=== PATIENT | male | born 1955 | race Caucasian/White ===

== ENCOUNTER 2018-03-23 12:47 | Emergency (ER) | payer MEDICAID, SELFPAY ==
[2018-03-23 12:48] VITALS: BP 152/76; PULSE 82; RESP 16; TEMP 36.7; O2SAT 99; BMI 27.3
--- NOTE | 2018-03-23 13:16 | CT_ITS ---
STUDY: CT BRAIN WITHOUT CONTRAST REASON FOR EXAM: Male, 62 years old. Injury to the floor at due to a fall. No loss of consciousness. RADIATION DOSAGE (If Supplied By Facility): CTDIvol = ( 44.99 ) mGy, DLP = ( 796.11 ) mGycm TECHNIQUE: Transaxial CT imaging of the brain was performed without administration of intravenous contrast material. Individualized dose optimization techniques were used for this CT. COMPARISON: None. FINDINGS: Normal soft tissue structures. Normal calvarium. There is mild cerebral atrophy with widening of the extra-axial spaces and ventricular dilatation. Normal white matter tracts of the cerebral hemispheres. Normal basal ganglia and thalami. Normal brainstem. Normal cerebellum. There is no intracranial hemorrhage. There are no findings of an acute ischemic infarction. There is opacification of the left maxillary sinus. Partial opacification of the left ethmoid sinus. Opacification of the left frontal sinus. Nasal septal deviation towards the right side of the midline. CT/Brain/Head without Contrast IMPRESSION: Chronic involutional changes of the brain. Left maxillary, ethmoid and frontal sinusitis. Electronically Signed: Oseas Edgar MD at 15:10 EDT Tel [phone], Service support ,
--- NOTE | 2018-03-23 13:16 | CT_ITS ---
STUDY: CT CERVICAL SPINE WITHOUT CONTRAST REASON FOR EXAM: Male, 62 years old. Trauma to the forehead due to fall. RADIATION DOSAGE (If Supplied By Facility): CTDIvol = ( 24.84 ) mGy, DLP = ( 566.04 ) mGycm TECHNIQUE: High resolution transaxial imaging was performed without contrast material. Sagittal and coronal images were reconstructed. Individualized dose optimization techniques were used for this CT. COMPARISON: None FINDINGS: Normal craniovertebral junction. There are degenerative changes of the anterior atlantoaxial articulation. Normal odontoid process. There is straightening of the normal cervical lordosis. Normal vertebral bodies and posterior osseous elements. C2-3: The disc space is maintained. Hypertrophy of the right facet joint with narrowing of the right intervertebral foramen. C3-4: Moderate degree of disc space narrowing. Spondylosis. Mild degree of uncovertebral arthrosis. C4-5: Moderate degree of disc space narrowing. Uncovertebral arthrosis. Hypertrophy of the facet joints. Bilateral neural foraminal stenosis worse on the left side. C5-6: Moderate degree of disc space narrowing with spondylosis. Uncovertebral arthrosis. Mild left paracentral central canal stenosis due to posterior spondylosis. C6-7: Normal endplates. Normal disc height and morphology. Normal central canal and intervertebral neuroforamina. C7-T1: Normal endplates. Normal disc height and morphology. Normal central canal and intervertebral neuroforamina. Atherosclerotic calcification of the carotid arteries. Emphysematous changes seen in the lung apices. CT/Spine Cervical without Contras IMPRESSION: Multilevel degenerative changes, as described above. Electronically Signed: Oseas Edgar MD at 15:12 EDT Tel [phone], Service support ,
[2018-03-23 13:36] LABS: Absolute Lymphocyte Count 2.03 X10^3/ul (0.83-4.51); Absolute Neutrophil Count 4.3 X10^3/uL (2.0-7.7); Basophil# 0.02 X10^3/uL; Basophil% 0.3 % (0-1); Eosinophil# 0.09 X10^3/uL; Eosinophils% 1.3 % (0-5); Hematocrit 49.3 % (40-54); Hemoglobin 17.6 g/dl (13.0-16.5); Lymphocyte # 2.03 X10^3/ul (4.0); Lymphocyte % 28.2 % (19-41); Mean Corp Hgb Conc 35.7 g/gl (32-36); Mean Corpuscular Hgb 33.5 pg (27.0-32.0); Mean Corpuscular Volume 93.7 fL (80-94); Mean Platelet Vol. 10.3 fl (6.2-12.0); Monocyte# 0.71 X10^3/uL; Monocyte% 9.9 % (0-10); Neutrophil # 4.32 X10^3/uL (2.7-7.7); Neutrophil % 59.9 % (47-70); Platelet Count 126 K/mm3 (150-450); RBC Distribution Width CV 12.5 % (11.6-14.6); RBC Distribution Width SD 42.7 fl (35.1-43.9); Red Blood Count 5.26 M/mm3 (4.6-6.2); White Blood Count 7.2 K/mm3 (4.4-11.0)
[2018-03-23 13:37] LABS: POSITIVE COUNT NO; POSITIVE DIFFERENTIAL NO; POSITIVE MORPHOLOGY NO
--- NOTE | 2018-03-23 13:38 | CASEMGMT ---
Social Work Note Referral from bedside RN that pt has questions regarding financial concerns. Introduced self and role at [facility]. The pt reports to live alone in a home with approximately 13 entry steps. Pt works, but reports that last year he brought home maybe $10,000. Denies having ever applied for Medicaid through [facility], but that he has been told to. Offer to assist with completion of application and fax to [facility]. Pt requests assistance. Application completed and faxed to [facility]. Original provided to pt. Denies additional questions/needs and is made aware that SW is available. RN updated. Jessica William, SUPPLY CRIB ATTENDANT, ASSOCIATE TEACHER
[2018-03-23 13:46] LABS: Anion Gap 9 (5-15); BUN 9 mg/dL (7-18); BUN/Creat Ratio 12.7 RATIO (10-20); Calcium,Total 9.1 mg/dL (8.5-10.1); Chloride 105 mmol/L (98-107); Creatinine, Serum 0.71 mg/dL (0.70-1.30); EST Glomerular Filtration Rate 120 mL/min (>60); Est Glom Filt Rate - Afr Amer 145 mL/min (>60); Estimated Creatinine Clearance 112.81 ml/min; Glucose 204 mg/dL (74-106); Potassium 3.8 mmol/L (3.5-5.1); Sodium Level 137 mmol/L (136-145)
--- NOTE | 2018-03-23 14:46 | MRI_ITS ---
STUDY: MRI CERVICAL SPINE WITHOUT CONTRAST REASON FOR EXAM: Male, 62 years old. Weakness and numbness in left arm and hand TECHNIQUE: Standardized fat and water weighted pulse sequences were obtained in the sagittal and axial planes. COMPARISON: None FINDINGS: Normal foramen magnum and brainstem-cervical cord junction. Normal craniovertebral junction. Normal anterior atlantoaxial articulation. Normal odontoid process. Decreased cervical lordosis. Normal vertebral bodies and posterior osseous elements. C2-3: Normal endplates. Normal disc height, signal and morphology. Normal central canal and intervertebral neural foramina. C3-4: Narrowed disc space with endplate spurring. There is broad-based bulging disc osteophyte complex narrowing the spinal canal and mildly compressing the cord. Severe bilateral neuroforaminal stenosis secondary to bony hypertrophy.. C4-5: Narrowed disc space and endplate spurring. Moderate size broad-based central disc protrusion narrowing the spinal canal and compressing the cord. Severe bilateral neuroforaminal stenosis secondary to bony hypertrophy. C5-6: Narrowed disc space and endplate spurring.. Minor bulging disc osteophyte complex with small left posterolateral/foraminal disc/osteophyte protrusion.. There is narrowing the spinal canal and mild compression of the cord on the left. There is moderate right neuroforaminal encroachment and occlusion on the left secondary to disc and bony hypertrophy C6-7: Mild endplate spurring.. Normal disc height, signal and moderate sized left paracentral/posterolateral disc protrusion narrowing the central canal and compressing the cord on the left.. Normal intervertebral neural foramina. C7-T1: Mild endplate spurring.. Normal disc height, signal and small right paracentral/posterolateral disc protrusion. There is mild narrowing the central canal and cord compression on the right. Normal bilateral neuroforamina. There is increased intramedullary signal within the cord at C4-5 consistent with gliosis or myelomalacia likely due to chronic impingement Normal visualized soft tissue structures. MRI/Spine Cervical (Routine) IMPRESSION: No evidence for acute fracture or other significant bony pathology Advanced spondylosis and multilevel spinal stenosis secondary to disc disease and bony hypertrophy most severe at C4-5 where there is cord compression and focal myelomalacia. Findings as above Electronically Signed: Mikhail Atkinson MD at 16:30 EDT , Service support ,
--- NOTE | 2018-03-23 17:18 | ED.DCSUM_ITS ---
- ER Visit Summary Date of Service: 03/23/18 Chief Complaint: [Fall and neck injury] History of Present Illness: The patient is a 62 M [presents to the emergency department with complaint of a fall that occurred 2 days ago. Patient states that his right leg gave out which happens from time to time and he fell forward and try to catch himself with his hands however his head hit the ground. Patient states that there was no loss of consciousness but that he felt paralyzed for about an hour and really could not move his arms or legs. Patient since that time is had numbness and weakness in both arms and both legs. Patient describes decreased sensation in both hands. Patient having a harder time with dexterity specifically of the right hand. Patient still ambulatory. Patient denies any change in bowel or bladder function.] Physical Examination: [HEXOCHILT-PERRSIN, KAYLEIGHMI. Cranial nerves II through XII grossly intact. TMs clear. Mucous membranes moist. No adenopathy. Patient has some diffuse tenderness to palpation of the mid to lower C-spine. No bony step-offs noted. Cardiovascular-regular rate and rhythm without murmur or ectopy Lungs-clear to auscultation, chest wall stable without crepitus or subcu emphysema Abdomen-normoactive bowel sounds, soft, nontender, no rebound or rigidity, no peritoneal signs. Neuro exam-patient has some subtle decrease strength in both hands that I gave a 4 out of 5 strength to. Patient has decreased sensation to light touch to the right hand. Patient has subtle weakness of both lower extremities but is able to hold both legs up off the bed for count of 5. Patient is ambulatory in the department. Extremities-intact ?4, normal range of motion, normal pulses, atraumatic] Test Results: [CT scan of the brain showed chronic involutional changes nothing acute. CT scan of the cervical spine showed degenerative changes without any evidence of fracture. MRI of the cervical spine obtained showed no evidence for acute fracture or other significant bony pathology and there was advanced spondylo-cysts and multilevel spinal stenosis secondary to disc disease and bony hypertrophy most severe at C4-5 where there is cord compression and focal myelomalacia.] Emergency Department Course and Treatment: [I attempted to contact neurosurgery electronic sales and service technician Dr. Jesus who is in the operating room therefore care of patient turned over to evening physician awaiting callback from neurosurgeon to arrange follow-up and to discuss patient case.] Treatment Plan: [Pending] Disposition: [Pending] Impression: [Mechanical fall Cervical strain Central cord syndrome] This note was generated with Epiphany dictation software. It may contain incorrect words, spelling, and punctuation that were not noted in review of the chart prior to signing ED Disposition - Plan for ED Patient: Chief Complaint: Fall Referrals: Care Physician,No Primary [Primary Care Provider] -
--- NOTE | 2018-03-23 18:47 | ED.DEP ---
ED Disposition - Plan for ED Patient: Chief Complaint: Fall Instructions: Understanding Spinal Cord Injury (SCI) Referrals: Bill Jesus MD [STAFF PHYSICIAN] -
[2018-03-23 18:57] VITALS: BP 115/67; PULSE 74; RESP 16; O2SAT 97
== END 2018-03-23 18:57 | disposition home or self-care (01) ==
LOC: ED 13:48
PROVIDERS: Emergency Provider Emergency Medicine
DX: S16.1XXA Strain of muscle, fascia and tendon at neck level, initial encounter (principal); S14.129A Central cord syndrome at unspecified level of cervical spinal cord, initial encounter; W19.XXXA Unspecified fall, initial encounter; Y93.9 Activity, unspecified; Y92.9 Unspecified place or not applicable; Z90.49 Acquired absence of other specified parts of digestive tract; Z72.0 Tobacco use
CPT/HCPCS: 70450; 72125; 72141; 80048; 85025; 99283; A4216

== ENCOUNTER → 2019-02-13 10:40 | Outpatient (CLI) | payer MEDICAID, SELFPAY ==
--- NOTE | 2019-02-13 11:11 | EKG12_ITS ---
Test Reason : BASELINE EKG Blood Pressure : / mmHG Vent. Rate : 089 BPM Atrial Rate : 089 BPM P-R Int : 176 ms QRS Dur : 094 ms QT Int : 378 ms P-R-T Axes : 078 066 -36 degrees QTc Int : 459 ms Normal sinus rhythm Nonspecific ST & T Wave abnormality Abnormal ECG Confirmed by LILIA PERDOMO, CADEN ([id number]), deputy editor in chief MILA LIZ ([id number]) on 02/15/2019 1:37:39 PM Referred By: OUT DOCTOR Confirmed By:CADEN RODRIGUES MD
[2019-02-13 11:31] LABS: Absolute Lymphocyte Count 2.37 X10^3/ul (0.83-4.51); Basophil# 0.02 X10^3/uL; Basophil% 0.2 % (0-1); Eosinophils% 2.4 % (0-5); Hematocrit 50.3 % (40-54); Hemoglobin 17.9 g/dl (13.0-16.5); Lymphocyte # 2.37 X10^3/ul (4.0); Lymphocyte % 28.1 % (19-41); Mean Corp Hgb Conc 35.6 g/gl (32-36); Mean Corpuscular Hgb 33.5 pg (27.0-32.0); Mean Platelet Vol. 9.9 fl (6.2-12.0); Monocyte# 0.83 X10^3/uL; Monocyte% 9.9 % (0-10); Neutrophil # 4.97 X10^3/uL (2.7-7.7); POSITIVE COUNT NO; POSITIVE DIFFERENTIAL NO; POSITIVE MORPHOLOGY NO; Platelet Count 137 K/mm3 (150-450); RBC Distribution Width CV 12.9 % (11.6-14.6); Red Blood Count 5.35 M/mm3 (4.6-6.2); White Blood Count 8.4 K/mm3 (4.4-11.0)
[2019-02-13 12:01] LABS: Hemoglobin A1c 9.7 % (4.2-6.3)
[2019-02-13 12:04] LABS: ALB/GLOB Ratio 0.9 RATIO (0.9-2.4); AST(SGOT) 56 U/L (15-37); Alanine Aminotransfer ALT/SGPT 76 U/L (16-61); Albumin, Serum 3.6 g/dL (3.2-5.0); Alkaline Phosphatase 165 U/L (45-117); Anion Gap 7 (5-15); BUN 10 mg/dL (7-18); BUN/Creat Ratio 12.3 RATIO (10-20); Bilirubin, Direct 0.22 mg/dL (0.00-0.30); CPK Total, Creatine Kinase 92 U/L (39-308); Calcium,Total 8.9 mg/dL (8.5-10.1); Chloride 106 mmol/L (98-107); Cholesterol 200 mg/dL (200); Creatinine, Serum 0.81 mg/dL (0.70-1.30); EST Glomerular Filtration Rate 102 mL/min (>60); Est Glom Filt Rate - Afr Amer 123 mL/min (>60); Globulin 3.8 g/dL (2.2-4.2); Glucose 250 mg/dL (74-106); High Density Lipoprotein 41 mg/dL; Potassium 4.1 mmol/L (3.5-5.1); Protein, Total 7.4 g/dL (6.4-8.2); Sodium Level 137 mmol/L (136-145); Thyroid Stim Hormone (TSH) 1.73 uIU/mL (0.358-3.74); Triglycerides 238 mg/dL; Very Low Density Lipoprotein 48 mg/dL (5-40)
== END ==
DX: F19.10 Other psychoactive substance abuse, uncomplicated (principal); Z79.899 Other long term (current) drug therapy
CPT/HCPCS: 36415; 80053; 80061; 82248; 82550; 83036; 84443; 85025; 93005

== ENCOUNTER 2019-05-02 10:00 | Outpatient (RCR) | payer MEDICAID, SELFPAY | END 2019-05-24 23:59 | LOC: DC 10:00 | PROVIDERS: Visit Provider Family Medicine | DX: E11.9 Type 2 diabetes mellitus without complications (principal); Z71.3 Dietary counseling and surveillance | CPT/HCPCS: 97802; G0108 ==

== ENCOUNTER 2019-05-31 11:00 | Outpatient (RCR) | payer MEDICAID, SELFPAY | END 2019-06-24 23:59 | LOC: DC 11:00 | PROVIDERS: Visit Provider Family Medicine | DX: E11.9 Type 2 diabetes mellitus without complications (principal); Z71.3 Dietary counseling and surveillance | CPT/HCPCS: 97803; G0108 ==

== ENCOUNTER → 2019-06-15 10:41 | Outpatient (CLI) | payer MEDICAID, SELFPAY ==
[2019-06-15 12:46] LABS: AST(SGOT) 31 U/L (15-37); Alanine Aminotransfer ALT/SGPT 46 U/L (16-61); Albumin, Serum 3.9 g/dL (3.2-5.0); Alkaline Phosphatase 111 U/L (45-117); Anion Gap 7 (5-15); BUN 14 mg/dL (7-18); Calcium,Total 9.7 mg/dL (8.5-10.1); Chloride 105 mmol/L (98-107); Creatinine, Serum 0.93 mg/dL (0.70-1.30); EST Glomerular Filtration Rate 87 mL/min (>60); Est Glom Filt Rate - Afr Amer 105 mL/min (>60); Globulin 4.1 g/dL (2.2-4.2); Glucose 134 mg/dL (74-106); Potassium 4.4 mmol/L (3.5-5.1); Sodium Level 139 mmol/L (136-145)
[2019-06-15 13:31] LABS: Hepatitis B Surface Antigen Non-Reactive (Nonreactive); Hepatitis C Antibody Non-Reactive (Nonreactive)
[2019-06-15 16:09] LABS: Microalbumin:Creatinine Ratio 125.6 mg/g CRE (<30 mg/g CRE)
== END ==
PROVIDERS: Family Provider Family Medicine; PCP Family Medicine; Visit Provider Family Medicine
DX: E11.9 Type 2 diabetes mellitus without complications (principal); R74.8 Abnormal levels of other serum enzymes
CPT/HCPCS: 36415; 80053; 82043; 82570; 86803; 87340

== ENCOUNTER 2019-06-29 08:43 | Outpatient (RCR) | payer MEDICAID, SELFPAY | END 2019-07-24 23:59 | LOC: DC 08:43 | PROVIDERS: Family Provider Family Medicine; PCP Family Medicine; Visit Provider Family Medicine | DX: E11.9 Type 2 diabetes mellitus without complications (principal); Z71.3 Dietary counseling and surveillance | CPT/HCPCS: G0109 ==

== ENCOUNTER 2019-08-03 12:56 | Outpatient (RCR) | payer MEDICAID, SELFPAY | END 2019-08-24 23:59 | LOC: DC 12:56 | PROVIDERS: Family Provider Family Medicine; PCP Family Medicine; Visit Provider Family Medicine | DX: E11.9 Type 2 diabetes mellitus without complications (principal); Z71.3 Dietary counseling and surveillance | CPT/HCPCS: 97803 ==

== ENCOUNTER 2019-08-31 10:24 | Outpatient (RCR) | payer MEDICAID, SELFPAY | END 2019-09-23 23:59 | LOC: DC 10:24 | PROVIDERS: Family Provider Family Medicine; PCP Family Medicine; Visit Provider Family Medicine | DX: Z71.3 Dietary counseling and surveillance (principal); E11.9 Type 2 diabetes mellitus without complications | CPT/HCPCS: G0109 ==

== ENCOUNTER 2020-04-18 09:30 | Outpatient (RCR) | payer MEDICAID, SELFPAY | END 2020-04-18 23:59 | disposition home or self-care (01) | LOC: DC 09:30 | PROVIDERS: Family Provider Family Medicine; PCP Family Medicine; Visit Provider Family Medicine | DX: Z71.3 Dietary counseling and surveillance (principal); E11.9 Type 2 diabetes mellitus without complications | CPT/HCPCS: G0109 ==

== ENCOUNTER → 2020-06-13 11:41 | Outpatient (CLI) | payer MEDICAID, SELFPAY ==
[2020-06-13 15:42] LABS: ALB/GLOB Ratio 1.1 RATIO (0.9-2.4); AST(SGOT) 41 U/L (15-37); Alanine Aminotransfer ALT/SGPT 62 U/L (16-61); Albumin, Serum 3.8 g/dL (3.2-5.0); Alkaline Phosphatase 81 U/L (45-117); Anion Gap 5 (5-15); BUN 9 mg/dL (7-18); Calcium,Total 9.5 mg/dL (8.5-10.1); Chloride 106 mmol/L (98-107); Cholesterol 211 mg/dL (200); Creatinine, Serum 0.82 mg/dL (0.70-1.30); EST Glomerular Filtration Rate 101 mL/min (>60); Est Glom Filt Rate - Afr Amer 122 mL/min (>60); Globulin 3.5 g/dL (2.2-4.2); Glucose 119 mg/dL (74-106); High Density Lipoprotein 41 mg/dL; Protein, Total 7.3 g/dL (6.4-8.2); Sodium Level 137 mmol/L (136-145); Triglycerides 290 mg/dL; Very Low Density Lipoprotein 58 mg/dL (5-40)
[2020-06-13 18:26] LABS: Microalbumin:Creatinine Ratio 65.7 mg/g CRE (<30 mg/g CRE)
== END ==
PROVIDERS: PCP Family Medicine; Visit Provider Family Medicine
DX: E11.9 Type 2 diabetes mellitus without complications (principal)
CPT/HCPCS: 36415; 80053; 80061; 82043; 82570

== ENCOUNTER → 2020-12-12 10:58 | Outpatient (CLI) | payer MEDICARE, MEDICAID, SELFPAY ==
[2020-12-12 12:14] LABS: Absolute Lymphocyte Count 1.78 X10^3/uL (0.83-4.51); Absolute Neutrophil Count 5.2 X10^3/uL (2.0-7.7); Basophil# 0.05 X10^3/uL; Basophil% 0.6 % (0-1); Eosinophil# 0.15 X10^3/uL; Eosinophils% 1.9 % (0-5); Hemoglobin 16.5 g/dL (13.0-16.5); Lymphocyte # 1.78 X10^3/ul (4.0); Lymphocyte % 22.1 % (19-41); Mean Corp Hgb Conc 34.4 g/dL (32-36); Mean Corpuscular Hgb 32.9 pg (27.0-32.0); Mean Corpuscular Volume 95.6 fL (80-94); Mean Platelet Vol. 9.6 fl (6.2-12.0); Monocyte# 0.78 X10^3/uL; Monocyte% 9.7 % (0-10); NRBC Flagged by Analyzer 0 % (0-5); Neutrophil # 5.24 X10^3/uL (2.7-7.7); Platelet Count 174 K/mm3 (150-450); RBC Distribution Width CV 12.1 % (11.6-14.6); RBC Distribution Width SD 42.4 fl (35.1-43.9); Red Blood Count 5.02 M/mm3 (4.6-6.2); White Blood Count 8.1 K/mm3 (4.4-11.0)
[2020-12-12 12:40] LABS: ALB/GLOB Ratio 0.9 RATIO (0.9-2.4); AST(SGOT) 46 U/L (15-37); Alanine Aminotransfer ALT/SGPT 61 U/L (16-61); Albumin, Serum 3.6 g/dL (3.2-5.0); Alkaline Phosphatase 103 U/L (45-117); Anion Gap 10 (5-15); BUN 19 mg/dL (7-18); BUN/Creat Ratio 21.2 RATIO (10-20); Calcium,Total 9.8 mg/dL (8.5-10.1); Chloride 103 mmol/L (98-107); EST Glomerular Filtration Rate 91 mL/min (>60); Est Glom Filt Rate - Afr Amer 110 mL/min (>60); Globulin 3.8 g/dL (2.2-4.2); Glucose 162 mg/dL (74-106); Potassium 4.3 mmol/L (3.5-5.1); Protein, Total 7.4 g/dL (6.4-8.2); Sodium Level 136 mmol/L (136-145)
== END ==
PROVIDERS: PCP Family Medicine; Visit Provider Family Medicine
DX: E11.9 Type 2 diabetes mellitus without complications (principal); R74.8 Abnormal levels of other serum enzymes
CPT/HCPCS: 36415; 80053; 85025

== ENCOUNTER 2021-06-20 10:23 | Emergency (ER) | payer MEDICARE, SELFPAY ==
[2021-06-20 10:24] VITALS: BP 132/68; PULSE 104; RESP 18; TEMP 36.2; O2SAT 98; BMI 25.2
--- NOTE | 2021-06-20 10:45 | EKG12_ITS ---
Test Reason : DYSRYTHMIA Blood Pressure : / mmHG Vent. Rate : 087 BPM Atrial Rate : 089 BPM P-R Int : 164 ms QRS Dur : 090 ms QT Int : 364 ms P-R-T Axes : 074 051 -05 degrees QTc Int : 438 ms Normal sinus rhythm Nonspecific ST and T wave abnormality Abnormal ECG Confirmed by JOSE RAUL PERDOMO, EZEKIEL ([id number]), acquisition editor MILA LIZ ([id number]) on 06/23/2021 12:42:38 PM Referred By: JENNIFER Confirmed By:EZEKIEL BLUNT MD
--- NOTE | 2021-06-20 10:45 | ART_ITS ---
Reason For Study: Decreased pedal pulses Procedure A bilateral lower extremity continuous wave Doppler with analog waveform analysis,segmental pressures,and ankle brachial indexes without exercise. Left Segmental Pressures Left thigh = 75mmHg. The left posterior tibial artery waveforms are absent. The left dorsalis pedis waveforms are absent. The left calf waveforms are biphasic. Right Segmental Pressures Right brachial= 114mmHg. Right thigh = 116mmHg. Right calf = 92mmHg. Right posterior tibial artery = 98mmHg. Right dorsalis pedis artery = 68mmHg. Right digit = 60 mmHg. The right dorsalis pedis waveforms are biphasic. The right posterior tibial artery waveforms are biphasic. Indices The right ankle brachial index by the dorsalis pedis is 0.60. The right ankle brachial index by the posterior tibial artery is 0.86. The right digital-brachial index is 0.53. VL/Lower Ext Art Exam w/o Exercis Interpretation Summary Abnormal right lower extremity ankle-brachial indices in the range of moderatel y severe disease. The right posterior tibial and dorsalis pedis Doppler waveforms are biphasic consis tent with the same. The right digital brachial index of 0.53 is abnormal Abnormal left lower extremity noninvasive exam at rest with the inability to id entify to identify pulses in the left posterior tibial and dorsalis pedis and digital level. This is consistent with severe disease. Ordering Physician: Eric Reddy Referring Physician: Xena Arroyo Performed By: Arabella Kearney RVT
--- NOTE | 2021-06-20 10:48 | ED.RN ---
NO PEDAL PULSES TO LEFT FOOT WITH DOPPLER PER DR. SANTORO. POPLITEAL PULSES NOTED TO LEFT FOOT ON DOPPLER.
--- NOTE | 2021-06-20 10:50 | ED.VIS.LOWEX ---
HPI History of Present Illness Chief Complaint: Lower Extremity Injury Informant: patient Narrative Narrative: Patient states that he woke up Wednesday morning. He has decreased sensation and pain in his left foot. It has not changed since then. It is a stocking glove type distribution. He is able to walk. He has no other complaints. He has no history of dysrhythmia. No chest pain. No trauma. No recent bleeding complications. He has a chronically deformed right lower extremity but this is unchanged. It is his left that is affected. No notable back pain. No abdominal pain. No syncope. No history of AAA. He is a smoker. Nothing makes his symptoms better or worse. [facility] Medical History (Updated 06/20/21 @ 14:[address] Eric Reddy MD) Diabetes HTN (hypertension) Hyperlipidemia Home Medications atorvastatin 10 mg PO QHS 06/20/21 [History Last Taken Unknown] fluoxetine 20 mg PO DAILY 06/20/21 [History Last Taken Unknown] glipizide 2.5 mg PO DAILY 06/20/21 [History Last Taken Unknown] lisinopril 5 mg PO DAILY 06/20/21 [History Last Taken Unknown] metformin 1,000 mg PO BID 06/20/21 [History Last Taken Unknown] Allergy/AdvReac Type Severity Reaction Status Date / Time No Known Allergies Allergy Verified 06/20/21 10:25 Social History Smoking Status: Current some day smoker tobacco type: cigarettes ROS ROS ED Constitutional Constitutional ED: Denies fever(s), subjective or sweats Eyes Eyes: Denies blurry vision ENT ENT ED: Denies rhinorrhea or sore throat Cardiovascular Cardiovascular: Denies chest pain, palpitations or racing heartbeat Respiratory/Chest Respiratory/Chest: Denies cough or dyspnea Gastrointestinal Gastrointestinal: Denies abdominal pain, nausea or vomiting Genitourinary Genitourinary ED: Denies dysuria or hematuria Musculoskeletal Musculoskeletal: Denies back pain Integumentary Reports other Details: Slight color change to his left foot. ; Denies rash Neurologic Neurologic: Reports paresthesias; Denies weakness Endocrine Endocrinology: Denies polydipsia or polyuria Hematologic/Lymphatic Hematologic/Lymphatic: Denies easy bleeding or easy bruising Allergic/Immunologic Allergic/Immunologic ED: Denies urticaria EXAM Physical Exam Const Vital Signs: 06/20/21 10:24 06/20/21 12:23 Temperature 97.1 F L Temperature Source Temporal Pulse Rate 104 H 81 Respiratory Rate 18 16 Blood Pressure 132/68 H 114/56 L Blood Pressure Mean 89 75 Pulse Ox 98 98 Oxygen Delivery Method Room Air Room Air Positive well nourished and well developed General Appearance ED: well developed and NAD HEENT atraumatic Neck full ROM Chest Wall inspection of chest normal Resp normal respiratory effort and clear to auscultation bilaterally Cardio regular rate, regular rhythm and no murmurs GI non-tender and non-distended GI Narrative: No bruit mass or tenderness. Palpation: soft Back/Spine no CVA tenderness General Back: Negative for CVA tenderness Extremity Extremity Narrative: Right lower extremity has chronic deformity but no acute changes. Left has extremely slow capillary refill in the toes. There appears to be some very subtle duskiness of the skin from the lower third of the left sanchez on down. No palpable pulse. I get a good dopplerable pulse that is by to triphasic on the popliteal. I can get no Doppler pulse anywhere below that. I think this is a subacute arterial occlusion. Neuro oriented x3 Neuro Narrative: Patient sensation is decreased in his left foot. Sensorium / Orientation: alert and oriented to person Psych mental status grossly normal Skin Skin Narrative: Venous to the left lower extremity as above. Rashes: no rashes MDM MDM MDM Narrative Medical decision making narrative: Patient's arterial study/SUGAR were consistent with what I found at the bedside. There is really no significant pulse below popliteal. Blood work shows normal CBC. Coags are normal. Electrolytes are overall unremarkable. Glucose is only 121. Lactate is elevated consistent with some peripheral ischemia. I discussed case with Dr. Grayson who is on for vascular. However, he only occasionally comes to the hospital and is not available for acute evaluation. We also discussed case with our hospitalist here the concern is that we do not really have the immediate capabilities to manage this patient. A peripheral CTA was done that did show a poor flow on both legs. 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 I have called [facility] that has no beds. I called [facility]. They are contacting the vascular surgeon. They felt they will likely have a bed but it will be 6 shortly after dinnertime tonight. I am awaiting a call back to discuss the case directly with the vascular surgeon. I discussed the case with vascular surgeon Dr. Lara as well as with the emergency department. Patient will be transferred up there. He will go to [facility]. Patient is comfortable at this time. Lab Data Attestation: I reviewed the patient's lab results. Labs: Laboratory Results - last 24 hr 06/20/21 06/20/21 06/20/21 10:58 10:58 10:58 WBC 9.9 RBC 5.04 Hgb 16.0 Hct 47.2 MCV 93.7 MCH 31.7 MCHC 33.9 RDW Std Deviation 43.7 RDW Coeff of Deion 12.7 Plt Count 173 MPV 8.9 Immature Gran % (Auto) 0.800 Neut % (Auto) 74.6 H Lymph % (Auto) 15.0 L [place] % (Auto) 8.6 Eos % (Auto) 0.6 Baso % (Auto) 0.4 Absolute Neuts (auto) 7.3 Absolute Lymphs (auto) 1.48 Nucleated RBC % 0 PT 13.6 INR 1.1 APTT 29.5 Sodium 136 Potassium 4.3 Chloride 106 Carbon Dioxide 25.0 Anion Gap 5 BUN 14 Creatinine 0.91 Estim Creat Clear Calc 84.68 Est GFR (MDRD) Af Amer 108 Est GFR (MDRD) Non-Af 89 BUN/Creatinine Ratio 15.4 Glucose 121 H Lactic Acid Calcium 9.4 06/20/21 06/20/21 10:58 10:58 WBC RBC Hgb Hct MCV MCH MCHC RDW Std Deviation RDW Coeff of Deion Plt Count MPV Immature Gran % (Auto) Neut % (Auto) Lymph % (Auto) [place] % (Auto) Eos % (Auto) Baso % (Auto) Absolute Neuts (auto) Absolute Lymphs (auto) Nucleated RBC % PT Cancelled INR Cancelled APTT Cancelled Sodium Potassium Chloride Carbon Dioxide Anion Gap BUN Creatinine Estim Creat Clear Calc Est GFR (MDRD) Af Amer Est GFR (MDRD) Non-Af BUN/Creatinine Ratio Glucose Lactic Acid 3.0 H* Calcium Radiography Diagnostic Testing: Radiology Impression Extremity Arterial Study 06/20/21 10:45 Interpretation Summary Abnormal right lower extremity ankle-brachial indices in the range of moderately severe disease. The right posterior tibial and dorsalis pedis Doppler waveforms are biphasic consistent with the same. The right digital brachial index of 0.53 is abnormal Abnormal left lower extremity noninvasive exam at rest with the inability to identify to identify pulses in the left posterior tibial and dorsalis pedis and digital level. This is consistent with severe disease. 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 Normal runoff is visualized in the left leg distal to the popliteal artery. Occlusion of the right common femoral artery with reconstruction of the proximal portion of the popliteal artery on the right side. Electronically Signed: Oseas Edgar MD at 13:23 EDT , Service support , ADDENDUM: 06/20/21 1401 EKG Initial EKG: Comments: EKG done as part of work-up of peripheral ischemia and read by me shows sinus rhythm with overall rate of 87. I do not see any ectopy. There are mild nonspecific ST and T wave changes but no sign of infarct or ischemia. MS interval, QRS duration and QTc are normal. Discharge Plan Triage Chief Complaint: Lower Extremity Injury ED Provider: Eric Reddy Dx/Rx/DC Orders Clinical Impression: Arterial insufficiency of lower extremity Prescriptions: No Action atorvastatin 10 mg tablet 10 mg PO QHS RF: 0 glipizide 2.5 mg tablet extended release 24hr 2.5 mg PO DAILY RF: 0 metformin 1,000 mg tablet 1,000 mg PO BID RF: 0 lisinopril 5 mg tablet 5 mg PO DAILY RF: 0 fluoxetine 20 mg capsule 20 mg PO DAILY RF: 0 Primary Care Provider: Xena Arroyo Referrals: Xena Arroyo MD [Primary Care Provider] - Disposition Disposition: Acute Care Hospital Discharge Location: [facility]
[2021-06-20 11:04] LABS: Absolute Lymphocyte Count 1.48 X10^3/uL (0.83-4.51); Absolute Neutrophil Count 7.3 X10^3/uL (2.0-7.7); Basophil# 0.04 X10^3/uL; Basophil% 0.4 % (0-1); Eosinophil# 0.06 X10^3/uL; Eosinophils% 0.6 % (0-5); Hematocrit 47.2 % (40-54); Lymphocyte # 1.48 X10^3/ul (0.83-4.51); Mean Corp Hgb Conc 33.9 g/dL (32-36); Mean Corpuscular Hgb 31.7 pg (27.0-32.0); Mean Corpuscular Volume 93.7 fL (80-94); Mean Platelet Vol. 8.9 fl (6.2-12.0); Monocyte# 0.85 X10^3/uL; Monocyte% 8.6 % (0-10); NRBC Flagged by Analyzer 0 % (0-5); Neutrophil # 7.34 X10^3/uL (2.7-7.7); Neutrophil % 74.6 % (47-70); Platelet Count 173 K/mm3 (150-450); RBC Distribution Width CV 12.7 % (11.6-14.6); RBC Distribution Width SD 43.7 fl (35.1-43.9); Red Blood Count 5.04 M/mm3 (4.6-6.2); White Blood Count 9.9 K/mm3 (4.4-11.0)
[2021-06-20 11:09] VITALS: BMI 25.1
[2021-06-20] MEDS: Heparin Injection (Vial) 5,000 UNIT/ML VIAL 5000 UNIT IV (11:09)
[2021-06-20] MEDS: HEPARIN/D5w 25,000 UNITS 25,000 UNITS/250 ML IV.SOLN. 11 UNITS IV (11:11)
[2021-06-20 11:20] LABS: Anion Gap 5 (5-15); BUN 14 mg/dL (7-18); BUN/Creat Ratio 15.4 RATIO (10-20); Calcium,Total 9.4 mg/dL (8.5-10.1); Chloride 106 mmol/L (98-107); Creatinine, Serum 0.91 mg/dL (0.70-1.30); EST Glomerular Filtration Rate 89 mL/min (>60); Est Glom Filt Rate - Afr Amer 108 mL/min (>60); Estimated Creatinine Clearance 84.68 ml/min; Glucose 121 mg/dL (74-106); Potassium 4.3 mmol/L (3.5-5.1); Sodium Level 136 mmol/L (136-145)
[2021-06-20 11:24] LABS: International Normalized Ratio 1.1; Prothrombin Time (Protime)PT. 13.6 SECONDS (11.7-14.9)
[2021-06-20 11:25] LABS: Partial Thromboplast Time 29.5 Seconds (24.1-36.2)
[2021-06-20 12:23] VITALS: BP 114/56; PULSE 81; RESP 16; O2SAT 98
--- NOTE | 2021-06-20 12:25 | CT_ITS ---
STUDY: CTA OF THE ABDOMINAL AORTA AND BILATERAL LOWER EXTREMITIES REASON FOR EXAM: Male, 65 years old. Left lower extremity ischemia -- CTA abdomen pelvis with runoff for lower extremity. Patient has a right clubfoot. RADIATION DOSAGE (If Supplied By Facility): CTDIvol = ( 7.35 ) mGy, DLP = ( 1066.32 ) mGycm TECHNIQUE: Axial CT angiography multi-detector data acquisition was obtained from the dome of the liver to the ankle joints following intravenous administration of IV 100mL Isovue-370. Axial images and MIP images were reconstructed from the axial data set. Post-processing of the angiographic images was performed, with multiplanar reformation and 3D reconstruction. Individualized dose optimization techniques were used for this CT. TECHNICAL QUALITY: Good COMPARISON: None. Descriptors of Narrowing: None (0%) Mild (< 50%) Moderate (50-70%) Severe (70-90%) Subtotal/Total Occlusion (90-100%) Non-Evaluable (technically non-diagnostic FINDINGS: Minimal increased linear markings at the right lung base just above the Diffuse fatty infiltration of the liver. The patient is status post cholecystectomy. Moderate sized ventral hernia containing fat. Mild increased linear markings are seen within the herniated fat. The neck of the hernia measures 2.8 cm. Prostatic calcification. Abdominal aorta: Diffuse atherosclerotic plaque of the abdominal aorta. There is a fusiform infrarenal abdominal aortic aneurysm with a transverse dimension of 3.1 cm. There is evidence of mural thrombus more prominent in the midportion of the abdominal aorta. Celiac and superior mesenteric arteries: Mildly stenotic calcific plaques at the origin of the celiac artery and superior mesenteric artery. Inferior mesenteric artery: Not visualized. Right renal artery(arteries): Mild to moderate stenosis at the origin of the right renal artery. Left renal artery(arteries): Mild atherosclerotic plaque formation and stenosis at the origin of the left renal artery. Right common iliac artery: Marked degree of atherosclerotic plaque formation with a subtotal occlusion in the proximal portion of the right common iliac artery. Right external iliac artery: Moderate degree of atherosclerotic plaque formation. Right internal iliac artery: No demonstrated narrowing. Left common iliac artery: Atherosclerotic plaque with focal areas of stenosis worse at the origin. Left external iliac artery: Atherosclerotic plaque. Left internal iliac artery: No demonstrated narrowing. RIGHT LOWER EXTREMITY Right common femoral artery: Occluded. Right profundus femoris: No demonstrated narrowing. Right superficial femoral: Occlusion. Right popliteal artery: Reconstitution of the popliteal artery at its origin. Right tibioperoneal trunk: Unremarkable Right anterior tibial artery: Unremarkable Right posterior tibial artery: Not visualized Right peroneal artery: Not visualized LEFT LOWER EXTREMITY Left common femoral artery: Atherosclerotic plaque formation. Left profundus femoris: No demonstrated narrowing. Left superficial femoral: Scattered atherosclerotic plaques. No significant stenosis is seen. Left popliteal artery: There is evidence of a 1.8cm x 1.9 cm calcified popliteal artery aneurysm. 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 Normal runoff is visualized in the left leg distal to the popliteal artery. Occlusion of the right common femoral artery with reconstruction of the proximal portion of the popliteal artery on the right side. Electronically Signed: Oseas Edgar MD at 13:23 EDT , Service support ,
[2021-06-20 14:44] VITALS: BP 123/86; PULSE 81; RESP 16; O2SAT 98
[2021-06-20 15:01] LABS: Reflex Lactate? Y
[2021-06-20 16:00] VITALS: BP 112/76; PULSE 79; RESP 20; O2SAT 97
[2021-06-20 16:33] VITALS: BP 117/68; PULSE 79; RESP 18; O2SAT 97
[2021-06-20 16:57] LABS: Lactic Acid 1.8 mmol/L (0.4-1.9)
[2021-06-20 17:43] LABS: Partial Thromboplast Time 161.8 Seconds (24.1-36.2)
--- NOTE | 2021-06-20 17:58 | ED.RN ---
HEPARIN DRIP STOPPED AT 1745 PER PROTOCOL.
== END 2021-06-20 18:06 | disposition short-term general hospital (02) ==
PROVIDERS: Emergency Provider Emergency Medicine; PCP Family Medicine
DX: E11.51 Type 2 diabetes mellitus with diabetic peripheral angiopathy without gangrene (principal); I10 Essential (primary) hypertension; E78.5 Hyperlipidemia, unspecified; F17.210 Nicotine dependence, cigarettes, uncomplicated; Z79.84 Long term (current) use of oral hypoglycemic drugs; Z79.899 Other long term (current) drug therapy
CPT/HCPCS: 75635; 80048; 83605; 85025; 85610; 85730; 93005; 93923; 96365; 96366; 96376; 99285; Q9967; A4216

== ENCOUNTER → 2022-06-17 | Outpatient (CLI) | payer MEDICARE, SELFPAY ==
[2022-06-17 12:43] LABS: Absolute Lymphocyte Count 2.07 X10^3/uL (0.83-4.51); Absolute Neutrophil Count 5.2 X10^3/uL (2.0-7.7); Basophil# 0.05 X10^3/uL; Basophil% 0.6 % (0-1); Eosinophil# 0.19 X10^3/uL; Eosinophils% 2.3 % (0-5); Hematocrit 49.9 % (40-54); Hemoglobin 16.9 g/dL (13.0-16.5); Lymphocyte # 2.07 X10^3/ul (0.83-4.51); Lymphocyte % 24.7 % (19-41); Mean Corp Hgb Conc 33.9 g/dL (32-36); Mean Corpuscular Hgb 31.3 pg (27.0-32.0); Mean Corpuscular Volume 92.4 fL (80-94); Mean Platelet Vol. 9.3 fl (6.2-12.0); Monocyte# 0.85 X10^3/uL; Monocyte% 10.1 % (0-10); NRBC Flagged by Analyzer 0 % (0-5); Neutrophil # 5.18 X10^3/uL (2.7-7.7); Neutrophil % 61.7 % (47-70); Platelet Count 196 K/mm3 (150-450); RBC Distribution Width CV 13.2 % (11.6-14.6); RBC Distribution Width SD 44.4 fl (35.1-43.9); White Blood Count 8.4 K/mm3 (4.4-11.0)
[2022-06-17 13:35] LABS: ALB/GLOB Ratio 0.9 RATIO (0.9-2.4); AST(SGOT) 32 U/L (15-37); Alanine Aminotransfer ALT/SGPT 43 U/L (16-61); Albumin, Serum 3.7 g/dL (3.2-5.0); Alkaline Phosphatase 114 U/L (45-117); Anion Gap 6 (5-15); BUN 11 mg/dL (7-18); BUN/Creat Ratio 10.4 RATIO (10-20); Calcium,Total 9.3 mg/dL (8.5-10.1); Chloride 104 mmol/L (98-107); Cholesterol 146 mg/dL (200); Creatinine, Serum 1.06 mg/dL (0.70-1.30); EST Glomerular Filtration Rate 74 mL/min (>60); Est Glom Filt Rate - Afr Amer 90 mL/min (>60); Globulin 3.9 g/dL (2.2-4.2); Glucose 174 mg/dL (74-106); High Density Lipoprotein 47 mg/dL; Potassium 4.5 mmol/L (3.5-5.1); Protein, Total 7.6 g/dL (6.4-8.2); Sodium Level 137 mmol/L (136-145); Triglycerides 125 mg/dL; Very Low Density Lipoprotein 25 mg/dL (5-40)
[2022-06-17 13:36] LABS: Hemoglobin A1c 9.1 % (3.8-5.6)
== END | disposition home or self-care (01) ==
LOC: LAB 11:26
PROVIDERS: PCP Family Medicine; Visit Provider Family Medicine
DX: E11.9 Type 2 diabetes mellitus without complications (principal); R74.8 Abnormal levels of other serum enzymes; F32.9 Major depressive disorder, single episode, unspecified; T56.891A Toxic effect of other metals, accidental (unintentional), initial encounter
CPT/HCPCS: 36415; 80053; 80061; 82043; 82570; 83036; 85025

== ENCOUNTER 2022-12-22 13:30 | Outpatient (CLI) | payer MEDICARE, MEDICAID, SELFPAY ==
[2022-12-22] VITALS (7 sets, daily range): BP systolic 105–154; BP diastolic 60–75; PULSE 82–96; RESP 16–20; TEMP 36.3–36.8; O2SAT 96–100; BMI 26.5
[2022-12-22] MEDS: Lactated Ringers 1,000 ML 15 ML IV (09:10)
--- NOTE | 2022-12-22 09:32 | HP.PCM_ITS ---
History and Physical Date of Admission: 12/22/22 Intake Vital Signs ? 06/20/2111:09 11/24/2313:11 Height 5 ft 10 in 5 ft 10 in Weight: ? 189 lb 6 oz BMI ? 27.1 BP ? 116/86 H Blood Pressure Location ? Rt brachial Position ? Sitting Respiration ? 24 H Pulse ? 109 H Pulse Source ? Monitor Temp ? 96.8 F L Temp Source ? Temporal Pulse Oximetry (%) ? 100 Oxygen Delivery Method ? 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 Is patient in pain?: No Allergies No Known Allergies Allergy (Verified 11/24/22 14:18) Medications atorvastatin 10 mg tablet 10 mg PO QHS 06/20/21 [History Confirmed 11/24/22] fluoxetine 20 mg capsule 20 mg PO DAILY 06/20/21 [History Confirmed 11/24/22] lisinopril 5 mg tablet 5 mg PO DAILY 06/20/21 [History Confirmed 11/24/22] metformin 1,000 mg tablet 1,000 mg PO BID 06/20/21 [History Confirmed 11/24/22] glipizide 2.5 mg tablet, extended release 24 hr 5 mg PO DAILY 11/24/22 [History Confirmed 11/24/22] pioglitazone 15 mg tablet 15 mg PO DAILY 11/24/22 [History Confirmed 11/24/22] PFSH Medical History?(Updated 11/25/22 @ 09:[address] Ghulam Casey MD) Diabetes HTN (hypertension) Hyperlipidemia Social History? Smoking Status:? Current some day smoker tobacco type: cigarettes HPI HPI HPI: Patient is a 67-year-old male who with a positive Cologuard.? He has never had a colonoscopy in the past.? He denies any gross blood in his stool or abdominal pain. ROS General General: Yes fatigue; No weight change, appetite, colon cancer, breast cancer or weakness HEENT HEENT: No difficulty swallowing, eye injury, eye surgery, swollen glands or hoarseness Endo Endocrine: Yes diabetes mellitus; No thyroid disease, thyroid cancer, Hair loss, heat intolerance or cold intolerance Skin Skin: No rash or changing moles Breast Breast: No left breast lump, right breast lump, nipple discharge, breast pain, abnormal mammogram, abnormal US or breast enlargement Musc Musculoskeletal: Yes back problems and arthritis; No rheumatoid arthritis, gout or joint pain Cardio Cardiovascular: No murmur, pacemaker, heart disease, atrial fibrillation, high blood pressure, heart attack, heart stent, palpitations, shortness of breat with exertion or chest pain Psych Psychiatric: Yes depression; No anxiety or hearing voices Resp Respiratory: Yes shortness of breath, No sleep apnea, No cough, No COPD, No asthma, No emphysema and No wheezing Gastro Gastrointestinal: No abdominal pain, No nausea or vomiting, Yes diarrhea, Yes constipation, Yes blood in stool, No acid reflux, No hemorrhoids, No ulcers, No gallbladder problem and No black,tarry stools Trent Hematologic: No blood thinners, No blood disorders, No bleeding, No anemia and No blood clots Neuro Neurologic: No system reviewed and no additional complaints, except as documented, No as per HPI, No abnormal gait, No abnormal hearing, No abnormal movements, No abnormal speech, No behavioral changes, No burning sensations, No confusion, No convulsions, No disequilibrium, No dizziness, No localized weakness, No frequent falls, No headache(s), No lack of coordination, No loss of vision, No memory loss, Yes numbness, No other visual disturbances, No radicular pain, No restless legs, No sensory deficit, No syncope, Yes tingling, No tremor(s), No weakness and No other Exam Const General: cooperative Orientation: alert and oriented x3 HENMT Head: normal to inspection Neck Neck: normal visual inspection and full ROM Chest Chest palpation & inspection: normal inspection of the chest Resp Effort & Inspection: normal respiratory effort Auscultation: clear to auscultation bilaterally Cardio Rate: regular rate Rhythm: regular rhythm GI Inspection: non-distended Palpation: soft and nontender Skin General: no rashes or lesions noted Neuro General: patient alert and patient oriented x3 Extrem General: full ROM Psych Appearance: grossly normal Mental Status: mental status grossly normal Assessment and Plan Assessment and Plan (1) Positive colorectal cancer screening using Cologuard test: ?Status:?Acute ?Plan: Patient has never had a colonoscopy and requires one due to positive Cologuard. I explained endoscopy in detail to the patient.? I explained the risks including but not limited to stroke or heart attack with anesthesia, perforation of the GI tract, bleeding, infection.? I explained that any of these could necessitate further emergency surgery.? The patient understands and all questions were answered sufficiently.? The patient wishes to proceed with procedure. Ghulam Casey MD Pager: [facility] [address] [place] [address], [address] [place] [address] Office: I have examined the patient and the H&P has been reviewed. There are no clinical changes since date of exam.
--- NOTE | 2022-12-22 10:00 | COLBX_PTH ---
PATIENT: LEI VALDEZ LOC: EN U#:[id number] AGE/SX: 67/M ROOM: RE12/22/[address]: Dr. Ghulam Casey MD : 1955 BED: DIS: 12/22/2022 SPEC #: [id number] RECD: 12/22/22 15:57 STATUS: PATRIC DOS SANTOS #: [id number] LOY: 12/22/22 10:[address]: Ghulam Casey DEPT: SURGICAL PATHOLOGY RECD BY: Oliver Mitchell ENTERED: 12/23/22 12:34 SP TYPE: COLON BX OTHR DR: Dr. Xena Arroyo MD Tissues: A - Transverse colon B - Descending colon Procedures: Surgery Specimen Level IV HEADER OPERATION: Colonoscopy (MAC) PRE-OP DIAGNOSIS: Positive Cologuard test TISSUE SUBMITTED: A ? Polyp transverse colon, B ? Biopsy colon mass descending colon MICROSCOPIC DIAGNOSIS A. Polyp transverse colon, biopsy: Fragments of tubular adenoma. B. Colon mass and descending colon mass, biopsy: Fragments of villous adenoma. Negative for invasive carcinoma. See comment. LIYAH:monica 12/24/2022 COMMENT Correlation with clinical, endoscopic findings and appropriate follow up are necessary. Case has been reviewed in consultation with Dr. Mendez who concurs with the above diagnosis. IDC:AM MICROSCOPIC DESCRIPTION Slides are reviewed. GROSS DESCRIPTION A - Received in fixative is one container labeled with the patient's name and designated polyp transverse colon. The specimen consists of two irregular fragments of light dodge soft tissue that in aggregate measure 0.6 x 0.3 x 0.1 cm. The specimen is totally submitted in one cassette. B - Received in fixative is one container labeled with the patient's name and designated biopsy colon mass descending colon. The specimen consists of multiple irregular fragments of light dodge soft tissue that in aggregate measure 0.6 x 0.6 x 0.1 cm. The specimen is totally submitted in one cassette. / LIYAH:monica 12/23/2022 TC:1 CPT: 39721 x2
[2022-12-22 10:10] LABS: Bedside Glucose 172 mg/dL (74-106)
--- NOTE | 2022-12-22 10:18 | CT_ITS ---
STUDY: CT CHEST, ABDOMEN T PELVIS WITH CONTRAST REASON FOR EXAM: Male, 67 years old. Left colon mass marked with clip RADIATION DOSAGE (If Supplied By Facility): CTDIvol = ( 16.81 ) mGy, DLP = ( 1625.36 ) mGycm TECHNIQUE: Transaxial imaging was performed following intravenous administration of Oral and amp; IV Gastrografin and amp; 100mL Isovue-300. Multiplanar coronal and sagittal images were reformatted. Individualized dose optimization techniques were used for this CT. COMPARISON: No relevant priors. FINDINGS: CHEST There is a 2.2 cm spiculated mass in the anterior aspect of the left upper lobe medially as seen on axial image #54. Hyperinflation. Linear scarring in the anterior aspect of the left lower lobe as well as in the medial aspect of the right lower. Mild degree of emphysematous changes. There are calcifications of the coronary arteries. Normal mediastinum. Normal hilar regions. Normal unenhanced pulmonary arteries. There is atherosclerotic calcification of the aortic arch with tortuosity and elongation of the aortic arch and descending thoracic aorta. There are multi-level degenerative changes of the thoracic spine. ABDOMEN There is decreased attenuation of the liver consistent with steatosis. The gallbladder is contracted. Normal spleen. Normal pancreas. Normal bilateral adrenal glands. Normal right kidney. Normal left kidney. Normal visualized stomach. Normal small intestine. Apple core lesion is seen in the proximal descending colon. Increased markings are seen in the surrounding peritoneal fat. The appendix is visualized and appears normal. There is diffuse atherosclerotic calcification of the abdominal aorta and its major visceral branches. There is dilatation of the infrarenal abdominal aorta with a transverse dimension of 3 cm. Normal inferior vena cava. Normal retroperitoneum. There is a small umbilical hernia containing fat. The neck of the hernia measures 4.7 cm. Normal osseous structures. PELVIS Normal urinary bladder. The prostate is enlarged. It measures 4 cm x 4.5 cm. There is no pelvic fluid. There is no pelvic lymphadenopathy or mass lesion. There is diffuse atherosclerotic calcification of the pelvic arteries. CT/CT Chest, Abd, Pel w/Contrast IMPRESSION: 2.2 cm spiculated mass in the anterior medial aspect of the left upper lobe. Apple core lesion is seen in the proximal descending colon. This most likely represents a colonic carcinoma. Umbilical hernia. Electronically Signed: Oseas Edgar MD at 14:21 EST ,
--- NOTE | 2022-12-22 10:23 | OP.COLON_ITS ---
Patient Name: Mikhail Gibson Procedure Date: 12/22/2022 9:37 AM Date of : 1955 Age: 67 Procedure: Colonoscopy Indications: Positive Cologuard test Providers: Ghulam Casey MD Medicines: Monitored Anesthesia Care Patient Profile: This is a 67 year old male. Refer to note in patient chart for documentation of history and physical. Last Colonoscopy: none. The patient's first colonoscopy is today. Complications: No immediate complications. Estimated blood loss: Minimal. Procedure: Pre-Anesthesia Assessment: - Prior to the procedure, a History and Physical was performed, and patient medications and allergies were reviewed. The patient's tolerance of previous anesthesia was also reviewed. The risks and benefits of the procedure and the sedation options and risks were discussed with the patient. All questions were answered, and informed consent was obtained. Prior Anticoagulants: The patient has taken no previous anticoagulant or antiplatelet agents. After reviewing the risks and benefits, the patient was deemed in satisfactory condition to undergo the procedure. After I obtained informed consent, the scope was passed under direct vision. Throughout the procedure, the patient's blood pressure, pulse, and oxygen saturations were monitored continuously. The colonoscope was introduced through the anus and advanced to the cecum, identified by appendiceal orifice and ileocecal valve. The colonoscopy was performed without difficulty. The patient tolerated the procedure well. The quality of the bowel preparation was good. Scope In: 9:56:56 AM Scope Withdrawal Time 0 hours 16 minutes 30 seconds Scope Out: 10:16:58 AM Total Procedure Duration Time 0 hours 20 minutes 2 seconds Findings: A non-obstructing medium-sized mass was found in the descending colon. The mass was partially circumferential (involving one-third of the lumen circumference). Oozing was present. This was biopsied with a cold forceps for histology. To prevent bleeding after the biopsy, two hemostatic clips were successfully placed. There was no bleeding at the end of the procedure. Impression: - Likely malignant tumor in the descending colon. Biopsied. Clips were placed. - Malignant-appearing tumor in the colon. Biopsied. Recommendation: - Discharge patient to home. - Resume previous diet. - Continue present medications. - Await pathology results. - Repeat colonoscopy for surveillance based on pathology results. - Return to my office in 1 week. - Perform CT scan (computed tomography) of the chest with contrast today. - Perform CT scan (computed tomography) of the abdomen with contrast today. Procedure Code(s): --- Professional --- 26219, Colonoscopy, flexible; with biopsy, single or multiple Diagnosis Code(s): --- Professional --- D49.0, Neoplasm of unspecified behavior of digestive system R19.5, Other fecal abnormalities CPT copyright 2017 [employer]. All rights reserved. The codes documented in this report are preliminary and upon outpatient coder review may be revised to meet current compliance requirements. Ghulam Casey MD 12/22/2022 10:22:32 AM This report has been signed electronically. Number of Addenda: 0 Note Initiated On: 12/22/2022 9:37 AM
--- NOTE | 2022-12-22 10:24 | OP.CCLET_ITS ---
12/22/2022 Xena Arroyo [facility] [address] [place] [address] Re : Colonoscopy procedure for Mikhail Gibson Dear Dr. Arroyo This procedure was performed on Thursday, December 22, 2022. My impressions and recommendations are as follows: Impressions : - Likely malignant tumor in the descending colon. Biopsied. Clips were placed. - Malignant-appearing tumor in the colon. Biopsied. Recommendations : - Discharge patient to home. - Resume previous diet. - Continue present medications. - Await pathology results. - Repeat colonoscopy for surveillance based on pathology results. - Return to my office in 1 week. - Perform CT scan (computed tomography) of the chest with contrast today. - Perform CT scan (computed tomography) of the abdomen with contrast today. My findings are described in the full procedure note, which is enclosed. If I can be of further assistance, please feel free to contact me at Doctor phone number(s): , Work: . Sincerely, Ghulam Casey MD 12/22/2022 10:22:32 AM This report has been signed electronically.
[2022-12-22 14:00] LABS: CREATININE FINGERSTICK 1.1 mg/dL (0.70-1.30); EGFR FINGERSTICK > 60.0000 mL/min (>60)
--- NOTE | 2022-12-28 14:37 | PCM.HP.BLA ---
History and Physical Date of Admission: 12/22/22 Intake Vital Signs ? 06/20/2111:09 11/24/2313:11 Height 5 ft 10 in 5 ft 10 in Weight: ? 189 lb 6 oz BMI ? 27.1 BP ? 116/86 H Blood Pressure Location ? Rt brachial Position ? Sitting Respiration ? 24 H Pulse ? 109 H Pulse Source ? Monitor Temp ? 96.8 F L Temp Source ? Temporal Pulse Oximetry (%) ? 100 Oxygen Delivery Method ? 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 Is patient in pain?: No Allergies No Known Allergies Allergy (Verified 11/24/22 14:18) Medications atorvastatin 10 mg tablet 10 mg PO QHS 06/20/21 [History Confirmed 11/24/22] fluoxetine 20 mg capsule 20 mg PO DAILY 06/20/21 [History Confirmed 11/24/22] lisinopril 5 mg tablet 5 mg PO DAILY 06/20/21 [History Confirmed 11/24/22] metformin 1,000 mg tablet 1,000 mg PO BID 06/20/21 [History Confirmed 11/24/22] glipizide 2.5 mg tablet, extended release 24 hr 5 mg PO DAILY 11/24/22 [History Confirmed 11/24/22] pioglitazone 15 mg tablet 15 mg PO DAILY 11/24/22 [History Confirmed 11/24/22] PFSH Medical History?(Updated 11/25/22 @ 09:[address] Ghulam Casey MD) Diabetes HTN (hypertension) Hyperlipidemia Social History? Smoking Status:? Current some day smoker tobacco type: cigarettes HPI HPI HPI: Patient is a 67-year-old male who with a positive Cologuard.? He has never had a colonoscopy in the past.? He denies any gross blood in his stool or abdominal pain. ROS General General: Yes fatigue; No weight change, appetite, colon cancer, breast cancer or weakness HEENT HEENT: No difficulty swallowing, eye injury, eye surgery, swollen glands or hoarseness Endo Endocrine: Yes diabetes mellitus; No thyroid disease, thyroid cancer, Hair loss, heat intolerance or cold intolerance Skin Skin: No rash or changing moles Breast Breast: No left breast lump, right breast lump, nipple discharge, breast pain, abnormal mammogram, abnormal US or breast enlargement Musc Musculoskeletal: Yes back problems and arthritis; No rheumatoid arthritis, gout or joint pain Cardio Cardiovascular: No murmur, pacemaker, heart disease, atrial fibrillation, high blood pressure, heart attack, heart stent, palpitations, shortness of breat with exertion or chest pain Psych Psychiatric: Yes depression; No anxiety or hearing voices Resp Respiratory: Yes shortness of breath, No sleep apnea, No cough, No COPD, No asthma, No emphysema and No wheezing Gastro Gastrointestinal: No abdominal pain, No nausea or vomiting, Yes diarrhea, Yes constipation, Yes blood in stool, No acid reflux, No hemorrhoids, No ulcers, No gallbladder problem and No black,tarry stools Trent Hematologic: No blood thinners, No blood disorders, No bleeding, No anemia and No blood clots Neuro Neurologic: No system reviewed and no additional complaints, except as documented, No as per HPI, No abnormal gait, No abnormal hearing, No abnormal movements, No abnormal speech, No behavioral changes, No burning sensations, No confusion, No convulsions, No disequilibrium, No dizziness, No localized weakness, No frequent falls, No headache(s), No lack of coordination, No loss of vision, No memory loss, Yes numbness, No other visual disturbances, No radicular pain, No restless legs, No sensory deficit, No syncope, Yes tingling, No tremor(s), No weakness and No other Exam Const General: cooperative Orientation: alert and oriented x3 HENMT Head: normal to inspection Neck Neck: normal visual inspection and full ROM Chest Chest palpation & inspection: normal inspection of the chest Resp Effort & Inspection: normal respiratory effort Auscultation: clear to auscultation bilaterally Cardio Rate: regular rate Rhythm: regular rhythm GI Inspection: non-distended Palpation: soft and nontender Skin General: no rashes or lesions noted Neuro General: patient alert and patient oriented x3 Extrem General: full ROM Psych Appearance: grossly normal Mental Status: mental status grossly normal Assessment and Plan Assessment and Plan (1) Positive colorectal cancer screening using Cologuard test: ?Status:?Acute ?Plan: Patient has never had a colonoscopy and requires one due to positive Cologuard. I explained endoscopy in detail to the patient.? I explained the risks including but not limited to stroke or heart attack with anesthesia, perforation of the GI tract, bleeding, infection.? I explained that any of these could necessitate further emergency surgery.? The patient understands and all questions were answered sufficiently.? The patient wishes to proceed with procedure. Ghulam Casey MD Pager: [facility] [address] [place] [address], [address] [place] [address] Office: I have seen and examined the patient and H&P was reviewed and there are no changes.
== END 2022-12-22 13:51 | disposition home or self-care (01) ==
LOC: EN 13:30 → AC 13:30
PROVIDERS: PCP Family Medicine; Referring Provider Family Medicine; Visit Provider Surgery
PROC: 0DJD8ZZ Inspection of Lower Intestinal Tract, Via Natural or Artificial Opening Endoscopic (ICD-10-PCS; CPT 45378; principal; 2022-12-22 09:55)
DX: D12.3 Benign neoplasm of transverse colon (principal); E11.9 Type 2 diabetes mellitus without complications; D12.4 Benign neoplasm of descending colon; I10 Essential (primary) hypertension; F17.210 Nicotine dependence, cigarettes, uncomplicated; Z79.899 Other long term (current) drug therapy; Z79.84 Long term (current) use of oral hypoglycemic drugs
CPT/HCPCS: 45380; 71260; 74177; 82962; 88305; J7120; Q9967; A4216; J2405

== ENCOUNTER → 2022-12-28 | Outpatient (CLI) | payer MEDICARE, SELFPAY ==
[2022-12-28 15:49] LABS: International Normalized Ratio 1.1
[2022-12-28 15:50] LABS: Partial Thromboplast Time 32.1 Seconds (24.1-36.2)
[2022-12-30 15:15] LABS: Carcinoembryonic Antigen 3.5 ng/mL (0.0-4.7)
== END | disposition home or self-care (01) ==
PROVIDERS: PCP Family Medicine; Referring Provider Surgery; Visit Provider Surgery
DX: Z01.812 Encounter for preprocedural laboratory examination (principal); I73.9 Peripheral vascular disease, unspecified; D49.9 Neoplasm of unspecified behavior of unspecified site
CPT/HCPCS: 36415; 82378; 85610; 85730

== ENCOUNTER → 2022-12-30 | Outpatient (CLI) | payer MEDICARE, MEDICAID, SELFPAY ==
[2022-12-30] VITALS (11 sets, daily range): BP systolic 97–140; BP diastolic 63–79; PULSE 75–90; RESP 13–23; TEMP 36.5; O2SAT 97–100; BMI 25.8
--- NOTE | 2022-12-30 | ASPIGT_PTH ---
PATIENT: LEI VALDEZ LOC: CT U#:[id number] AGE/SX: 67/M ROOM: RE12/30/[address]: Dr. Ghulam Casey MD : 1955 BED: DIS: 12/30/2022 SPEC #: [id number] RECD: 12/30/22 12:00 STATUS: PATRIC LEVON #: [id number] LOY: 12/30/22 00:[address]: Ghulam Casey DEPT: SURGICAL PATHOLOGY RECD BY: Oliver Mitchell ENTERED: 12/30/22 13:21 SP TYPE: ASP RAD OTHR DR: Dr. Xena Arroyo MD Tissues: Lung, NOS Procedures: FNA Specimen Adequacy Special Stain Group II Surgery Specimen Level IV Imprint (control) HEADER OPERATION: CT-guided lung biopsy - left PRE-OP DIAGNOSIS: Mass TISSUE SUBMITTED: Left lung MICROSCOPIC DIAGNOSIS Left lung mass, CT-guided core biopsy: Non-small cell carcinoma, favor squamous cell carcinoma. See comment. SJ:monica 12/31/2022 COMMENT Focal necrosis is also noted. The specimen is evaluated at the time of biopsy by Dr. Ayala. Immediate Evaluation: Malignant cells present derived from non-small cell carcinoma. Extensive necrosis is also noted. Immunohistochemistry ([id number]) supports the above diagnosis. Molecular studies on the tumor can be performed if clinically indicated. Please notify the laboratory if they are needed. Please make reference to previous specimen ([id number]) descending colon mass, biopsy with diagnosis of ?fragments of villous adenoma.? Case has been reviewed in consultation with Dr. Mendez who concurs with the above diagnosis. IDC:JAVIER MICROSCOPIC DESCRIPTION Slides are reviewed. GROSS DESCRIPTION Received is one container labeled with the patient's name and not further designated. The specimen consists of multiple irregular fragments of dodge soft tissue that in aggregate measure 1.0 x 0.2 x <0.1 cm. The specimen is totally submitted in one cassette. / AM:monica 12/30/2022 TC:0 CPT: 50875, 35589
--- NOTE | 2022-12-30 | IMM_PTH ---
PATIENT: LEI VALDEZ LOC: CT U#:[id number] AGE/SX: 67/M ROOM: RE12/30/[address]: Dr. Ghulam Casey MD : 1955 BED: DIS: 12/30/2022 SPEC #: [id number] RECD: 12/30/22 13:22 STATUS: PATRIC REMarco #: [id number] LOY: 12/30/22 00:[address]: Ghulam Casey DEPT: IMMUNOHISTOCHEMISTRY RECD BY: Destiny Tavarez ENTERED: 12/30/22 13:25 SP TYPE: IMMUNO OTHR DR: Dr. Xena Arroyo MD Tissues: Left lung, NOS Procedures: RCC (add) NAPSIN A (add) CK20 (add) CK5-6 (add) CK7 (add) CK8 (add) ZARCO-2 (add) HEP PAR (add) KI-67 (add) P53 (add) TTF1 (add) Pankeratin (initial) P40 (add) CDX2 (add) PSAP (add) Comments: @ Specimen number changed from [id number] to [id number] @ on 12/30/22 at 1421 by RGOOD. PHYSICIAN & [place] [id number] SPECIMEN INFORMATION: Tissue Source: Left lung Clinical Info: Left lung mass Specimen Number: [id number] CPT code: 15675, 84155 x14 METHODOLOGY: Deparaffinized sections of prefer/formalin-fixed tissue or PAP/DQ stained slides are incubated with monoclonal/polyclonal antibodies/oligonucleotide probes. Localization is made via biotin free immunoperoxidase method. Appropriate controls are performed and reacted as expected. Results on target cell population are indicated in the following table: RESULTS: ANTIBODY / CLONE RESULT AE1-3 (AE1/AE3/PCK26) positive CK7 (OV-TL12/30) negative CK8 (30nsggE49) positive CK20 (KS20.8) negative ZARCO-2 (SP21) negative CDX2 (JTW0806L) negative TTF-1 (8G7G3/1) negative Napsin A (Rabbit Polyclonal) negative HepPar (OCh1E5) negative RCC (PN-15) negative PSAP (PASE/4LJ) negative CK5-6 (D5 & 1684) positive P40 (BC28) positive P53 (DO-7) positive, focal (indeterminate pattern) Ki-67 (30-9) positive, ~50% These tests were developed and their performance characteristics determined by [facility]. They may not have been cleared or approved by the U.S. Food and Drug Administration. The FDA has determined that such clearance or approval is not necessary. The above immunohistochemical/dualISH markers are ordered and reviewed by the Pathologist. INTERPRETATION: Left lung mass, CT-guided core biopsy: Non-small cell carcinoma, favor squamous cell carcinoma. This case has been reviewed in consultation with Dr. Mendez who concurs with the above diagnosis. SJ:monica 12/31/2022
--- NOTE | 2022-12-30 10:28 | CT_ITS ---
PROCEDURE: CT GUIDED CORE NEEDLE BIOPSY OF A left upper lobe LUNG LESION INDICATION: Male, 67 years old. Lung mass -- CT guided lung biopsy-labs done PHYSICIAN: Dr. Herve Hillman CONSENT: Written informed consent was obtained having explained the risks, benefits and alternatives in detail with the patient who accepted the risks and agreed to proceed. Laboratory review and clinical assessment was performed. CONSCIOUS SEDATION PROTOCOL: The Drugs used were: 2 mg Versed, IV., and 50 mcg Fentanyl, IV. The sedation time was: 18 minutes. Conscious sedation was started at 11:39 AM and terminated 11:57 AM. The conscious sedation protocol was independently monitored. RADIATION DOSAGE (If Supplied By Facility): CTDIvol = ( 23.6 ) mGy, DLP = ( 701.37 ) mGycm Individualized dose optimization techniques were used for this CT. TECHNIQUE: The patient was placed in the supine position. A noncontrast CT was performed to localize the lesion in the anterior medial aspect of the left upper lobe . The skin surface was prepped and draped in a sterile fashion. 1% lidocaine was used for local anesthesia. Using CT guidance, a 20-gauge coaxial biopsy device was advanced to the periphery of the lesion. A total of 5 core specimens were obtained. The specimens were placed in a formalin solution. A post procedure CT demonstrated no adverse sequelae or pneumothorax. The patient tolerated the procedure well without adverse event. A negative biopsy does not exclude malignancy. Further imaging or clinical followup based on patient condition and degree of clinical suspicion for malignancy. Suggest rebiopsy, if biopsy results do not match with clinical scenario. CT/Biopsy/Inj or Needle Placement IMPRESSION: 1. CT directed core needle biopsy of the nodule in the anterior medial aspect of the left upper lobe using CT image guidance with image documentation as described. Pathology results are pending. 2. Conscious Sedation protocol utilized with independent monitoring. Electronically Signed: Oseas Edgar MD at 12:32 EST ,
[2022-12-30 10:34] LABS: Platelet Count 226 K/mm3 (150-450)
[2022-12-30] MEDS: Midazolam 2 MG/2 ML Syringe IV (11:39)
[2022-12-30] MEDS: fentaNYL 100 MCG/2 ML Ampul IV (11:39)
[2022-12-30] MEDS: Lidocaine 2% (20 ml mdv) 20 ML Vial (11:50)
--- NOTE | 2022-12-30 12:00 | RAD_ITS ---
STUDY: X-RAY CHEST REASON FOR EXAM: Male, 67 years old. LUNG MASS -- Immediately post lung biopsy TECHNIQUE: AP inspiration and expiration views. COMPARISON: None. FINDINGS: The patient is status post left lung biopsy. There is no evidence of pneumothorax. RAD/Chest Insp/Exp 2 View IMPRESSION: No evidence of pneumothorax on the immediate post left lung biopsy radiographs. Electronically Signed: Oseas Edgar MD at 12:27 EST ,
--- NOTE | 2022-12-30 13:55 | RAD_ITS ---
STUDY: X-RAY CHEST REASON FOR EXAM: Male, 67 years old. LUNG BIOPSY -- 2 hours post lung biopsy TECHNIQUE: A PA inspiration expiration views. COMPARISON: Comparison is made with prior study done earlier today. FINDINGS: There is hyperinflation of the lungs consistent with chronic obstructive lung disease (COPD). There is no demonstrated pleural abnormality. No evidence pneumothorax on the two-hour delayed post left lung biopsy. RAD/Chest Insp/Exp 2 View IMPRESSION: No evidence of pneumothorax on the two-hour delayed post left lung biopsy radiographs. Electronically Signed: Oseas Edgar MD at 14:39 EST ,
== END | disposition home or self-care (01) ==
PROVIDERS: PCP Family Medicine; Referring Provider Surgery; Visit Provider Surgery
DX: R91.8 Other nonspecific abnormal finding of lung field (principal)
CPT/HCPCS: 32408; 36415; 71046; 77012; 85049; 88172; 88305; 88313; 88341; 88342; 99156; J7050; A4216; C2613

== ENCOUNTER → 2023-01-18 | Outpatient (CLI) | payer MEDICARE, MEDICAID, SELFPAY ==
--- NOTE | 2023-01-18 16:17 | PFTCOMP_ITS ---
COMPLETE PULMONARY FUNCTION TEST INTERPRETATION Brief HPI: Patient is a 67-year-old male, currently under the care of Dr. Barron, who presents to [facility] for complete pulmonary function tests secondary to diagnosis of lung cancer. Respiratory therapist reports good effort and reproducible results. Interpretation: Forced expiration spirometry shows a mild large airways obstructive ventilatory defect with an FEV1 of 78% predicted. There is no significant bronchodilator response by strict ATS criteria. Spirograms are of good quality and plateau slowly, indicating slowly emptying areas of the lungs. The respiratory flow volume loop shows decreased expiratory flow rates at all lung volumes consistent with airway obstruction. Lung volumes by body plethysmography show an elevated total lung capacity at 7.95 L, 119% predicted. All other lung volumes are increased symmetrically. Diffusion capacity by carbon monoxide is normal at 112% predicted. The airway resistance is normal. No previous pulmonary function tests were available for review. Impression: Irreversible mild large airways obstructive ventilatory defect with relatively preserved diffusion capacity
== END | disposition home or self-care (01) ==
LOC: PSN 08:48
PROVIDERS: PCP Family Medicine; Referring Provider Internal Medicine Hematology & Oncology; Visit Provider Internal Medicine Hematology & Oncology
DX: C34.90 Malignant neoplasm of unspecified part of unspecified bronchus or lung (principal)
CPT/HCPCS: 94060; 94726; 94729

== ENCOUNTER → 2023-01-21 | Outpatient (CLI) | payer MEDICARE, MEDICAID, SELFPAY ==
--- NOTE | 2023-01-21 07:36 | MRI_ITS ---
EXAM: MR brain with and without contrast. HISTORY: STAGING LUNG CANCER, NO NEURO COMPLAINTS TECHNIQUE: MR Brain WO/W Contrast COMPARISON: None. LIMITATIONS: None. BRAIN: Mild involutional change. 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 Small old infarct in the left cerebellar hemisphere. Mild white matter changes are likely secondary to chronic microvascular ischemia. No definite acute infarct identified. Small focus of increased signal on the diffusion-weighted images in the left frontoparietal region near the vertex is likely artifactual. No abnormal enhancement. VENTRICLES: No hydrocephalus. EXTRA-AXIAL SPACES: No hemorrhages, fluid collections, or masses. CALVARIUM/SKULL BASE: Normal. FACE/SINUSES: Visualized portions normal. SOFT TISSUES: Normal. OTHER: None. CONCLUSION: Chronic ischemic changes. No evidence of metastatic disease. Electronically Signed: Jean Claude Johnson MD at 20:31 EDT , MRI/Brain W/WO Contrast IMPRESSION: undefined
== END | disposition home or self-care (01) ==
LOC: MRI 07:36
PROVIDERS: PCP Family Medicine; Referring Provider Internal Medicine Hematology & Oncology; Visit Provider Internal Medicine Hematology & Oncology
DX: C34.90 Malignant neoplasm of unspecified part of unspecified bronchus or lung (principal)
CPT/HCPCS: 70553; A9575

== ENCOUNTER 2023-02-03 05:25 | Inpatient (IN) | payer MEDICARE, MEDICAID, SELFPAY ==
[2023-01-28 16:04] LABS: Hemoglobin A1c 6.3 % (3.8-5.6)
[2023-01-28 16:18] LABS: Magnesium 1.4 mg/dL (1.6-2.6)
[2023-02-03] VITALS (35 sets, daily range): BP systolic 75–125; BP diastolic 43–66; PULSE 85–105; RESP 10–19; TEMP 36.3–36.7; O2SAT 86–100; BMI 26.5; BMI 27.3
[2023-02-03] MEDS: Lactated Ringers 1,000 ML 40 ML IV ×3 (06:05→10:31)
[2023-02-03] MEDS: Magnesium 2 GM for ERAS IV (06:06)
[2023-02-03] MEDS: Acetaminophen 500 MG Tablet 1000 MG PO ×3 (06:07→23:57)
[2023-02-03] MEDS: Gabapentin 600 MG Tablet PO (06:07)
[2023-02-03] MEDS: Insulin Lispro 100 UNIT/ML INSULN.PEN SC ×4 (06:20→23:58)
[2023-02-03 06:30] LABS: Bedside Glucose 300 mg/dL (74-106)
--- NOTE | 2023-02-03 07:13 | HP.PCM_ITS ---
History and Physical Date of Admission: 02/03/23 Intake Vital Signs ? 12/30/2310:02 01/12/2314:27 01/14/2315:02 Height 5 ft 10 in 5 ft 10 in 5 ft 10 in Weight: ? ? 188 lb 4 oz BMI ? ? 27.0 BP ? ? 114/68 Blood Pressure Location ? ? Rt brachial Position ? ? Sitting Respiration ? ? 16 Pulse ? ? 104 H Pulse Source ? ? Monitor Temp ? ? 97 F L Temp Source ? ? Temporal Pulse Oximetry (%) ? ? 95 Oxygen Delivery Method ? ? room air Intake Visit Reasons:?discuss surgery Chief Complaint: Lung and colon cancer Allergies No Known Allergies Allergy (Verified 01/12/23 14:16) PFSH Medical History Anxiety Argyria Arthritis Back pain Depression Diabetes Dietary restriction High cholesterol History of pain when walking HTN (hypertension) Hyperlipidemia Injury of back Lung cancer Numbness and tingling of hand Shortness of breath on exertion Smoker Surgical History? History of cardiac catheterization History of laparoscopic cholecystectomy Hx of clubfoot correction Hx of foot surgery Hx of surgical procedure Family History? Mother Diabetes Heart diseaseFather Myocardial infarctionSister Pancreatic cancerBrother Bladder cancer Social History? household members:? none current occupational status:? retired current occupational exposures/hazards:? No history of recent travel:? No Smoking Status:? Current every day smoker tobacco type: cigarettes Tobacco: How many years used:? 40 second hand exposure:? Yes alcohol intake:? never substance use type:? does not use diet:? diabetic HPI HPI HPI: Patient is a 67-year-old male here to discuss hemicolectomy.? He was found to have a large mass just distal to the splenic flexure. ROS General General: Yes fatigue; No weight change, appetite, colon cancer, breast cancer or weakness HEENT HEENT: No difficulty swallowing, eye injury, eye surgery, swollen glands or hoarseness Endo Endocrine: Yes diabetes mellitus; No thyroid disease, thyroid cancer, Hair loss, heat intolerance or cold intolerance Skin Skin: No rash or changing moles Breast Breast: No left breast lump, right breast lump, nipple discharge, breast pain, abnormal mammogram, abnormal US or breast enlargement Musc Musculoskeletal: Yes back problems and arthritis; No rheumatoid arthritis, gout or joint pain Cardio Cardiovascular: No murmur, pacemaker, heart disease, atrial fibrillation, high blood pressure, heart attack, heart stent, palpitations, shortness of breat with exertion or chest pain Psych Psychiatric: Yes depression; No anxiety or hearing voices Resp Respiratory: Yes shortness of breath, No sleep apnea, No cough, No COPD, No asthma, No emphysema and No wheezing Gastro Gastrointestinal: No abdominal pain, No nausea or vomiting, Yes diarrhea, Yes constipation, Yes blood in stool, No acid reflux, No hemorrhoids, No ulcers, No gallbladder problem and No black,tarry stools Trent Hematologic: No blood thinners, No blood disorders, No bleeding, No anemia and No blood clots Neuro Neurologic: No system reviewed and no additional complaints, except as documented, No as per HPI, No abnormal gait, No abnormal hearing, No abnormal movements, No abnormal speech, No behavioral changes, No burning sensations, No confusion, No convulsions, No disequilibrium, No dizziness, No localized weakness, No frequent falls, No headache(s), No lack of coordination, No loss of vision, No memory loss, Yes numbness, No other visual disturbances, No radicular pain, No restless legs, No sensory deficit, No syncope, Yes tingling, No tremor(s), No weakness and No other Exam Const General: cooperative Orientation: alert and oriented x3 [facility] Head: normal to inspection Neck Neck: normal visual inspection and full ROM Chest Chest palpation & inspection: normal inspection of the chest Resp Effort & Inspection: normal respiratory effort Auscultation: clear to auscultation bilaterally Cardio Rate: regular rate Rhythm: regular rhythm GI Inspection: non-distended Palpation: soft and nontender Skin General: no rashes or lesions noted Neuro General: patient alert and patient oriented x3 Extrem General: full ROM Psych Appearance: grossly normal Mental Status: mental status grossly normal Assessment and Plan Assessment and Plan (1) Colonic mass: ?Status:?Acute ?Plan: Patient was found to have a colonic mass in the descending colon.? I discussed left hemicolectomy with the patient in detail.? I discussed the risks protocol as well.? I discussed the risks of the procedure including but not limited to bleeding, infection, injury to other organs such as the ureter, kidney, bowel, spleen.? Patient understands the risks and is willing to proceed.? I also discussed fixing his umbilical hernia at the same time.? All questions were answered and postoperative instructions were given.? Patient will perform a bowel prep and will be scheduled for surgery.? Patient was also found to have lung cancer which was being addressed after colonic surgery. Ghulam Casey MD Pager: [facility] [address] [place] [address] [address] [place] [address] Office: I have examined the patient and the H&P has been reviewed. There are no clinical changes since date of exam.
[2023-02-03] MEDS: Lactated Ringers 1,000 ML 15 ML IV (07:26)
--- NOTE | 2023-02-03 07:30 | COL._PTH ---
PATIENT: LEI VALDEZ LOC: MS3 U#:[id number] AGE/SX: 67/M ROOM: [facility] RE02/03/[address]: Dr. Ghulam Casey MD : 1955 BED: 1 DIS: 02/06/2023 SPEC #: [id number] RECD: 02/03/23 10:17 STATUS: PATRIC DOS SANTOS #: [id number] LOY: 02/03/23 07:[address]: Ghulam Casey DEPT: SURGICAL PATHOLOGY RECD BY: Oliver Mitchell ENTERED: 02/03/23 11:32 SP TYPE: COLON OTHR DR: Dr. Xena Arroyo MD Tissues: A - Colon, NOS B - Liver, NOS Procedures: PAS with Diastase (control) Trichrome (control) Special Stain Group II PAS Stain (control) Surgery Specimen Level V Retic (control) Iron Stain (control) HEADER OPERATION: ERAS, hemicolectomy PRE-OP DIAGNOSIS: Colonic mass TISSUE SUBMITTED: A ? Left colon, splenic flexure, B ? Liver biopsy MICROSCOPIC DIAGNOSIS A. 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 Tubular adenoma. Pigment-laden macrophages consistent with melanosis coli. Three out of three lymph nodes negative for metastatic carcinoma. See cancer summary in the comment section. B. Liver, wedge biopsy: Consistent with cirrhosis. Focal macrovesicular steatosis. See microscopic description and comment. SJ:monica 02/05/2023 COMMENT COLON CANCER SUMMARY: Procedure ? left hemicolectomy Tumor site ? descending colon Tumor size - less than 0.1 cm, focus of intramucosal carcinoma. Entire lesion, 3.5 x 2.0 x 0.5 cm Histologic type ? tubulovillous adenoma with high-grade dysplasia/carcinoma in situ and focal area of intramucosal carcinoma. Histologic grade ? well-differentiated Tumor extension ? tumor invades lamina propria (intramucosal carcinoma). Margins ? all margins are uninvolved by invasive carcinoma, high-grade dysplasia, intramucosal carcinoma and adenoma. The tumor is 5.5 cm away from the closest margin. Treatment effect ? no known presurgical therapy. Lymphvascular invasion ? not identified Perineural invasion - not identified Tumor deposit - not identified Regional Lymph Nodes: Number of lymph nodes examined - 3 Number of lymph nodes involved - 0 Additional pathologic findings ? tubular adenoma Ancillary studies ? not performed PATHOLOGIC STAGE: pTis pN0 pMx The above summary is in compliance with [employer] (CAP) Cancer Protocols Checklist and [place] Joint Committee on Cancer (AJCC), Staging Manual, 8th Ed. Please make reference to previous specimens ([id number]) polyp transverse colon, biopsy with diagnosis of ?fragments of tubular adenoma? and descending colon mass, biopsy with diagnosis of ?fragments of villous adenoma? and ([id number]) left lung mass, CT-guided core biopsy with diagnosis of ?non-small cell carcinoma, favor squamous cell carcinoma.? Case has been reviewed in consultation with Dr. Mendez who concurs with the above diagnosis. IDC:AM MICROSCOPIC DESCRIPTION Slides are reviewed. B. The specimen shows liver parenchymal tissue with distortion of normal lobular architecture into multiple nodules divided by fibrous septae. Hepatocytes in the nodules show focal macrovesicular steatosis. Fibrous septae in between the hepatocytes nodules show chronic inflammation and mild ductular proliferation. Interface inflammation is not seen. Iron stain shows absent iron. Trichrome and reticulin stains highlight the fibrous septae. PAS and PASD do not show any abnormal accumulation of protein. All stains are performed with appropriate matched controls. GROSS DESCRIPTION A - Received in fixative is one container labeled with the patient's name and designated left colon. The specimen consists of an unoriented fragment of bowel measuring 17.0 cm in length with two stapled margins. Approximately 8.0 cm from one stapled margin and 5.5 cm from the other stapled margin is a flat plaque-like, dodge mass measuring 3.5 x 2.0 x 0.5 cm. Located approximately 4.0 cm from this is a dodge polyp measuring 1.0 x 0.5 x 0.3 cm. The serosal surface in the area of mass is inked in black ink. Serial sections of the mass do not reveal involvement of underlying bowel wall. Dissection of the attached fibrofatty tissue reveals several small dodge nodules, possibly representing lymph nodes. Also present in the specimen container are two irregular fragments of bowel mucosa ranging in size from 1.5 to 2.5 cm. These fragments do not contain mass lesions. Transformer [employer]er sections are submitted in 12 cassettes as follows: 1 - one mucosal margin, 2 - the other mucosal margin, 3-7 - mass, totally submitted, 8 - mucosal polyp and uninvolved bowel, 9 - fragments of bowel free in container, 10-12 - multiple nodules (possible lymph nodes). / AM:monica 02/04/2023 B - Received in fixative is one container labeled with the patient's name and designated liver biopsy. The specimen consists of a piece of dodge-light yellow tissue measuring 1.2 x 1.0 x 0.5 cm. The specimen is bisected and submitted entirely in one cassette. / SJ:monica 02/03/2023 TC:0 CPT: 24740 x2, 09018 x5
[2023-02-03] MEDS: BUPIVACAINE LIPOSOME/PF 20 ML VIAL OPERA.SITE (09:51)
--- NOTE | 2023-02-03 10:29 | PCM.OPRPT ---
Report of Operation Date of Procedure: 02/03/23 Pre-Operative Diagnosis: Large polyp of the splenic flexure Post-Operative Diagnosis: Large splenic flexure polyp Surgery/Procedure Performed:: 1. Open left hemicolectomy 2. Splenic flexure release 3. Liver biopsy Specimen's removed: Splenic flexure and left colon Liver biopsy Description of Procedure: Patient was brought back to the operating room and general anesthesia was induced. A Garcia catheter was placed into the bladder. The abdomen was prepped and draped in usual sterile fashion. An incision was made superior to the umbilicus and deepened to the fascia. Fascia was elevated and incised. Dissection was carried out and a port was placed but I was unable to see anything from the port placement as there was dense adhesions. At this point the surgery was converted to open. A longer incision was made in the superior abdomen and deepened to the fascia. Fascia was incised sharply. Dissection was carried laterally on both sides until free abdomen was encountered. All of the adhesions to the omentum and the superior umbilical hernia were removed. A wound protector was then placed. The transverse colon was traced up to the splenic flexure. The splenic flexure was taken down using electrocautery and sharp dissection. This was extended down the descending colon and medially to the middle of the transverse colon. A window was made in the mid transverse colon and a stapler was used to divide the transverse colon. In a similar fashion the descending colon was divided. Enseal was used to take down the mesentery and remove the specimen. The specimen was cut open on the back table to identify that the polyp had been removed as it was unable to be palpated. The large polyp was in the specimen. Next gown and gloves were changed. The transverse colon and distal descending colon were approximated and then a small defect was made in either pieces of bowel and a ERIC 75 stapler was used to make [id number] functional end-to-end anastomosis. Next the enterostomy was closed using a TX 60 stapler. A crotch suture of 3-0 silk was placed. The anastomosis was inspected and appeared to have good blood supply with no leakage. It was placed back into the abdomen and the abdomen was copiously irrigated and suctioned dry. The liver appeared cirrhotic. A small piece of liver was removed using electrocautery and sent for pathology to check for cirrhosis. Next gown and gloves were changed by all staff and the fascia was closed from the top and bottom with a running 0 PDS suture meeting in the middle. The subcutaneous tissue was irrigated and suctioned dry. The skin was closed with interrupted 4-0 Monocryl sutures. Steri-Strips and bandages were applied. Patient was awoken and taken to PACU in stable condition with a Garcia in place. Patient tolerated procedure well. Admit VTE Documentation VTE Mechan Device Prophylaxis: SCD's
[2023-02-03 12:01] LABS: Bedside Glucose 230 mg/dL (74-106)
--- NOTE | 2023-02-03 12:19 | PN_ITS ---
Progress Note Patient is still having hypotension postoperatively in PACU. I will transfer to ICU instead for more intensive observation. Checking H&H now and CBC in the morning. Ghulam Casey MD Pager: [facility] [address] [place] [address], [address] [place] [address] Office:
--- NOTE | 2023-02-03 12:19 | PCM.PN.BLA ---
Progress Note Patient is still having hypotension postoperatively in PACU. I will transfer to ICU instead for more intensive observation. Checking H&H now and CBC in the morning. Ghulam Casey MD Pager: [facility] [address] [place] [address], [address] [place] [address] Office:
[2023-02-03 12:43] LABS: Hematocrit 38.3 % (40-54); Hemoglobin 13.4 g/dL (13.0-16.5)
--- NOTE | 2023-02-03 15:03 | EX.PCM.CONCC ---
Assessment & Plan Assessment/Plan (1) Hypotension after procedure: (2) Colonic mass: (3) Argyria of skin: (4) Lung cancer: PLAN: Plan RECOMMENDATIONS: 1. Limit further fluid boluses 2. Initiate peripheral pressors if necessary 3. Encourage incentive spirometer and adequate pain control 4. Wean oxygen as tolerated 5. Obtain baseline chemistries 6. Hold baseline diabetic and antihypertensive medications IMPRESSIONS: 1. Hypotension following hemicolectomy for colonic mass POD #0 Unclear etiology at this time. Clinical suspicion is for medications leading to the current lower blood pressure. Patient has received significant fluid boluses in the OR. Would hold off on further fluid boluses given patient's need for supplemental oxygen. Patient has no history of congestive heart failure that he is aware of, but is at risk for diastolic heart failure given his sex, age, hypertension and history of polycythemia. Can use pressors in the interim if necessary. Patient has received perioperative antibiotics and these are likely sufficient for the short-term. Morning labs have been ordered. We will hold patient's baseline antihypertensive medications as he is at risk for acute kidney injury 2. Squamous cell lung cancer/hyperlipidemia/hypertension/argria/depression/diabetes mellitus Complicates care, management, recovery and prognosis. Vital signs appear to be okay at this time. Patient currently n.p.o. given recent surgery. Would treat with sliding scale insulin if necessary for elevated blood sugars. HPI Consult Data Date of Consult: 02/03/23 HPI Narrative Reason for Consultation: Hypotension HPI Narrative: LEI VALDEZ is a 67 M, with past medical history listed below, who presents to [facility] on 02/03/2023 secondary to an elective hemicolectomy. Patient had had a positive Cologuard earlier in the year and this led to a colonoscopy. A polyp was removed, but there was some concern as patient was also noted to have a 2.2 cm left-sided nodule and an apple core lesion. Decision was made to have a hemicolectomy electively after being diagnosed with squamous cell lung cancer. In the time prior to the surgery, patient has had some issues with nausea. Patient denies any current chest pain, abdominal pain or lower extremity edema. Patient does have a smoking history, but has not required supplemental oxygen previously. Patient is normally hypertensive and diabetic and reports he has been compliant with his medications. In the OR, patient was noted to be hypotension. Patient reportedly received almost 4 L of IV fluids to maintain blood pressures. In PACU, patient continued to be hypotensive, so the decision was made to monitor the patient in the intensive care unit postoperatively. I did discuss with Dr. Casey personally about the patient's care. On arrival to the intensive care unit, patient states he feels relatively well. Patient does report some pain at the incision site. Patient has not reported any recent dysuria or urinary hesitancy. Patient has not had any syncopal episodes at home. Patient has not had any hemoptysis or productive cough. Review of systems otherwise negative from a constitutional, HEENT, respiratory, cardiovascular, GI, genitourinary, musculoskeletal, skin, neurologic, psychiatric and hematologic system unless stated above. PFSH Medical History Anxiety Argyria Argyria of skin Arthritis Back pain Cancer Depression Diabetes Dietary restriction High cholesterol History of pain when walking History of stress test HTN (hypertension) Hyperlipidemia Injury of back Lung cancer Numbness and tingling of hand Shortness of breath on exertion Smoker Home Medications atorvastatin 10 mg tablet 10 mg PO QHS CHOLESTEROL 06/20/21 [History Last Taken 02/02/23] fluoxetine 20 mg capsule 20 mg PO DAILY DEPRESSION 06/20/21 [History Last Taken 02/02/23] lisinopril 5 mg tablet 5 mg PO DAILY BP 06/20/21 [History Last Taken 02/02/23] metformin 1,000 mg tablet 1,000 mg PO BID DIABETES 06/20/21 [History Last Taken 02/02/23] glipizide 2.5 mg tablet, extended release 24 hr 5 mg PO DAILY DIABETES 11/24/22 [History Last Taken 02/02/23] pioglitazone 15 mg tablet 15 mg PO DAILY DIABETES 11/24/22 [History Last Taken 02/02/23] cholecalciferol (vitamin D3) 25 mcg (1,000 unit) capsule 50 mcg PO DAILY SUPPLEMENT 01/12/23 [History Last Taken 02/02/23] cranberry 400 mg capsule 400 mg PO DAILY SUPPLEMENT 01/12/23 [History Last Taken 02/02/23] mecobalamin (vitamin B12) 1,000 mcg chewable tablet 1,000 mcg PO DAILY SUPPLEMENT 01/12/23 [History Last Taken 02/02/23] cephalexin 500 mg tablet 500 mg PO .COMPLEX PREP 01/25/23 [History Last Taken 02/02/23] metronidazole 500 mg tablet 500 mg PO .COMPLEX PREP 01/25/23 [History Last Taken 02/02/23] Allergy/AdvReac Type Severity Reaction Status Date / Time No Known Allergies Allergy Verified 02/03/23 06:02 Family History Mother Diabetes Heart disease Father Myocardial infarction Sister Pancreatic cancer Brother Bladder cancer Surgical History History of cardiac catheterization History of laparoscopic cholecystectomy Hx of clubfoot correction Hx of colonoscopy with polypectomy Hx of foot surgery Hx of surgical procedure Social History household members: none current occupational status: retired current occupational exposures/hazards: No history of recent travel: No Smoking Status: Current every day smoker tobacco type: cigarettes Tobacco: How many years used: 40 second hand exposure: Yes alcohol intake: never substance use type: does not use diet: diabetic ROS ROS Narrative See HPI Physical Exam Const alert, oriented x3 and no apparent distress Constitutional Narrative: No conversational dyspnea. Blue appearance. General Appearance: cooperative HEENT normocephalic and head/scalp atraumatic HEENT Narrative: Alopecia noted. Eyes PERRL, EOMs intact bilaterally and conjunctivae normal Neck full ROM, no lymphadenopathy and no JVD Chest inspection of chest normal Resp normal respiratory effort Effort and Inspection: able to speak in complete sentences Auscultation: clear to auscultation bilaterally; Negative for rales, rhonchi or wheezes Cardio regular rate, regular rhythm, S1 normal heart sound, S2 normal heart sound, no murmurs, no rub and no gallops GI GI Narrative: Large abdominal dressing was noted. No surrounding erythema or induration noted. Slight tenderness to the touch Extremity General Extremity: Negative for clubbing or edema Skin Skin Narrative: Abnormal skin color, but patient reports this is normal color. Neuro oriented x3, CN's II-XII intact bilaterally and moves all extremities Psych cooperative and affect normal Medical Records Data Attestation: I reviewed the patient's medical records Medical records narrative: Patient did have a pulmonary function test completed on 01/18/2023 showing an irreversible mild large airways obstructive ventilatory defect (FVC 106%, FEV1 78%, TLC 119%, RV 136%, DLCO 112%). Patient is also had a CT-guided biopsy showing 2.2 spiculated squamous cell lung carcinoma in the left upper lobe. Lab / Micro Data Attestation: I reviewed the patient's lab results. Lab results narrative: Patient's previous hemoglobin was noted to be 14.9 on January 12, but 16.9 a year ago. Result Diagrams: 02/03/23 12:30 Labs: Laboratory Results - last 24 hr 02/03/23 05:52: POC Glucose 300 H 02/03/23 08:55: Blood Type B POSITIVE, Antibody Screen NEGATIVE 02/03/23 11:38: POC Glucose 230 H 02/03/23 12:30: Hgb 13.4, Hct 38.3 L Charges/Coding Visit Charges Inpatient E&M: 52895 Init Hosp L3
[2023-02-03 15:50] LABS: Absolute Lymphocyte Count 0.39 X10^3/uL (0.83-4.51); Absolute Neutrophil Count 15.3 X10^3/uL (2.0-7.7); Basophil# 0.03 X10^3/uL; Basophil% 0.2 % (0-1); Hematocrit 41.4 % (40-54); Hemoglobin 13.9 g/dL (13.0-16.5); Lymphocyte # 0.39 X10^3/ul (0.83-4.51); Lymphocyte % 2.4 % (19-41); Mean Corp Hgb Conc 33.6 g/dL (32-36); Mean Corpuscular Volume 92.2 fL (80-94); Mean Platelet Vol. 8.6 fl (6.2-12.0); Monocyte% 4.3 % (0-10); NRBC Flagged by Analyzer 0 % (0-5); Neutrophil # 15.29 X10^3/uL (2.7-7.7); Neutrophil % 92.8 % (47-70); POSITIVE DIFFERENTIAL YES; Platelet Count 183 K/mm3 (150-450); RBC Distribution Width CV 13.3 % (11.6-14.6); RBC Distribution Width SD 45.3 fl (35.1-43.9); Red Blood Count 4.49 M/mm3 (4.6-6.2); White Blood Count 16.5 K/mm3 (4.4-11.0)
[2023-02-03 15:52] LABS: Differential Indicated SCAN CRITERIA MET
[2023-02-03 16:12] LABS: ALB/GLOB Ratio 0.8 RATIO (0.9-2.4); AST(SGOT) 25 U/L (15-37); Alanine Aminotransfer ALT/SGPT 26 U/L (16-61); Albumin, Serum 2.7 g/dL (3.2-5.0); Alkaline Phosphatase 72 U/L (45-117); Anion Gap 4 (5-15); BUN 12 mg/dL (7-18); BUN/Creat Ratio 10.3 RATIO (10-20); Calcium,Total 8.7 mg/dL (8.5-10.1); Chloride 104 mmol/L (98-107); Creatinine, Serum 1.17 mg/dL (0.70-1.30); EST Glomerular Filtration Rate 66 mL/min (>60); Est Glom Filt Rate - Afr Amer 80 mL/min (>60); Estimated Creatinine Clearance 64.13 ml/min; Globulin 3.5 g/dL (2.2-4.2); Glucose 218 mg/dL (74-106); Potassium 4.7 mmol/L (3.5-5.1); Protein, Total 6.2 g/dL (6.4-8.2); Sodium Level 131 mmol/L (136-145)
[2023-02-03 16:24] LABS: Differential Comment SCANNED
[2023-02-03] MEDS: HYDROmorphone 1 MG/ML Syringe IV ×2 (16:44→22:03)
[2023-02-03] MEDS: 0.9% Saline Lock 10 ML Syringe IV ×2 (16:45→22:03)
[2023-02-03 18:35] LABS: Bedside Glucose 209 mg/dL (74-106)
[2023-02-03] MEDS: Atorvastatin Calcium 10 MG Tablet PO (22:06)
[2023-02-04] VITALS (17 sets, daily range): BP systolic 92–146; BP diastolic 49–88; PULSE 76–105; RESP 12–18; TEMP 36.3–36.8; O2SAT 94–100; BMI 27.5
[2023-02-04] MEDS: HYDROmorphone 1 MG/ML Syringe IV ×2 (00:02→04:55)
[2023-02-04] MEDS: 0.9% Saline Lock 10 ML Syringe IV ×2 (00:03→04:55)
[2023-02-04 00:26] LABS: Bedside Glucose 218 mg/dL (74-106)
[2023-02-04] MEDS: Acetaminophen 500 MG Tablet 1000 MG PO ×3 (04:55→18:09)
[2023-02-04 05:14] LABS: Hematocrit 39.3 % (40-54); Hemoglobin 13.1 g/dL (13.0-16.5); Mean Corp Hgb Conc 33.3 g/dL (32-36); Mean Corpuscular Hgb 31.3 pg (27.0-32.0); Mean Corpuscular Volume 93.8 fL (80-94); Mean Platelet Vol. 8.7 fl (6.2-12.0); Platelet Count 159 K/mm3 (150-450); RBC Distribution Width CV 13.2 % (11.6-14.6); RBC Distribution Width SD 45.4 fl (35.1-43.9); Red Blood Count 4.19 M/mm3 (4.6-6.2); White Blood Count 14.8 K/mm3 (4.4-11.0)
[2023-02-04 05:27] LABS: Anion Gap 2 (5-15); BUN 12 mg/dL (7-18); BUN/Creat Ratio 12.5 RATIO (10-20); Calcium,Total 8.7 mg/dL (8.5-10.1); Chloride 102 mmol/L (98-107); Creatinine, Serum 0.96 mg/dL (0.70-1.30); EST Glomerular Filtration Rate 83 mL/min (>60); Est Glom Filt Rate - Afr Amer 101 mL/min (>60); Estimated Creatinine Clearance 78.15 ml/min; Glucose 179 mg/dL (74-106); Potassium 4.9 mmol/L (3.5-5.1); Sodium Level 132 mmol/L (136-145)
[2023-02-04 06:50] LABS: Bedside Glucose 162 mg/dL (74-106)
--- NOTE | 2023-02-04 07:15 | PN.CC_ITS ---
Assessment & Plan Assessment/Plan (1) Hypotension after procedure: (2) Colonic mass: (3) Argyria of skin: (4) Lung cancer: PLAN: Plan RECOMMENDATIONS: 1. Limit further fluid boluses 2. Continue to hold baseline antihypertensives 3. Encourage incentive spirometer and adequate pain control 4. Wean oxygen as tolerated 5. Walking oximetry prior to discharge 6. Hemodynamically stable to leave the intensive care unit 7. Will sign off from a critical care perspective. Please call with further concerns IMPRESSIONS: 1. Hypotension following hemicolectomy for colonic mass POD #1 Unclear etiology at this time. Clinical suspicion is for medications leading to the current lower blood pressure. Patient has received significant fluid boluses in the OR. Would hold off on further fluid boluses given patient's need for supplemental oxygen. Patient has no history of congestive heart failure that he is aware of, but is at risk for diastolic heart failure given his sex, age, hypertension and history of polycythemia. Do not need for pressors at this point given relative stability. Patient has received periop erative antibiotics and these are likely sufficient for the short-term. Leukocytosis has been improved and there is no fever or other constitutional symptoms to suggest sepsis. We will hold patient's baseline antihypertensive medications as he is at risk for acute kidney injury 2. Squamous cell lung cancer/hyperlipidemia/hypertension/argria/depression/diabetes mellitus/hypoxia Complicates care, management, recovery and prognosis. Vital signs appear to be okay at this time. Patient currently n.p.o. given recent surgery. Would treat with sliding scale insulin if necessary for elevated blood sugars. Clinical suspicion that supplemental oxygen is secondary to atelectasis Subjective Subjective Patient is doing well at this time. Patient feels pain is well controlled. Patient does report some mild lightheadedness with change in body position, but overall feels he is doing well. Objective Data Objective Data Vital Signs: Vital Signs Temp Pulse Resp BP Pulse Ox O2 Del Method O2 Flow Rate 36.6 C 88 16 123/66 H 95 Nasal Cannula 2 02/04/23 06:00 02/04/23 07:00 02/04/23 07:00 02/04/23 07:00 02/04/23 07:00 02/04/23 07:00 02/04/23 07:00 Oxygen Flow Rate (L/min) 2 Oxygen Delivery Method Nasal Cannula Weight: 87.3 kg Body Mass Index (BMI) 27.5 Intake & Output: Intake and Output for Last 24 Hours 02/02/23 02/03/23 02/04/23 23:59 23:59 23:59 Intake Total 3684 / 3684 Output Total 695 / 695 300 / 300 Balance 2989 / 2989 -300 / -300 Lab / Micro Data Attestation: I reviewed the patient's lab results. Result Diagrams: 02/04/23 05:05 02/04/23 05:05 Labs: Laboratory Results - last 24 hr 02/03/23 08:55: Blood Type B POSITIVE, Antibody Screen NEGATIVE 02/03/23 11:38: POC Glucose 230 H 02/03/23 12:30: Hgb 13.4, Hct 38.3 L 02/03/23 15:40: WBC 16.5 H, RBC 4.49 L, Hgb 13.9, Hct 41.4, MCV 92.2, MCH 31.0, MCHC 33.6, RDW Std Deviation 45.3 H, RDW Coeff of Deion 13.3, Plt Count 183, MPV 8.6, Immature Gran % (Auto) 0.300, Neut % (Auto) 92.8 H, Lymph % (Auto) 2.4 L, [place] % (Auto) 4.3, Eos % (Auto) 0.0, Baso % (Auto) 0.2, Absolute Neuts (auto) 15.3 H, Absolute Lymphs (auto) 0.39 L, Nucleated RBC % 0, Differential Comment SCANNED 02/03/23 15:40: Sodium 131 L, Potassium 4.7, Chloride 104, Carbon Dioxide 23.0, Anion Gap 4 L, BUN 12, Creatinine 1.17, Estim Creat Clear Calc 64.13, Est GFR (MDRD) Af Amer 80, Est GFR (MDRD) Non-Af 66, BUN/Creatinine Ratio 10.3, Glucose 218 H, Calcium 8.7, Total Bilirubin 0.50, AST 25, ALT 26, Alkaline Phosphatase 72, Total Protein 6.2 L, Albumin 2.7 L, Globulin 3.5, Albumin/Globulin Ratio 0.8 L 02/03/23 18:15: POC Glucose 209 H 02/03/23 23:56: POC Glucose 218 H 02/04/23 05:05: WBC 14.8 H, RBC 4.19 L, Hgb 13.1, Hct 39.3 L, MCV 93.8, MCH 31.3, MCHC 33.3, RDW Std Deviation 45.4 H, RDW Coeff of Deion 13.2, Plt Count 159, MPV 8.7 02/04/23 05:05: Sodium 132 L, Potassium 4.9, Chloride 102, Carbon Dioxide 28.0, Anion Gap 2 L, BUN 12, Creatinine 0.96, Estim Creat Clear Calc 78.15, Est GFR (MDRD) Af Amer 101, Est GFR (MDRD) Non-Af 83, BUN/Creatinine Ratio 12.5, Glucose 179 H, Calcium 8.7 02/04/23 06:28: POC Glucose 162 H Physical Exam Const alert, oriented x3 and no apparent distress Constitutional Narrative: No conversational dyspnea. Blue appearance. General Appearance: cooperative HEENT normocephalic and head/scalp atraumatic Eyes PERRL, EOMs intact bilaterally and conjunctivae normal Neck full ROM, no lymphadenopathy and no JVD Chest inspection of chest normal Resp normal respiratory effort Effort and Inspection: able to speak in complete sentences Auscultation: clear to auscultation bilaterally; Negative for rales, rhonchi or wheezes Cardio regular rate, regular rhythm, S1 normal heart sound, S2 normal heart sound, no murmurs, no rub and no gallops GI GI Narrative: Large abdominal dressing was noted. No surrounding erythema or induration noted. Slight tenderness to the touch Extremity General Extremity: Negative for clubbing or edema Skin Skin Narrative: Abnormal skin color, but patient reports this is normal color. Neuro oriented x3, CN's II-XII intact bilaterally and moves all extremities Psych cooperative and affect normal Charges/Coding Visit Charges Inpatient E&M: 05859 Subs Hosp L2
[2023-02-04] MEDS: glipiZIDE XL 5 MG Tablet PO (08:23)
--- NOTE | 2023-02-04 09:21 | PN.SURG_ITS ---
Subjective Subjective Patient did not need any boluses overnight and does not feel lightheaded or dizzy. He reports his abdominal pain is well controlled. No nausea on clears. Objective Data Objective Data Vital Signs: Vital Signs Temp Pulse Resp BP Pulse Ox O2 Del Method O2 Flow Rate 97.3 F L 91 15 115/88 H 94 Nasal Cannula 2 02/04/23 08:00 02/04/23 08:00 02/04/23 08:00 02/04/23 08:00 02/04/23 08:00 02/04/23 08:00 02/04/23 08:00 Oxygen Flow Rate (L/min) 2 Oxygen Delivery Method Nasal Cannula Weight: 192 lb 7.417 oz Body Mass Index (BMI) 27.5 Intake & Output: Intake and Output for Last 24 Hours 02/02/23 02/03/23 02/04/23 23:59 23:59 23:59 Intake Total 3684 / 3684 872.67 / 872.67 Output Total 695 / 695 300 / 300 Balance 2989 / 2989 572.67 / 572.67 Lab / Micro Data Result Diagrams: 02/04/23 05:05 02/04/23 05:05 Labs: Laboratory Results - last 24 hr 02/03/23 08:55: Blood Type B POSITIVE, Antibody Screen NEGATIVE 02/03/23 11:38: POC Glucose 230 H 02/03/23 12:30: Hgb 13.4, Hct 38.3 L 02/03/23 15:40: WBC 16.5 H, RBC 4.49 L, Hgb 13.9, Hct 41.4, MCV 92.2, MCH 31.0, MCHC 33.6, RDW Std Deviation 45.3 H, RDW Coeff of Deion 13.3, Plt Count 183, MPV 8.6, Immature Gran % (Auto) 0.300, Neut % (Auto) 92.8 H, Lymph % (Auto) 2.4 L, [place] % (Auto) 4.3, Eos % (Auto) 0.0, Baso % (Auto) 0.2, Absolute Neuts (auto) 15.3 H, Absolute Lymphs (auto) 0.39 L, Nucleated RBC % 0, Differential Comment SCANNED 02/03/23 15:40: Sodium 131 L, Potassium 4.7, Chloride 104, Carbon Dioxide 23.0, Anion Gap 4 L, BUN 12, Creatinine 1.17, Estim Creat Clear Calc 64.13, Est GFR (MDRD) Af Amer 80, Est GFR (MDRD) Non-Af 66, BUN/Creatinine Ratio 10.3, Glucose 218 H, Calcium 8.7, Total Bilirubin 0.50, AST 25, ALT 26, Alkaline Phosphatase 72, Total Protein 6.2 L, Albumin 2.7 L, Globulin 3.5, Albumin/Globulin Ratio 0.8 L 02/03/23 18:15: POC Glucose 209 H 02/03/23 23:56: POC Glucose 218 H 02/04/23 05:05: WBC 14.8 H, RBC 4.19 L, Hgb 13.1, Hct 39.3 L, MCV 93.8, MCH 31.3, MCHC 33.3, RDW Std Deviation 45.4 H, RDW Coeff of Deion 13.2, Plt Count 159, MPV 8.7 02/04/23 05:05: Sodium 132 L, Potassium 4.9, Chloride 102, Carbon Dioxide 28.0, Anion Gap 2 L, BUN 12, Creatinine 0.96, Estim Creat Clear Calc 78.15, Est GFR (MDRD) Af Amer 101, Est GFR (MDRD) Non-Af 83, BUN/Creatinine Ratio 12.5, Glucose 179 H, Calcium 8.7 02/04/23 06:28: POC Glucose 162 H Physical Exam Const oriented x3 Resp normal respiratory effort GI soft to palpation Assessment & Plan Assessment/Plan (1) Colonic mass: PLAN: Patient had some hypotensive postoperatively so he was placed in the ICU overnight. He did well and his hemoglobin is stable. I will transfer him to the floor today. GINGER Garcia today. Start Lovenox. Continue clear liquids until he starts passing flatus and then I will advance diet. Continue diabetic regimen. Ghulam Casey MD Pager: [facility] [address] [place] [address], [address] [place] [address] Office:
--- NOTE | 2023-02-04 12:46 | CASEMGMT ---
MEGAN BANEGAS Assessment: Face to Face with pt for initial transition planning/care coordination assessment. RN MAKENZIE introduced self and role at [facility], pt voices understanding and consents to assessment. Pt is A/O x4 and answers all questions appropriately at this time. Pt sitting up in chair in no distress. Care providers, pharmacy, and demographics verified/updated. Admitting Dx: Lt hemicolectomy PCP:Cruz Specialists:TREV Casey vasc Preferred Pharmacy: [facility] Insurance: My Care [facility] Community Plan Prescription Benefit: yes LNOK: Bradford Gibson, brother Living Arrangements: Pt lives alone in a ground level apt with no steps to enter. Pt reports he is I in ADL's and denies concerns at home. Pt has a friend who lives close that looks after him. Pt receives 14 meals weekly. Transportation: Pt drives self and denies concerns with transportation. DME/HHC/SNF: Pt has a FWW, rollator and sometimes uses. Pt also has a walk in shower and BGM with sufficient supplies. Pt denies hx of HHC or SNF stays. Pt states no concerns with going home at time of dc. Pt reports he has a employment case manager from [facility] but is unsure of who it is. Updated SW. Pt states no further concerns/needs. CM to follow. Advised pt to ask CM if any further question/concerns/needs arise, voices understanding. Pt Goal: Home Plan: Home
[2023-02-04 13:10] LABS: Bedside Glucose 121 mg/dL (74-106)
--- NOTE | 2023-02-04 13:16 | CASEMGMT ---
Addendum entered by Evangelina Gomez 02/04/23 13:38: Received call back from Maribell who states that pt is to have a home visit from the waiver conference service coordinator on 02/15, pt does not have ACCOUNTING REPRESENTATIVE d/t staffing and his CM is Cristian through [facility]. Original Note: TC to Maribell [facility] CM at [phone], left message with call back information.
--- NOTE | 2023-02-04 13:57 | CASEMGMT ---
Social Work Pt has services through [facility]. TONG spoke with Freedom Lama at . Pt's student career development specialist is Carlyn Camara ([phone]). Pt has emergency response system, 14 home delivered meals a week and qualifies for 12 hours of aids per week but currently there is no provider available. TONG will update [facility] of pt discharge. HUY Sequeira
--- NOTE | 2023-02-04 15:30 | CHAPLAIN ---
Type of Pastoral Visit _x__ Initial Visit ___ Follow-up Visit ___ On-call Visit ___ General Patient Visit ___ Spiritual Assessment ___ Family Conference ___ Bereavement ___ Rapid Response ___ Code Blue ___ Other (describe below) Pastoral Care Referral From _x__ Patient ___ Family ___ Nurse ___ Physician ___ Toolroom Clerk ___ Munitions Handler ___ Other (describe below) Sacrament/Intervention _x__ Active listening ___ Anointing ___ Orthodox ___ Bereavement ___ Communion _x__ Dawn exploration ___ _x__ Life review _x__ Prayer ___ Reconciliation ___ Sacrament of Sick ___ Supportive presence ___ Wedding ___ Other (describe below) Pastoral Comments patient is welcoming and talkative; pt explains his own study of Latter Day; pt gives information about his support locally; pt has no worries or concerns per his report; pt just seeking someone to talk with and time given to be present and supportive
[2023-02-04 17:20] LABS: Bedside Glucose 106 mg/dL (74-106)
[2023-02-04] MEDS: Docusate Sodium 100 MG Capsule PO (21:52)
[2023-02-04] MEDS: Atorvastatin Calcium 10 MG Tablet PO (21:52)
[2023-02-04] MEDS: Ondansetron ODT 4 MG Tablet PO (22:39)
[2023-02-04 23:41] LABS: Bedside Glucose 173 mg/dL (74-106)
[2023-02-05] VITALS (7 sets, daily range): BP systolic 125–170; BP diastolic 74–86; PULSE 100–108; RESP 18; TEMP 36.6–37; O2SAT 89–98
[2023-02-05] MEDS: Ondansetron ODT 4 MG Tablet PO (06:07)
[2023-02-05] MEDS: Insulin Lispro 100 UNIT/ML INSULN.PEN SC ×3 (06:07→18:59)
[2023-02-05 06:30] LABS: Bedside Glucose 181 mg/dL (74-106)
[2023-02-05] MEDS: Enoxaparin 40 MG/0.4 ML Syringe SC (09:14)
[2023-02-05] MEDS: Acetaminophen 500 MG Tablet 1000 MG PO ×2 (12:34→18:58)
[2023-02-05 12:56] LABS: Bedside Glucose 174 mg/dL (74-106)
--- NOTE | 2023-02-05 13:13 | PCM.PN.SRG ---
Subjective Subjective Patient reports he passed a small amount of gas this afternoon. He said he was pretty miserable with gas pains yesterday. He denies nausea or vomiting. Objective Data Objective Data Vital Signs: Vital Signs Temp Pulse Resp BP Pulse Ox O2 Del Method O2 Flow Rate 98.4 F 100 18 140/79 H 98 Room Air 2 02/05/23 09:55 02/05/23 09:55 02/05/23 09:55 02/05/23 09:55 02/05/23 09:55 02/05/23 09:55 02/05/23 03:29 Oxygen Flow Rate (L/min) 2 Oxygen Delivery Method Room Air Weight: 192 lb 7.417 oz Body Mass Index (BMI) 27.5 Intake & Output: Intake and Output for Last 24 Hours 02/03/23 02/04/23 02/05/23 23:59 23:59 23:59 Intake Total 3684 / 3684 2232.67 / 2232.67 300 / 300 Output Total 695 / 695 300 / 300 Balance 2989 / 2989 1932.67 / 1932.67 300 / 300 Lab / Micro Data Result Diagrams: 02/04/23 05:05 02/04/23 05:05 Labs: Laboratory Results - last 24 hr 02/04/23 16:58: POC Glucose 106 02/04/23 23:18: POC Glucose 173 H 02/05/23 06:01: POC Glucose 181 H 02/05/23 12:31: POC Glucose 174 H Physical Exam Const oriented x3 Resp normal respiratory effort GI soft to palpation and non-tender Inspection: abdominal distention Assessment & Plan Assessment/Plan (1) Colonic mass: PLAN: Patient had splenic flexure colectomy and seems to be doing well. He tolerated clears but I told him to take it easy until he starts having better bowel sounds and passing more flatus. Once he starts passing substantial flatus and does not feel bloated I will advance his diet to regular. I am ordering a PT OT eval as his family is concerned for his home-going needs. Ghulam Casey MD Pager: [facility] [address] [place] [address], [address] [place] [address] Office:
--- NOTE | 2023-02-05 16:09 | MDS.RN ---
Patient just back to room after walking in halls. Will recheck BP.
[2023-02-05 18:20] LABS: Bedside Glucose 162 mg/dL (74-106)
[2023-02-05] MEDS: Pantoprazole Sodium 20 MG Tablet PO (18:59)
[2023-02-05] MEDS: Calcium Carbonate 500 MG Tablet 1000 MG PO (18:59)
[2023-02-05] MEDS: Atorvastatin Calcium 10 MG Tablet PO (20:59)
[2023-02-06] MEDS: Acetaminophen 500 MG Tablet 1000 MG PO ×3 (00:09→12:38)
[2023-02-06 00:31] LABS: Bedside Glucose 134 mg/dL (74-106)
[2023-02-06 03:08] VITALS: BP 138/68; PULSE 92; RESP 16; TEMP 36.6; O2SAT 92
[2023-02-06 06:35] LABS: Bedside Glucose 97 mg/dL (74-106)
[2023-02-06 07:18] LABS: Absolute Lymphocyte Count 1.46 X10^3/uL (0.83-4.51); Absolute Neutrophil Count 10.6 X10^3/uL (2.0-7.7); Basophil# 0.04 X10^3/uL; Basophil% 0.3 % (0-1); Eosinophil# 0.03 X10^3/uL; Eosinophils% 0.2 % (0-5); Hematocrit 37.5 % (40-54); Hemoglobin 12.9 g/dL (13.0-16.5); Lymphocyte # 1.46 X10^3/ul (0.83-4.51); Mean Corp Hgb Conc 34.4 g/dL (32-36); Mean Corpuscular Hgb 31.5 pg (27.0-32.0); Mean Corpuscular Volume 91.5 fL (80-94); Mean Platelet Vol. 8.6 fl (6.2-12.0); Monocyte# 1.08 X10^3/uL; Monocyte% 8.1 % (0-10); NRBC Flagged by Analyzer 0 % (0-5); Neutrophil # 10.63 X10^3/uL (2.7-7.7); Neutrophil % 79.9 % (47-70); Platelet Count 191 K/mm3 (150-450); RBC Distribution Width CV 13.3 % (11.6-14.6); White Blood Count 13.3 K/mm3 (4.4-11.0)
[2023-02-06 07:55] LABS: Anion Gap 5 (5-15); BUN 13 mg/dL (7-18); BUN/Creat Ratio 17.2 RATIO (10-20); Calcium,Total 8.9 mg/dL (8.5-10.1); Chloride 103 mmol/L (98-107); Creatinine, Serum 0.76 mg/dL (0.70-1.30); EST Glomerular Filtration Rate 109 mL/min (>60); Est Glom Filt Rate - Afr Amer 132 mL/min (>60); Estimated Creatinine Clearance 75.03 ml/min; Glucose 119 mg/dL (74-106); Potassium 3.8 mmol/L (3.5-5.1); Sodium Level 133 mmol/L (136-145)
[2023-02-06 08:03] VITALS: BP 123/73; PULSE 80; RESP 18; TEMP 36.7; O2SAT 93
[2023-02-06] MEDS: glipiZIDE XL 5 MG Tablet PO (08:06)
--- NOTE | 2023-02-06 09:14 | DCINST_ITS ---
Discharge Instructions Diet Discharge Diet: Soft diet Activity Discharge Activity: May Not Drive (May not drive while taking narcotic pain medications) and May Shower (May begin showering 48hours postop. Please avoid baths or submerging surgical incisions before skin is completely healed.) May resume sexual activity in: 2 weeks Ice area for (Minutes): 20 Lifting Restrictions: Limit lifting to <15lbs for 4 weeks following surgery Dressing / Incision Call your doctor if your incision/area has: Sudden Increased Bleeding, Increased Pain/ Swelling, Increased Redness, Foul Smelling Discharge and Swelling at the incision site Call your doctor if you observe: Fever of 101 or Higher, Inability to urinate, Inability to have a bowel movement and Uncontrolled pain Suture Line Care: Avoid Pulling/Pushing Cleanse incision/area with: Keep Dressing Clean & Dry Additional Dressing/Incision Instructions:: Leave Steri-Strips intact until your follow-up. If they come off spontaneously, there is no need to replace them Follow Up Care Please Follow Up With: Ghulam Casey MD When: 2 weeks postop Test Results: Test results from this visit will be discussed in further detail at your follow- up appointment, if applicable. Discharge Plan Admission Admit Date/Time: 02/03/23 05:25 Primary Reason for Your Visit: Partial colectomy Attending Provider: Ghulam Casey Primary Care Provider: Xena Arroyo Consulting Providers: Nemesio Dacosta ; Haroldo Fregoso ; Guy Beckett ; Donal Vanegas ; Zahra Arzola SCIENCE TECH[employer] Instructions Patient Instructions: After Bowel Surgery: Recovering in the Hospital and at Home, Recovering from Colorectal Surgery Discharge Orders/Prescriptions Prescriptions: New oxycodone 5 mg tablet 5 mg PO Q6H PRN (Reason: pain) 5 Days Qty: 14 0RF No Action pioglitazone 15 mg tablet 15 mg PO DAILY cranberry 400 mg capsule 400 mg PO DAILY Rx Instructions: administer with a meal cholecalciferol (vitamin D3) 25 mcg (1,000 unit) capsule 50 mcg PO DAILY mecobalamin (vitamin B12) 1,000 mcg tablet,chewable 1,000 mcg PO DAILY atorvastatin 10 mg tablet 10 mg PO QHS metformin 1,000 mg tablet 1,000 mg PO BID Label Comments: take 1 tablet by mouth twice a day lisinopril 5 mg tablet 5 mg PO DAILY Label Comments: take 1 tablet by mouth once daily fluoxetine 20 mg capsule 20 mg PO DAILY Label Comments: take 1 capsule by mouth every morning glipizide 2.5 mg tablet extended release 24hr 5 mg PO DAILY Label Comments: take 1 tablet by mouth once daily WITH BREAKFAST metronidazole 500 mg tablet 500 mg PO .COMPLEX Rx Instructions: Take 2 (two) tablets at 1300, 1500, 2300 cephalexin 500 mg tablet 500 mg PO .COMPLEX Rx Instructions: Take Two (2) tablets at 1300, 1500, and 2300 pm the day prior to procedure Referrals / Follow Up: Xena Arroyo MD [Primary Care Provider] - Disposition Disposition (needs filled in before D/C Order can be placed): Home, Self Care
[2023-02-06] MEDS: Pantoprazole Sodium 20 MG Tablet PO (09:47)
[2023-02-06] MEDS: Ensure Clear 120 ML Liquid PO (09:47)
[2023-02-06] MEDS: Docusate Sodium 100 MG Capsule PO (09:47)
[2023-02-06] MEDS: Enoxaparin 40 MG/0.4 ML Syringe SC (09:48)
[2023-02-06] MEDS: Insulin Lispro 100 UNIT/ML INSULN.PEN SC (11:30)
[2023-02-06 11:51] LABS: Bedside Glucose 202 mg/dL (74-106)
--- NOTE | 2023-02-06 12:21 | PCM.DC.SUM ---
Providers Date of Admission: 02/03/23 Primary Care Physician: Dr. Xena Arroyo MD Consultations 02/03/23 15:30 Consult: It Operations Specialist / Pulmonary Medicine Routine Consulting Provider: Pulmonary Medicine willy [place] Reason for Consult: blood pressure management EMERGENT Consult: Yes MD Notified: Yes Date Notified: 02/03/23 Time Notified: 15:30 Method of Notification: Verbal Reason For Visit: LT BRYCE COLECTOMY Diagnosis Discharge Diagnosis (1) Colonic mass: Status: Acute Code(s): K63.89 - Other specified diseases of intestine Medications at Discharge Home Medications atorvastatin 10 mg tablet 10 mg PO QHS CHOLESTEROL 06/20/21 fluoxetine 20 mg capsule 20 mg PO DAILY DEPRESSION 06/20/21 lisinopril 5 mg tablet 5 mg PO DAILY BP 06/20/21 metformin 1,000 mg tablet 1,000 mg PO BID DIABETES 06/20/21 glipizide 2.5 mg tablet, extended release 24 hr 5 mg PO DAILY DIABETES 11/24/22 pioglitazone 15 mg tablet 15 mg PO DAILY DIABETES 11/24/22 cholecalciferol (vitamin D3) 25 mcg (1,000 unit) capsule 50 mcg PO DAILY SUPPLEMENT 01/12/23 cranberry 400 mg capsule 400 mg PO DAILY SUPPLEMENT 01/12/23 mecobalamin (vitamin B12) 1,000 mcg chewable tablet 1,000 mcg PO DAILY SUPPLEMENT 01/12/23 cephalexin 500 mg tablet 500 mg PO .COMPLEX PREP 01/25/23 metronidazole 500 mg tablet 500 mg PO .COMPLEX PREP 01/25/23 oxycodone 5 mg tablet 5 mg PO Q6H PRN pain 5 days #14 tabs 02/06/23 Hospital Course Operations colectomy (Left hemicolectomy 02/03/2023) Summary of Care Provided Hospital Course: Patient is a 67-year-old male who underwent left hemicolectomy with splenic flexure mobilization and liver biopsy on 02/03/2023. He was admitted to the hospital post procedurally for ongoing care. Immediately postoperatively he had some hypotension that spontaneously improved. He was enrolled in an ERAS pathway, but held to liquids until he began to pass flatus. This occurred postoperative day 2 and, this morning, postoperative day 3, patient confirms several bowel movements. He notes that the initial bowel movement was slightly bloody, but that the most recent bowel movement this morning was clear. He denies any issues with his liquid diet in the way of nausea. He expresses a readiness to discharge home. He was evaluated by PT and OT yesterday and determined not to require any further therapy upon hospital discharge. Postdischarge instructions were therefore reviewed at bedside with patient?including expectation for 2-week follow-up with Dr. Casey. Patient confirmed his agreement and denied any further questions. Physical Exam Const alert, oriented x3 and no apparent distress Constitutional Narrative: Found sitting in a chair out of bed General Appearance: comfortable Orientation / Consciousness: awake Resp normal respiratory effort GI GI Narrative: Nondistended, Steri-Strips remain intact over operative wound which is nonerythematous and nondraining. Soft and nontender to palpation x4 quadrants Weight / BMI Weight Weight: 192 lb 7.417 oz Body Mass Index (BMI) 27.5 ABG / Lab / Microbiology Data Result Diagrams: 02/06/23 06:48 02/06/23 06:48 Laboratory: Laboratory Results - last 24 hr 02/05/23 12:31: POC Glucose 174 H 02/05/23 17:57: POC Glucose 162 H 02/06/23 00:07: POC Glucose 134 H 02/06/23 06:11: POC Glucose 97 02/06/23 06:48: WBC 13.3 H, RBC 4.10 L, Hgb 12.9 L, Hct 37.5 L, MCV 91.5, MCH 31.5, MCHC 34.4, RDW Std Deviation 45.0 H, RDW Coeff of [place] 13.3, Plt Count 191, MPV 8.6, Immature Gran % (Auto) 0.500, Neut % (Auto) 79.9 H, Lymph % (Auto) 11.0 L, [place] % (Auto) 8.1, Eos % (Auto) 0.2, Baso % (Auto) 0.3, Absolute Neuts (auto) 10.6 H, Absolute Lymphs (auto) 1.46, Nucleated RBC % 0 02/06/23 06:48: Sodium 133 L, Potassium 3.8, Chloride 103, Carbon Dioxide 25.0, Anion Gap 5, BUN 13, Creatinine 0.76, Estim Creat Clear Calc 75.03, Est GFR (MDRD) Af Amer 132, Est GFR (MDRD) Non-Af 109, BUN/Creatinine Ratio 17.2, Glucose 119 H, Calcium 8.9 02/06/23 11:28: POC Glucose 202 H D/C Instructions Discharge Diet: Soft diet May resume sexual activity in: 2 weeks Ice area for (Minutes): 20 Call your doctor if your incision/area has: Sudden Increased Bleeding, Increased Pain/ Swelling, Increased Redness, Foul Smelling Discharge and Swelling at the incision site Call your doctor if you observe: Fever of 101 or Higher, Inability to urinate, Inability to have a bowel movement and Uncontrolled pain Suture Line Care: Avoid Pulling/Pushing Cleanse incision/area with: Keep Dressing Clean & Dry Additional Dressing/Incision Instructions: Leave Steri-Strips intact until your follow-up. If they come off spontaneously, there is no need to replace them Please Follow Up With: Ghulam Casey MD When: 2 weeks postop Meaningful Use Info Meaningful Use Diagnoses (Choose all that apply): None applicable Discharge Plan Admission Admit Date/Time: 02/03/23 05:25 Primary Reason for Your Visit: Partial colectomy Attending Provider: Ghulam Casey Primary Care Provider: Xena Arroyo Consulting Providers: Nemesio Dacosta ; Haroldo Fregoso ; Guy Beckett ; Donal Vanegas ; Zahra Arzola RN HEMODIALYSIS CHARGE Instructions Patient Instructions: After Bowel Surgery: Recovering in the Hospital and at Home, Recovering from Colorectal Surgery Discharge Orders/Prescriptions Prescriptions: New oxycodone 5 mg tablet 5 mg PO Q6H PRN (Reason: pain) 5 Days Qty: 14 0RF No Action pioglitazone 15 mg tablet 15 mg PO DAILY cranberry 400 mg capsule 400 mg PO DAILY Rx Instructions: administer with a meal cholecalciferol (vitamin D3) 25 mcg (1,000 unit) capsule 50 mcg PO DAILY mecobalamin (vitamin B12) 1,000 mcg tablet,chewable 1,000 mcg PO DAILY atorvastatin 10 mg tablet 10 mg PO QHS metformin 1,000 mg tablet 1,000 mg PO BID Label Comments: take 1 tablet by mouth twice a day lisinopril 5 mg tablet 5 mg PO DAILY Label Comments: take 1 tablet by mouth once daily fluoxetine 20 mg capsule 20 mg PO DAILY Label Comments: take 1 capsule by mouth every morning glipizide 2.5 mg tablet extended release 24hr 5 mg PO DAILY Label Comments: take 1 tablet by mouth once daily WITH BREAKFAST metronidazole 500 mg tablet 500 mg PO .COMPLEX Rx Instructions: Take 2 (two) tablets at 1300, 1500, 2300 cephalexin 500 mg tablet 500 mg PO .COMPLEX Rx Instructions: Take Two (2) tablets at 1300, 1500, and 2300 pm the day prior to procedure Referrals / Follow Up: Xena Arroyo MD [Primary Care Provider] - Disposition Disposition (needs filled in before D/C Order can be placed): Home, Self Care
[2023-02-06 13:38] VITALS: BP 122/66; PULSE 83; RESP 18; TEMP 36.9; O2SAT 99
== END 2023-02-06 14:58 | disposition home or self-care (01) | DRG 331 ==
LOC: ACINP 05:36 → ICU 18:23 → MS3 02-04 13:34 → ICU 02-04 16:38 → MS3 02-05 14:08
PROVIDERS: Anesthesiology; Internal Medicine Critical Care Medicine; Admitting Provider Surgery; PCP Family Medicine; Referring Provider Surgery; Visit Provider Surgery
PROC: 0DTG4ZZ Resection of Left Large Intestine, Percutaneous Endoscopic Approach (ICD-10-PCS; CPT 44204; principal; 2023-02-03 07:10)
DX: D01.0 Carcinoma in situ of colon (principal); E11.65 Type 2 diabetes mellitus with hyperglycemia; K74.60 Unspecified cirrhosis of liver; I10 Essential (primary) hypertension; F32.A Depression, unspecified; I95.81 Postprocedural hypotension; E78.00 Pure hypercholesterolemia, unspecified; F17.210 Nicotine dependence, cigarettes, uncomplicated; F41.9 Anxiety disorder, unspecified; K76.0 Fatty (change of) liver, not elsewhere classified; L81.8 Other specified disorders of pigmentation; K66.0 Peritoneal adhesions (postprocedural) (postinfection); Z53.39 Other specified procedure converted to open procedure; Z90.49 Acquired absence of other specified parts of digestive tract; Z79.84 Long term (current) use of oral hypoglycemic drugs; Z79.899 Other long term (current) drug therapy
CPT/HCPCS: 36415; 80048; 80053; 82962; 83036; 83735; 85014; 85018; 85025; 85027; 86850; 86900; 86901; 88307; 88309; 88313; 93005; 94668; 97116; 97161; 97165; 99252; J7120; A4216; C1760; G0463

== ENCOUNTER → 2023-08-24 | Outpatient (CLI) | payer MEDICARE, SELFPAY ==
[2023-08-24 10:50] LABS: Absolute Lymphocyte Count 1.74 X10^3/uL (0.83-4.51); Absolute Neutrophil Count 6.9 X10^3/uL (2.0-7.7); Basophil# 0.04 X10^3/uL; Basophil% 0.4 % (0-1); Eosinophil# 0.13 X10^3/uL; Eosinophils% 1.3 % (0-5); Hematocrit 45.5 % (40-54); Hemoglobin 14.4 g/dL (13.0-16.5); Lymphocyte # 1.74 X10^3/ul (0.83-4.51); Lymphocyte % 17.7 % (19-41); Mean Corp Hgb Conc 31.6 g/dL (32-36); Mean Corpuscular Hgb 28.5 pg (27.0-32.0); Mean Corpuscular Volume 89.9 fL (80-94); Mean Platelet Vol. 8.2 fl (6.2-12.0); Monocyte# 0.94 X10^3/uL; Monocyte% 9.6 % (0-10); NRBC Flagged by Analyzer 0 % (0-5); Neutrophil # 6.93 X10^3/uL (2.7-7.7); Neutrophil % 70.5 % (47-70); Platelet Count 290 K/mm3 (150-450); RBC Distribution Width CV 14.7 % (11.6-14.6); RBC Distribution Width SD 48.5 fl (35.1-43.9); Red Blood Count 5.06 M/mm3 (4.6-6.2); White Blood Count 9.8 K/mm3 (4.4-11.0)
[2023-08-24 11:18] LABS: ALB/GLOB Ratio 0.6 RATIO (0.9-2.4); AST(SGOT) 19 U/L (15-37); Alanine Aminotransfer ALT/SGPT 24 U/L (16-61); Albumin, Serum 3.2 g/dL (3.2-5.0); Alkaline Phosphatase 118 U/L (45-117); Anion Gap 8 (5-15); BUN 10 mg/dL (7-18); Calcium,Total 9.8 mg/dL (8.5-10.1); Chloride 102 mmol/L (98-107); Cholesterol 143 mg/dL (200); Creatinine, Serum 1.11 mg/dL (0.70-1.30); EST Glomerular Filtration Rate 70 mL/min (>60); Est Glom Filt Rate - Afr Amer 85 mL/min (>60); Glucose 154 mg/dL (74-106); High Density Lipoprotein 49 mg/dL; Potassium 4.1 mmol/L (3.5-5.1); Protein, Total 8.2 g/dL (6.4-8.2); Sodium Level 136 mmol/L (136-145); Triglycerides 126 mg/dL; Very Low Density Lipoprotein 25 mg/dL (5-40)
[2023-08-24 17:23] LABS: Microalbumin:Creatinine Ratio 109.3 mg/g CRE (<30 mg/g CRE)
[2023-08-25 04:07] LABS: AFP, Tumor Marker 2.5 ng/mL (0.0-8.4)
== END | disposition home or self-care (01) ==
PROVIDERS: PCP Family Medicine; Referring Provider Family Medicine; Visit Provider Family Medicine
DX: Z00.00 Encounter for general adult medical examination without abnormal findings (principal); E11.9 Type 2 diabetes mellitus without complications; K76.0 Fatty (change of) liver, not elsewhere classified; E78.5 Hyperlipidemia, unspecified
CPT/HCPCS: 36415; 80053; 80061; 82043; 82105; 82570; 85025

== ENCOUNTER → 2023-09-06 | Outpatient (CLI) | payer MEDICARE, MEDICAID, SELFPAY ==
--- NOTE | 2023-09-06 07:32 | MRI_ITS ---
EXAM: MR HEAD WITHOUT AND WITH INTRAVENOUS CONTRAST CLINICAL INDICATION: Lung carcinoma. Suspect metastases. TECHNIQUE: Multiplanar and multisequence MR images of the brain were obtained without and with intravenous contrast. CONTRAST: 18 mL of IV Clariscan. COMPARISON: MRI brain with and without contrast 01/21/2023. FINDINGS: BRAIN AND EXTRA-AXIAL SPACES: Few T2 FLAIR hyperintensity foci in the white matter of the cerebral hemispheres are chronic white matter ischemic changes. 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 Following IV contrast administration, there are no abnormal enhancing lesions intra-axially and extra-axially. Old linear ischemic infarct in the left cerebellar hemisphere is unchanged. No intra- or extra-axial hemorrhage. No intracranial mass or mass effect. No hydrocephalus. Basal cisterns are patent. SELLA: Unremarkable. Normal sella turcica, pituitary gland, infundibular stalk, optic chiasm and hypothalamus. AUDITORY SYSTEM: Unremarkable. The internal auditory canals are patent. BONES/JOINTS: Unremarkable. No discrete lytic or blastic abnormalities. SINUSES: Unremarkable as visualized. Clear. MASTOID AIR CELLS: Unremarkable as visualized. Clear. ORBITS: Unremarkable as visualized. Both globes, extraocular muscles, optic nerves and retrobulbar fat appear unremarkable. VASCULATURE: Unremarkable as visualized. Normal flow voids in the major intracranial circulation. MRI/Brain W/WO Contrast IMPRESSION: 1. No MRI evidence of acute or subacute ischemic infarct or intracranial metastatic disease. 2. Old ischemic infarct with focal atrophy and cystic encephalomalacia in the left occipital lobe. 3. Old linear cystic infarct in the left cerebellar hemisphere. 4. Few chronic white matter ischemic changes in both cerebral hemispheres. 5. No interval change when compared to 01/21/2023. Electronically Signed: Anson Phelps MD at 9:08 EST ,
== END | disposition home or self-care (01) ==
LOC: MRI 07:18
PROVIDERS: PCP Family Medicine
DX: C34.12 Malignant neoplasm of upper lobe, left bronchus or lung (principal); D49.1 Neoplasm of unspecified behavior of respiratory system
CPT/HCPCS: 70553; A9575

== ENCOUNTER 2023-11-25 21:53 | Inpatient (IN) | payer MEDICARE, MEDICAID, SELFPAY ==
[2023-11-25 21:53] VITALS: BP 112/70; PULSE 101; RESP 16; TEMP 36.2; O2SAT 96; BMI 26.1
--- OUTSIDE RECORDS SUMMARY | 2023-11-25 22:29 | XMS RPT_ITS | CCD ---
Author Name Unknown Address [address] [place] [address] Organization [facility] Care Team Providers Care Design Leader Name Role Phone Xena Arroyo Primary Care Provider [phone] SELF, SELF Referring Unavailable SELF, SELF Referring Unavailable Xena Arroyo MD Primary Care Provider [place] Barron Unavailable Guy PERDOMO MD, Guilherme Unavailable [phone] JOSSUE CARDONA Attending Unavailable MIEDEL, XENA E Primary Care Unavailable NATALIE VACA Attending Unavailable MIEDEL, XENA E Primary Care Unavailable KARISHMA LEDESMA Attending Unavail able KARISHMA LEDESMA Admitting Unavail able MIEDEL, XENA E Primary Care Unavailable KARISHMA LEDESMA Referring Unavail able JOSSUE CARDONA Referring Unavaila ble MIEDEL, XENA E Primary Care Unavailable KARISHMA LEDESMA Attending Unavail able MIEDEL, XENA E Primary Care Unavailable MIEDEL, XENA E Primary Care Unavailable NATALIE VACA Referring Unavailable MIEDEL, XENA E Primary Care Unavailable JORGE PEREZ Referring Unavailable MIEDEL, XENA E Primary Care Unavailable JORGE PEREZ Referring Unavailable MIEDEL, XENA E Primary Care Unavailable JORGE PEREZ Referring Unavailable MIEDEL, XENA E Primary Care Unavailable JORGE PEREZ Referring Unavailable MIEDEL, XENA E Primary Care Unavailable JORGE PEREZ Referring Unavailable MIEDEL, XENA E Primary Care Unavailable GUILHERME NORRIS MD Referring Unavailable JORGE PEREZ Attending Unavailable XENA ARROYO Primary Care Unavailable GUILHERME NORRIS MD Attending Unavailable JOSSUE CARDONA Referring Unavaila XENA Calzada Primary Care Unavailable JOSSUE CARDONA Referring Unavaila XENA Calzada Primary Care Unavailable Medications Current Medications Medication Drug Class(es) Dates Sig (Normalized) Sig (Original) iv contrast (will be provided with radiology test) (1 source) Start: 08-10-2023 End: 08-11-2023 inject 1 dose intravenously once iv contrast (will be provided with radiology test) Indications: Primary cancer of left upper lobe of lung (HCC) , Neoplasm of lung MRI Brain Inject, intravenously, once for 1 dose.No IV access, insert saline lock prior to beginning of sedation, infusion, injection of imaging exam.Discontinue saline lock post exam. If Pt. has a central line or IVAD, may access for administration according to line specific nursing protocol.Once exam is complete flush line and de-access according to line specific nursing protocol in the MR contrast administration guidelines link 1 Each 0 08/10/2023 08/11/2023 Active Completed/Discontinued Medications Medication Drug Class(es) Dates Sig (Normalized) Sig (Original) aspirin 81 mg delayed release oral tablet (20 sources) Platelet Aggregation Inhibitor, Nonsteroidal Anti-inflammatory Drug take 1 tablet by mouth once daily aspirin, enteric coated (ASPIRIN, ENTERIC COATED) 81 mg EC tablet Take 81 mg by mouth once daily. 0 Active Problems Problem Classification Problem Date Documented Date Episodic/Chronic Aortic and peripheral arterial embolism or thrombosis (20 sources) Lower limb arterial embolus; Translations: [Embolism and thrombosis of arteries of the lower extremities] Onset: 06-21-2021 06-21-2021 Chronic Aortic; peripheral; and visceral artery aneurysms (9 sources) Aneurysm of popliteal artery; Translations: [Aneurysm of artery of lower extremity] Onset: 08-10-2023 Chronic Cancer of bronchus; lung (18 sources) Malignant neoplasm of unspecified part of unspecified bronchus or lung; Translations: [Primary malignant neoplasm of left upper lobe of lung] Onset: 01-26-2023 Chronic Cancer of colon (2 sources) History of malignant neoplasm of colon; Translations: [Personal history of other malignant neoplasm of large intestine] Onset: 08-10-2023 08-10-2023 Episodic Neoplasms of unspecified nature or uncertain behavior (3 sources) Neoplasm of lung ; Translations: [Neoplasm of unspecified behavior of respiratory system] Onset: 10-04-2023 08-10-2023 Episodic Other lower respiratory disease (2 sources) Dyspnea; Translations: [Shortness of breath] 08-10-2023 Episodic Other lower respiratory disease (1 source) Shortness of breath; Translations: [SOB (shortness of breath)] Onset: 10-04-2023 Episodic Other screening for suspected conditions (not mental disorders or infectious disease) (1 source) Patient encounter status; Translations: [Encounter for screening for cardiovascular disorders] 10-04-2023 Episodic Peripheral and visceral atherosclerosis (5 sources) Occlusion of left popliteal artery; Translations: [Unspecified atherosclerosis of agdaagux arteries of extremities, left leg] Onset: 08-10-2023 Chronic Residual codes; unclassified (2 sources) H/O: major vascular surgery; Translations: [Other specified postprocedural states] Episodic Residual codes; unclassified (2 sources) History of cardiovascular surgery; Translations: [Other specified postprocedural states] Episodic Residual codes; unclassified (1 source) Other specified postprocedural states; Translations: [S/P vascular surgery] Onset: 08-10-2023 Episodic Substance-related disorders (20 sources) Nicotine dependence; Translations: [Nicotine dependence, unspecified, uncomplicated] Onset: 06-25-2021 06-25-2021 Chronic Results Test Name Value Interpretation Reference Range Facil ity Vital Signs Date Time Vital Sign Value Performing Clinician Cruzi litcarroll 10-07-2023 13:35-0500 Body temperature 97.11 [degF] Guilherme Norris MD, MD Work Phone: [facility] 10-07-2023 13:35-0500 Body weight 80.74 kg Guilherme Norris MD, MD Work Phone: [facility] 10-07-2023 13:35-0500 Diastolic blood pressure 67 mm[Hg] Guilherme Norris MD, MD Work Phone: [facility] 10-07-2023 13:35-0500 Heart rate 93 /min Guilherme Norris MD, MD Work Phone: [facility] 10-07-2023 13:35-0500 Respiratory rate 16 /min Guilherme Norris MD, MD Work Phone: [facility] 10-07-2023 13:35-0500 SaO2% (BldA) [Mass fraction] 100 % Guilherme Norris MD, MD Work Phone: [facility] 10-07-2023 13:35-0500 Systolic blood pressure 102 mm[Hg] Guilherme Norris MD, MD Work Phone: [facility] 09-29-2023 16:35-0500 Diastolic blood pressure 72 mm[Hg] Karishma Ledesma MD Work Phone: [facility] 09-29-2023 16:35-0500 Heart rate 89 /min Karishma Ledesma MD Work Phone: [facility] 09-29-2023 16:35-0500 Respiratory rate 26 /min Karishma Ledesma MD Work Phone: [facility] 09-29-2023 16:35-0500 SaO2% (BldA) [Mass fraction] 96 % Karishma Ledesma MD Work Phone: [facility] 09-29-2023 16:35-0500 Systolic blood pressure 140 mm[Hg] Karishma Ledesma MD Work Phone: [facility] 09-29-2023 16:15-0500 Body temperature 98.2 [degF] Karishma Ledesma MD Work Phone: [facility] 09-29-2023 13:57-0500 Body weight 75.66 kg Karishma Ledesma MD Work Phone: [facility] 08-10-2023 14:56-0400 Body height 177.8 cm Natalie Vaca APRN.[employer]TA[employer]ES [employer] Work Phone: [facility] 08-10-2023 14:56-0400 Body weight 80.74 kg Natalie Vaca APRN.[employer] Work Phone: [facility] 08-10-2023 14:56-0400 Diastolic blood pressure 64 mm[Hg] Natalie Vladimir SCRIBING MACHINE OPERATOR.[employer] Work Phone: [facility] 08-10-2023 14:56-0400 Heart rate 102 /min Natalieayden Vaca SCRIBING MACHINE OPERATOR.[employer] Work Phone: [facility] 08-10-2023 14:56-0400 Respiratory rate 16 /min Natalie Vladimir SCRIBING MACHINE OPERATOR.[employer] Work Phone: [facility] 08-10-2023 14:56-0400 Systolic blood pressure 120 mm[Hg] Natalie Vladimir SCRIBING MACHINE OPERATOR.[employer] Work Phone: [facility] 08-10-2023 14:42-0400 Body height 179.1 cm Jossue Cardona MD Work Phone: [facility] 08-10-2023 14:42-0400 Body weight 81.1 kg Jossue Cardona MD Work Phone: [facility] 08-10-2023 14:42-0400 Diastolic blood pressure 64 mm[Hg] Jossue Cardona MD Work Phone: [facility] 08-10-2023 14:42-0400 Heart rate 102 /min Jossue Cardona MD Work Phone: [facility] 08-10-2023 14:42-0400 Respiratory rate 16 /min Jossue Cardona MD Work Phone: [facility] 08-10-2023 14:42-0400 SaO2% (BldA) [Mass fraction] 100 % Jossue Cardona MD Work Phone: [facility] 08-10-2023 14:42-0400 Systolic blood pressure 120 mm[Hg] Jossue Cardona MD Work Phone: [facility] 07-21-2022 13:19-0400 Body height 177.8 cm Natalieayden Vaca SCRIBING MACHINE OPERATOR.[employer] Work Phone: [facility] 07-21-2022 13:19-0400 Body weight 85 kg Natalie Vladimir SCRIBING MACHINE OPERATOR.[employer] Work Phone: [facility] 07-21-2022 13:19-0400 Diastolic blood pressure 60 mm[Hg] Natalie Vaca APRN.[employer] Work Phone: [facility] 07-21-2022 13:19-0400 Heart rate 97 /min Natalie Vaca APRN.[employer] Work Phone: [facility] 07-21-2022 13:19-0400 SaO2% (BldA) [Mass fraction] 97 % Natalie Vaca SCRIBING MACHINE OPERATOR.[employer] Work Phone: [facility] 07-21-2022 13:19-0400 Systolic blood pressure 110 mm[Hg] Natalie Vaca APRN.[employer] Work Phone: [facility] 02-06-2022 12:56-0400 Body height 177.8 cm Natalie Vaca APRN.[employer] Work Phone: [phone] [place] [address] 02-06-2022 12:56-0400 Body weight 84.37 kg Natalie Vaca APRN.[employer] Work Phone: [facility] 02-06-2022 12:56-0400 Diastolic blood pressure 80 mm[Hg] Natalie Vaca SCRIBING MACHINE OPERATOR.[employer] Work Phone: [facility] 02-06-2022 12:56-0400 Heart rate 96 /min Natalie Vaca APRN.[employer] Work Phone: [facility] 02-06-2022 12:56-0400 SaO2% (BldA) [Mass fraction] 98 % Natalie Vaca APRN.[employer] Work Phone: [facility] 02-06-2022 12:56-0400 Systolic blood pressure 162 mm[Hg] Natalie Vaca APRN.[employer] Work Phone: [facility] 08-15-2021 14:46-0400 Body height 177.8 cm Natalie Vaca APRN.[employer] Work Phone: [facility] 08-15-2021 14:46-0400 Body weight 80.74 kg Natalie Vaca APRN.[employer] Work Phone: [facility] 08-15-2021 14:46-0400 Diastolic blood pressure 64 mm[Hg] Natalie Vaca SCRIBING MACHINE OPERATOR.[employer] Work Phone: [facility] 08-15-2021 14:46-0400 Heart rate 86 /min Natalie Vaca SCRIBING MACHINE OPERATOR.[employer] Work Phone: [facility] 08-15-2021 14:46-0400 Respiratory rate 18 /min Natalie Vaca SCRIBING MACHINE OPERATOR.[employer] Work Phone: [facility] 08-15-2021 14:46-0400 Systolic blood pressure 110 mm[Hg] Natalie Vaca SCRIBING MACHINE OPERATOR.[employer] Work Phone: [facility] Encounters Encounter Date Encounter Type Care Provider Facility Start: 11-18-2023 End: 11-19-2023 ambulatory XENA E MIEDEL Facility:[facility] Start: 11-16-2023 End: 11-16-2023 ambulatory XENA E MIEDEL Facility:[facility] Start: 11-11-2023 End: 11-11-2023 ambulatory XENA E MIEDEL Facility:[facility] Start: 11-10-2023 End: 11-11-2023 ambulatory XENA E MIEDEL Facility:[facility] Start: 10-07-2023 End: 10-07-2023 ambulatory [place] MIEDEL Facility:[facility] Start: 10-07-2023 End: 10-07-2023 Patient encounter procedure Guilherme Norris MD Work Phone: Radiation Oncology Procedures Date Procedure Procedure Detail Performing Clinician Start: 10-04-2023 Myocardial spect mul tiple studies Jossue Cardona MD Work Phone: Start: 09-29-2023 Brnchsc incl fluor g dnce dx w/cell washg spx Karishma Ledesma MD Work Phone: Start: 09-29-2023 Gluc bld gluc mntr d ev cleared fda spec home use Karishma Ledesma MD Work Phone: Start: 06-08-2022 Us retroperitoneal r eal time w/image limited Natalie Vaca CATY.[employer] Work Phone: Plan of Treatment Date Care Activity Detail Author Start: 06-28-2024 [facility] Start: 06-28-2024 Diabetes Screening Diabetes Screenlamont bower [facility] Start: 09-06-2023 End: 12-06-2023 Basic metabolic 2000 panel - Serum or Plasma BASIC METABOLIC PNL Lab STAT Pre-op testing Expected: 09/06/2023, Expires: 12/06/2023 [facility] Work Phone: Payers Date Payer Category Payer Medicare [id number] 2023 Medicare [id number] 2023 Medicaid [id number] 2021 Medicaid [id number]. [id number] 2021 Medicaid [id number] 2021 Medicare [id number] 2021 Medicare [id number] 1955 Unknown [id number] 1955 Unknown [id number] 1955 Unknown [id number] Social History Date Type Detail Facility Start: 08-15-2021 End: 10-07-2023 Tobacco smoking status NHIS Current every day smoker [facility] Start: 08-15-2021 End: 10-01-2023 Cigarettes smoked current (pack per day) - Reported [facility] Start: 08-15-2021 End: 10-07-2023 Tobacco use and exposure Never used [facility] Start: 08-15-2021 Alcohol intake Lifetime non-d khushi (finding) [facility] Start: 07-11-2021 History SDOH Alcohol Frequency 1 [facility] Start: 1955 Sex Assigned At Male [facility] Start: 01-27-2022 End: 07-21-2022 Exposure to SARS-CoV-2 (event) Not sure [facility] History of tobacco use Cigarette Smoker [facility] Start: 02-06-2022 End: 10-07-2023 Alcohol intake Current drinker of alcohol (finding) [facility] Start: 02-06-2022 History SDOH Alcohol Comment very seldom [facility] Start: 05-26-2022 End: 06-05-2022 Exposure to SARS-CoV-2 (event) Yes [facility] Start: 08-10-2023 End: 10-01-2023 Tobacco use panel [facility] National Score (1-10 0), lower number is lower risk 66 [facility] Start: 07-10-2021 Gender identity Identifies as male gender (finding) [facility] Start: 07-10-2021 Sexual orientation Heterosexual (fin ding) [facility] Clinical Notes 08-15-2021 to 11-17-2023 Guilherme Norris MD, MD - 10/07/2023 1:47 PM Maribell Correa RN - 10/07/2023 1:39 PM ESTTelephone Encounter - Jossue Cardona MD - 10/06/2023 1:53 PM ESTDischarge Instr - Other Orders Note Date & Type Note Facility 11-17-2023 Note HNO ID: [id number] Author: LEE ANN CLEANING RN Service: ? Author Type: Registered Nurse Type: Progress Notes Filed: 11/17/2023 08:15 Note Text: Patient teaching was completed over the phone. Lee Ann Cleaning RN [facility] 11-17-2023 Note HNO ID: [id number] Author: LEE ANN CLEANING RN Service: ? Author Type: Registered Nurse Type: Progress Notes Filed: 11/17/2023 08:15 Note Text: Radio Division Lieutenant Pre Chemo Patient identified by name and date of . YES Confirmed date and time for chemotherapy ? YES Other appointments (labs, imaging) discussed? YES Discussed where to park (technical sales manager), charge for parking YES Discussed where to report (building/floor) YES Any pre-medications ordered? NO Described the infusion room and what to expect. (What to wear, what to bring [iPad, books] amount of time treatment can take, meals and CC options for food) YES Note: na Discussed whether the patient can eat prior to labs and treatment. YES Who is driving you to and from treatment? He will drive himself and friend, Karina will be available if needed Discussed why it is important to bring someone with you. Yes, for first treatment Resources discussed (music therapy, Art therapy, pet therapy, etc.) YES Education on chemotherapy (drug, side effects) discussed and that the patient will be receiving a C1D1 call within 7 days of treatment. YES Other topics discussed, interventions needed: amish Cleaning RN [facility] 11-17-2023 Note HNO ID: [id number] Author: LEE ANN CLEANING RN Service: ? Author Type: Registered Nurse Type: Progress Notes Filed: 11/17/2023 08:15 Note Text: ONCOLOGY PATIENT EDUCATION NOTE TOPIC: Chemotherapy Immunotherapy, Medications: Gemzar/Cisplatin/Nivolumab READINESS TO LEARN: COGNITIVE ABILITY: Alert and oriented MOTIVATION TO LEARN: Interested FAMILY SUPPORT: friendKarina that lives next door to him INSTRUCTION PROVIDED TO: Patient INSTRUCTION PROVIDED BY: Nurse Coordinator PATIENT LEARNS BEST BY: Multiple Methods FACTORS AFFECTING LEARNING: None PHYSICAL LIMITATIONS AFFECTING LEARNING: None LEARNING RESPONSE DIAGNOSIS: Lung Cancer METHOD OF INSTRUCTION: Individual instruction Written instruction - handouts Verbal instruction PATIENT/FAMILY RESPONSE: Verbalizes understanding of: CHEMOTHERAPY-Regimen, toxicity and side effects FOLLOW UP PLAN: Recommend - Recommend continued instruction and follow up as directed Contact information given. SUPPLEMENTAL MATERIAL: Written material was provided at this visit with the following information: - Chemotherapy Immunotherapy education was provided by a pharmacist NO - Side effect management information was provided/discussed including but not limited to: abdominal discomfort, anemia, arthralgia, bowel habit changes, electrolyte disturbances, fatigue, hypersensitivity reaction, infection, kidney toxicity, myalgia, nausea/vomitting, peripheral neuropathy, rash, skin changes, thrombocytopenia YES - Provided important phone numbers and contacts during and after hours. YES - Provided information on symptoms that require immediate assistance. YES - Provided Chemotherapy Immunotherapy when to call handouts YES - Preventing infection. YES - Treatment schedule and confirmation of appointment times. YES - Available support groups. YES - The importance of contraception during the course of chemotherapy NA - Neutropenic fever protocol discussed with patient, which included the importance of reporting any fever of 100.4F (38.0C) or greater to the healthcare team as noted on the provided wallet card and/or magnet. YES Time Spent: 60 minutes REFERRAL (RECOMMENDATION): Social Work, to call at a later time. Lee Ann Cleaning RN [facility] 11-11-2023 Note HNO ID: [id number] Author: SUPRIYA HEATH RT(R) Service: ? Author Type: [employer] Product Development Manager Type: Progress Notes Filed: 11/11/2023 16:11 Note Text: Radiology Service Progress Note PATIENT NAME: Lei Valdez DATE OF SERVICE: November 11, 2023 TIME: 4:10 PM PATIENT IDENTITY VERIFICATION COMPLETED USING TWO (2) IDENTIFIERS: Name and Date of confirmed by patient verbally. FALL SCREENING: Has the patient had 2 falls in the last year or 1 fall with injury or currently using an Ambulatory Assistive Device (Walker, Cane, Wheelchair, Crutches, etc.)? No PATIENT GENDER DATA: Male PATIENT RELEVANT IMPLANT DATA REVIEWED: Yes RADIOLOGY DEPARTMENT: CT; Exam(s) Completed: Chest PERIPHERAL IV DATA: Not applicable SIGNED BY: RT Shanell(R) November 11, 2023 4:10 PM [facility] 11-10-2023 Note HNO ID: [id number] Author: JORGE PEREZ MD Service: ? Author Type: Physician Type: Progress Notes Filed: 11/10/2023 12:21 Note Text: HISTORY OF PRESENT ILLNESS: Lei Valdez is a 68 year old male developed a malignant appearing polyp found on colonoscopy, underwent CT CAP, this found a left lung mass. The colon polyp turned out to be carcinoma in situ on hemicolectomy. Lung biopsy shows non small cell carcinoma favor squamous cell carcinoma. Saw pulmonology September 2023, EBUS was negative for node involvement. PET scan in August showed tumor size 4.8 cm cT2bN0 stage IIA. He has seen thoracic surgery, they recommend neoadjuvant systemic therapy. Here to establish care. We reviewed situation in detail, also expected risks and benefits of preop chemo immunotherapy. Of note he ingested silver years ago rendering him blue. He reports no other effects from thisd. He is in otherwise reasonably good health. 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 Update CT chest to get current tumor size 2. Plan preop cisplatin, gemcitabine and nivolumab, 4 cycles, then refer back to surgery. Written and verbal health teaching given to patient, patient verbalizes understanding and agrees with treatment plan. PAST MEDICAL HISTORY Diagnosis Date [place] of skin Arthritis Diabetes (HCC) PAST SURGICAL HISTORY Procedure Laterality Date PAST SURGICAL HISTORY OF Left 2020 knee PAST SURGICAL HISTORY OF 2022 colon resection FAMILY HISTORY Problem Relation Age of Onset Diabetes Mother Kidney Disease Mother Heart Father Pancreatic Cancer Sister No Known Problems Sister other (bladder cancer) Brother No Known Problems Brother Diabetes Paternal Grandmother Social History Tobacco Use Smoking status: Every Day Packs/day: .25 Types: Cigarettes Smokeless tobacco: Never Vaping Use Vaping Use: Some days Substance Use Topics Alcohol use: Yes Comment: very seldom Drug use: Never ALLERGIES: ALLERGIES No Known Allergies CURRENT OUTPATIENT MEDICATIONS: atorvastatin (LIPITOR) 10 mg tablet Take 10 mg by mouth once daily. FLUoxetine (PROZAC) 20 mg capsule Take 20 mg by mouth once daily. lisinopril (ZESTRIL, PRINIVIL) 5 mg tablet Take 5 mg by mouth once daily. metFORMIN (GLUCOPHAGE) 1,000 mg tablet Take 1,000 mg by mouth twice daily with meals. aspirin, enteric coated (ASPIRIN, ENTERIC COATED) 81 mg EC tablet Take 81 mg by mouth once daily. ondansetron (ZOFRAN) 8 mg tablet Take 1 tablet by mouth every 8 hours as needed. prochlorperazine (COMPAZINE) 10 mg tablet Take 1 tablet by mouth every 6 hours as needed. REVIEW OF SYSTEMS: GENERAL: No fever, night sweats, weight loss or malaise. All other reviewed and negative other than HPI. PHYSICAL EXAMINATION: VITAL SIGNS: BP 95/60 Pulse 96 Temp 99 Ht 5' 7.717 (1.72m) Wt 171 lb (77.6kg) SpO2 99% BMI 26.22 kg/(m2). GENERAL APPEARANCE: Well appearing, in no acute distress, alert and oriented x3, well-hydrated, well nourished. Blue I spent a total of 60 minutes on the date of the service which included preparing to see the patient, [id number] patient care, completing clinical documentation, obtaining and/or reviewing separately obtained history, counseling and educating the patient/family/caregiver, ordering medications, tests, or procedures, communicating with other HCPs (not separately reported), independently interpreting results (not separately reported), communicating results to the patient/family/caregiver, and care coordination (not separately reported). Electronically Signed: Jorge Perez MD November 10, 2023 11:32 AM [facility] 10-07-2023 Note HNO ID: [id number] Author: Guilherme Norris MD, MD Service: ? Author Type: Physician Type: Progress Notes Filed: 10/07/2023 3:23 PM Note Text: Radiation Oncology - New Patient/Consult Note PATIENT NAME: Lei Valdez PATIENT REQUESTING PROVIDER: Dr. Jossue Cardona DIAGNOSIS: 1. 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 2. 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 HPI: 67 year old male who presents with above diagnosis, for an opinion regarding the role of radiation therapy in the management of the patient's disease. Final recommendations will be communicated back to the requesting physician by way of the shared medical record, or letter to requesting physician via US mail. 67 year old man with 40+ pack-year history of smoking diagnosed with synchronous colon intramucosal carcinoma (pTis) and lung cancer in December s/p left hemicolectomy on 02/03/23. He had positive Cologuard test and colonoscopy on 12/22/22 showed malignant looking tumor in the descending colon. Biopsy showed villous adenoma. CT C/A/P on 12/22/22 showed a 2.2 cm spiculated mass in the anterior medial aspect of the left upper lung. There was also an apple core lesion in the proximal descending colon likely to be a colonic carcinoma. CT guided biopsy of the left lung mass on 12/30/22 showed non-small cell carcinoma favoring squamous cell carcinoma. PFT on 01/18/23 showed FEV1 78% predicted. DLCO was 112% predicted. PET/CT scan on 01/19/23 showed hypermetabolic lesion in the left upper lung. Brain MRI on 01/21/23 was negative for metastasis. He underwent left hemicolectomy and liver biopsy on 02/03/23. 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 Surgical margins were negative. 3 nodes were negative for metastasis. pTis pN0. Wedge biopsy of the liver showed cirrhosis. He was referred to see a thoracic surgeon but it got delayed due to insurance reasons. He finally saw Dr. Cardona on 08/10/23. PET/CT scan on 08/31/23 showed left upper lung mass measuring 48.4 mm with SUV 10.2. MRI brain on 09/06/23 was negative for metastasis. Bronchoscopy on 09/29/23 showed no endobronchial lesions. EBUS and TBNA of 4L, 7, 10L nodes were negative for malignant cells. ALLERGIES No Known Allergies Current Outpatient Medications on File Prior to Visit Medication Sig atorvastatin (LIPITOR) 10 mg tablet Take 10 mg by mouth once daily. FLUoxetine (PROZAC) 20 mg capsule Take 20 mg by mouth once daily. lisinopril (ZESTRIL, PRINIVIL) 5 mg tablet Take 5 mg by mouth once daily. metFORMIN (GLUCOPHAGE) 1,000 mg tablet Take 1,000 mg by mouth twice daily with meals. aspirin, enteric coated (ASPIRIN, ENTERIC COATED) 81 mg EC tablet Take 81 mg by mouth once daily. No current facility-administered medications on file prior to visit. PAST MEDICAL HISTORY Diagnosis Date [place] of skin Arthritis Diabetes (HCC) Prior radiation therapy, collagen vascular disease, or inflammatory bowel disease: No Any implanted or external electric devices? No PAST SURGICAL HISTORY Procedure Laterality Date PAST SURGICAL HISTORY OF Left 2020 knee PAST SURGICAL HISTORY OF 2022 colon resection FAMILY HISTORY Problem Relation Age of Onset Diabetes Mother Kidney Disease Mother Pancreatic Cancer Sister other (bladder cancer) Brother Diabetes Paternal Grandmother Social History Tobacco Use Smoking status: Every Day Packs/day: .25 Types: Cigarettes Smokeless tobacco: Never Vaping Use Vaping Use: Some days Substance Use Topics Alcohol use: Yes Comment: very seldom Drug use: Never COMPLETE REVIEW OF SYSTEMS: GENERAL: feeling well without fatigue, no recent change in weight HEENT: denies HESS, change in hearing or vision, no other ENT complaints NECK: denies swelling or pain in neck RESPIRATORY: current smoker. chronic cough. CARDIOVASCULAR: no chest pain, no palpitations GI: normal appetite, tolerating PO well, BMs normal, and no abdominal pain : urination is normal MUSCULOSKELETAL: denies any painful or swollen joints, no muscle aches SKIN: no rash HEMATOLOGY/LYMPHOLOGY: negative for prolonged bleeding, no swollen lymph nodes NEURO: no numbness or paresthesias and no weakness of the extremities PHYSICAL EXAM: VS: BP 102/67 Pulse 93 Temp 36.2 ?C (97.1 ?F) (Temporal) Resp 16 Wt 80.7 kg (178 lb) SpO2 100% BMI 25.54 kg/m? KPS: 80 General Appearance: Alert and oriented. No acute distress. 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 HEENT: NCAT. Sclera anicteric. EOMI. Neck: Normal ROM. Chest: No respiratory distress. Musculoskeletal: Normal ROM in extremities. Neuro: Speech fluent. No focal deficits. Hematologic: No signs of active bleeding. RADI (more content not included)... [facility] 10-07-2023 History of Presen t illness Narrative Radiation Oncology - New Patient/Consult Note PATIENT NAME: Lei Valdez PATIENT REQUESTING PROVIDER: Dr. Jossue Cardona DIAGNOSIS: 1. 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 2. 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 HPI: 67 year old male who presents with above diagnosis, for an opinion regarding the role of radiation therapy in the management of the patient's disease. Final recommendations will be communicated back to the requesting physician by way of the shared medical record, or letter to requesting physician via [place] mail. 67 year old man with 40+ pack-year history of smoking diagnosed with synchronous colon intramucosal carcinoma (pTis) and lung cancer in December s/p left hemicolectomy on 02/03/23. He had positive Cologuard test and colonoscopy on 12/22/22 showed malignant looking tumor in the descending colon. Biopsy showed villous adenoma. CT C/A/P on 12/22/22 showed a 2.2 cm spiculated mass in the anterior medial aspect of the left upper lung. There was also an apple core lesion in the proximal descending colon likely to be a colonic carcinoma. CT guided biopsy of the left lung mass on 12/30/22 showed non-small cell carcinoma favoring squamous cell carcinoma. PFT on 01/18/23 showed FEV1 78% predicted. DLCO was 112% predicted. PET/CT scan on 01/19/23 showed hypermetabolic lesion in the left upper lung. Brain MRI on 01/21/23 was negative for metastasis. He underwent left hemicolectomy and liver biopsy on 02/03/23. 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 Surgical margins were negative. 3 nodes were negative for metastasis. pTis pN0. Wedge biopsy of the liver showed cirrhosis. He was referred to see a thoracic surgeon but it got delayed due to insurance reasons. He finally saw Dr. Cardona on 08/10/23. PET/CT scan on 08/31/23 showed left upper lung mass measuring 48.4 mm with SUV 10.2. MRI brain on 09/06/23 was negative for metastasis. Bronchoscopy on 09/29/23 showed no endobronchial lesions. EBUS and TBNA of 4L, 7, 10L nodes were negative for malignant cells. ALLERGIES No Known Allergies Current Outpatient Medications on File Prior to Visit Medication Sig atorvastatin (LIPITOR) 10 mg tablet Take 10 mg by mouth once daily. FLUoxetine (PROZAC) 20 mg capsule Take 20 mg by mouth once daily. lisinopril (ZESTRIL, PRINIVIL) 5 mg tablet Take 5 mg by mouth once daily. metFORMIN (GLUCOPHAGE) 1,000 mg tablet Take 1,000 mg by mouth twice daily with meals. aspirin, enteric coated (ASPIRIN, ENTERIC COATED) 81 mg EC tablet Take 81 mg by mouth once daily. No current facility-administered medications on file prior to visit. PAST MEDICAL HISTORY Diagnosis Date [place] of skin Arthritis Diabetes (HCC) Prior radiation therapy, collagen vascular disease, or inflammatory bowel disease: No Any implanted or external electric devices? No PAST SURGICAL HISTORY Procedure Laterality Date PAST SURGICAL HISTORY OF Left 2020 knee PAST SURGICAL HISTORY OF 2022 colon resection FAMILY HISTORY Problem Relation Age of Onset Diabetes Mother Kidney Disease Mother Pancreatic Cancer Sister other (bladder cancer) Brother Diabetes Paternal Grandmother Social History Tobacco Use Smoking status: Every Day Packs/day: .25 Types: Cigarettes Smokeless tobacco: Never Vaping Use Vaping Use: Some days Substance Use Topics Alcohol use: Yes Comment: very seldom Drug use: Never COMPLETE REVIEW OF SYSTEMS: GENERAL: feeling well without fatigue, no recent change in weight HEENT: denies HESS, change in hearing or vision, no other ENT complaints NECK: denies swelling or pain in neck RESPIRATORY: current smoker. chronic cough. CARDIOVASCULAR: no chest pain, no palpitations GI: normal appetite, tolerating PO well, BMs normal, and no abdominal pain : urination is normal MUSCULOSKELETAL: denies any painful or swollen joints, no muscle aches SKIN: no rash HEMATOLOGY/LYMPHOLOGY: negative for prolonged bleeding, no swollen lymph nodes NEURO: no numbness or paresthesias and no weakness of the extremities PHYSICAL EXAM: VS: BP 102/67 Pulse 93 Temp 36.2 C (97.1 F) (Temporal) Resp 16 Wt 80.7 kg (178 lb) SpO2 100% BMI 25.54 kg/m KPS: 80 General Appearance: Alert and oriented. No acute distress. 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 HEENT: NCAT. Sclera anicteric. EOMI. Neck: Normal ROM. Chest: No respiratory distress. Musculoskeletal: Normal ROM in extremities. Neuro: Speech fluent. No focal deficits. Hematologic: No signs of active bleeding. 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 I told him that standard of care of local therapy in early stage non-small cell lung cancer is surgery if medically operable. SBRT can be an alternative option if medically inoperable or in elderly patients with a small tumor. His tumor is 4.8 cm abutting the mediastinum and close to the aorta. There will be risks of long-term complications of SBRT as well. I explained this to the patient and he understands. He was told that he is medically operable. He will talk to his surgeon about operation. Signed by: Guilherme Norris MD cc: Xena Arroyo [id number] [facility] [place] [address] Jossue Cardona documented in this encounter [facility] 10-07-2023 Nurse Note Radiation Therapy - Nursing Note (Consult) PATIENT NAME: Lei Valdez PATIENT October 07, 2023 [facility] FACILITY/LOCATION: [place] Chief Complaint: consult Reason for visit: Consult. Referring physician: Internal provider Dr Zuñiga Subjective Data: no complaints Additional Data Do you want to see a Sample Washer? No Are you interested in information about fertility? No Status: Patient is male Stress Scale: On a scale of 0 to 10, what number best describes how much distress you have experienced in the past week?(0 being no distress and 10 being extreme distress) 7 Social work notified: Pt denied need to see social media manager at this time. SIGNED by: Maribell Bear RN documented in this encounter [facility] 10-06-2023 Miscellaneous Notes The patient was contacted by phone to discuss results and possible surgery. The patient's stress test showed preserved LV function with no evidence of ischemia or scar. The EKG portion was also normal. It was considered a low risk scan. The patient was unable to connect with Dr. Ledesma yesterday and asked if I could give the results of his bronchoscopy EBUS. The patient had lymph nodes level 7, level 4L, and 10 L sampled all of which were negative for malignant cells and had lymphoid sample. I explained to the patient that this leaves him in clinical stage II lung carcinoma and that he has options which may include induction immuno/chemotherapy followed by surgery, surgery, and radiation therapy which he was interested in after our initial visit. Whether he would be a candidate for definitive chemoradiation therapy vs SBRT etc would need reviewed with medical oncology and radiation oncology. He notes that he is scheduled to see radiation oncology tomorrow to further discuss his options. He then plans on weighing his options and making a decision. Questions were answered. Will wait to hear regarding his final treatment decision. documented in this encounter [facility] 10-04-2023 Note HNO ID: [id number] Author: Loly Guidry RN Service: ? Author Type: Registered Nurse Type: Progress Notes Filed: 10/04/2023 2:43 PM Note Text: RADIOLOGY SERVICE PROGRESS NOTE SERVICE DATE: 10/04/2023 SERVICE TIME: 844 PATIENT IDENTITY VERIFICATION COMPLETED USING TWO (2) METHODS: Patient confirmed name and Date of verbally. ALLERGIES AND MEDICATIONS REVIEWED BY: Loly Guidry RN PROCEDURE TYPE: NM STRESS: 0.4 mg of Lexiscan was administered IV at 0913 over 10 Seconds by Loly Guidry RN Reversal agent used:None LOT [id number] EXP 03/18 IV SITE: IV palced by nuclear tecnologist POST EXAM PIV STATUS: Discontinued by Record Clerk PATIENT DISCHARGED TO: Nuclear Medicine Department for post stress imaging A Diagnostic radioactive procedure has taken place, with no further precautions necessary other than routine body substance precautions. More information regarding radiation safety can be found using this link: [email or web address] %[email or web address]%20Nuclear%20Me dicine%20Procedures.pdf SIGNATURE: Loly Guidry RN PATIENT NAME:Lei Valdez DATE: 10/04/23 TIME: 2:37 PM [facility] 10-04-2023 History of Presen t illness Narrative RADIOLOGY SERVICE PROGRESS NOTE SERVICE DATE: 10/04/2023 SERVICE TIME: 844 PATIENT IDENTITY VERIFICATION COMPLETED USING TWO (2) METHODS: Patient confirmed name and Date of verbally. ALLERGIES AND MEDICATIONS REVIEWED BY: Loly Guidry RN PROCEDURE TYPE: NM STRESS: 0.4 mg of Lexiscan was administered IV at 0913 over 10 Seconds by Loly Guidry RN Reversal agent used:None LOT [id number] EXP 03/18 IV SITE: IV palced by nuclear tecnologist POST EXAM PIV STATUS: Discontinued by Record Clerk PATIENT DISCHARGED TO: Nuclear Medicine Department for post stress imaging A Diagnostic radioactive procedure has taken place, with no further precautions necessary other than routine body substance precautions. More information regarding radiation safety can be found using this link: [email or web address] [email or web address]-%20Diagnostic%20N uclear%20Medicine%20Procedures.p df SIGNATURE: Loly Guidry RN PATIENT NAME:Lei Valdez DATE: 10/04/23 TIME: 2:37 PM documented in this encounter [facility] 10-04-2023 Note HNO ID: [id number] Author: Faye Coppola RT(R) Service: Nuclear Medicine Author Type: Technologist Type: Progress Notes Filed: 10/04/2023 1:25 PM Note Text: RADIOLOGY SERVICE PROGRESS NOTE SERVICE DATE: 10/04/2023 SERVICE TIME: 07:35 AM PATIENT IDENTITY VERIFICATION COMPLETED USING TWO (2) STANDARD IDENTIFIERS: Name and Date of confirmed by patient verbally FALL SCREENING: Has the patient had 2 falls in the last year or 1 fall with injury or currently using an Ambulatory Assistive Device (Walker, Cane, Wheelchair, Crutches, etc.)? No PATIENT GENDER DATA: .male ALLERGIES: Reviewed and unchanged MEDICATIONS REVIEWED: No PATIENT RELEVANT IMPLANT DATA REVIEWED: Not Applicable CREATININE: Creatinine Date Value Ref Range Status 06/28/2021 0.66 (L) 0.73 - 1.22 mg/dL Final 06/27/2021 0.65 (L) 0.73 - 1.22 mg/dL Final 06/26/2021 0.64 (L) 0.73 - 1.22 mg/dL Final eGFR-All Other Races Date Value Ref Range Status 06/28/2021 >60 Final Comment: eGFR (Estimated GFR) Units of measure: mL/min/1.73 meters squared eGFR is derived from the reexpressed MDRD Study equation using the following parameters: serum creatinine, age, gender and race. The creatinine assay has been calibrated to be traceable to IDMS. An eGFR <60 mL/min/1.73m2 for >3 months is consistent with chronic kidney disease. Refer to KDOQI guidelines for clinical interpretation. In patients with unstable renal function, e.g. those with acute kidney injury, the eGFR may not accurately reflect actual GFR. eGFR- Date Value Ref Range Status 06/28/2021 >60 Final P.O.C.T. RESULTS: N/A October 04, [address] PERFORMED: No IV SITE: Ambulatory: A peripheral IV was started in the Left hand with a Angio cath: 24 gauge. POST EXAM PIV STATUS: Discontinued PROCEDURE TYPE: NM Stress: 13 mCi [id number] was administered IV for Rest Imaging at 07:50 by Faye Coppola. 31.2 mCi [id number]-Txsggae was administered IV for Stress Imaging at 09:13 by Faye Coppola. ADMINISTRATION TIME: PATIENT DISCHARGED TO: Ambulatory patient, left [place] department area. A Diagnostic radioactive procedure has taken place, with no further precautions necessary other than routine body substance precautions. More information regarding radiation safety can be found using this link: [email or web address] %[email or web address]-%20Diagnostic%20Nuclear%20Me dicine%20Procedures.pdf SIGNATURE: RT Lisa(R) PATIENT NAME: Lei Valdez DATE: October 04, 2023 TIME: 1:24 PM PAGER/CONTACT #: [facility] 10-04-2023 History of Presen t illness Narrative RADIOLOGY SERVICE PROGRESS NOTE SERVICE DATE: 10/04/2023 SERVICE TIME: 07:35 AM PATIENT IDENTITY VERIFICATION COMPLETED USING TWO (2) STANDARD IDENTIFIERS: Name and Date of confirmed by patient verbally FALL SCREENING: Has the patient had 2 falls in the last year or 1 fall with injury or currently using an Ambulatory Assistive Device (Walker, Cane, Wheelchair, Crutches, etc.)? No PATIENT GENDER DATA: .male ALLERGIES: Reviewed and unchanged MEDICATIONS REVIEWED: No PATIENT RELEVANT IMPLANT DATA REVIEWED: Not Applicable CREATININE: Creatinine Date Value Ref Range Status 06/28/2021 0.66 (L) 0.73 - 1.22 mg/dL Final 06/27/2021 0.65 (L) 0.73 - 1.22 mg/dL Final 06/26/2021 0.64 (L) 0.73 - 1.22 mg/dL Final eGFR-All Other Races Date Value Ref Range Status 06/28/2021 >60 Final Comment: eGFR (Estimated GFR) Units of measure: mL/min/1.73 meters squared eGFR is derived from the reexpressed MDRD Study equation using the following parameters: serum creatinine, age, gender and race. The creatinine assay has been calibrated to be traceable to IDMS. An eGFR <60 mL/min/1.73m2 for >3 months is consistent with chronic kidney disease. Refer to KDOQI guidelines for clinical interpretation. In patients with unstable renal function, e.g. those with acute kidney injury, the eGFR may not accurately reflect actual GFR. eGFR- Date Value Ref Range Status 06/28/2021 >60 Final P.O.C.T. RESULTS: N/A October 04, [address] PERFORMED: No IV SITE: Ambulatory: A peripheral IV was started in the Left hand with a Angio cath: 24 gauge. POST EXAM PIV STATUS: Discontinued PROCEDURE TYPE: NM Stress: 13 mCi [id number]-Nyqnlhr was administered IV for Rest Imaging at 07:50 by Faye Coppola. 31.2 mCi Hy71y-Gonaped was administered IV for Stress Imaging at 09:13 by Faye Coppola. ADMINISTRATION TIME: PATIENT DISCHARGED TO: Ambulatory patient, left [place] department area. A Diagnostic radioactive procedure has taken place, with no further precautions necessary other than routine body substance precautions. More information regarding radiation safety can be found using this link: [email or web address]-%20Diagnostic%20N uclear%20Medicine%20Procedures.p df SIGNATURE: STEFANIE Gonzalez) PATIENT NAME: Lei Valdez DATE: October 04, 2023 TIME: 1:24 PM PAGER/CONTACT #: documented in this encounter [facility] 10-01-2023 Note HNO ID: [id number] Author: Zahra Enriquez RN Service: ? Author Type: Registered Nurse Type: Progress Notes Filed: 10/01/2023 3:15 PM Note Text: Summary: Tumor Board MULTI DISCIPLINARY THORACIC TUMOR BOARD Date 10/01/2023 Presenting Physicians: Jossue Cardona MD [facility] Patient Information [id number] Lei Valdez 67 year old Type of Review: Initial Review Thoracic Surgery Pathology Review: YES Clinical Trial Discussion:YES nonsmall cell carcinoma of the left upper lobe favoring squamous cell [id number] Clinical Study: no Genetics:no Supportive services: not needed Smoking Status: Smoker HPI: Lei Valdez is a 67 year old year old yr. male diagnosed simultaneously with lung and colon cancer in the spring of this year. He underwent a colon resection and did not require further treatment. Medical oncologist in february in [place] and was sent to [facility]. Patient referred back up here the second half of July to be seen by thoracic surgeon. PET,MRI brain, PFT requested from [facility]. Patient had a biopsy completed at [place] which returned nonsmall cell carcinoma of the left upper lobe favoring squamous cell. Most recent PET shows large lesion in left upper lobe, no obvious kel disease. PFT adequate for surgery. Patient underwent bronchoscopy 09/29/2023, results are not back. Patient seen a radiation oncologist in [place]. Patient has a stress test scheduled. Chemo and radiation unknown until pathology comes back. Outcome: Lei Valdez pathology was reviewed by the physicians in attendance. Based on the current evidence of practice, the collaborative recommendation would be pending pathology results. These recommendations will be communicated by the presenting physicians. The above documentation represents the discussion outcomes after review of this patients case during the weekly Thoracic Tumor Board conference. Final treatment planning will be determined by the primary treatment team staff physicians. Zahra Enriquez RN [facility] 09-29-2023 Note HNO ID: [id number] Author: Supriya Monzon RN Service: ? Author Type: Registered Nurse Type: Nursing Progress Note Filed: 09/29/2023 4:28 PM Note Text: Awake. Gag reflex checked. Pt tolerating drinking well, no complaints. [facility] 09-29-2023 Note HNO ID: [id number] Author: Amanuel Wood APRN.PRODUCTION CONTROL PLANNER Service: Anesthesiology Author Type: Nurse Medical Collections Type: Anesthesia Procedure Notes Filed: 09/29/2023 2:48 PM Note Text: ANESTHESIOLOGY PROCEDURE NOTE Airway General Information Procedure Start Time/Medication Administration: 09/29/2023 2:45 PM Patient location during procedure: OR Timeout Performed Pre-procedure: timeout performed Consent Obtained: Yes Patient identity confirmed: arm band and patient Staffing PRODUCTION CONTROL PLANNER: Amanuel Wood APRN.PRODUCTION CONTROL PLANNER Performed by: PRODUCTION CONTROL PLANNER Indications and Patient Condition Indications for airway management: anesthesia Preoxygenated: yes anesthesia circuit Patient position: sniffing Method: asleep Final Airway Details Final airway type: supraglottic airway Number of attempts at approach: 1 Final Supraglottic Airway: i-gel Size 5 Seal Adequate: yes SIGNATURE: Amanuel Wood APRN.PRODUCTION CONTROL PLANNER PATIENT NAME: Lei Valdez DATE: September 29, 2023 TIME: 2:47 PM CSN: [id number] [facility] 09-29-2023 Nurse Note Awake. Gag reflex checked. Pt tolerating drinking well, no complaints. documented in this encounter [facility] 09-29-2023 Hospital Discharg e instructions Karishma Ledesma MD - 09/29/2023 4:06 PM EST [facility] DISCHARGE INSTRUCTIONS - BRONCHOSCOPY You may resume usual diet as tolerated as soon as you are discharged You may experience a slight cough over the next 24 hours. When you cough, you may experience pink or red-tinged mucous/phlegm. If you have severe shortness of breath, chest pain, or cough - greater than two tablespoons of solid blood: GO IMMEDIATELY TO THE NEAREST EMERGENCY ROOM Do not drive a motor vehicle, operate machinery or power tools on the day of your procedure. You may take a non-prescription, pain medication if needed for comfort. If fever is higher than 101 degrees F., call your physician. For low grade fever take Tylenol every 4 hours for the first 24 hours. You may start taking your regular medication after you start to eat. If you experience pain, swelling, drainage, difficulty in breathing, excessive bleeding, persistent nausea, vomiting or fever call your doctor. During non-office hours call Nohemy Simeon and ask screw machine operator to page the Theater Teacher compensation specialist Karishma Ledesma MD documented in this encounter [facility] 09-29-2023 History and physical note Reviewed my own note from yesterday No changes Proceed with Bronchoscopy Karishma Ledesma MD documented in this encounter [facility] 09-28-2023 Note HNO ID: [id number] Author: Karishma Ledesma MD Service: ? Author Type: Physician Type: Progress Notes Filed: 09/28/2023 3:50 PM Note Text: INTERVENTIONAL PULMONARY MEDICINE CONSULTATION PLEASE DO NOT REMOVE FROM THE CHART OR MODIFY PRINTED COPY I have communicated my name and active licensure. The patient's identity and physical location were verified at the time of this visit. Either the patient or their legal lead customer service representative has been informed of the risks and benefits of, and alternatives to, treatment through a remote evaluation and consents to proceed with the evaluation remotely. Patient Name: Lei Valdez : 1955 PRIMARY CARE PHYSICIAN: Xena Arroyo MD REFERRING PHYSICIAN: Dr Jossue Cardona Consultation requested by for an opinion regarding No diagnosis found.. My final recommendations/evaluation will be communicated back to the requesting physician by way of shared medical record or letter via US mail CHIEF COMPLAINT: Lung Cancer HISTORY OF PRESENT ILLNESS: Lei Valdez is a 67 year old male, There were no vitals taken for this visit., with a history of colon cancer s/p colectomy. Found to have SHANKAR mass s/p CT guided biopsy which was + for Sq CC Lung CA. Has had difficulty with insurances which has delayed his care from spring. No symptoms. NO SOB No CP. Overall well. Current every day smoker and uses CBD. - Doing overall well - No SOB - No CP or tightness - No significant cough - No wheezing - No hemoptysis - No LE edema - No heartburn - Weight is stable and Appetite is good - No fever chills or night sweats - No bumps, lumps in neck - Stable vision and hearing - No gross hematuria - No muscle or joint pain - No focal numbness or weakness - No rash - Sleeps overall well PAST MEDICAL HISTORY Diagnosis Date [place] of skin Arthritis Diabetes (HCC) No past surgical history on file. FAMILY HISTORY Problem Relation Age of Onset Diabetes Mother Kidney Disease Mother Diabetes Paternal Grandmother Social History Tobacco Use Smoking status: Every Day Packs/day: .5 Types: Cigarettes Smokeless tobacco: Never Vaping Use Vaping Use: Some days Substance Use Topics Alcohol use: Yes Comment: very seldom Drug use: Never ALLERGIES: ALLERGIES No Known Allergies CURRENT OUTPATIENT MEDICATIONS: atorvastatin (LIPITOR) 10 mg tablet Take 10 mg by mouth once daily. FLUoxetine (PROZAC) 20 mg capsule Take 20 mg by mouth once daily. lisinopril (ZESTRIL, PRINIVIL) 5 mg tablet Take 5 mg by mouth once daily. metFORMIN (GLUCOPHAGE) 1,000 mg tablet Take 1,000 mg by mouth twice daily with meals. aspirin, enteric coated (ASPIRIN, ENTERIC COATED) 81 mg EC tablet Take 81 mg by mouth once daily. REVIEW OF SYSTEMS Per HPI, otherwise, the remainder of the ROS was negative. PHYSICAL EXAMINATION: VITAL SIGNS: There were no vitals taken for this visit. General appearance: well appearing, alert, and in no acute distress Lungs: Breathing comfortably on RA Extremities: Extremities normal. No deformities, edema, or skin discoloration LAST LAB RESULTS: BMP Latest Ref Rng AND Units 06/28/2021 06/27/2021 06/26/2021 GLUCOSE 74 - 99 mg/dL 138(H) 131(H) 113(H) BUN 9 - 24 mg/dL 8(L) 8(L) 6(L) CREATININE 0.73 - 1.22 mg/dL 0.66(L) 0.65(L) 0.64(L) SODIUM 136 - 144 mmol/L 135(L) 139 136 POTASSIUM 3.7 - 5.1 mmol/L 4.4 3.3(L) 3.7 CHLORIDE 97 - 105 mmol/L 104 109(H) 104 CO2 22 - 30 mmol/L 22 21(L) 24 ANION GAP 9 - 18 mmol/L 9 9 8(L) CALCIUM, TOTAL 8.5 - 10.2 mg/dL 9.0 7.5(L) 8.4(L) eGFR - >60 >60 >60 EGFR- - >60 >60 >60 EGFR-ALL OTHER RACES - >60 >60 >60 IMAGING: Personally reviewed by me. Please see my impression/recommendations for my own interpretation/comments on imaging. IMPRESSIONS: - SHANKAR SqCC - Mediastinal Adenopathy - Preoperative examination: No obvious contraindication to undergo general anesthesia for the planned procedure. RECOMMENDATION/PLAN: - Proceed with Staging EBUS, Results to Dr Cardona - Risks and benefits explained to patient. He agrees to move forward with the procedure Written and verbal health teaching given to patient, patient verbalizes understanding and agrees with treatment plan. I spent a total of 60 minutes on the date of the service which included preparing to see the patient, [id number] patient care, completing clinical documentation, obtaining and/or reviewing separately obtained history, performing a medically appropriate examination, and counseling and educating the patient/family/caregiver. Electronically Signed: Karishma Ledesma MD September 28, 2023 3:45 PM CC: MD Jossue Murray MD [facility] 09-28-2023 History of Presen t illness Narrative Images from the original note were not included. INTERVENTIONAL PULMONARY MEDICINE CONSULTATION PLEASE DO NOT REMOVE FROM THE CHART OR MODIFY PRINTED COPY I have communicated my name and active licensure. The patient's identity and physical location were verified at the time of this visit. Either the patient or their legal lead customer service representative has been informed of the risks and benefits of, and alternatives to, treatment through a remote evaluation and consents to proceed with the evaluation remotely. Patient Name: Lei Valdez : 1955 PRIMARY CARE PHYSICIAN: Xena Arroyo MD REFERRING PHYSICIAN: Dr Jossue Cardona Consultation requested by for an opinion regarding No diagnosis found.. My final recommendations/evaluation will be communicated back to the requesting physician by way of shared medical record or letter via US mail CHIEF COMPLAINT: Lung Cancer HISTORY OF PRESENT ILLNESS: Lei Valdez is a 67 year old male, There were no vitals taken for this visit., with a history of colon cancer s/p colectomy. Found to have SHANKAR mass s/p CT guided biopsy which was + for Sq CC Lung CA. Has had difficulty with insurances which has delayed his care from spring. No symptoms. NO SOB No CP. Overall well. Current every day smoker and uses CBD. - Doing overall well - No SOB - No CP or tightness - No significant cough - No wheezing - No hemoptysis - No LE edema - No heartburn - Weight is stable and Appetite is good - No fever chills or night sweats - No bumps, lumps in neck - Stable vision and hearing - No gross hematuria - No muscle or joint pain - No focal numbness or weakness - No rash - Sleeps overall well PAST MEDICAL HISTORY Diagnosis Date [place] of skin Arthritis Diabetes (HCC) No past surgical history on file. FAMILY HISTORY Problem Relation Age of Onset Diabetes Mother Kidney Disease Mother Diabetes Paternal Grandmother Social History Tobacco Use Smoking status: Every Day Packs/day: .5 Types: Cigarettes Smokeless tobacco: Never Vaping Use Vaping Use: Some days Substance Use Topics Alcohol use: Yes Comment: very seldom Drug use: Never ALLERGIES: ALLERGIES No Known Allergies CURRENT OUTPATIENT MEDICATIONS: atorvastatin (LIPITOR) 10 mg tablet Take 10 mg by mouth once daily. FLUoxetine (PROZAC) 20 mg capsule Take 20 mg by mouth once daily. lisinopril (ZESTRIL, PRINIVIL) 5 mg tablet Take 5 mg by mouth once daily. metFORMIN (GLUCOPHAGE) 1,000 mg tablet Take 1,000 mg by mouth twice daily with meals. aspirin, enteric coated (ASPIRIN, ENTERIC COATED) 81 mg EC tablet Take 81 mg by mouth once daily. REVIEW OF SYSTEMS Per HPI, otherwise, the remainder of the ROS was negative. PHYSICAL EXAMINATION: VITAL SIGNS: There were no vitals taken for this visit. General appearance: well appearing, alert, and in no acute distress Lungs: Breathing comfortably on RA Extremities: Extremities normal. No deformities, edema, or skin discoloration LAST LAB RESULTS: BMP Latest Ref Rng & Units 06/28/2021 06/27/2021 06/26/2021 GLUCOSE 74 - 99 mg/dL 138(H) 131(H) 113(H) BUN 9 - 24 mg/dL 8(L) 8(L) 6(L) CREATININE 0.73 - 1.22 mg/dL 0.66(L) 0.65(L) 0.64(L) SODIUM 136 - 144 mmol/L 135(L) 139 136 POTASSIUM 3.7 - 5.1 mmol/L 4.4 3.3(L) 3.7 CHLORIDE 97 - 105 mmol/L 104 109(H) 104 CO2 22 - 30 mmol/L 22 21(L) 24 ANION GAP 9 - 18 mmol/L 9 9 8(L) CALCIUM, TOTAL 8.5 - 10.2 mg/dL 9.0 7.5(L) 8.4(L) eGFR - >60 >60 >60 EGFR- - >60 >60 >60 EGFR-ALL OTHER RACES - >60 >60 >60 IMAGING: Personally reviewed by me. Please see my impression/recommendations for my own interpretation/comments on imaging. IMPRESSIONS: - SHANKAR SqCC - Mediastinal Adenopathy - Preoperative examination: No obvious contraindication to undergo general anesthesia for the planned procedure. RECOMMENDATION/PLAN: - Proceed with Staging EBUS, Results to Dr Cardona - Risks and benefits explained to patient. He agrees to move forward with the procedure Written and verbal health teaching given to patient, patient verbalizes understanding and agrees with treatment plan. I spent a total of 60 minutes on the date of the service which included preparing to see the patient, [id number] patient care, completing clinical documentation, obtaining and/or reviewing separately obtained history, performing a medically appropriate examination, and counseling and educating the patient/family/caregiver. Electronically Signed: Karishma Ledesma MD September 28, 2023 3:45 PM CC: MD Jossue Murray MD documented in this encounter [facility] 09-27-2023 Note HNO ID: [id number] Author: Jossue Cardona MD Service: ? Author Type: Physician Type: Progress Notes Filed: 09/27/2023 4:23 PM Note Text: Trying to order lung cancer conference/tumor board review. [facility] 09-27-2023 History of Presen t illness Narrative Trying to order lung cancer conference/tumor board review. documented in this encounter [facility] 09-13-[address] Ledesma, patient can't have appointment and EBUS done in the same day, due to insurance billing issues. Called the patient and offered a virtual visit through my chart so patient does not need to make multiple trips from [place]. Left message for the patient and moved appt to 09/28/23 as a virtual visit. Belia Elizabeth Called pt and reviewed all pre procedure dates times and locations. Pt is aware to be there 2 hours early. 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 Pt passed COVID screening questions, denies fevers,cough,diarrhea. Denies exposure to someone who tested positive for COVID and pt has not travelled internationally in the past month. Zenobia Barrios RN Tried to call pt again, line is busy unable to leave message. Zenobia Barrios RN Attempted to call pt and notify of date/prep time. No answer, left message to call office back. Zenobia Barrios RN Zenobia, Please call the patient with prep, date and time of EBUS. EBUS is scheduled 09/29/23 @ 1pm in the OR. Patient is also scheduled on 09/29/23 @ 10:15am for his H&P with Dr. Lane. Belia Elizabeth documented in this encounter [facility] 09-06-2023 Miscellaneous Notes I have sent the referral to rad/ onc in [place] at fax # [phone] with notes as requested by Rad Onc. documented in this encounter [facility] 09-06-2023 Note HNO ID: [id number] Author: Karishma Ledesma MD Service: ? Author Type: Physician Type: Progress Notes Filed: 09/06/2023 12:45 PM Note Text: Nohemy General OR Bronchoscopy Request: Please schedule patient for the following: Bronchoscopy: Staging EBUS Clinical Discussion: Sq CC SHANKAR via CT guided bx Pulmonary Visit: Schedule with AG Theater Teacher prior to OR Time Allotment: first available Wednesday OR slot Physician Performing Bronchoscopy: Dedicated OR Staff Anesthesia Type: General Equipment Requests: EBUS/Therapeutic Needs Labs: Yes, CBC and BMP Needs EKG: Yes Needs CT prior: No Does the pt need cardiac clearance? No Is he/she on anticoagulants/anti-plt therapy? No Referred by: José Ledesma MD September 06, 2023 12:44 PM Addendum: CBC with diff: WBC 8.44 06/27/2021 RBC 3.21 06/27/2021 Hemoglobin 10.2 06/27/2021 Hematocrit 30.7 06/27/2021 MCV 95.6 06/27/2021 MCH 31.8 06/27/2021 MCHC 33.2 06/27/2021 RDW-CV 13.9 06/27/2021 Platelet Count 120 06/27/2021 MPV 9.5 06/27/2021 Potassium Date Value Ref Range Status 06/28/2021 4.4 3.7 - 5.1 mmol/L Final 06/27/2021 3.3 (L) 3.7 - 5.1 mmol/L Final 06/26/2021 3.7 3.7 - 5.1 mmol/L Final Sodium Date Value Ref Range Status 06/28/2021 135 (L) 136 - 144 mmol/L Final 06/27/2021 139 136 - 144 mmol/L Final 06/26/2021 136 136 - 144 mmol/L Final BUN Date Value Ref Range Status 06/28/2021 8 (L) 9 - 24 mg/dL Final Creatinine Date Value Ref Range Status 06/28/2021 0.66 (L) 0.73 - 1.22 mg/dL Final [facility] 09-06-2023 History of Presen t illness Narrative [facility] OR Bronchoscopy Request: Please schedule patient for the following: Bronchoscopy: Staging EBUS Clinical Discussion: Sq CC SHANKAR via CT guided bx Pulmonary Visit: Schedule with AG Theater Teacher prior to OR Time Allotment: first available Wednesday OR slot Physician Performing Bronchoscopy: Dedicated OR Staff Anesthesia Type: General Equipment Requests: EBUS/Therapeutic Needs Labs: Yes, CBC and BMP Needs EKG: Yes Needs CT prior: No Does the pt need cardiac clearance? No Is he/she on anticoagulants/anti-plt therapy? No Referred by: José Ledesma MD September 06, 2023 12:44 PM Addendum: CBC with diff: WBC 8.44 06/27/2021 RBC 3.21 06/27/2021 Hemoglobin 10.2 06/27/2021 Hematocrit 30.7 06/27/2021 MCV 95.6 06/27/2021 MCH 31.8 06/27/2021 MCHC 33.2 06/27/2021 RDW-CV 13.9 06/27/2021 Platelet Count 120 06/27/2021 MPV 9.5 06/27/2021 Potassium Date Value Ref Range Status 06/28/2021 4.4 3.7 - 5.1 mmol/L Final 06/27/2021 3.3 (L) 3.7 - 5.1 mmol/L Final 06/26/2021 3.7 3.7 - 5.1 mmol/L Final Sodium Date Value Ref Range Status 06/28/2021 135 (L) 136 - 144 mmol/L Final 06/27/2021 139 136 - 144 mmol/L Final 06/26/2021 136 136 - 144 mmol/L Final BUN Date Value Ref Range Status 06/28/2021 8 (L) 9 - 24 mg/dL Final Creatinine Date Value Ref Range Status 06/28/2021 0.66 (L) 0.73 - 1.22 mg/dL Final documented in this encounter [facility] 09-06-2023 Miscellaneous Notes The patient was contacted to review results of MRI of brain which shows no mets and PET CT which shows/notes uptake in the the LULobe primary lesion only per radiology. 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 Explained patient is still a candidate for surgical resection of this and he asked about other ways to treat besides surgery which I explained could include radiation therapy and sometimes chemotherapy as well. Offered to make referral to rad onc which he wants to pursue. Also explained need for staging bronch EBUS as well and will request through pulm here. He has no further questions and wants to evaluate options for treatment and continue with staging. documented in this encounter [facility] 08-10-2023 Note HNO ID: [id number] Author: Natalie Vaca APRN.[employer] Service: ? Author Type: Nurse Practitioner Type: Progress Notes Filed: 08/10/2023 4:17 PM Note Text: Lei Valdez 66 year old male S/P Angiogram with insertion of thrombolysis catheter; Left lower extremity angiogram; Left lower extremity bypass of popliteal aneurysm with popliteal aneurysm ligation and endovein harvest PROCEDURE: As above by Dr. Lara DATE: 06/20/21; 06/21/21; 06/25/21 SUBJECTIVE: Lei Valdez returns to the office today for ongoing evaluation of his vascular disease. Reports that, overall, he is doing OK. Admits to ongoing numbness of thigh and pain in calf, but does feel that it is stable. There is no notable claudication. No rest pain and no tissue loss. Diagnosed early this year with colon and lung CA. Underwent surgical resection [colectomy] for his colon CA, which was successful and he did not require any further treatment. He was seen just prior to this visit by CT surgery for opinion regarding his lung CA. Will be undergoing some testing and is amenable to surgery if it is an option and recommended. Continues to smoke and has been strongly encouraged to quit. Compliant with daily asa AND statin. +HTN AND DM. PAST MEDICAL HISTORY Diagnosis Date [place] of skin Arthritis Diabetes (HCC) History reviewed. No pertinent surgical history. Current Outpatient Medications on File Prior to Visit Medication Sig atorvastatin (LIPITOR) 10 mg tablet Take 10 mg by mouth once daily. FLUoxetine (PROZAC) 20 mg capsule Take 20 mg by mouth once daily. lisinopril (ZESTRIL, PRINIVIL) 5 mg tablet Take 5 mg by mouth once daily. metFORMIN (GLUCOPHAGE) 1,000 mg tablet Take 1,000 mg by mouth twice daily with meals. aspirin, enteric coated (ASPIRIN, ENTERIC COATED) 81 mg EC tablet Take 81 mg by mouth once daily. No current facility-administered medications on file prior to visit. ALLERGIES No Known Allergies BP 120/64 (BP Site: Left Arm, BP Position: Sitting) Pulse 102 Resp 16 Ht 5' 10 (1.778 m) Wt 178 lb (80.7 kg) BMI 25.54 kg/m? PHYSICAL EXAM: General Appearance: Well appearing, alert, in no acute distress, well-hydrated, well nourished. Skin: Skin texture, turgor normal, no suspicious rashes or lesions. Pt with chronic argyria Head: Normocephalic, no masses, lesions, tenderness or abnormalities. Eyes: Anicteric sclera. Extraocular movements are intact. Ears: External ears normal, hearing is adequate. Lungs: Breathing is easy and unlabored. Extremities: No deformities, edema, clubbing or cyanosis. Peripheral Pulses: Capillary refill <2secs, peripheral pulses: Not palp B. Neurologic: Gait normal. Normal cognition and motor skills. Strength grossly intact. 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 Valdez will follow-up in 1 year with PVR AND Abd US. He is encouraged to call in the meantime with any questions, problems, concerns, or changes. The patient is currently taking a statin: Yes The patient is currently taking aspirin: Yes I spent 20 minutes in the visit, with more than 50% of the total [id number] time of the visit in counseling / coordination of care. Natalie Vaca APRN.[facility] 08-10-2023 Note HNO ID: [id number] Author: Jossue Cardona MD Service: ? Author Type: Physician Type: Progress Notes Filed: 08/10/2023 3:39 PM Note Text: Consult HANDP Consultation requested by Dr. Barron for an opinion regarding primary lung cancer. My final recommendations will be communicated back to the requesting physician by way of shared Medical record or letter to requesting physician via [place] mail. Lei Valdez is a 67 year old male here for thoracic surgery evaluation for the above. HPI: The patient is a 67-year-old male who was apparently diagnosed with colon cancer and lung cancer back in the spring of this calendar year. Patient underwent colectomy for the colon carcinoma and recovered well by his report. He did not require additional treatment. 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 After recovered from the abdominal surgery he was also seen by medical oncology at the end of February. Patient was initially going to be referred to [facility] for evaluation of his lung cancer, but there were insurance issues and he reports they wanted a alejandre down payment. The patient then changed insurance companies and then changed back again (this is a little unclear to me) resulting in delayed evaluation. Relative to the lung mass, the patient denies any chest pain, hemoptysis, but does note that his breathing has become more difficult over recent couple to few years related to his chronic cigarette smoking. He has at least a 50 pack-year cigarette smoking history. This continues at 10 to 20 cigarettes/day. He also uses CBD delta 8 Gummies, but does not smoke marijuana. His additional risk factors include hypertension, hyperlipidemia, diabetes mellitus, and somewhat sedentary lifestyle in long-term. MEDICATIONS: Current Outpatient Medications Medication Sig Dispense Refill atorvastatin (LIPITOR) 10 mg tablet Take 10 mg by mouth once daily. FLUoxetine (PROZAC) 20 mg capsule Take 20 mg by mouth once daily. lisinopril (ZESTRIL, PRINIVIL) 5 mg tablet Take 5 mg by mouth once daily. metFORMIN (GLUCOPHAGE) 1,000 mg tablet Take 1,000 mg by mouth twice daily with meals. aspirin, enteric coated (ASPIRIN, ENTERIC COATED) 81 mg EC tablet Take 81 mg by mouth once daily. No current facility-administered medications for this visit. 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 Denies a history of previous of myocardial infarction, stroke, or congestive heart failure. 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 Hemicolectomy 2022 for colon cancer no additional treatment required. History of laparoscopic cholecystectomy. Patient also had left popliteal artery aneurysm thrombosis which was treated with lysis followed by ligation and a bypass by Dr. Lara. He is having follow-up for this later today. Family history notable for the patient's sister recently dying of nonoperable pancreatic cancer. Review of systems-patient has shortness of breath with 1 or 2 flights of stairs and this has progressed in the last 1 to 2 years. No recent blood in the urine. No recent blood in the stools. He did lose some weight after surgery but has stabilized currently. Denies hemoptysis, chest pain or chest wall pain. BP 120/64 Pulse 102 Resp 16 Ht 5' 10.5 (1.79m) Wt 178 lb 12.8 oz (81.1kg) SpO2 100% BMI 25.28 kg/(m2). PHYSICAL EXAM: Well-developed well-nourished male with the skin changes of chronic silver ingestion. Examination neck showed no carotid bruits. No obvious supraclavicular adenopathy. Cardiac exam remarkable for regular rhythm without pathologic murmur or rub. Lungs are clear to auscultation anteriorly and posteriorly. Radial pulses palpable bilaterally. Abdominal exam bowel sounds present. Lower extremities no edema. I have reviewed the CT scan of the chest and the results of the PET scan, MRI of the brain, and pulmonary function test--all of which are several months old now. 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 We discussed the need for restaging and that surgery may still be an option for him with the other main option for treatment, if he is not a surgical candidate or decides against surgery, primarily radiation treatment. PLAN: The patient needs to undergo torso FDG PET scanning for staging, MRI of the brain for staging, and if deemed surgical candidate will also need stress testing which will also be ordered at this time. FOLLOW UP: Wishes to proceed with staging and continued evaluation for possible surgical resect (more content not included)... [facility] 08-10-2023 History of Presen t illness Narrative Lei Valdez 66 year old male S/P Angiogram with insertion of thrombolysis catheter; Left lower extremity angiogram; Left lower extremity bypass of popliteal aneurysm with popliteal aneurysm ligation and endovein harvest PROCEDURE: As above by Dr. Lara DATE: 06/20/21; 06/21/21; 06/25/21 SUBJECTIVE: Lei Valdez returns to the office today for ongoing evaluation of his vascular disease. Reports that, overall, he is doing OK. Admits to ongoing numbness of thigh and pain in calf, but does feel that it is stable. There is no notable claudication. No rest pain and no tissue loss. Diagnosed early this year with colon and lung CA. Underwent surgical resection [colectomy] for his colon CA, which was successful and he did not require any further treatment. He was seen just prior to this visit by CT surgery for opinion regarding his lung CA. Will be undergoing some testing and is amenable to surgery if it is an option and recommended. Continues to smoke and has been strongly encouraged to quit. Compliant with daily asa & statin. +HTN & DM. PAST MEDICAL HISTORY Diagnosis Date Argyria of skin Arthritis Diabetes (HCC) History reviewed. No pertinent surgical history. Current Outpatient Medications on File Prior to Visit Medication Sig atorvastatin (LIPITOR) 10 mg tablet Take 10 mg by mouth once daily. FLUoxetine (PROZAC) 20 mg capsule Take 20 mg by mouth once daily. lisinopril (ZESTRIL, PRINIVIL) 5 mg tablet Take 5 mg by mouth once daily. metFORMIN (GLUCOPHAGE) 1,000 mg tablet Take 1,000 mg by mouth twice daily with meals. aspirin, enteric coated (ASPIRIN, ENTERIC COATED) 81 mg EC tablet Take 81 mg by mouth once daily. No current facility-administered medications on file prior to visit. ALLERGIES No Known Allergies BP 120/64 (BP Site: Left Arm, BP Position: Sitting) Pulse 102 Resp 16 Ht 5' 10 (1.778 m) Wt 178 lb (80.7 kg) BMI 25.54 kg/m PHYSICAL EXAM: General Appearance: Well appearing, alert, in no acute distress, well-hydrated, well nourished. Skin: Skin texture, turgor normal, no suspicious rashes or lesions. Pt with chronic argyria Head: Normocephalic, no masses, lesions, tenderness or abnormalities. Eyes: Anicteric sclera. Extraocular movements are intact. Ears: External ears normal, hearing is adequate. Lungs: Breathing is easy and unlabored. Extremities: No deformities, edema, clubbing or cyanosis. Peripheral Pulses: Capillary refill <2secs, peripheral pulses: Not palp B. Neurologic: Gait normal. Normal cognition and motor skills. Strength grossly intact. 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 Valdez will follow-up in 1 year with PVR & Abd US. He is encouraged to call in the meantime with any questions, problems, concerns, or changes. The patient is currently taking a statin: Yes The patient is currently taking aspirin: Yes I spent 20 minutes in the visit, with more than 50% of the total [id number] time of the visit in counseling / coordination of care. Natalie Vaca APRN.RONALD documented in this encounter [facility] 08-10-2023 History of Presen t illness Narrative Consult H&P Consultation requested by Dr. Barron for an opinion regarding primary lung cancer. My final recommendations will be communicated back to the requesting physician by way of shared Medical record or letter to requesting physician via US mail. Lei Valdez is a 67 year old male here for thoracic surgery evaluation for the above. HPI: The patient is a 67-year-old male who was apparently diagnosed with colon cancer and lung cancer back in the spring of this calendar year. Patient underwent colectomy for the colon carcinoma and recovered well by his report. He did not require additional treatment. 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 After recovered from the abdominal surgery he was also seen by medical oncology at the end of February. Patient was initially going to be referred to [facility] for evaluation of his lung cancer, but there were insurance issues and he reports they wanted a alejandre down payment. The patient then changed insurance companies and then changed back again (this is a little unclear to me) resulting in delayed evaluation. Relative to the lung mass, the patient denies any chest pain, hemoptysis, but does note that his breathing has become more difficult over recent couple to few years related to his chronic cigarette smoking. He has at least a 50 pack-year cigarette smoking history. This continues at 10 to 20 cigarettes/day. He also uses CBD delta 8 Gummies, but does not smoke marijuana. His additional risk factors include hypertension, hyperlipidemia, diabetes mellitus, and somewhat sedentary lifestyle in long-term. MEDICATIONS: Current Outpatient Medications Medication Sig Dispense Refill atorvastatin (LIPITOR) 10 mg tablet Take 10 mg by mouth once daily. FLUoxetine (PROZAC) 20 mg capsule Take 20 mg by mouth once daily. lisinopril (ZESTRIL, PRINIVIL) 5 mg tablet Take 5 mg by mouth once daily. metFORMIN (GLUCOPHAGE) 1,000 mg tablet Take 1,000 mg by mouth twice daily with meals. aspirin, enteric coated (ASPIRIN, ENTERIC COATED) 81 mg EC tablet Take 81 mg by mouth once daily. No current facility-administered medications for this visit. 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 Denies a history of previous of myocardial infarction, stroke, or congestive heart failure. 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 Hemicolectomy 2022 for colon cancer no additional treatment required. History of laparoscopic cholecystectomy. Patient also had left popliteal artery aneurysm thrombosis which was treated with lysis followed by ligation and a bypass by Dr. Lara. He is having follow-up for this later today. Family history notable for the patient's sister recently dying of nonoperable pancreatic cancer. Review of systems-patient has shortness of breath with 1 or 2 flights of stairs and this has progressed in the last 1 to 2 years. No recent blood in the urine. No recent blood in the stools. He did lose some weight after surgery but has stabilized currently. Denies hemoptysis, chest pain or chest wall pain. BP 120/64 Pulse 102 Resp 16 Ht 5' 10.5 (1.79m) Wt 178 lb 12.8 oz (81.1kg) SpO2 100% BMI 25.28 kg/(m^2). PHYSICAL EXAM: Well-developed well-nourished male with the skin changes of chronic silver ingestion. Examination neck showed no carotid bruits. No obvious supraclavicular adenopathy. Cardiac exam remarkable for regular rhythm without pathologic murmur or rub. Lungs are clear to auscultation anteriorly and posteriorly. Radial pulses palpable bilaterally. Abdominal exam bowel sounds present. Lower extremities no edema. I have reviewed the CT scan of the chest and the results of the PET scan, MRI of the brain, and pulmonary function test--all of which are several months old now. 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 We discussed the need for restaging and that surgery may still be an option for him with the other main option for treatment, if he is not a surgical candidate or decides against surgery, primarily radiation treatment. PLAN: The patient needs to undergo torso FDG PET scanning for staging, MRI of the brain for staging, and if deemed surgical candidate will also need stress testing which will also be ordered at this time. FOLLOW UP: Wishes to proceed with staging and continued evaluation for possible surgical resection pending these results. He was also advised to stop cigarette smoking. He is seeing vascular surgery later today for routine follow-up of his previous left lower extremity procedure. This does not appear to be causing him a problem at this time. I spent a total of 63 minutes on the date of the service which included preparing to see the patient, [id number] patient care, completing clinical documentation, obtaining and/or reviewing separately obtained history, performing a medically appropriate examination, counseling and educating the patient/family/caregiver, ordering medications, tests, or procedures, and communicating results to the patient/family/caregiver . Jossue Cardona MD documented in this encounter [facility] 08-10-2023 Instructions Jossue Cardona MD - 08/10/2023 3:13 PM EDT Stop smoking! documented in this encounter [facility] 07-21-2022 History of Presen t illness Narrative Lei Valdez 66 year old male S/P Angiogram with insertion of thrombolysis catheter; Left lower extremity angiogram; Left lower extremity bypass of popliteal aneurysm with popliteal aneurysm ligation and endovein harvest PROCEDURE: As above by Dr. Lara DATE: 06/20/21; 06/21/21; 06/25/21 SUBJECTIVE: Lei Valdez returns to the office today for ongoing evaluation following his surgeries last Fall. Reports that, overall, he is doing well. Admits to ongoing numbness of thigh and pain in calf, but does feel that it is improving. Reports that calf pain is stable and has not gotten any worse since he was last seen. No rest pain and no tissue loss. PAST MEDICAL HISTORY Diagnosis Date Argyria of skin Arthritis Diabetes (HCC) History reviewed. No pertinent surgical history. Current Outpatient Medications on File Prior to Visit Medication Sig atorvastatin (LIPITOR) 10 mg tablet Take 10 mg by mouth once daily. FLUoxetine (PROZAC) 20 mg capsule Take 20 mg by mouth once daily. lisinopril (ZESTRIL, PRINIVIL) 5 mg tablet Take 5 mg by mouth once daily. metFORMIN (GLUCOPHAGE) 1,000 mg tablet Take 1,000 mg by mouth twice daily with meals. aspirin, enteric coated (ASPIRIN, ENTERIC COATED) 81 mg EC tablet Take 81 mg by mouth once daily. No current facility-administered medications on file prior to visit. ALLERGIES No Known Allergies BP 110/60 (BP Site: Left Arm, BP Position: Sitting, BP Cuff Size: Large Adult) Pulse 97 Ht 5' 10 (1.778 m) Wt 187 lb 6.4 oz (85 kg) SpO2 97% BMI 26.89 kg/m PHYSICAL EXAM: General Appearance: Well appearing, alert, in no acute distress, well-hydrated, well nourished. Skin: Skin texture, turgor normal, no suspicious rashes or lesions. Pt with chronic argyria Head: Normocephalic, no masses, lesions, tenderness or abnormalities. Eyes: Anicteric sclera. Extraocular movements are intact. Ears: External ears normal, hearing is adequate. Lungs: Breathing is easy and unlabored. Extremities: No deformities, edema, clubbing or cyanosis. Peripheral Pulses: Capillary refill <2secs, peripheral pulses: Not palp B. Neurologic: Gait normal. Sensation and strength grossly intact. 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 Plan: Repeat US in 2 years FOLLOW-UP: Mr. Valdez will follow-up in 1 year with PVR - ABD us in 2 years. He is encouraged to call in the meantime with any questions, problems, concerns, or changes. The patient is currently taking a statin: Yes The patient is currently taking aspirin: Yes I spent 20 minutes in the visit, with more than 50% of the total [id number] time of the visit in counseling / coordination of care. Natalie Vaca APRN.RONALD documented in this encounter [facility] 06-08-2022 History of Presen t illness Narrative Radiology Service Progress Note PATIENT NAME: Lei Valdez DATE OF SERVICE: June 08, 2022 TIME: 12:01 PM PATIENT IDENTITY VERIFICATION COMPLETED USING TWO (2) IDENTIFIERS: Name and Date of confirmed by patient verbally. FALL SCREENING: Has the patient had 2 falls in the last year or 1 fall with injury or currently using an Ambulatory Assistive Device (Walker, Cane, Wheelchair, Crutches, etc.)? No PATIENT GENDER DATA: Male PATIENT RELEVANT IMPLANT DATA REVIEWED: Not Applicable RADIOLOGY DEPARTMENT: Ultrasound PERIPHERAL IV DATA: Not applicable SIGNED BY: RT Jeremy(R) June 08, 2022 12:01 PM documented in this encounter [facility] 02-06-2022 History of Presen t illness Narrative Lei Valdez 66 year old male S/P Angiogram with insertion of thrombolysis catheter; Left lower extremity angiogram; Left lower extremity bypass of popliteal aneurysm with popliteal aneurysm ligation and endovein harvest PROCEDURE: As above by Dr. Lara DATE: 06/20/21; 06/21/21; 06/25/21 SUBJECTIVE: Lei Valdez returns to the office today for ongoing evaluation following his surgeries in the Fall. Explains that he's had to reschedule this appointment several times as the ride that is provided by his insurance has been somewhat unreliable. Admits to ongoing numbness of thigh and pain in calf. Reports that calf pain is stable and has not gotten any worse since he was last seen. Makes it difficult though, as he does have several flights of stairs to his home. He is working on finding a more accessible home near his family in [place], [place]. PAST MEDICAL HISTORY Diagnosis Date Argyria of skin Arthritis Diabetes (HCC) No past surgical history on file. Current Outpatient Medications on File Prior to Visit Medication Sig atorvastatin (LIPITOR) 10 mg tablet Take 10 mg by mouth once daily. FLUoxetine (PROZAC) 20 mg capsule Take 20 mg by mouth once daily. lisinopril (ZESTRIL, PRINIVIL) 5 mg tablet Take 5 mg by mouth once daily. metFORMIN (GLUCOPHAGE) 1,000 mg tablet Take 1,000 mg by mouth twice daily with meals. aspirin, enteric coated (ASPIRIN, ENTERIC COATED) 81 mg EC tablet Take 81 mg by mouth once daily. No current facility-administered medications on file prior to visit. ALLERGIES No Known Allergies BP 162/80 (BP Site: Left Arm, BP Position: Sitting, BP Cuff Size: Regular Adult) Pulse 96 Ht 5' 10 (1.778 m) Wt 186 lb (84.4 kg) SpO2 98% BMI 26.69 kg/m PHYSICAL EXAM: General Appearance: Well appearing, alert, in no acute distress, well-hydrated, well nourished. Skin: Skin texture, turgor normal, no suspicious rashes or lesions. Pt with chronic argyria Head: Normocephalic, no masses, lesions, tenderness or abnormalities. Eyes: Anicteric sclera. Extraocular movements are intact. Ears: External ears normal, hearing is adequate. Lungs: Breathing is easy and unlabored. Extremities: No deformities, edema, clubbing or cyanosis. Peripheral Pulses: Capillary refill <2secs, peripheral pulses: Not palp B. Neurologic: Gait normal. Sensation and strength grossly intact. 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 Plan: US ABD AORTA in 5-6 months FOLLOW-UP: Mr. Valdez will follow-up in about 6 months with PVR & Abd US. He is encouraged to call in the meantime with any questions, problems, concerns, or changes. The patient is currently taking a statin: Yes The patient is currently taking aspirin: Yes I spent 20 minutes in the visit, with more than 50% of the total [id number] time of the visit in counseling / coordination of care. Natalie Vaca APRN.CNP documented in this encounter [facility] 02-06-2022 Nurse Note No complaints today. Leandra Barragan MA documented in this encounter [facility] 10-15-2021 Miscellaneous Notes Reviewed with Dr. Lara; No need to continue Xarelto, as 3 months is sufficient at this time. Will continue daily asa. Left message for pt regarding this. Encouraged him to call back with any more questions. Natalie Vaca APRN.CNP Presley is wondering if he needs to continue on his xarelto? Stated that he is almost out of medication. Thanks Supriya Lewis LPN documented in this encounter [facility] 08-15-2021 History of Presen t illness Narrative Lei Valdez 65 year old male S/P Angiogram with insertion of thrombolysis catheter; Left lower extremity angiogram; Left lower extremity bypass of popliteal aneurysm with popliteal aneurysm ligation and endovein harvest PROCEDURE: As above by Dr. Lara DATE: 06/20/21; 06/21/21; 06/25/21 SUBJECTIVE: Lei Valdez comes to the office today for ongoing evaluation following his recent surgeries. He reports that he's continued to do pretty well since his last visit. Continues to deny incisional or leg pain, but continues to have numbness down the front of his sanchez. The blister that had developed during the time his leg was without adequate blood flow had turned black prior to last visit, and continues to heal. As before, pt has been walking around without any pain in his leg. No fever or chills, and appetite is normal for him. He is doing well with the blood thinners at this time as well. EXAM: Neurological Exam: Normal; Awake, alert, oriented, pleasant, and appropriate; Strength and sensation grossly intact Right Groin Site: Clean, dry, and well healed Left Leg Incisions: Clean, dry, well approximated, and well healed with some remaining glue flaking away; No edema, erythema, ecchymosis, or drainage noted PULSES: Left Pulses: FEM: 2+, DP: 2+, PT: 1+ Left Lower Extremity: Skin is warm and dry; Incisions as above; Quarter sized blister with black eschar noted -improving!; Healing with good granulation around edges; No s/s of purulence IMPRESSION: Stable post op; Continue current medications; Activities as tolerated - no restrictions!; Discussed with Dr. Lara - AAA noted on CTA & angio now ~3.3cm; Will need abd US @1 year with repeat PVR PLAN: Mr. Valdez will follow-up in about 4 months -@6 months post-op. He is encouraged to call with any questions, problems, concerns, or changes. The patient is currently taking a statin: Yes The patient is currently taking aspirin: Yes Natalie Vaca APRN.CNP documented in this encounter [facility] S/P vascular surgery- Primary Other postprocedural status 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, 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 AAA (abdominal aortic aneurysm) without rupture (HCC) Abdominal aneurysm without mention of rupture [facility] Diagnosis AAA (abdominal aortic aneurysm) without rupture (HCC) Abdominal aneurysm without mention of rupture [facility] Diagnosis Popliteal artery occlusion, 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 S/P vascular surgery Other postprocedural status AAA (abdominal aortic aneurysm) without rupture Abdominal aneurysm without mention of rupture [facility] Diagnosis Primary cancer of left upper lobe of lung (HCC)- Primary Moderate cigarette smoker (10-19 per day) Tobacco use disorder History of colon cancer Personal history of malignant neoplasm of large intestine Neoplasm of lung Neoplasm of unspecified nature of respiratory system Malignant neoplasm of upper lobe of left lung (HCC) SOB (shortness of breath) Shortness of breath [facility] Diagnosis S/P vascular surgery- Primary Other postprocedural status 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, 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 [facility] Diagnosis Primary cancer of left upper lobe of lung (HCC)- Primary [facility] Diagnosis Pre-op testing- Primary Preoperative examination, unspecified [facility] Diagnosis 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 [facility] Diagnosis Squamous 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)- Primary Malignant neoplasm of upper lobe, bronchus or lung Squamous 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) Malignant neoplasm of upper lobe, bronchus or lung documented in this encounter [facility] note* Diagnosis Primary cancer of left upper lobe of lung (HCC)- Primary Squamous 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) Malignant neoplasm of upper lobe, bronchus or lung documented in this encounter [facility] note* Diagnosis Squamous cell carcinoma of left lung (HCC)- Primary documented in this encounter [facility] note* Diagnosis Squamous 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) Malignant neoplasm of upper lobe, bronchus or lung documented in this encounter [facility] note* Diagnosis Screening for ischemic heart disease- Primary documented in this encounter [facility] note* Diagnosis Neoplasm of lung Neoplasm of unspecified nature of respiratory system Malignant neoplasm of upper lobe of left lung (HCC) SOB (shortness of breath) Shortness of breath documented in this encounter [facility] note* Diagnosis Primary cancer of left upper lobe of lung (HCC)- Primary documented in this encounter [facility] note* Diagnosis Primary cancer of left upper lobe of lung (HCC)- Primary [facility] Diagnostic Procedure Only (Routine) - Pending Review Specialty Diagnoses / Procedures Referred By Lorenzo sheikh Referred To Contact US IMAGING Diagnoses AAA (abdominal aortic aneurysm) without rupture (HCC) Procedures US ABD AORTA US RETROPERITONEAL REAL TIME W/IMAGE LIMITED Natalie Vaca APRN.[employer] [address] [place] [address] Us Imaging Referral ID Status Reason Start Date Expiration Date Visits Requested Visits Authorized [id number] Pending Review Auto-Generat ed Referral 06/08/2022 03/08/2023 1 1 * Diagnostic Procedure Only (Routine) - Pending Review Specialty Diagnoses / Procedures Referred By Lorenzo sheikh Referred To Contact US IMAGING Diagnoses S/P vascular surgery 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, left (HCC) AAA (abdominal aortic aneurysm) without rupture (HCC) Procedures US ARTERIAL PVR LOWER W/EXERCISE N-INVAS PHYSIOLOGIC STD LXTR ART COMPL BI Natalie Vaca APRN.RETA[employer]ES [employer]ELOP[employer] [address] [place] [address] Us Imaging Referral ID Status Reason Start Date Expiration Date Visits Requested Visits Authorized [id number] Pending Review Auto-Generat ed Referral 06/08/2022 03/08/2023 1 1 [facility] for referral (narrative)* Diagnostic Procedure Only (Routine) - Closed Specialty Diagnoses / Procedures Referred By Contac t Referred To Contact US IMAGING Diagnoses AAA (abdominal aortic aneurysm) without rupture (HCC) Procedures US ABD AORTA US RETROPERITONEAL REAL TIME W/IMAGE LIMITED Natalie Vaca APRN.[employer]TA[employer] [address] [place] [address] Us Imaging Referral ID Status Reason Start Date Expiration Date V isits Requested Visits Authorized [id number] Closed Auto-Generate d Referral 06/08/2022 03/08/2023 1 1 [facility] for referral (narrative)* Diagnostic Procedure Only (Routine) - Pending Review Specialty Diagnoses / Procedures Referred By Contac t Referred To Contact US IMAGING Diagnoses Popliteal artery occlusion, 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) S/P vascular surgery Procedures US ARTERIAL PVR LOWER W/EXERCISE N-INVAS PHYSIOLOGIC STD LXTR ART COMPL BI Natalie Vaca APRN.[employer] [address] [place] [address] Us Imaging Referral ID Status Reason Start Date Expiration Date Visits Requested Visits Authorized [id number] Pending Review Auto-Generat ed Referral 07/21/2023 08/20/2023 1 1 [facility] for referral (narrative)* Diagnostic Procedure Only (Routine) - Pending Review Specialty Diagnoses / Procedures Referred By Contac t Referred To Contact MOLECULAR & FUNCTIONAL IMAGING Diagnoses Neoplasm of lung Malignant neoplasm of upper lobe of left lung (HCC) SOB (shortness of breath) Procedures NM CARDIAC PERF STRESS/PHARM MYOCARDIAL SPECT MULTIPLE STUDIES Jossue Cardona MD [address] [place] [address] Molecular & Functional Imaging [address] [place], [place] [id number] Referral ID Status Reason Start Date Expiration Date Visits Requested Visits Authorized [id number] Pending Review Auto-Generat ed Referral 3 09/08/2024 1 1 * MRI/CT (Routine) - Pending Review Specialty Diagnoses / Procedures Referred By Contac t Referred To Contact MR IMAGING Diagnoses Primary cancer of left upper lobe of lung (HCC) Neoplasm of lung Malignant neoplasm of upper lobe of left lung (HCC) Procedures MRI BRAIN WO/W IVCON MRI BRAIN BRAIN STEM W/O W/CONTRAST MATERIAL Jossue Cardona MD [address] [place] [address] Mr Imaging [place] [address] Referral ID Status Reason Start Date Expiration Date Visits Requested Visits Authorized [id number] Pending Review Auto-Generat ed Referral 3 09/08/2024 1 1 * Diagnostic Procedure Only (Routine) - Pending Review Specialty Diagnoses / Procedures Referred By Contac t Referred To Contact MOLECULAR & FUNCTIONAL IMAGING Diagnoses Primary cancer of left upper lobe of lung (HCC) Neoplasm of lung Procedures NM PET/CT SKULL-THIGH INITIAL PET IMAGING CT ATTENUATION SKULL BASE MID-THIGH Jossue Cardona MD [address] [place] [address] Molecular & Functional Imaging [address] [place], [place] [address] Referral ID Status Reason Start Date Expiration Date Visits Requested Visits Authorized [id number] Pending Review Auto-Generat ed Referral 3 09/08/2024 1 1 [facility] for referral (narrative)* Outpatient Procedure (Urgent) - Pending Review Specialty Diagnoses / Procedures Referred By Contac t Referred To Contact [facility] Diagnoses Pre-op testing Procedures ECG COMPLETE ECG ROUTINE ECG W/LEAST 12 LDS W/I&R Karishma Ledesma MD [address] [place] [address] Heart And [facility]ascular [facility] [place] [address] Referral ID Status Reason Start Date Expiration Date Visits Requested Visits Authorized [id number] Pending Review Auto-Generat ed Referral 3 09/05/2024 1 1 [facility] for referral (narrative)* Diagnostic Procedure Only (Routine) - Closed Specialty Diagnoses / Procedures Referred By Contac t Referred To Contact MOLECULAR & FUNCTIONAL IMAGING Diagnoses Neoplasm of lung Malignant neoplasm of upper lobe of left lung (HCC) SOB (shortness of breath) Procedures NM CARDIAC PERF STRESS/PHARM MYOCARDIAL SPECT MULTIPLE STUDIES Jossue Cardona MD [address] [address] Molecular & Functional Imaging [address] [place] [address] Referral ID Status Reason Start Date Expiration Date V isits Requested Visits Authorized [id number] Closed Auto-Generate d Referral 08/10/2023 09/08/2024 1 1 [facility] for visit Narrative* Diagnostic Procedure Only (Routine) - Closed Specialty Diagnoses / Procedures Referred By Contac t Referred To Contact MOLECULAR & FUNCTIONAL IMAGING Diagnoses Neoplasm of lung Malignant neoplasm of upper lobe of left lung (HCC) SOB (shortness of breath) Procedures NM CARDIAC PERF STRESS/PHARM MYOCARDIAL SPECT MULTIPLE STUDIES Jossue Cardona MD [address] [place] [address] Molecular & Functional Imaging [address] [place] [address] Referral ID Status Reason Start Date Expiration Date V isits Requested Visits Authorized [id number] Closed Auto-Generate d Referral 08/10/2023 09/08/2024 1 1 [facility] Advance Directives No Advanced Directives Records FoundDocuments on File Type Date 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 Advance Directive(s) 06/20/2021 9:35 PM Documents on File Type Date Recorded 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 Advance Directive(s) 06/20/2021 9:35 PM Summary Purpose Family History No Family History Records FoundNo Family History Records FoundNo Family History Records FoundNo Family History Records Found Reason for Referral Specialty Diagnoses / Procedures Referred By Contac t Referred To Contact Diagnoses 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) Procedures CONSULT TO RADIATION ONCOLOGY (AG) Skylar Lynn APRN.[employer] [address] [place] [address] Carl Noel MD [address] [place] [address] Referral ID Status Reason Start Date Expiration Date Visits Requested Visits Authorized [id number] Ref Not Required PCP Requested Referral 3 12/05/2023 1 1 Medications Administered Section Inactive Administered Medications - up to 3 most recent administrations Medication Order MAR Action Action Date Dose Rate Site fentaNYL 50 mcg/mL 50 mcg injection (SUBLIMAZE) 50 mcg, INTRAVENOUS, EVERY 5 MINUTES NEEDED, 2 doses, Starting on Wed09/29/23 at 1548, Until Davida 09/30/23 at 0304, FIRST LINE THERAPY for mild, moderate, or severe pain, Every 5 minutes. Use if patient unable to tolerate oral therapy. Hold for respiratory rate less than 12 Max total dose: 100 mcg, Recovery or Phase I (only) lactated ringers iv infusion 125 mL/hr, INTRAVENOUS, CONTINUOUS, Starting on Wed09/29/23 at 1600, Until Wed09/30/23 at 0304, Recovery or Phase I (only) New Bag/Syringe/Bottle 09/29/2023 3:53 PM EST 125 mL/hr 125 mL/hr morphine 3 mg injection 3 mg, INTRAVENOUS, EVERY 10 MINUTES NEEDED, 5 doses, Starting on 09/29/23 at 1548, Until Davida 09/30/23 at 0304, SECOND LINE THERAPY for mild, moderate, or severe pain, Every 10 minutes. Use if patient unable to tolerate oral therapy. Hold for respiratory rate less than 12 Max total dose: 12 mg, Recovery or Phase I (only) ondansetron (PF) 4 mg injection (ZOFRAN) 4 mg, INTRAVENOUS, NEEDED, 1 dose, Starting on Wed09/29/23 at 1548, Until Davida 12 at 0304, Nausea/Vomiting - First Line - Parenteral, Give IV push over 2 minutes. If still nauseated 10 min after first line antiemetic dose, proceed to second line antiemetic, Recovery or Phase I (only) ondansetron (PF) 4 mg injection (ZOFRAN) 4 mg, INTRAVENOUS, NEEDED, 1 dose, Starting on 09/29/23 at 1548, Until Davida 12 at 0304, Nausea/Vomiting - Second Line - Parenteral, Give IV push over 2 minutes., Recovery or Phase I (only) Additional Source Comments Source Comments (unrecognize d section and content) In the event this informatio n is protected by the Federal Confidentiality of Alcohol and Drug Abuse Patient Records regulations: The Federal rules restrict any use of the information to criminally investigate or prosecute any alcohol or drug abuse patient.[facility] Center[facility] the event this information is protected by the Federal Confidentiality of Alcohol and Drug Abuse Patient Records regulations: The Federal rules restrict any use of the information to criminally investigate or prosecute any alcohol or drug abuse patient.[facility] Center[facility] the event this information is protected by the Federal Confidentiality of Alcohol and Drug Abuse Patient Records regulations: The Federal rules restrict any use of the information to criminally investigate or prosecute any alcohol or drug abuse patient.[facility] CenterIn the event this information is protected by the Federal Confidentiality of Alcohol and Drug Abuse Patient Records regulations: The Federal rules restrict any use of the information to criminally investigate or prosecute any alcohol or drug abuse patient.[facility] CenterIn the event this information is protected by the Federal Confidentiality of Alcohol and Drug Abuse Patient Records regulations: The Federal rules restrict any use of the information to criminally investigate or prosecute any alcohol or drug abuse patient.[facility] CenterIn the event this information is protected by the Federal Confidentiality of Alcohol and Drug Abuse Patient Records regulations: The Federal rules restrict any use of the information to criminally investigate or prosecute any alcohol or drug abuse patient.[facility] CenterIn the event this information is protected by the Federal Confidentiality of Alcohol and Drug Abuse Patient Records regulations: The Federal rules restrict any use of the information to criminally investigate or prosecute any alcohol or drug abuse patient.[facility] CenterIn the event this information is protected by the Federal Confidentiality of Alcohol and Drug Abuse Patient Records regulations: The Federal rules restrict any use of the information to criminally investigate or prosecute any alcohol or drug abuse patient.[facility] CenterIn the event this information is protected by the Federal Confidentiality of Alcohol and Drug Abuse Patient Records regulations: The Federal rules restrict any use of the information to criminally investigate or prosecute any alcohol or drug abuse patient.[facility] CenterIn the event this information is protected by the Federal Confidentiality of Alcohol and Drug Abuse Patient Records regulations: The Federal rules restrict any use of the information to criminally investigate or prosecute any alcohol or drug abuse patient.[facility] CenterIn the event this information is protected by the Federal Confidentiality of Alcohol and Drug Abuse Patient Records regulations: The Federal rules restrict any use of the information to criminally investigate or prosecute any alcohol or drug abuse patient.[facility] CenterIn the event this information is protected by the Federal Confidentiality of Alcohol and Drug Abuse Patient Records regulations: The Federal rules restrict any use of the information to criminally investigate or prosecute any alcohol or drug abuse patient.[facility] CenterIn the event this information is protected by the Federal Confidentiality of Alcohol and Drug Abuse Patient Records regulations: The Federal rules restrict any use of the information to criminally investigate or prosecute any alcohol or drug abuse patient.[facility] CenterIn the event this information is protected by the Federal Confidentiality of Alcohol and Drug Abuse Patient Records regulations: The Federal rules restrict any use of the information to criminally investigate or prosecute any alcohol or drug abuse patient.[facility] CenterIn the event this information is protected by the Federal Confidentiality of Alcohol and Drug Abuse Patient Records regulations: The Federal rules restrict any use of the information to criminally investigate or prosecute any alcohol or drug abuse patient.[facility] CenterIn the event this information is protected by the Federal Confidentiality of Alcohol and Drug Abuse Patient Records regulations: The Federal rules restrict any use of the information to criminally investigate or prosecute any alcohol or drug abuse patient.[facility] CenterIn the event this information is protected by the Federal Confidentiality of Alcohol and Drug Abuse Patient Records regulations: The Federal rules restrict any use of the information to criminally investigate or prosecute any alcohol or drug abuse patient.[facility] CenterIn the event this information is protected by the Federal Confidentiality of Alcohol and Drug Abuse Patient Records regulations: The Federal rules restrict any use of the information to criminally investigate or prosecute any alcohol or drug abuse patient.[facility] CenterIn the event this information is protected by the Federal Confidentiality of Alcohol and Drug Abuse Patient Records regulations: The Federal rules restrict any use of the information to criminally investigate or prosecute any alcohol or drug abuse patient.[facility] CenterIn the event this information is protected by the Federal Confidentiality of Alcohol and Drug Abuse Patient Records regulations: The Federal rules restrict any use of the information to criminally investigate or prosecute any alcohol or drug abuse patient.[facility] Reason for Visit (unrecogniz ed section and content) Reason Comments Patient Question Reason Comments Follow Up 3-4 month aneurysm Reason Comments Radiology US Specialty Diagnoses / Procedures Referred By Contac t Referred To Contact US IMAGING Diagnoses AAA (abdominal aortic aneurysm) without rupture (HCC) Procedures US ABD AORTA US RETROPERITONEAL REAL TIME W/IMAGE LIMITED Natalie Vaca, CATY.[employer] [address] [place] [address] Us Imaging Referral ID Status Reason Start Date Expiration Date V isits Requested Visits Authorized [id number] Closed Auto-Generate d Referral 06/08/2022 03/08/2023 1 1 Reason Comments Post Op Follow Up 1-year post op follo w-up S/P vascular surgery Reason Comments New Patient Evaluation Rfd by for malignant neoplasm of lung Reason Comments popliteal artery occlusion Presley is here to review 07/21/23 PVR Reason Comments Results Discussion Reason Onset Date Comments Bronchoscopy Scheduling 09/06/2023 Initial Bronch Request Reason Comments Patient Update Reason Comments Bronchoscopy Scheduling EBUS Specialty Diagnoses / Procedures Referred By Contac t Referred To Contact Diagnoses Squamous 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) Procedures [facility] EBUS GUIDED SAMPL 1/2 NODE STATION/STRUX BRONCHOSCOPY,RIGID/FLEXIBLE W/ FLUORO,W/ENDOBRONCHIAL ULTRASOUND (EBUS) GUIDED TRANSTRACHEAL/ TRANSBRONCHIAL ASPIRATION/BIOPSY,1 OR 2 MEDIASTINAL AND/OR HILAR LYMPH NODE STATIONS/STRUCTURES [facility] [address] [place] [address] Referral ID Status Reason Start Date Expiration Date Visits Re quested Visits Authorized [id number] 1 1 Reason Comments Radiology NM Specialty Diagnoses / Procedures [facility] Referred To Contact MOLECULAR & FUNCTIONAL IMAGING Diagnoses Neoplasm of lung Malignant neoplasm of upper lobe of left lung (HCC) SOB (shortness of breath) Procedures NM CARDIAC PERF STRESS/PHARM MYOCARDIAL SPECT MULTIPLE STUDIES Jossue Cardona MD 1 [facility] [address] [place] [address] Molecular & Functional Imaging [address] [place], [place] [id number] Referral ID Status Reason Start Date Expiration Date V isits Requested Visits Authorized [id number] Closed Auto-Generate d Referral 08/10/2023 09/08/2024 1 1 Reason Comments Results Discussion Called patient to rock ferguson results of recent stress test and at his request discussed the results of the bronchoscopy EBUS as he was unable to connect with Dr. Ledesma yesterday. Reason Comments Consult Care Teams (unrecognized sec tion and content) Design Leader Relationship Specialty Start Date End Date Xena Arroyo [address] [facility] [place] [address] PCP - General Family Practice 06/20/21 Design Leader Relationship Specialty Start Date End Date Xena Arroyo [address] [place] [address] PCP - General Family Practice 06/20/21 Design Leader Relationship Specialty Start Date End Date Xena Arroyo [address] [place] [place], [place] [address] PCP - General Family Medicine 06/20/21 Design Leader Relationship Specialty Start Date End Date Xena Arroyo MD [address] [place] [address] PCP - General Family Medicine 06/20/21 Akbar Barron [address] [place] [address] Hematology/Oncology 08/10/23 Design Leader Relationship Specialty Start Date End Date Xena Arroyo MD [address] [place] [address] PCP - General Family Medicine 06/20/21 Akbra Barron [address] [place] [address] Hematology/Oncology 08/10/23 Design Leader Relationship Specialty Start Date End Date Xena Arroyo MD [address] [place] [address] [place], [place] [address] PCP - General Family Medicine 06/20/21 Akbar Barron [address] [place] [address] Hematology/Oncology 08/10/23 Design Leader Relationship Specialty Start Date End Date Xena Arroyo MD [address] [place], [place] [address] PCP - General Family Medicine 06/20/21 Akbar Barron [address] [place] [address] Hematology/Oncology 08/10/23 Design Leader Relationship Specialty Start Date End Date Xena Arroyo MD [address] [place], [place] [address] PCP - General Family Medicine 06/20/21 Akbar Barron [address] [place] [address] Hematology/Oncology 08/10/23 Design Leader Relationship Specialty Start Date End Date Xena Arroyo MD [address] [place] [place], [place] [address] PCP - General Family Medicine 06/20/21 Akbar Barron [address] [place] [address] Hematology/Oncology 08/10/23 Design Leader Relationship Specialty Start Date End Date Xena Arroyo MD [address] [place], [place] [id number] PCP - General Family Medicine 06/20/21 Akbar Barron [address] [place] [id number] Hematology/Oncology 08/10/23 Design Leader Relationship Specialty Start Date End Date Xena Arroyo MD [address] [place], [place] [address] PCP - General Family Medicine 06/20/21 Akbar Barron [address] [place] [address] Hematology/Oncology 08/10/23 Guilherme Norris MD, [address] [place], [place] [address] Physician Radiation Oncology 09/15/23 Design Leader Relationship Specialty Start Date End Date Xena Arroyo MD [address] [place] [address] PCP - General Family Medicine 06/20/21 Akbar Barron [address] [place] [address] Hematology/Oncology 08/10/23 Guilherme Norris MD, [address] [place] [address] Physician Radiation Oncology 09/15/23 Design Leader Relationship Specialty Start Date End Date Xena Arroyo MD [address] [place], [place] [id number] PCP - General Family Medicine 06/20/21 Akbar Barron [address] [place] [id number] Hematology/Oncology 08/10/23 Guilherme Norris MD, [address] [place], [place] [address] Physician Radiation Oncology 09/15/23 Design Leader Relationship Specialty Start Date End Date Xena Arroyo MD [address] [place] [address] PCP - General Family Medicine 06/20/21 [facility] [address] [place] [address] Hematology/Oncology 08/10/23 Guilherme Norris MD, [address] [place] [address] Physician Radiation Oncology 09/15/23 Design Leader Relationship Specialty Start Date End Date Xena Arroyo MD [address] [place] [address] PCP - General Family Medicine 06/20/21 [facility] [address] [place] [address] Hematology/Oncology 08/10/23 Guilherme Norris MD, [address] [place], [place] [phone] Physician Radiation Oncology 09/15/23 Design Leader Relationship Specialty Start Date End Date Xena Arroyo MD [address] [place], [place] [address] PCP - General Family Medicine 06/20/21 Akbar Barrno [address] [place] [address] Hematology/Oncology 08/10/23 Guilherme Norris MD, [address] [place] [address] Physician Radiation Oncology 09/15/23 Design Leader Relationship Specialty Start Date End Date Xena Arroyo MD [address] [place] [address] PCP - General [facility] 06/20/21 Akbar Barron [address] [place] [address] Hematology/Oncology 08/10/23 Guilherme Norris MD, [address] [place], [place] [address] Physician Radiation Oncology 09/15/23 Design Leader Relationship Specialty Start Date End Date Xena Arroyo MD [address] [place] [address] PCP - General Family Medicine 06/20/21 Akbar Barron [address] [place] [address] Hematology/Oncology 08/10/23 Guilherme Norris MD, [address] [place] [address] Physician Radiation Oncology 09/15/23 (unrecognized sect ion and content) No Status Records FoundNo Status Records FoundNo Status Records FoundNo Status Records Found INFORMATION SOURCE (unrecogn ized section and content) DATE CREATED AUTHOR AUTHOR'S ORGANIZ ATION 03/10/2023 [facility] DATE CREATED AUTHOR AUTHOR'S ORGANIZ ATION 10/28/2023 [facility] DATE CREATED AUTHOR AUTHOR'S ORGANIZ ATION 11/21/2023 [facility] Continuous Active and Recently Administ ered Medications (unrecognized section and content) PRN Medication Order 09/27/2023 09/28/2023 09/29/2023 fentaNYL 50 mcg/mL 50 mcg injection (SUBLIMAZE) 50 mcg, INTRAVENOUS, EVERY 5 MINUTES NEEDED, 2 doses, Starting on 09/29/23 at 1548, Until Davida 09/30/23 at 0304, FIRST LINE THERAPY for mild, moderate, or severe pain, Every 5 minutes. Use if patient unable to tolerate oral therapy. Hold for respiratory rate less than 12 Max total dose: 100 mcg, Recovery or Phase I (only) morphine 3 mg injection 3 mg, INTRAVENOUS, EVERY 10 MINUTES NEEDED, 5 doses, Starting on 09/29/23 at 1548, Until Davida 12 at 0304, SECOND LINE THERAPY for mild, moderate, or severe pain, Every 10 minutes. Use if patient unable to tolerate oral therapy. Hold for respiratory rate less than 12 Max total dose: 12 mg, Recovery or Phase I (only) ondansetron (PF) 4 mg injection (ZOFRAN) 4 mg, INTRAVENOUS, NEEDED, 1 dose, Starting on Wed09/29/23 at 1548, Until Davida 09/30/23 at 0304, Nausea/Vomiting - First Line - Parenteral, Give IV push over 2 minutes. If still nauseated 10 min after first line antiemetic dose, proceed to second line antiemetic, Recovery or Phase I (only) ondansetron (PF) 4 mg injection (ZOFRAN) 4 mg, INTRAVENOUS, NEEDED, 1 dose, Starting on 09/29/23 at 1548, Until Davida 09/30/23 at 0304, Nausea/Vomiting - Second Line - Parenteral, Give IV push over 2 minutes., Recovery or Phase I (only) FOR RECORDS PERTAINING TO PATIENTS WHO ARE OR HAVE BEEN ENROLLED IN A CHEMICAL DEPENDENCY/SUBSTANCEABUSE PROGRAM, SOME INFORMATION MAY BE OMITTED. This clinical summary was aggregated from multiple sources. Caution should be exercised in using it in the provision of clinical care. This summary normalizes information from multiple sources, and as a consequence, information in this document may materially change the coding, format and clinical context of patient data. In addition, data may be omitted in some cases. CLINICAL DECISIONS SHOULD BE BASED ON THE PRIMARY CLINICAL RECORDS. [facility]. provides no warranty or guarantee of the accuracy or completeness of information in this document.
--- NOTE | 2023-11-25 22:37 | EX.ED.DYSGE1 ---
HPI History of Present Illness Chief Complaint: Fall Informant: patient and EMS Narrative Narrative: 68-year-old male presenting to the emergency room following a fall. Patient states that he is currently undergoing chemotherapy with [facility] for lung cancer. He does not know his medications. He states that around 430 last night he fell on the way to the bathroom. He states he injured his posterior left shoulder left hip. He notes increased pain in the low back. He has been experiencing pain but it seems worse now. He was unable to get up off the floor. He was urinating in a urinal that he had nearby. He is did not have anything to eat until a neighbor came and helped him up around 1930 hrs. He then had a tunafish sandwich. Patient states that he feels globally weak and does not believe that he would do well at home. He denies any head or neck pain/injury. He denies any chest or abdominal symptoms. Distal legs he states he feels fine. PFSH PFSH Medical History Anxiety Argyria Argyria of skin Arthritis Back pain Cancer Colon cancer Depression Diabetes Dietary restriction High cholesterol History of pain when walking History of stress test HTN (hypertension) Hyperlipidemia Injury of back Lung cancer Numbness and tingling of hand Positive colorectal cancer screening using Cologuard test Shortness of breath on exertion Smoker Home Medications atorvastatin 10 mg tablet 10 mg PO QHS CHOLESTEROL 06/20/21 [History Last Taken 02/02/23] fluoxetine 20 mg capsule 20 mg PO DAILY DEPRESSION 06/20/21 [History Last Taken 02/02/23] lisinopril 5 mg tablet 5 mg PO DAILY BP 06/20/21 [History Last Taken 02/02/23] metformin 1,000 mg tablet 1,000 mg PO BID DIABETES 06/20/21 [History Last Taken 02/02/23] cholecalciferol (vitamin D3) 25 mcg (1,000 unit) capsule 50 mcg PO DAILY SUPPLEMENT 01/12/23 [History Last Taken 02/02/23] Allergy/AdvReac Type Severity Reaction Status Date / Time No Known Allergies Allergy Verified 09/24/23 09:37 Family History Mother Diabetes Heart disease Father Myocardial infarction Sister Pancreatic cancer Brother Bladder cancer Surgical History History of cardiac catheterization History of laparoscopic cholecystectomy Hx of clubfoot correction Hx of colonoscopy with polypectomy Hx of foot surgery Hx of surgical procedure Social History household members: none current occupational status: retired current occupational exposures/hazards: No history of recent travel: No Smoking Status: Former smoker Tobacco: How many years used: 40 second hand exposure: Yes alcohol intake: never substance use type: does not use diet: diabetic ROS ROS ED Constitutional Constitutional ED: Denies chills, fever(s) or weight loss Eyes Eyes: Denies change in vision or diplopia ENT ENT ED: Denies ear pain, rhinorrhea or sore throat Cardiovascular Cardiovascular: Denies chest pain, orthopnea, palpitations or racing heartbeat Respiratory/Chest Respiratory/Chest: Denies cough, dyspnea or orthopnea Gastrointestinal Gastrointestinal: Denies abdominal pain, diarrhea, nausea or vomiting Genitourinary Genitourinary ED: Denies dysuria, hematuria or urinary frequency Musculoskeletal Musculoskeletal: Reports back pain and other Details: Left hip left shoulder pain Low back pain acute on chronic ; Denies arthralgias or myalgias Integumentary Reports other Details: Chronic Argyia ; Denies abscess or rash Neurologic Neurologic: Denies headache(s) or weakness Psychiatric Psychiatric: Denies anxiety, depression, suicidal ideation or suicidal thoughts Endocrine Endocrinology: Denies polydipsia, polyphagia or polyuria Allergic/Immunologic Allergic/Immunologic ED: Denies mouth swelling, tongue swelling or urticaria EXAM Physical Exam Const Vital Signs: 11/25/23 21:53 11/25/23 22:53 11/25/23 23:16 Temperature 97.2 F L Temperature Source Temporal Pulse Rate 101 H 103 H Respiratory Rate 16 20 H Respiratory Effort Normal Respiratory Depth Normal Respiratory Pattern Normal Blood Pressure 112/70 127/63 H Blood Pressure Mean 84 84 Pulse Ox 96 99 Oxygen Delivery Method Room Air Room Air Room Air 11/26/23 01:32 Temperature 99.5 F H Temperature Source Oral Pulse Rate 125 H Respiratory Rate 21 H Respiratory Effort Respiratory Depth Respiratory Pattern Blood Pressure 111/74 Blood Pressure Mean 86 Pulse Ox 98 Oxygen Delivery Method Room Air Positive well nourished and well developed General Appearance ED: well developed HEENT Reports normocephalic, head/scalp atraumatic and moist mucous membranes Eyes PERRL and EOMs intact bilaterally Neck no lymphadenopathy, supple and no JVD Chest Wall inspection of chest normal and palpation of chest normal Resp normal respiratory effort and clear to auscultation bilaterally Cardio regular rate, regular rhythm and no murmurs Rate: tachycardic GI normal to inspection, nondistended, normoactive bowel sounds and non-tender Palpation: soft Back/Spine no CVA tenderness and normal ROM Back/Spine Narrative: Tender palpation of the lumbar paraspinal musculature and in the midline. No crepitance bony step-offs. Patient has painful range of motion when I ask him to sit forward. If he goes to attempt to lift his left leg up off the bed it hurts his back. Thoracic Spine / Upper Back: paraspinal muscle tenderness Extremity Extremity Narrative: Patient has tenderness to palpation over the lateral and posterior aspect of the greater trochanter on the left. There is no shortening or rotation. Negative logroll. Patient has tenderness palpation over the supraspinatus region of the left shoulder. No obvious dislocation or deformity noted. General Extremety ED: Negative for edema General Extremity: Negative for edema Neuro oriented x3 and CN's II-XII intact bilaterally Sensorium / Orientation: alert Motor Exam: strength 5/5 throughout Psych mental status grossly normal Mood & Affect: Negative for depressed or tearful Skin no wounds Skin Narrative: Argyia of skin most prominent upper torso/head MDM MDM MDM Narrative Medical decision making narrative: My independent or potation of the plain films of the left hip and pelvis is no acute fracture My independent interpretation of the chest x-ray is no acute process My independent interpretation of the left shoulder is no acute fracture White count 9.0 hemoglobin 10.6 platelet count of 72. Lactic acid is elevated at 4.1 with an anion gap of 10 BUN of 30 creatinine 1.39 CO2 24 potassium 3.4 sodium 125. Total creatinine kinase 2041 urinalysis shows greater than 100 white cells 4+ bacteria dips positive blood 0-5 red cells seen on microscopic. CT of the abdomen pelvis demonstrates inflammatory changes consistent with pyelonephritis of the left kidney with no obvious ureteral obstruction. In regards to his back pain certainly the kidney can be causing some increase of the pain that he is experiencing but also simply from lumbar myofascial strain from the fall. I do not see an obvious fracture. I do not see an obvious retroperitoneal bleed or psoas hematoma. Patient blood cultures and urine culture was obtained. He received Rocephin and IV fluids. The patient progressively became more tachycardic and his temperature was increasing. EKG demonstrates some significant ST depression throughout. Heart rate is 131 on that EKG. It is significantly different from before. His second troponin is elevated. I think this most likely represents demand ischemia in the setting of sepsis. We have ordered and he has received enough fluids for his 30 cc/kg bolus. As far as anticoagulants for the NSTEMI I do not think we need to or should give aspirin or heparinize given the significant thrombocytopenia. Patient will be admitted into the intensive care unit. History & Record Review Discussion w/independent historian: EMS personnel and Patient Additional record(s) reviewed:: Prior inpatient record, Prior ED visit and Prior labs Lab Data Attestation: I reviewed the patient's lab results. Labs: Laboratory Results - last 24 hr 11/25/23 11/25/23 22:28 23:05 WBC 9.0 RBC 3.91 L Hgb 10.6 L Hct 31.6 L MCV 80.8 MCH 27.1 MCHC 33.5 RDW Std Deviation 46.5 H RDW Coeff of [place] 15.7 H Plt Count 72 L MPV 8.9 Immature Gran % (Auto) 0.600 Neut % (Auto) 92.2 H Lymph % (Auto) 3.8 L [place] % (Auto) 3.2 Eos % (Auto) 0.0 Baso % (Auto) 0.2 Absolute Neuts (auto) 8.3 H Absolute Lymphs (auto) 0.34 L Nucleated RBC % 0 Differential Comment SCANNED PT 15.1 H INR 1.2 APTT 31.0 Sodium 125 L Potassium 3.4 L Chloride 91 L Carbon Dioxide 24.0 Anion Gap 10 BUN 30 H Creatinine 1.39 H Estim Creat Clear Calc 49.89 Est GFR (MDRD) Af Amer 66 Est GFR (MDRD) Non-Af 54 L BUN/Creatinine Ratio 21.6 H Glucose 309 H Lactic Acid 4.1 H* 3.7 H* Calcium 8.6 Total Bilirubin 0.50 Direct Bilirubin 0.25 AST 110 H ALT 39 Alkaline Phosphatase 91 Total Creatine Kinase 2041 H Troponin I High Sens 38 Total Protein 6.4 Albumin 2.3 L Globulin 4.1 Urine Color Yellow Urine Clarity Cloudy Urine pH 6.0 Ur Specific [place] 1.015 Urine Protein 100 H Urine Glucose (UA) 250 H Urine Ketones 5 H Urine Occult Blood 150 H Urine Nitrite Negative Urine Bilirubin Negative Urine Urobilinogen 1 H Ur Leukocyte Esterase 500 H Urine RBC 0-5 SEEN Urine WBC >100 SEEN Ur Squamous Epith Cells 0 SEEN Urine Bacteria 4+ Urine Mucus 0 SEEN Radiography Diagnostic Testing: Clinical Impression(s) from Imaging Studies Chest X-Ray 11/25/23 22:45 IMPRESSION: Soft tissue density in the left periaortic region new since previous examination concerning for mass. CT scan of the chest with contrast is recommended. Electronically Signed: Carmelo Figueroa MD at 23:24 EST , Hip/Pelvis X-Ray 11/25/23 22:45 IMPRESSION: No evidence of displaced pelvic or hip fracture. Electronically Signed: Carmelo Figueroa MD at 23:25 EST , Shoulder X-Ray 11/25/23 22:45 IMPRESSION: No evidence of acute fracture or dislocation. Electronically Signed: Carmelo Figueroa MD at 23:26 EST , Abdomen/Pelvis CT 11/25/23 23:55 IMPRESSION: * Findings compatible with left pyelonephritis with ureteritis. * Numerous bilateral nonobstructive intrarenal calculi redemonstrated. * Unchanged infrarenal abdominal aortic aneurysm measuring 3.4 x 3.2 cm. ACR recommends follow-up every 3 years for abdominal aortic aneurysms of this size. Electronically Signed: Freedom Mccullough MD at 1:20 EST , EKG Initial EKG: Attestation: I personally reviewed and interpreted this EKG as follows: Comments: Sinus tachycardia with a ventricular rate of [address] T wave abnormalities noted Management Discussion w/another healthcare provider: Hospitalist (Dr. Benjamin Tovar) and Tomato Paste Maker (Cardiology (Dr. Rhodes)) Critical Care Time Critical Care Time: Yes Critical care time (excluding procedures): 30-74 minutes (35 min), Including time spent:, Discussing w/Patient &/or Family/Ophthalmic Assistant, Discussing w/Consultants, Arranging Admission or Transfer and Performing Direct Patient Care at Bedside Discharge Plan Dx/Rx/DC Orders Clinical Impression: Lung cancer, Diabetes, Argyria of skin, Acute pain of left hip, Acute pain of left shoulder, Acute UTI, Elevated lactic acid level, Rhabdomyolysis, Acute exacerbation of chronic low back pain, Anemia, Thrombocytopenia, Renal insufficiency, Hyponatremia, Hypokalemia, Acute pyelonephritis, Sepsis, Elevated troponin, Demand ischemia Disposition Disposition: Acute Care Hospital [facility]
[2023-11-25 22:41] LABS: Mucous, Urine 0 SEEN /hpf (<or=2+); Squamous Epithelial Cells - UA 0 SEEN /hpf (0-5)
[2023-11-25 22:45] LABS: Absolute Lymphocyte Count 0.34 X10^3/uL (0.83-4.51); Absolute Neutrophil Count 8.3 X10^3/uL (2.0-7.7); Basophil# 0.02 X10^3/uL; Basophil% 0.2 % (0-1); Hematocrit 31.6 % (40-54); Hemoglobin 10.6 g/dL (13.0-16.5); Lymphocyte # 0.34 X10^3/ul (0.83-4.51); Lymphocyte % 3.8 % (19-41); Mean Corp Hgb Conc 33.5 g/dL (32-36); Mean Corpuscular Hgb 27.1 pg (27.0-32.0); Mean Corpuscular Volume 80.8 fL (80-94); Mean Platelet Vol. 8.9 fl (6.2-12.0); Monocyte# 0.29 X10^3/uL; Monocyte% 3.2 % (0-10); NRBC Flagged by Analyzer 0 % (0-5); Neutrophil # 8.29 X10^3/uL (2.7-7.7); Neutrophil % 92.2 % (47-70); POSITIVE COUNT YES; POSITIVE DIFFERENTIAL YES; Platelet Count 72 K/mm3 (150-450); RBC Distribution Width CV 15.7 % (11.6-14.6); RBC Distribution Width SD 46.5 fl (35.1-43.9); Red Blood Count 3.91 M/mm3 (4.6-6.2)
--- NOTE | 2023-11-25 22:45 | RAD_ITS ---
INDICATION: lung cancer EXAMINATION/TECHNIQUE: X-RAY - XR Chest 1 View COMPARISON: Prior study dated: 12/30/2022. FINDINGS: LINES/DEVICES: None. LUNGS: [Hyperinflated with COPD changes. Soft tissue density/mass in the left upper lung adjacent to the aortic arch. No evidence of pleural effusions. MEDIASTINUM AND CARDIOVASCULAR STRUCTURES: Cardiac silhouette not enlarged. Central airways and mediastinal contour are unremarkable. BONES AND SOFT TISSUES: No demonstrated acute osseous changes. RAD/Chest 1 View (Portable) IMPRESSION: Soft tissue density in the left periaortic region new since previous examination concerning for mass. CT scan of the chest with contrast is recommended. Electronically Signed: Carmelo Figueroa MD at 23:24 EST ,
--- NOTE | 2023-11-25 22:45 | RAD_ITS ---
INDICATION: injury EXAMINATION/TECHNIQUE: X-RAY - LEFT XR Shoulder Min 2 Views 2 VIEWS COMPARISON: No relevant prior comparison study available FINDINGS: SOFT TISSUES: No soft tissue swelling or gas. No radiopaque foreign body. BONES/JOINTS: No acute fracture or subluxation.. Normal alignment. Mild degenerative changes of the glenohumeral joint. No sclerotic or destructive changes observed. RAD/Shoulder min 2 Views IMPRESSION: No evidence of acute fracture or dislocation. Electronically Signed: Carmelo Figueroa MD at 23:26 EST ,
--- NOTE | 2023-11-25 22:45 | RAD_ITS ---
INDICATION: trauma EXAMINATION/TECHNIQUE: X-RAY - XR Hip Unilateral with Pelvis when performed; 2-3 Views COMPARISON: No relevant prior comparison study available FINDINGS: PELVIC BONES: No displaced fracture, destructive or sclerotic lesions. Note that overlapping bowel shadows may however obscure fine detail. Sacroiliac joints are unremarkable. No widening of the pubic symphysis. HIPS: The articular structures are unremarkable. No displaced fracture seen in this frontal view. SOFT TISSUES: Vascular calcifications. RAD/HIP, UNI W/ Pelvis 2-3 Views IMPRESSION: No evidence of displaced pelvic or hip fracture. Electronically Signed: Carmelo Figueroa MD at 23:25 EST ,
[2023-11-25 22:48] LABS: Color, Urine Yellow (Yellow); Glucose, Dipstick 250 mg/dl (Normal); Ketone-Dipstick 5 mg/dl (Negative); Leukocyte Esterase-Dipstick 500 /ul (Negative); Nitrite-Dipstick Negative (Negative); Occult Blood-Urine 150 /ul (Negative); Protein-Dipstick 100 mg/dl (Negative); Specific Gravity, Urine 1.015 (1.002-1.030); Urine Bilirubin Dipstick Negative (Negative); Urine Clarity Cloudy (Clear); Urine Urobilinogen 1 mg/dl (Normal)
[2023-11-25 22:49] LABS: Differential Indicated SCAN CRITERIA MET
[2023-11-25 22:56] LABS: Bacteria 4+ /hpf (None Seen); Red Blood Cells-Urine 0-5 SEEN /hpf (0-5); White Blood Cells >100 SEEN /hpf (0-5)
[2023-11-25 23:10] LABS: Lactic Acid 4.1 mmol/L (0.4-1.9)
[2023-11-25 23:12] LABS: Differential Comment SCANNED
[2023-11-25 23:15] LABS: AST(SGOT) 110 U/L (15-37); Alanine Aminotransfer ALT/SGPT 39 U/L (16-61); Albumin, Serum 2.3 g/dL (3.2-5.0); Alkaline Phosphatase 91 U/L (45-117); Anion Gap 10 (5-15); BUN 30 mg/dL (7-18); BUN/Creat Ratio 21.6 RATIO (10-20); Bilirubin, Direct 0.25 mg/dL (0.00-0.30); CPK Total, Creatine Kinase 2041 U/L (39-308); Calcium,Total 8.6 mg/dL (8.5-10.1); Chloride 91 mmol/L (98-107); Creatinine, Serum 1.39 mg/dL (0.70-1.30); EST Glomerular Filtration Rate 54 mL/min (>60); Est Glom Filt Rate - Afr Amer 66 mL/min (>60); Estimated Creatinine Clearance 49.89 ml/min; Globulin 4.1 g/dL (2.2-4.2); Glucose 309 mg/dL (74-106); Potassium 3.4 mmol/L (3.5-5.1); Protein, Total 6.4 g/dL (6.4-8.2); Sodium Level 125 mmol/L (136-145); Troponin-I HS 38 pg/mL (3.0-78.0)
[2023-11-25] MEDS: Ceftriaxone 1 GM/50 ML BAG IV (23:15)
[2023-11-25 23:16] VITALS: BP 127/63; PULSE 103; RESP 20; O2SAT 99
[2023-11-25] MEDS: 0.9% Normal Saline (1000mL) 1,000 ML 999 ML IV (23:50)
[2023-11-25 23:54] LABS: Lactic Acid 3.7 mmol/L (0.4-1.9)
--- NOTE | 2023-11-25 23:55 | CT_ITS ---
STUDY: CT ABDOMEN AND PELVIS WITH CONTRAST REASON FOR EXAM: Male, 68 years old. back/flank pain trauma RADIATION DOSAGE (If Supplied By Facility): CTDIvol = ( 12.88 ) mGy, DLP = ( 988.41 ) mGycm TECHNIQUE: IV 100mL Isovue-[id number] was administered. Transaxial images were obtained from the dome of the diaphragm to the symphysis pubis in the portal venous phase. Multiplanar coronal and sagittal images were reformatted. Individualized Dose Optimization Techniques Were Used For This CT. COMPARISON: CT dated 12/22/2022 FINDINGS: LOWER CHEST: Lung bases are clear. Emphysema. No cardiomegaly or pericardial effusion. LIVER: Stable shrunken appearance of the medial segment with nodular contour isolated to the medial segment, nonspecific but chronic. No suspicious liver lesions. GALLBLADDER AND BILIARY TREE: Cholecystectomy. No intra- or extrahepatic biliary ductal dilation. PANCREAS: No focal cystic or solid mass. SPLEEN: Normal size without focal cystic or solid mass. ADRENAL GLANDS: No nodules. KIDNEYS AND URETERS: There is subtle heterogeneous enhancement of the left kidney suggestive of pyelonephritis. There is also urothelial hyperemia of the left renal pelvis and ureter reflecting ureteritis. Numerous bilateral nonobstructive intrarenal calculi redemonstrated. PERITONEUM: No ascites or free air. No other fluid collection. BOWEL: The stomach is unremarkable. Normal caliber small bowel. There is no obstruction. No colonic wall thickening or inflammation. No free air or free fluid. Normal appendix. LYMPH NODES: No enlarged mesenteric or retroperitoneal lymph nodes. VESSELS: Unchanged infrarenal abdominal aortic aneurysm measuring 3.4 x 3.2 cm . Patent venous structures. URINARY BLADDER: Unremarkable. REPRODUCTIVE ORGANS: No pelvic masses. ABDOMINAL WALL: No discrete abdominal or pelvic wall hernia. BONES: No acute or suspicious osseous abnormalities. Chronic mild anterior wedge compression deformity at T12, in part related to physiologic wedging. Remaining vertebral body heights are maintained. CT/Abdomen/Pelvis W IV Cont ONLY IMPRESSION: * Findings compatible with left pyelonephritis with ureteritis. * Numerous bilateral nonobstructive intrarenal calculi redemonstrated. * Unchanged infrarenal abdominal aortic aneurysm measuring 3.4 x 3.2 cm. ACR recommends follow-up every 3 years for abdominal aortic aneurysms of this size. Electronically Signed: Freedom Mccullough MD at 1:20 EST ,
[2023-11-26] VITALS (26 sets, daily range): BP systolic 84–132; BP diastolic 46–87; PULSE 90–125; RESP 16–28; TEMP 36.3–37.5; O2SAT 93–99; BMI 26.0
[2023-11-26] MEDS: 0.9% Normal Saline (1000mL) 1,000 ML 999 ML IV ×2 (01:01→02:07)
--- NOTE | 2023-11-26 01:31 | HP.PCM.HOS_ITS ---
[facility] - General General Date of Service: 11/26/23 Chief Complaint: Fall HPI Narrative LEI VALDEZ, is a 68 M who presented to the emergency department at [facility] on 11/25/2023 after suffering from a fall. Patient has a known history of colon cancer and is undergoing current treatment for lung cancer at [facility]. He follows with Dr. Hammer. He reports that about 430 last evening he fell on the way to the bathroom and suffered an injury to his left shoulder posteriorly and his left hip. He also complained of increased pain in his low back. He has chronic low back pain but it was a little bit worse than his baseline. He unfortunately, was unable to get up off the floor. He was able to urinate in a urinal that he had next to him nearby fortunately and he did not have anything to eat or drink until his neighbor came and found him on the floor at 730 this evening. They brought him a tuna fish sandwich and he ate that. He was complaining that he was feeling globally weak and did not believe that he would do well at home. He denied any dysuria urinary frequency's or hematuria he did complain of some chills but no known fever at home. At presentation he was found to have a temperature of 97.2, heart rate was 101 but has since increased to 125, blood pressure was 112/70 (baseline systolic pressure runs between 120 and 140., Respiratory rate has been between 16 and 21 and oxygen saturations were 96% on room air. His CBC showed marked abnormalities his white count was normal but he had a marked left shift with a 92.92% neutrophilia. His hemoglobin was down to 10.6 which is not his baseline and he did appear dry. His platelet count was 72,000 down from 290,000 when measured on 08/24/2023. His chemistry panel was markedly abnormal with a sodium of 125, potassium 3.4, BUN was 30 and serum creatinine was 1.39 (baseline appears to run between 0.7 and 1.0). His blood glucose is 309. Lactic acid was 3.7. Liver enzymes are normal other than a mildly elevated AST however his CK was noted to be elevated at 2040 so his AST elevation is likely related to that rather than any intrinsic liver problem at this time. His troponin was 38. His UA was consistent with dehydration and also showed occult blood but no RBCs consistent with rhabdomyolysis, leuk esterase, greater than 100 white blood cells and 4+ bacteria. Chest x-ray showed soft tissue density in the left periaortic region consistent with his lung cancer. Shoulder and hip and pelvic x-rays are unremarkable for any signs of fracture. A CT of his abdomen pelvis was performed and demonstrated findings compatible with left pyelonephritis and ureteritis, numerous bilateral nonobstructive intrarenal calculi and an unchanged infrarenal abdominal aortic aneurysm that measured 3.4 x 3.2 cm. His EKG showed sinus tachycardia with diffuse ST depression. In the emergency department he was given IV fluid boluses and started on antibiotics. His temperature trended up and he had more chills. Fever was 99.5 and he was given Tylenol for this. He does meet criteria for sepsis with sepsis 3 having thrombocytopenia, elevated lactate, and source of infection. PFSH Medical History Anxiety Argyria Argyria of skin Arthritis Back pain Cancer Colon cancer Depression Diabetes Dietary restriction High cholesterol History of pain when walking History of stress test HTN (hypertension) Hyperlipidemia Injury of back Lung cancer Numbness and tingling of hand Positive colorectal cancer screening using Cologuard test Shortness of breath on exertion Smoker Home Medications atorvastatin 10 mg tablet 10 mg PO QHS CHOLESTEROL 06/20/21 [History Last Taken 02/02/23] fluoxetine 20 mg capsule 20 mg PO DAILY DEPRESSION 06/20/21 [History Last Taken 02/02/23] lisinopril 5 mg tablet 5 mg PO DAILY BP 06/20/21 [History Last Taken 02/02/23] metformin 1,000 mg tablet 1,000 mg PO BID DIABETES 06/20/21 [History Last Taken 02/02/23] cholecalciferol (vitamin D3) 25 mcg (1,000 unit) capsule 50 mcg PO DAILY SUPPLEMENT 01/12/23 [History Last Taken 02/02/23] Allergy/AdvReac Type Severity Reaction Status Date / Time No Known Allergies Allergy Verified 09/24/23 09:37 Family History Mother Diabetes Heart disease Father Myocardial infarction Sister Pancreatic cancer Brother Bladder cancer Surgical History History of cardiac catheterization History of laparoscopic cholecystectomy Hx of clubfoot correction Hx of colonoscopy with polypectomy Hx of foot surgery Hx of surgical procedure Social History household members: none current occupational status: retired current occupational exposures/hazards: No history of recent travel: No Smoking Status: Former smoker Tobacco: How many years used: 40 second hand exposure: Yes alcohol intake: never substance use type: does not use diet: diabetic ROS Constitutional Constitutional: Reports chills, fatigue, malaise and weakness; Denies anorexia, change in weight, fever(s), night sweats or other Eyes Eyes: Denies blurry vision, change in eye color, change in vision, discharge from eye(s), double vision, erythema, eye pain, loss of vision or other ENT HEENT: Denies abnormal hearing, dysphagia, ear pain, epistaxis, headache(s), hearing loss, nasal congestion, nasal discharge, post nasal drip, sinus pressure, sore throat or other Cardiovascular Cardiovascular: Denies chest pain, claudication, dyspnea on exertion, edema, lightheadedness, orthopnea, palpitations, paroxysmal nocturnal dyspnea, rapid heart rate, syncope or other Respiratory/Chest Respiratory/Chest: Denies cough, dyspnea, excessive phlegm production, hemoptysis, productive cough, shortness of breath at rest, shortness of breath with exertion, wheezing or other Gastrointestinal Gastrointestinal: Reports abdominal pain; Denies coffee ground emesis, constipation, diarrhea, dyspepsia, hematemesis, hematochezia, loose stools, melena, nausea, vomiting or other Genitourinary Genitourinary: Reports difficulty urinating, nocturia, urinary frequency and urinary hesitancy; Denies burning urination, dysuria, hematuria, urinary incontinence, urinary urgency or other Musculoskeletal Musculoskeletal: Reports arthralgias, back pain, joint pain, joint stiffness and myalgias; Denies joint swelling, neck pain or other Neurologic Neurologic: Reports abnormal gait and focal weakness; Denies abnormal speech, confusion, disequilibrium, dizziness, headache(s), numbness, paresthesias, seizure-like activity, seizures, syncope, tingling, tremor(s) or other Psychiatric Psychiatric: Reports depression; Denies anxiety, homicidal ideation, suicidal ideation or other Endocrine Endocrinology: Denies change in body appearance, cold intolerance, excessive sweating, heat intolerance, polydipsia, polyuria or other Hematologic/Lymphatic Hematologic/Lymphatic: Denies anemia, easy bleeding, easy bruising, lymphadenopathy or other Allergic/Immunologic Allergic/Immunologic: Denies rhinitis, hives, eczemia, asthma or other Vital Signs Vital Signs Vital Signs: 11/25/23 21:53 11/25/23 22:53 11/25/23 23:16 Temperature 97.2 F L Temperature Source Temporal Pulse Rate 101 H 103 H Respiratory Rate 16 20 H Respiratory Effort Normal Respiratory Depth Normal Respiratory Pattern Normal Blood Pressure 112/70 127/63 H Blood Pressure Mean 84 84 Pulse Ox 96 99 Oxygen Delivery Method Room Air Room Air Room Air Weight Weight: 78.018 kg Body Mass Index (BMI) 26.1 Physical Exam Const alert, oriented x3, no apparent distress, average body habitus and well nourished; Negative for healthy appearing Constitutional Narrative: Ill-appearing, upper middle-aged, white male who appears older than stated age, sitting up in bed, General Appearance: cooperative HEENT normocephalic and head/scalp atraumatic; Negative for hearing grossly normal bilaterally or moist oral mucous membranes HEENT Narrative: dentition is poor, Mallampati is 2, no thrush, mild hearing loss, mucous membranes are dry Eyes PERRL and EOMs intact bilaterally Eyes Narrative: conjunctiva are blue incolor bilaterally Neck no lymphadenopathy and supple Resp no retractions, no use of accessory muscles and clear to auscultation bilaterally Resp Narrative: tachypneic and do diffusely diminished but clear Auscultation: Negative for rales, rhonchi or wheezes Cardio regular rhythm, S1 normal heart sound, S2 normal heart sound, no murmurs, no rub, no gallops and no clicks Cardio Narrative: tachycardic GI normal to inspection, nondistended, normoactive bowel sounds and soft to palpation; Negative for non-tender GI Narrative: mild suprapubic tenderness Extremity no clubbing, cyanosis or edema Extremity Narrative: 2+ pedal pulses, significant reduction in lean muscle mass on the right side as compared to the left Neuro oriented x3, CN's II-XII intact bilaterally, moves all extremities and No no focal motor deficits Neuro Narrative: decree strength bilateral lower extremities Speech: speech normal Psych affect normal Psych Narrative: very pleasant, interacts appropriately, eye contact is good, mood is stable Results Lab / Micro Data Attestation: I reviewed the patient's lab results. 11/25/23 22:28 11/25/23 22:28 Labs: Laboratory Results - last 24 hr 11/25/23 22:28: WBC 9.0, RBC 3.91 L, Hgb 10.6 L, Hct 31.6 L, MCV 80.8, MCH 27.1, MCHC 33.5, RDW Std Deviation 46.5 H, RDW Coeff of Deion 15.7 H, Plt Count 72 L, MPV 8.9, Immature Gran % (Auto) 0.600, Neut % (Auto) 92.2 H, Lymph % (Auto) 3.8 L, [place] % (Auto) 3.2, Eos % (Auto) 0.0, Baso % (Auto) 0.2, Absolute Neuts (auto) 8.3 H, Absolute Lymphs (auto) 0.34 L, Nucleated RBC % 0, Differential Comment SCANNED, Sodium 125 L, Potassium 3.4 L, Chloride 91 L, Carbon Dioxide 24.0, Anion Gap 10, BUN 30 H, Creatinine 1.39 H, Estim Creat Clear Calc 49.89, Est GFR (MDRD) Af Amer 66, Est GFR (MDRD) Non-Af 54 L, BUN/Creatinine Ratio 21.6 H, Glucose 309 H, Lactic Acid 4.1 H*, Calcium 8.6, Total Bilirubin 0.50, Direct Bilirubin 0.25, AST 110 H, ALT 39, Alkaline Phosphatase 91, Total Creatine Kinase 2041 H, Troponin I High Sens 38, Total Protein 6.4, Albumin 2.3 L, Globulin 4.1, Urine Color Yellow, Urine Clarity Cloudy, Urine pH 6.0, Ur Specific Stanton 1.015, Urine Protein 100 H, Urine Glucose (UA) 250 H, Urine Ketones 5 H, Urine Occult Blood 150 H, Urine Nitrite Negative, Urine Bilirubin Negative, Urine Urobilinogen 1 H, Ur Leukocyte Esterase 500 H, Urine RBC 0-5 SEEN, Urine WBC >100 SEEN, Ur Squamous Epith Cells 0 SEEN, Urine Bacteria 4+, Urine Mucus 0 SEEN 11/25/23 23:05: Lactic Acid 3.7 H* Imaging Radiology Impression Chest X-Ray 11/25/23 22:45 IMPRESSION: Soft tissue density in the left periaortic region new since previous examination concerning for mass. CT scan of the chest with contrast is recommended. Electronically Signed: Carmelo Figueroa MD at 23:24 EST , Hip/Pelvis X-Ray 11/25/23 22:45 IMPRESSION: No evidence of displaced pelvic or hip fracture. Electronically Signed: Carmelo Figueroa MD at 23:25 EST , Shoulder X-Ray 11/25/23 22:45 IMPRESSION: No evidence of acute fracture or dislocation. Electronically Signed: Carmeol Figueroa MD at 23:26 EST , Abdomen/Pelvis CT 11/25/23 23:55 IMPRESSION: * Findings compatible with left pyelonephritis with ureteritis. * Numerous bilateral nonobstructive intrarenal calculi redemonstrated. * Unchanged infrarenal abdominal aortic aneurysm measuring 3.4 x 3.2 cm. ACR recommends follow-up every 3 years for abdominal aortic aneurysms of this size. Electronically Signed: Freedom Mccullough MD at 1:20 EST , Assessment & Plan Assessment/Plan (1) Acute pyelonephritis: (2) UTI (urinary tract infection): (3) Hyponatremia: (4) Hypokalemia: (5) Thrombocytopenia: (6) DAVID (acute kidney injury): (7) Lactic acidosis: (8) Rhabdomyolysis: (9) Acute exacerbation of chronic low back pain: (10) Acute pain of left shoulder: (11) Acute pain of left hip: (12) Anemia: (13) Sepsis: (14) Elevated troponin: (15) Abnormal EKG: PLAN: Plan Sepsis secondary to pyelonephritis/acute UTI -Patient meets SEP3 criteria with thrombocytopenia and elevated lactate, he also has tachycardia and tachypnea -Patient received fluid bolus at 30 mL/kg Body weight -Blood and urine cultures were sent -Check MRSA PCR and if positive start vancomycin -Will cover Pseudomonas and start cefepime as patient is immunocompromised due to being on chemotherapy -Reevaluate after fluid boluses and for needs of pressors -Cycle lactates -Admit to ICU - as needed Tylenol available for fever and pain -As needed oxycodone and Dilaudid for severe pain related to pyelonephritis - we will have to monitor blood pressure closely with narcotic use -Consult critical care/pulmonary medicine DAVID -Baseline serum creatinine appears to run between 0.7 and 1 -Serum creatinine on admission was 1.39 -Likely related to sepsis and dehydration after being on the floor as well as potentially rhabdo myelosis -Aggressive hydration -Hold nephrotoxins -Repeat lab in a.m. Abnormal EKG/elevated troponin -Patient with somewhat diffuse ST segment depression and no chest pain -Initial troponin was 38 with repeat of 161 - highly suspect demand ischemia -Will check echocardiogram -Hold off on aspirin due to marked thrombocytopenia -Suspect EKG abnormalities are related to tachycardia - ED has called cardiology and awaiting callback Hypokalemia -P.o. potassium given -Repeat lab in a.m. -Check a.m. magnesium level Rhabdomyolysis -Mild with CK just over 2000 -We will cycle CK every 6 hours x 3 -Aggressive IV fluids to continue after fluid boluses RN to help flush out renal tubules -No current need for alkalinization of the urine - monitor renal function Lactic acidosis -Cycle per protocol Hyponatremia -Patient seems to run between 134 and 136 at baseline -Mild hyponatremia may be due to his lung cancer -Markedly lower than normal for him at 125 -Suspect hypovolemic hyponatremia with dehydration on presentation and rhabd omyolysis after lying on the floor -Mentation is clear and no need for any other treatment then monitoring and IV fluids -Repeat BMP in a.m. Anemia -This appears to be new -Check iron studies -May be related to chemo -Check guaiac Thrombocytopenia -Markedly lower than baseline -May be related to chemo but could potentially related to sepsis as well -Most recent lab studies that we have show platelets at 290,000 and that was from 08/24/2023 -trend--> will hold off on chemoprophylaxis for DVT until we see what his trend does Acute on chronic back pain/left shoulder pain/left hip pain -No acute fractures identified on any imaging -PT/OT consultation -As needed pain medication as noted above -Bowel regimen NSCLC -pathology favors squamous cell carcinoma -Plan is for neoadjuvant chemo with possible resection upcoming -follows with Dr. Hammer for oncology and Dr. Tovar from radiation oncology - they have decided against any radiation at this time History of colon cancer - underwent hemicolectomy in January [address] Casey - pathologic stage was 0 and should be a curative resection -Continue outpatient follow-up with Dr. 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 - patient states he took this for his health as someone will take a vitamin and started about 5 years ago - no longer taking -Stable Depression -Continue home fluoxetine History of tobacco abuse -Remote -Recommend ongoing cessation DVT prophylaxis -SCDs only for now with platelet count being 72,000 and if platelet count remains stable could consider starting either heparin or Lovenox as long as platelet count remains greater than 50,000 CODE STATUS - DNR CCA okay for short-term intubation as per discussion on admission Sepsis Attestation Sepsis Alert: Yes Sepsis Attestation: Agree w/Sepsis Date exam was performed: 11/26/23 Time exam was performed: 01:37 Possible Source of Sepsis: Genitourinary Sepsis Organ Dysfunction Criteria Present: Platelets <100,000 / uL and Lactic Acid > 2 mmol/L Supportive Findings: Tachycardia, tachypnea Fluid Resuscitation Fluid resuscitation indicated?: Yes Fluid Resuscitation ordered: 30 ml/kg fluid bolus ordered Amount of fluid ordered: 2,500 Sepsis Note Date exam was performed: 11/26/23 Time exam was performed: 03:02 Response to fluids: Fluid responsive hypotension ( patient did not have hyp otension however he had relative reduction in his blood pressure and has responded to IV fluids) Charges/Coding Visit Charges Inpatient E&M: 90630 Init Hosp L3
[2023-11-26] MEDS: Acetaminophen 500 MG Tablet 1000 MG PO (02:07)
[2023-11-26 02:12] LABS: International Normalized Ratio 1.2; Prothrombin Time (Protime)PT. 15.1 SECONDS (11.7-14.9)
[2023-11-26] MEDS: Cefepime HCl 2 GM in 0.9% Normal Saline (100mL MB+) 100 ML IV ×3 (02:18→22:10)
[2023-11-26] MEDS: 0.9% Normal Saline (1000mL) 1,000 ML 200 ML IV (02:22)
[2023-11-26 02:40] LABS: Reflex Lactate? Y
[2023-11-26 02:43] LABS: Iron 25 ug/dL (65-175); Iron Binding Capacity,Total 250 ug/dL (250-450); Troponin-I HS 161 pg/mL (3.0-78.0)
[2023-11-26 02:56] LABS: Ferritin 752 ng/mL (26-388)
--- OUTSIDE RECORDS SUMMARY | 2023-11-26 03:01 | XMS RPT_ITS | CCD ---
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, left leg] Onset: 08-10-2023 [...] [degF] Guilherme Norris MD, MD Work Phone: [facility] 10-07-2023 13:35-0500 Body weight 80.74 kg Guilherme Norris MD, MD Work Phone: [facility] 10-07-2023 13:35-0500 Diastolic blood pressure 67 mm[Hg] Guilherme Norris MD, MD Work Phone: [facility] 10-07-2023 13:35-0500 Heart rate 93 /min Guilherme Norris MD, MD Work Phone: [facility] 10-07-2023 13:35-0500 Respiratory rate 16 /min Guilherme Norris MD, MD Work Phone: [facility] 10-07-2023 13:35-0500 SaO2% (BldA) [Mass fraction] 100 % Guilherme Norris MD, MD Work Phone: [facility] 10-07-2023 13:35-0500 Systolic blood pressure 102 mm[Hg] Guilherme Norris MD, MD Work Phone: [facility] 09-29-2023 16:35-0500 Diastolic blood pressure 72 mm[Hg] Karishma Ledesma MD Work Phone: [facility] 09-29-2023 16:35-0500 Heart rate 89 /min Karishma Ledesma MD Work Phone: [facility] 09-29-2023 16:35-0500 Respiratory rate 26 /min Karishma Ledesma MD Work Phone: [facility] 09-29-2023 16:35-0500 SaO2% (BldA) [Mass fraction] 96 % Karishma Ledesma MD Work Phone: [facility] 09-29-2023 16:35-0500 Systolic blood pressure 140 mm[Hg] Karishma Ledesma MD Work Phone: [facility] 09-29-2023 16:15-0500 Body temperature 98.2 [degF] Karishma Ledesma MD Work Phone: [facility] 09-29-2023 13:57-0500 Body weight 75.66 kg Karishma Ledesma MD Work Phone: [facility] 08-10-2023 14:56-0400 Body height 177.8 cm Natalie Vaca APRN.PORCELAIN TURNER Work Phone: [facility] 08-10-2023 14:56-0400 Body weight 80.74 kg Natalie Vaca APRN.PORCELAIN TURNER Work Phone: [facility] 08-10-2023 14:56-0400 Diastolic blood pressure 64 mm[Hg] Natalie Vladimir CREDIT REPORTING CLERK.PORCELAIN TURNER Work Phone: [facility] 08-10-2023 14:56-0400 Heart rate 102 /min Natalieayden Vaca CREDIT REPORTING CLERK.PORCELAIN TURNER Work Phone: [facility] 08-10-2023 14:56-0400 Respiratory rate 16 /min Natalie Vladimir CREDIT REPORTING CLERK.PORCELAIN TURNER Work Phone: [facility] 08-10-2023 14:56-0400 Systolic blood pressure 120 mm[Hg] Natalie Vladimir CREDIT REPORTING CLERK.PORCELAIN TURNER Work Phone: [facility] 08-10-2023 14:42-0400 Body height 179.1 cm Jossue Cardona MD Work Phone: [facility] 08-10-2023 14:42-0400 Body weight 81.1 kg Jossue Cardona MD Work Phone: [facility] 08-10-2023 14:42-0400 Diastolic blood pressure 64 mm[Hg] Jossue Cardona MD Work Phone: [facility] 08-10-2023 14:42-0400 Heart rate 102 /min Jossue Cardona MD Work Phone: [facility] 08-10-2023 14:42-0400 Respiratory rate 16 /min Jossue Cardona MD Work Phone: [facility] 08-10-2023 14:42-0400 SaO2% (BldA) [Mass fraction] 100 % Jossue Cardona MD Work Phone: [facility] 08-10-2023 14:42-0400 Systolic blood pressure 120 mm[Hg] Jossue Cardona MD Work Phone: [facility] 07-21-2022 13:19-0400 Body height 177.8 cm Natalieayden Vaca CREDIT REPORTING CLERK.PORCELAIN TURNER Work Phone: [facility] 07-21-2022 13:19-0400 Body weight 85 kg Natalie Vladimir CREDIT REPORTING CLERK.PORCELAIN TURNER Work Phone: [facility] 07-21-2022 13:19-0400 Diastolic blood pressure 60 mm[Hg] Natalie Vaca APRN.PORCELAIN TURNER Work Phone: [facility] 07-21-2022 13:19-0400 Heart rate 97 /min Natalie Vaca APRN.PORCELAIN TURNER Work Phone: [facility] 07-21-2022 13:19-0400 SaO2% (BldA) [Mass fraction] 97 % Natalie Vaca CREDIT REPORTING CLERK.PORCELAIN TURNER Work Phone: [facility] 07-21-2022 13:19-0400 Systolic blood pressure 110 mm[Hg] Natalie Vaca APRN.PORCELAIN TURNER Work Phone: [facility] 02-06-2022 12:56-0400 Body height 177.8 cm Natalie Vaca APRN.PORCELAIN TURNER Work Phone: [phone] [place] [address] 02-06-2022 12:56-0400 Body weight 84.37 kg Natalie Vaca APRN.PORCELAIN TURNER Work Phone: [facility] 02-06-2022 12:56-0400 Diastolic blood pressure 80 mm[Hg] Natalie Vaca CREDIT REPORTING CLERK.PORCELAIN TURNER Work Phone: [facility] 02-06-2022 12:56-0400 Heart rate 96 /min Natalie Vaca APRN.PORCELAIN TURNER Work Phone: [facility] 02-06-2022 12:56-0400 SaO2% (BldA) [Mass fraction] 98 % Natalie Vaca APRN.PORCELAIN TURNER Work Phone: [facility] 02-06-2022 12:56-0400 Systolic blood pressure 162 mm[Hg] Natalie Vaca APRN.PORCELAIN TURNER Work Phone: [facility] 08-15-2021 14:46-0400 Body height 177.8 cm Natalie Vaca APRN.PORCELAIN TURNER Work Phone: [facility] 08-15-2021 14:46-0400 Body weight 80.74 kg Natalie Vaca APRN.PORCELAIN TURNER Work Phone: [facility] 08-15-2021 14:46-0400 Diastolic blood pressure 64 mm[Hg] Natalie Vaca CREDIT REPORTING CLERK.PORCELAIN TURNER Work Phone: [facility] 08-15-2021 14:46-0400 Heart rate 86 /min Natalie Vaca CREDIT REPORTING CLERK.PORCELAIN TURNER Work Phone: [facility] 08-15-2021 14:46-0400 Respiratory rate 18 /min Natalie Vaca CREDIT REPORTING CLERK.PORCELAIN TURNER Work Phone: [facility] 08-15-2021 14:46-0400 Systolic blood pressure 110 mm[Hg] Natalie Vaca CREDIT REPORTING CLERK.PORCELAIN TURNER Work Phone: [facility] Encounters Encounter Date Encounter Type Care Provider Facility Start: 11-18-2023 End: 11-19-2023 ambulatory XENA E MIEDEL Facility:[facility] Start: 11-16-2023 End: 11-16-2023 ambulatory XENA E MIEDEL Facility:[facility] Start: 11-11-2023 End: 11-11-2023 ambulatory XENA E MIEDEL Facility:[facility] Start: 11-10-2023 End: 11-11-2023 ambulatory XENA E MIEDEL Facility:[facility] Start: 10-07-2023 End: 10-07-2023 ambulatory THURSTON E MIEDEL Facility:[facility] Start: 10-07-2023 End: 10-07-2023 Patient encounter procedure [...] r eal time w/image limited Natalie Vaca CATY.PORCELAIN TURNER Work Phone: Plan of Treatment Date Care Activity Detail Author Start: 06-28-2024 [facility] Start: 06-28-2024 Diabetes Screening Diabetes Screenlamont bower [facility] Start: 09-06-2023 End: 12-06-2023 Basic metabolic 2000 panel - Serum or Plasma BASIC METABOLIC PNL Lab STAT Pre-op testing Expected: 09/06/2023, Expires: 12/06/2023 [facility] Work Phone: Payers Date Payer Category Payer Medicare [id number] 2023 Medicare [id number] 2023 Medicaid [id number] 2021 Medicaid [id number]. [id number] 2021 Medicaid [id number] 2021 Medicare [id number] 2021 Medicare [id number] 1956 Unknown [id number] 1955 Unknown [id number] 1955 Unknown [id number] Social History Date Type Detail Facility Start: 08-15-2021 End: 10-07-2023 Tobacco smoking status NHIS Current every day smoker [facility] Start: 08-15-2021 End: 10-01-2023 Cigarettes smoked current (pack per day) - Reported [facility] Start: 08-15-2021 End: 10-07-2023 Tobacco use and exposure Never used [facility] Start: 08-15-2021 Alcohol intake Lifetime non-d khushi (finding) [facility] Start: 07-11-2021 History SDOH Alcohol Frequency 1 [facility] Start: 1955 Sex Assigned At Male [facility] Start: 01-27-2022 End: 07-21-2022 Exposure to SARS-CoV-2 (event) Not sure [facility] History of tobacco use Cigarette Smoker [facility] Start: 02-06-2022 End: 10-07-2023 Alcohol intake Current drinker of alcohol (finding) [facility] Start: 02-06-2022 History SDOH Alcohol Comment very seldom [facility] Start: 05-26-2022 End: 06-05-2022 Exposure to SARS-CoV-2 (event) Yes [facility] Start: 08-10-2023 End: 10-01-2023 Tobacco use panel [facility] National Score (1-10 0), lower number is lower risk 67 [facility] Start: 07-10-2021 Gender identity Identifies as male gender (finding) [facility] Start: 07-10-2021 Sexual orientation Heterosexual (fin ding) [facility] Clinical Notes 08-15-2021 to 11-17-2023 Guilherme Norris MD, MD - 10/07/2023 1:47 PM Maribell Correa RN - 10/07/2023 1:39 PM ESTTelephone Encounter - Jossue Cardona MD - 10/06/2023 1:53 PM ESTDischarge Instr - Other Orders Note Date & Type Note Facility 11-17-2023 Note HNO ID: [id number] Author: LEE ANN CLEANING RN Service: ? Author Type: Registered Nurse Type: Progress Notes Filed: 11/17/2023 08:15 Note Text: Patient teaching was completed over the phone. Lee Ann Cleaning RN [facility] 11-17-2023 Note HNO ID: [id number] Author: LEE ANN CLEANING RN Service: ? Author Type: Registered Nurse Type: Progress Notes Filed: 11/17/2023 08:15 Note Text: [facility] Vat Worker Pre Chemo Patient identified by name and date of . YES Confirmed date and time for chemotherapy ? YES Other appointments (labs, imaging) discussed? YES Discussed where to park (importer exporter), charge for parking YES Discussed where to [...] topics discussed, interventions needed: amish Cleaning RN [facility] 11-17-2023 Note HNO ID: [id number] Author: LEE ANN CLEANING RN Service: ? [...] a later time. Lee Ann Cleaning RN [facility] 11-11-2023 Note HNO ID: [id number] Author: SUPRIYA HEATH RT(R) Service: ? Author Type: [employer] [place] Type: Progress Notes Filed: 11/11/2023 16:11 Note [...] RT Shanell(R) November 11, 2023 4:[address] [facility] 11-10-2023 Note HNO ID: [id number] Author: JORGE PEREZ MD Service: ? Author [...] which included preparing to see the patient, dugi-bu-funm patient care, completing clinical documentation, obtaining and/or reviewing separately obtained history, counseling and educating the patient/family/caregiver, ordering medications, tests, or procedures, communicating with other HCPs (not separately reported), independently interpreting results (not separately reported), communicating results to the patient/family/caregiver, and care coordination (not separately reported). Electronically Signed: Jorge Perez MD November 10, 2023 11:[address] [facility] 10-07-2023 Note HNO ID: [id number] Author: Guilherme Norris MD, MD Service: ? [...] active bleeding. RADI (more content not included)... [facility] 10-07-2023 History of Presen t illness Narrative [...] Guilherme Norris MD cc: Xena Arroyo [address] [facility] [place] [address] Jossue Cardona documented in this encounter [facility] 10-07-2023 Nurse Note Radiation Therapy - Nursing Note (Consult) PATIENT NAME: Lei Valdez PATIENT October 07, 2023 [facility] FACILITY[facility]LOCATION: [place] Chief Complaint: consult Reason for visit: Consult. Referring physician: Internal provider Dr Zuñiga Subjective Data: no complaints Additional Data Do you want to see a Merchandise Complaint Adjuster? No Are you interested in information about fertility? No Status: Patient is male Stress Scale: On a scale of 0 to 10, what number best describes how much distress you have experienced in the past week?(0 being no distress and 10 being extreme distress) 7 Social work notified: Pt denied need to see high school social studies tutor at this time. SIGNED by: Maribell Bear RN documented in this encounter [facility] 10-06-2023 Miscellaneous Notes The patient was contacted [...] final treatment decision. documented in this encounter [facility] 10-04-2023 Note HNO ID: [id number] Author: Loly Guidry RN Service: ? Author [...] Loly Guidry RN Reversal agent used:None LOT [id number] EXP 03/18 IV SITE: IV palced by nuclear tecnologist POST EXAM PIV STATUS: Discontinued by Fast Food Sales Assistant PATIENT DISCHARGED TO: Nuclear Medicine Department for post stress imaging A Diagnostic radioactive procedure has taken place, with no further precautions necessary other than routine body substance precautions. More information regarding radiation safety can be found using this link: [email or web address] 0Protection %20-%20Diagnostic%20Nuclear%20Me dicine%20Procedures.pdf SIGNATURE: Loly Guidry RN PATIENT NAME:Lei Valdez DATE: 10/04/23 TIME: 2:[address] [facility] 10-04-2023 History of Presen t illness Narrative [...] Loly Guidry RN Reversal agent used:None LOT [id number] EXP 03/18 IV SITE: IV palced by nuclear tecnologist POST EXAM PIV STATUS: Discontinued by Fast Food Sales Assistant PATIENT DISCHARGED TO: Nuclear Medicine Department for post stress imaging A Diagnostic radioactive procedure has taken place, with no further precautions necessary other than routine body substance precautions. More information regarding radiation safety can be found using this link: [email or web address]%2 0Protection%20-%20Diagnostic%20N uclear%20Medicine%20Procedures.p df SIGNATURE: Loly Guidry RN PATIENT NAME:Lei Valdez DATE: 10/04/23 TIME: 2:37 PM documented in this encounter [facility] 10-04-2023 Note HNO ID: [id number] Author: Faye Coppola RT(R) Service: Nuclear Medicine [...] Discontinued PROCEDURE TYPE: NM Stress: 13 mCi Gi76t-Zgnusiv was administered IV for Rest Imaging at 07:50 by Faye Coppola. 31.2 mCi Sy16i-Rcfhnhw was administered IV for Stress Imaging at 09:13 by Faye Coppola. ADMINISTRATION TIME: PATIENT DISCHARGED TO: Ambulatory patient, left [facility] area. A Diagnostic radioactive procedure has taken place, with no further precautions necessary other than routine body substance precautions. More information regarding radiation safety can be found using this link: [email or web address] 0Protection %20-%20Diagnostic%20Nuclear%20Me dicine%20Procedures.pdf SIGNATURE: RT Lisa(R) PATIENT NAME: Lei Valdez DATE: October 04, 2023 TIME: 1:24 PM PAGER/CONTACT #: [facility] 10-04-2023 History of Presen t illness Narrative [...] Discontinued PROCEDURE TYPE: NM Stress: 13 mCi Cg29m-Fucunec was administered IV for Rest Imaging at 07:50 by Faye Coppola. 31.2 mCi Gf09v-Wottwxz was administered IV for Stress Imaging at [...] PM PAGER/CONTACT #: documented in this encounter [facility] 10-01-2023 Note HNO ID: [id number] Author: Zahra Enriquez RN Service: ? 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 male diagnosed simultaneously with lung and colon cancer in the spring of this year. He underwent a colon resection and did not require further treatment. Medical oncologist in [place]ruary in [place] and was sent to [facility]. Patient referred back up here the second half of July to be seen by thoracic surgeon. PET,MRI brain, PFT requested from [facility]. 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 Most recent PET shows large lesion in left upper lobe, no obvious kel disease. PFT adequate for surgery. Patient underwent bronchoscopy 09/29/2023, results are not back. Patient seen a radiation oncologist in [place]. Patient has a stress test scheduled. Chemo [...] treatment team staff physicians. Zahra Enriquez RN [facility] 09-29-2023 Note HNO ID: [id number] Author: Supriya Monzon RN Service: ? Author Type: Registered Nurse Type: Nursing Progress Note Filed: 09/29/2023 4:28 PM Note Text: Awake. Gag reflex checked. Pt tolerating drinking well, no complaints. [facility] 09-29-2023 Note HNO ID: [id number] Author: Amanuel Wood APRN.SANITIZER Service: Anesthesiology Author Type: Nurse Chief Concierge Type: Anesthesia Procedure Notes Filed: 09/29/2023 2:48 PM Note Text: ANESTHESIOLOGY PROCEDURE NOTE Airway General Information Procedure Start Time/Medication Administration: 09/29/2023 2:45 PM Patient location during procedure: OR Timeout Performed Pre-procedure: timeout performed Consent Obtained: Yes Patient identity confirmed: arm band and patient Staffing SANITIZER: Amanuel Wood APRN.SANITIZER Performed by: SANITIZER Indications and Patient Condition Indications for airway management: anesthesia Preoxygenated: yes anesthesia circuit Patient position: sniffing Method: asleep Final Airway Details Final airway type: supraglottic airway Number of attempts at approach: 1 Final Supraglottic Airway: i-gel Size 5 Seal Adequate: yes SIGNATURE: Amanuel Wood APRN.SANITIZER PATIENT NAME: Lei Valdez DATE: September 29, 2023 TIME: 2:47 PM CSN: [id number] [facility] 09-29-2023 Nurse Note Awake. Gag reflex checked. Pt tolerating drinking well, no complaints. documented in this encounter [facility] 09-29-2023 Hospital Discharg e instructions Karishma Ledesma [...] non-office hours call Nohemy Simeon and ask flaring machine operator to page the Administration Manager construction controller Karishma Ledesma MD documented in this encounter [facility] 09-29-2023 History and physical note Reviewed my own note from yesterday No changes Proceed with Bronchoscopy Karishma Ledesma MD documented in this encounter [facility] 09-28-2023 Note HNO ID: [id number] Author: Karishma Ledesma MD Service: ? Author Type: Physician Type: Progress Notes Filed: 09/28/2023 3:50 PM Note Text: INTERVENTIONAL PULMONARY MEDICINE CONSULTATION PLEASE DO NOT REMOVE FROM THE CHART OR MODIFY PRINTED COPY I have communicated my name and active licensure. The patient's identity and physical location were verified at the time of this visit. Either the patient or their legal field service representative has been informed of the [...] which included preparing to see the patient, ywtj-hc-vmkl patient care, completing clinical documentation, obtaining and/or reviewing separately obtained history, performing a medically appropriate examination, and counseling and educating the patient/family/caregiver. Electronically Signed: Karishma Ledesma MD September 28, 2023 3:45 PM CC: MD Jossue Murray MD [facility] 09-28-2023 History of Presen t illness Narrative Images from the original note were not included. INTERVENTIONAL PULMONARY MEDICINE CONSULTATION PLEASE DO NOT REMOVE FROM THE CHART OR MODIFY PRINTED COPY I have communicated my name and active licensure. The patient's identity and physical location were verified at the time of this visit. Either the patient or their legal field service representative has been informed of the [...] which included preparing to see the patient, vbxa-gm-cerw patient care, completing clinical documentation, obtaining and/or reviewing separately obtained history, performing a medically appropriate examination, and counseling and educating the patient/family/caregiver. Electronically Signed: Karishma Ledesma MD September 28, 2023 3:45 PM CC: MD Jossue Murray MD documented in this encounter [facility] 09-27-2023 Note HNO ID: [id number] Author: Jossue Cardona MD Service: ? Author Type: Physician Type: Progress Notes Filed: 09/27/2023 4:23 PM Note Text: Trying to order lung cancer conference/tumor board review. [facility] 09-27-2023 History of Presen t illness Narrative Trying to order lung cancer conference/tumor board review. documented in this encounter [facility] 09-13-[address] Ledesma, patient can't have appointment and EBUS done in the same day, due to insurance billing issues. Called the patient and offered a virtual visit through my chart so patient does not need to make multiple trips from [place]. Left message for the patient and moved appt to 09/28/23 as a virtual visit. Belia Elizabeth Called pt and reviewed all pre procedure dates times and locations. Pt is aware to be there 2 hours early. Pt aware nothing to eat or drink after midnight Pt aware must have a pharmacy delivery driver Pt aware no blood thinning medications [...] Lane. Belia Elizabeth documented in this encounter [facility] 09-06-2023 Miscellaneous Notes I have sent the referral to rad/ onc in [place] at fax # [phone] with notes as requested by Rad Onc. documented in this encounter [facility] 09-06-2023 Note HNO ID: [id number] Author: Karishma Ledesma MD Service: ? Author Type: Physician Type: Progress Notes Filed: 09/06/2023 12:45 PM Note Text: [facility] OR Bronchoscopy Request: Please schedule patient for the following: Bronchoscopy: Staging EBUS Clinical Discussion: Sq CC SHANKAR via CT guided bx Pulmonary Visit: Schedule with AG Administration Manager prior to OR Time Allotment: first available [...] 0.66 (L) 0.73 - 1.22 mg/dL Final [facility] 09-06-2023 History of Presen t illness Narrative [facility] OR Bronchoscopy Request: Please schedule patient for the following: Bronchoscopy: Staging EBUS Clinical Discussion: Sq CC SHANKAR via CT guided bx Pulmonary Visit: Schedule with AG Administration Manager prior to OR Time Allotment: first available [...] 1.22 mg/dL Final documented in this encounter [facility] 09-06-2023 Miscellaneous Notes The patient was contacted [...] continue with staging. documented in this encounter [facility] 08-10-2023 Note HNO ID: [id number] Author: Natalie Vaca APRN.PORCELAIN TURNER Service: ? Author Type: Nurse Practitioner Type: [...] with more than 50% of the total eiar-hy-nqax time of the visit in counseling / coordination of care. Natalie Vaca APRN.[facility] 08-10-2023 Note HNO ID: [id number] Author: Jossue Cardona MD Service: ? Author [...] was initially going to be referred to [place] for evaluation of his lung cancer, but [...] diabetes mellitus, and somewhat sedentary lifestyle in assisted. MEDICATIONS: Current Outpatient Medications Medication Sig Dispense [...] possible surgical resect (more content not included)... 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 Natalie Vaca APRN.RONALD documented in this encounter [facility] 08-10-2023 History of Presen t illness Narrative [...] was initially going to be referred to [place] for evaluation of his lung cancer, but [...] diabetes mellitus, and somewhat sedentary lifestyle in assisted. MEDICATIONS: Current Outpatient Medications Medication Sig Dispense [...] which included preparing to see the patient, yicp-ig-hvkt patient care, completing clinical documentation, obtaining and/or reviewing separately obtained history, performing a medically appropriate examination, counseling and educating the patient/family/caregiver, ordering medications, tests, or procedures, and communicating results to the patient/family/caregiver . Jossue Cardona MD documented in this encounter [facility] 08-10-2023 Instructions Jossue Cardona MD - 08/10/2023 3:13 PM EDT Stop smoking! 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 Natalie Vaca APRN.RONALD documented in this encounter [facility] 06-08-2022 History of Presen t illness Narrative [...] 2022 12:01 PM documented in this encounter [facility] 02-06-2022 History of Presen t illness Narrative [...] more accessible home near his family in [place], [place]. PAST MEDICAL HISTORY Diagnosis Date [place] [...] with more than 50% of the total lfab-cn-ukly time of the visit in counseling / coordination of care. Natalie Vaca APRN.CNP documented in this encounter [facility] 02-06-2022 Nurse Note No complaints today. Leandra Barragan MA documented in this encounter [facility] 10-15-2021 Miscellaneous Notes Reviewed with Dr. 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 AAA (abdominal aortic aneurysm) without rupture (HCC) Abdominal aneurysm without mention of rupture [facility] Diagnosis AAA (abdominal aortic aneurysm) without rupture (HCC) Abdominal aneurysm without mention of rupture [facility] Diagnosis Popliteal artery occlusion, 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 S/P vascular surgery Other postprocedural status AAA (abdominal aortic aneurysm) without rupture Abdominal aneurysm without mention of rupture [facility] Diagnosis Primary cancer of left upper lobe of lung (HCC)- Primary Moderate cigarette smoker (10-19 per day) Tobacco use disorder History of colon cancer Personal history of malignant neoplasm of large intestine Neoplasm of lung Neoplasm of unspecified nature of respiratory system Malignant neoplasm of upper lobe of left lung (HCC) SOB (shortness of breath) Shortness of breath [facility] Diagnosis S/P vascular surgery- Primary Other postprocedural status 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, 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 [facility] Diagnosis Primary cancer of left upper lobe of lung (HCC)- Primary [facility] Diagnosis Pre-op testing- Primary Preoperative examination, unspecified [facility] Diagnosis 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 [facility] Diagnosis Squamous 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)- Primary Malignant neoplasm of upper lobe, bronchus or lung Squamous 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) Malignant neoplasm of upper lobe, bronchus or lung documented in this encounter [facility] note* Diagnosis Primary cancer of left upper lobe of lung (HCC)- Primary Squamous 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) Malignant neoplasm of upper lobe, bronchus or lung documented in this encounter [facility] note* Diagnosis Squamous cell carcinoma of left lung (HCC)- Primary documented in this encounter [facility] note* Diagnosis Squamous 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) Malignant neoplasm of upper lobe, bronchus or lung documented in this encounter [facility] note* Diagnosis Screening for ischemic heart disease- Primary documented in this encounter [facility] note* Diagnosis Neoplasm of lung Neoplasm of unspecified nature of respiratory system Malignant neoplasm of upper lobe of left lung (HCC) SOB (shortness of breath) Shortness of breath documented in this encounter [facility] note* Diagnosis Primary cancer of left upper lobe of lung (HCC)- Primary documented in this encounter [facility] note* Diagnosis Primary cancer of left upper lobe of lung (HCC)- Primary [facility] Diagnostic Procedure Only (Routine) - Pending Review Specialty Diagnoses / Procedures Referred By Lorenzo sheikh Referred To Contact US IMAGING Diagnoses AAA (abdominal aortic aneurysm) without rupture (HCC) Procedures US ABD AORTA US RETROPERITONEAL REAL TIME W/IMAGE LIMITED Natalie Vaca APRN.PORCELAIN TURNER [address] [place] [address] Us Imaging Referral ID Status Reason Start Date Expiration Date Visits Requested Visits Authorized [id number] Pending Review Auto-Generat ed Referral 06/08/2022 03/08/2023 [...] STD LXTR ART COMPL BI Natalie Vaca APRN.PORCELAIN TURNER [address] [place] [address] Us Imaging Referral ID Status Reason Start Date Expiration Date Visits Requested Visits Authorized [id number] Pending Review Auto-Generat ed Referral 06/08/2022 03/08/2023 1 1 [facility] for referral (narrative)* Diagnostic Procedure Only (Routine) - Closed Specialty Diagnoses / Procedures Referred By Contac t Referred To Contact US IMAGING Diagnoses AAA (abdominal aortic aneurysm) without rupture (HCC) Procedures US ABD AORTA US RETROPERITONEAL REAL TIME W/IMAGE LIMITED Natalie Vaca APRN.PORCELAIN TURNER [address] [place] [address] Us Imaging Referral ID Status Reason Start Date Expiration Date V isits Requested Visits Authorized [id number] Closed Auto-Generate d Referral 06/08/2022 03/08/2023 1 1 [facility] for referral (narrative)* Diagnostic Procedure Only (Routine) - Pending Review Specialty Diagnoses / Procedures Referred By Contac t Referred To Contact US IMAGING Diagnoses Popliteal artery occlusion, 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) S/P vascular surgery Procedures US ARTERIAL PVR LOWER W/EXERCISE N-INVAS PHYSIOLOGIC STD LXTR ART COMPL BI Natalie Vaca APRN.PORCELAIN TURNER [address] [place] [address] Us Imaging Referral ID Status Reason Start Date Expiration Date Visits Requested Visits Authorized [id number] Pending Review Auto-Generat ed Referral 07/21/2023 08/20/2023 1 1 [facility] for referral (narrative)* Diagnostic Procedure Only (Routine) - Pending Review Specialty Diagnoses / Procedures Referred By Contac t Referred To Contact MOLECULAR & FUNCTIONAL IMAGING Diagnoses Neoplasm of lung Malignant neoplasm of upper lobe of left lung (HCC) SOB (shortness of breath) Procedures NM CARDIAC PERF STRESS/PHARM MYOCARDIAL SPECT MULTIPLE STUDIES Jossue Cardona MD [address] [place] [address] Molecular & Functional Imaging [address] [place], [place] [id number] Referral ID Status Reason Start Date Expiration Date Visits Requested Visits Authorized [id number] Pending Review Auto-Generat ed Referral 3 09/08/2024 [...] W/O W/CONTRAST MATERIAL Jossue Cardona MD [address] [place] [address] Mr Imaging [place] [address] Referral ID Status Reason Start Date Expiration Date Visits Requested Visits Authorized [id number] Pending Review Auto-Generat ed Referral 3 09/08/2024 1 1 * Diagnostic Procedure Only (Routine) - Pending Review Specialty Diagnoses / Procedures Referred By Contac t Referred To Contact MOLECULAR & FUNCTIONAL IMAGING Diagnoses Primary cancer of left upper lobe of lung (HCC) Neoplasm of lung Procedures NM PET/CT SKULL-THIGH INITIAL PET IMAGING CT ATTENUATION SKULL BASE MID-THIGH Jossue Cardona MD [address] [place] [address] Molecular & Functional Imaging [address] [place], [place] [id number] Referral ID Status Reason Start Date Expiration Date Visits Requested Visits Authorized [id number] Pending Review Auto-Generat ed Referral 3 09/08/2024 1 1 [facility] for referral (narrative)* Outpatient Procedure (Urgent) - Pending Review Specialty Diagnoses / Procedures Referred By Contac t Referred To Contact [facility] Diagnoses Pre-op testing Procedures ECG COMPLETE ECG ROUTINE ECG W/LEAST 12 LDS W/I&R Karishma Ledesma MD [address] [place] [address] [facility] [place] [address] Referral ID Status Reason Start Date Expiration Date Visits Requested Visits Authorized [id number] Pending Review Auto-Generat ed Referral 3 09/05/2024 1 1 [facility] for referral (narrative)* Diagnostic Procedure Only (Routine) - Closed Specialty Diagnoses / Procedures Referred By Contac t Referred To Contact MOLECULAR & FUNCTIONAL IMAGING Diagnoses Neoplasm of lung Malignant neoplasm of upper lobe of left lung (HCC) SOB (shortness of breath) Procedures NM CARDIAC PERF STRESS/PHARM MYOCARDIAL SPECT MULTIPLE STUDIES Jossue Cardona MD [address] [address] Molecular & Functional Imaging [address] [place] [address] Referral ID Status Reason Start Date Expiration Date V isits Requested Visits Authorized [id number] Closed Auto-Generate d Referral 08/10/2023 09/08/2024 1 1 [facility] for visit Narrative* Diagnostic Procedure Only (Routine) - Closed Specialty Diagnoses / Procedures Referred By Contac t Referred To Contact MOLECULAR & FUNCTIONAL IMAGING Diagnoses Neoplasm of lung Malignant neoplasm of upper lobe of left lung (HCC) SOB (shortness of breath) Procedures NM CARDIAC PERF STRESS/PHARM MYOCARDIAL SPECT MULTIPLE STUDIES Jossue Cardona MD [address] [place] [address] Molecular & Functional Imaging [address] [place] [address] Referral ID Status Reason Start Date Expiration Date V isits Requested Visits Authorized [id number] Closed Auto-Generate d Referral 08/10/2023 09/08/2024 1 1 [facility] Advance Directives No Advanced Directives Records FoundDocuments on File Type Date Recorded Patient Manager Willow Expl anation Advance Directive(s) 06/20/2021 9:35 PM Documents on File Type Date Recorded Patient Manager Willow Expl anation Advance Directive(s) 06/20/2021 9:35 PM Summary Purpose Family History No Family History Records FoundNo Family History Records FoundNo Family History Records FoundNo Family History Records Found Reason for Referral Specialty Diagnoses / Procedures Referred By Contac t Referred To Contact Diagnoses 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) Procedures CONSULT TO RADIATION ONCOLOGY (AG) Skylar Lynn APRN.PORCELAIN TURNER [address] [facility] [address] [place] [address] Carl Noel MD [address] [facility] [place] [address] Referral ID Status Reason Start Date Expiration Date Visits Requested Visits Authorized [id number] Ref Not Required PCP Requested Referral 3 [...] or prosecute any alcohol or drug abuse patient.[facility] the event this information is protected by the Federal Confidentiality of Alcohol and Drug Abuse Patient Records regulations: The Federal rules restrict any use of the information to criminally investigate or prosecute any alcohol or drug abuse patient.[facility] the event this information is protected by the Federal Confidentiality of Alcohol and Drug Abuse Patient Records regulations: The Federal rules restrict any use of the information to criminally investigate or prosecute any alcohol or drug abuse patient.[facility] the event this information is protected by the Federal Confidentiality of Alcohol and Drug Abuse Patient Records regulations: The Federal rules restrict any use of the information to criminally investigate or prosecute any alcohol or drug abuse patient.[facility] the event this information is protected by the Federal Confidentiality of Alcohol and Drug Abuse Patient Records regulations: The Federal rules restrict any use of the information to criminally investigate or prosecute any alcohol or drug abuse patient.[facility] the event this information is protected by the Federal Confidentiality of Alcohol and Drug Abuse Patient Records regulations: The Federal rules restrict any use of the information to criminally investigate or prosecute any alcohol or drug abuse patient.[facility] the event this information is protected by the Federal Confidentiality of Alcohol and Drug Abuse Patient Records regulations: The Federal rules restrict any use of the information to criminally investigate or prosecute any alcohol or drug abuse patient.[facility] the event this information is protected by the Federal Confidentiality of Alcohol and Drug Abuse Patient Records regulations: The Federal rules restrict any use of the information to criminally investigate or prosecute any alcohol or drug abuse patient.[facility] the event this information is protected by the Federal Confidentiality of Alcohol and Drug Abuse Patient Records regulations: The Federal rules restrict any use of the information to criminally investigate or prosecute any alcohol or drug abuse patient.[facility] the event this information is protected by the Federal Confidentiality of Alcohol and Drug Abuse Patient Records regulations: The Federal rules restrict any use of the information to criminally investigate or prosecute any alcohol or drug abuse patient.[facility] the event this information is protected by the Federal Confidentiality of Alcohol and Drug Abuse Patient Records regulations: The Federal rules restrict any use of the information to criminally investigate or prosecute any alcohol or drug abuse patient.[facility] the event this information is protected by the Federal Confidentiality of Alcohol and Drug Abuse Patient Records regulations: The Federal rules restrict any use of the information to criminally investigate or prosecute any alcohol or drug abuse patient.[facility] the event this information is protected by the Federal Confidentiality of Alcohol and Drug Abuse Patient Records regulations: The Federal rules restrict any use of the information to criminally investigate or prosecute any alcohol or drug abuse patient.[facility] the event this information is protected by the Federal Confidentiality of Alcohol and Drug Abuse Patient Records regulations: The Federal rules restrict any use of the information to criminally investigate or prosecute any alcohol or drug abuse patient.[facility] the event this information is protected by the Federal Confidentiality of Alcohol and Drug Abuse Patient Records regulations: The Federal rules restrict any use of the information to criminally investigate or prosecute any alcohol or drug abuse patient.[facility] the event this information is protected by the Federal Confidentiality of Alcohol and Drug Abuse Patient Records regulations: The Federal rules restrict any use of the information to criminally investigate or prosecute any alcohol or drug abuse patient.[facility] the event this information is protected by the Federal Confidentiality of Alcohol and Drug Abuse Patient Records regulations: The Federal rules restrict any use of the information to criminally investigate or prosecute any alcohol or drug abuse patient.[facility] the event this information is protected by the Federal Confidentiality of Alcohol and Drug Abuse Patient Records regulations: The Federal rules restrict any use of the information to criminally investigate or prosecute any alcohol or drug abuse patient.[facility] the event this information is protected by the Federal Confidentiality of Alcohol and Drug Abuse Patient Records regulations: The Federal rules restrict any use of the information to criminally investigate or prosecute any alcohol or drug abuse patient.[facility] the event this information is protected by the Federal Confidentiality of Alcohol and Drug Abuse Patient Records regulations: The Federal rules restrict any use of the information to criminally investigate or prosecute any alcohol or drug abuse patient.[facility] Reason for Visit (unrecogniz ed section and content) Reason Comments Patient Question Reason Comments Follow Up 3-4 month aneurysm Reason Comments Radiology US Specialty Diagnoses / Procedures Referred By Contac t Referred To Contact US IMAGING Diagnoses AAA (abdominal aortic aneurysm) without rupture (HCC) Procedures US ABD AORTA US RETROPERITONEAL REAL TIME W/IMAGE LIMITED Natalie Vaca, CATY.PORCELAIN TURNER [address] [place] [address] Us Imaging Referral ID Status Reason Start Date Expiration Date V isits Requested Visits Authorized [id number] Closed Auto-Generate d Referral 06/08/2022 03/08/2023 1 [...] bronchus in left upper lobe (HCC) Procedures [facility] EBUS GUIDED SAMPL 1/2 NODE STATION/STRUX BRONCHOSCOPY,RIGID/FLEXIBLE W/ FLUORO,W/ENDOBRONCHIAL ULTRASOUND (EBUS) GUIDED TRANSTRACHEAL/ TRANSBRONCHIAL ASPIRATION/BIOPSY,1 OR 2 MEDIASTINAL AND/OR HILAR LYMPH NODE STATIONS/STRUCTURES [facility] [address] [place] [address] Referral ID Status Reason Start Date Expiration Date Visits Re quested Visits Authorized [id number] 1 1 Reason Comments Radiology NM Specialty Diagnoses / Procedures [facility] Referred To Contact MOLECULAR & FUNCTIONAL IMAGING Diagnoses Neoplasm of lung Malignant neoplasm of upper lobe of left lung (HCC) SOB (shortness of breath) Procedures NM CARDIAC PERF STRESS/PHARM MYOCARDIAL SPECT MULTIPLE STUDIES Jossue Cardona MD 1 [facility] [address] [place] [address] Molecular & Functional Imaging [address] [place], [place] [address] Referral ID Status Reason Start Date Expiration Date V isits Requested Visits Authorized [id number] Closed Auto-Generate d Referral 08/10/2023 09/08/2024 1 1 Reason Comments Results Discussion Called patient to rock ferguson results of recent stress test and at his request discussed the results of the bronchoscopy EBUS as he was unable to connect with Dr. Ledesma yesterday. 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 Relationship Specialty Start Date End Date Xena Arroyo [address] [place] [address] PCP - General Family Practice 06/20/21 Geothermal Plant Manager Relationship Specialty Start Date End Date Xena Arroyo [address] [place] [address] PCP - General Family Practice 06/20/21 Geothermal Plant Manager Relationship Specialty Start Date End Date Xena Arroyo [address] [place] [place], [place] [address] PCP - General Family Medicine 06/20/21 Geothermal Plant Manager Relationship Specialty Start Date End Date Xena Arroyo MD [address] [place] [address] PCP - General Family Medicine 06/20/21 Akbar Barron [address] [place] [address] Hematology/Oncology 08/10/23 Geothermal Plant Manager Relationship Specialty Start Date End Date Xena Arroyo MD [address] [place] [address] PCP - General Family Medicine 06/20/21 Akbar Barron [address] [place] [address] Hematology/Oncology 08/10/23 Geothermal Plant Manager Relationship Specialty Start Date End Date Xena Arroyo MD [address] [place] [place], [place] [address] PCP - General Family Medicine 06/20/21 Akbar Barron [address] [place] [address] Hematology/Oncology 08/10/23 Geothermal Plant Manager Relationship Specialty Start Date End Date Xena Arroyo MD [address] [place], [place] [address] PCP - General Family Medicine 06/20/21 Akbar Barron [address] [place] [address] Hematology/Oncology 08/10/23 Geothermal Plant Manager Relationship Specialty Start Date End Date Xena Arroyo MD [address] [place], [place] [address] PCP - General Family Medicine 06/20/21 Akbar Barron [address] [place] [address] Hematology/Oncology 08/10/23 Geothermal Plant Manager Relationship Specialty Start Date End Date Xena Arroyo MD [address] [place], [place] [address] PCP - General Family Medicine 06/20/21 Akbar Barron [address] [place] [address] Hematology/Oncology 08/10/23 Geothermal Plant Manager Relationship Specialty Start Date End Date Xena Arroyo MD [address] [place], [place] [id number] PCP - General Family Medicine 06/20/21 Akbar Barron [address] [place] [id number] Hematology/Oncology 08/10/23 Geothermal Plant Manager Relationship Specialty Start Date End Date Xena Arroyo MD [address] [place], [place] [address] PCP - General Family Medicine 06/20/21 Akbar Barron [address] [place] [address] Hematology/Oncology 08/10/23 Guilherme Norris MD, [address] [place], [place] [address] Physician Radiation Oncology 09/15/23 Geothermal Plant Manager Relationship Specialty Start Date End Date Xena Arroyo MD [address] [place] [address] PCP - General Family Medicine 06/20/21 Akbar Barron [address] [place] [address] Hematology/Oncology 08/10/23 Guilherme Norris MD, [address] [place] [address] Physician Radiation Oncology 09/15/23 Geothermal Plant Manager Relationship Specialty Start Date End Date Xena Arroyo MD [address] [place], [place] [id number] PCP - General Family Medicine 06/20/21 kAbar Barron [address] [place] [id number] Hematology/Oncology 08/10/23 Guilherme Norris MD, [address] [place], [place] [address] Physician Radiation Oncology 09/15/23 Geothermal Plant Manager Relationship Specialty Start Date End Date Xena Arroyo MD [address] [place] [address] PCP - General Family Medicine 06/20/21 [facility] [address] [place] [address] Hematology/Oncology 08/10/23 Guilherme Norris MD, [address] [place] [address] Physician Radiation Oncology 09/15/23 [employer] Relationship Specialty Start Date End Date Xena Arroyo MD [address] [place] [address] PCP - General Family Medicine 06[facility]20[facility]21 [facility] [address] [place] [address] Hematology/Oncology 08/10/23 Guilherme Norris MD, [address] [place], [place] [id number] Physician Radiation Oncology 09/15/23 [employer] Relationship Specialty Start Date End Date Xena Arroyo MD [address] [place], [place] [id number] PCP - General Family Medicine 06/20/21 [facility]ron [address] [place] [address] Hematology/Oncology 08/10/23 Guilherme Norris MD, [address] [place] [address] Physician Radiation Oncology 09/15/23 [employer] Relationship Specialty Start Date End Date Xena Arroyo MD [address] [place] [address] PCP - General [facility] 06/20/21 Akbar Barron [address] [place] [address] Hematology/Oncology 08/10/23 Guilherme Norris MD, [address] [place], [place] [address] Physician Radiation Oncology 09/15/23 [employer] Relationship Specialty Start Date End Date Xena Arroyo MD [address] [place] [address] PCP - General Family Medicine 06/20/21 Akbar Barron [address] [place] [address] Hematology/Oncology 08/10/23 Guilherme Norris MD, [address] [place] [address] Physician Radiation Oncology 09/15/23 (unrecognized sect ion and content) No Status Records FoundNo Status Records FoundNo Status Records FoundNo Status Records Found INFORMATION SOURCE (unrecogn ized section and content) DATE CREATED AUTHOR AUTHOR'S ORGANIZ ATION 03/10/2023 [facility] DATE CREATED AUTHOR AUTHOR'S ORGANIZ ATION 10/28/2023 [facility] DATE CREATED AUTHOR AUTHOR'S ORGANIZ ATION 11/21/2023 [facility] Continuous Active and Recently Administ ered Medications [...] BE BASED ON THE PRIMARY CLINICAL RECORDS. [facility]. provides no warranty or guarantee of the accuracy or completeness of information in this document.
--- NOTE | 2023-11-26 03:05 | ED.RN ---
REPORT CALLED TO MARCELLUS GUZMAN
[2023-11-26 03:14] LABS: CPK Total, Creatine Kinase 1955 U/L (39-308)
[2023-11-26 03:14] LABS: Reflex Lactate? Y
--- NOTE | 2023-11-26 03:15 | PCM.HOSP.N ---
Hospitalist Note I was able to get into [facility] and found that the patient's most recent hemoglobin was 12.5 and platelet count was 375,000 from lab work done ordered by his oncologist on 11/18/2023. Renal function at that time was 0.73. He also was found to have a stress test on 10/04/2023 that was negative for any inducible ischemia and his EF on that was estimated to be 68%.
--- NOTE | 2023-11-26 04:12 | ECHOCS_ITS ---
Reason For Study: Abn EKG Procedure This was a 2D Doppler, Color Flow transthoracic echocardiogram. Contrast injection was performed. The study was technically difficult. Exam performed portable in ICU/CCU. Left Ventricle Normal LV size. The estimated ejection fraction is 50 %. There are regional wall motion abnormalities as specified. Mid-Anterior : Hypokinetic. Anterior Sherwood : Akinetic. Septal Sherwood : Hypokinetic. Lateral Sherwood : Akinetic. The rest of the wall segments are normal. Right Ventricle Normal RV size. Normal systolic function. Atria Normal left atrium. Normal right atrium. Mitral Valve The mitral valve is structurally normal. No prolapse or stenosis seen. Trivial mitral valve insufficiency. Tricuspid Valve Normal tricuspid valve. Mild (1+) tricuspid valve insufficiency. Unable to estimate RV systolic pressure due to insufficient tricuspid regurgitant envelope. Aortic Valve Trisinus/trileaflet aortic valve. Mild focal aortic valve thickening. Aortic sclerosis, no stenosis. Pulmonic Valve Normal pulmonic valve. Great Vessels Normal aortic root. Pericardium/Pleural No pericardial effusion. MMode/2D Measurements & Calculations LVIDd: 4.6 cm IVSd: 1.00 cm Ao root diam: 3.2 cm LVIDs: 3.4 cm LVPWd: 1.0 cm RVDd: 3.3 cm FS: 26.1 % LAV(MOD-bp): 27.5 ml LA A4 area: 14.2 cm2 LA dimension(2D): 3.6 cm LAV(MOD-bp) Indexed: 14.3 ml/m2 LAV(MOD-sp2): 18.2 ml LAV(MOD-sp4): 33.0 ml RA A4 area: 8.4 cm2 Time Measurements MV dec time: 0.16 sec Doppler Measurements & Calculations MV E max eh: 86.6 cm/sec Lat Peak E' Eh: 12.5 cm/sec Med Peak E' Eh: 8.9 cm/sec MV A max eh: 62.8 cm/sec E/E' lat: 6.9 E/E' med: 9.8 MV E/A: 1.4 MV dec slope: 546.9 cm/sec2 Ao V2 max: 82.9 cm/sec LV V1 max: 66.2 cm/sec Ao max P.7 mmHg LV V1 max P.8 mmHg Ao V2 mean: 60.3 cm/sec Ao mean P.6 mmHg Ao V2 VTI: 13.8 cm PA V2 max: 89.2 cm/sec ECHO/Echo Complete W/ Contrast Interpretation Summary The estimated ejection fraction is 50 %. There are regional wall motion abnormalities as specified. Mild (1+) tricuspid valve insufficiency. Aortic sclerosis, no stenosis. Ordering Physician: Indiana Tovar Referring Physician: Xena Arroyo Performed By: Colette Whelan RDCS, RVT
[2023-11-26 04:23] LABS: Lactic Acid 1.5 mmol/L (0.4-1.9)
[2023-11-26] MEDS: Potassium Chloride Oral Tablet 20 MEQ 40 MEQ PO (04:45)
[2023-11-26 04:50] LABS: Absolute Lymphocyte Count 0.27 X10^3/uL (0.83-4.51); Absolute Neutrophil Count 9.8 X10^3/uL (2.0-7.7); Basophil# 0.03 X10^3/uL; Basophil% 0.3 % (0-1); Hematocrit 27.1 % (40-54); Hemoglobin 9.1 g/dL (13.0-16.5); Lymphocyte # 0.27 X10^3/ul (0.83-4.51); Lymphocyte % 2.6 % (19-41); Mean Corp Hgb Conc 33.6 g/dL (32-36); Mean Corpuscular Hgb 27.3 pg (27.0-32.0); Mean Corpuscular Volume 81.4 fL (80-94); Mean Platelet Vol. 9.8 fl (6.2-12.0); Monocyte# 0.36 X10^3/uL; Monocyte% 3.4 % (0-10); NRBC Flagged by Analyzer 0 % (0-5); Neutrophil # 9.75 X10^3/uL (2.7-7.7); POSITIVE COUNT YES; POSITIVE DIFFERENTIAL YES; Platelet Count 58 K/mm3 (150-450); RBC Distribution Width CV 15.8 % (11.6-14.6); RBC Distribution Width SD 46.9 fl (35.1-43.9); Red Blood Count 3.33 M/mm3 (4.6-6.2); White Blood Count 10.5 K/mm3 (4.4-11.0)
[2023-11-26 05:16] LABS: Anion Gap 6 (5-15); BUN 23 mg/dL (7-18); Calcium,Total 7.4 mg/dL (8.5-10.1); Chloride 99 mmol/L (98-107); Creatinine, Serum 0.88 mg/dL (0.70-1.30); EST Glomerular Filtration Rate 91 mL/min (>60); Est Glom Filt Rate - Afr Amer 111 mL/min (>60); Estimated Creatinine Clearance 78.81 ml/min; Glucose 148 mg/dL (74-106); Phosphorus 1.3 mg/dL (2.5-4.9); Potassium 3.1 mmol/L (3.5-5.1); Sodium Level 129 mmol/L (136-145); Thyroid Stim Hormone (TSH) 1.21 uIU/mL (0.358-3.74)
[2023-11-26 05:20] LABS: Lactic Acid 1.4 mmol/L (0.4-1.9); Troponin-I HS 4762 pg/mL (3.0-78.0)
--- NOTE | 2023-11-26 05:39 | PCM.HOSP.N ---
Hospitalist Note 3rd Troponin markedly elevated at >4000. Unable to use heparin or aspirin due to thrombocytopenia which Is worsening now at 58,000. Will check lipids. Patient remains chest pain-free. Repeat EKG is pending. Blood pressure is also now dropping despite fluid boluses after it initially had stabilized so we will need to start pressors for sepsis. Marked electrolyte abnormalities this morning. Sodium has improved. Patient remains hypokalemic so we will replace. Mag and Phos are also depleted so we will replace. Cardiology consult is pending an echocardiogram is pending. Again patient had a negative stress test in September
[2023-11-26] MEDS: Magnesium Sulfate 4gm/100mL 4 GM/100 ML IV.SOLN. IV (06:26)
[2023-11-26] MEDS: Potassium Phosphate 40 MM in 0.9% Normal Saline (500mL Bag) 500 ML 62.5 MM IV (06:26)
[2023-11-26 07:10] LABS: Cholesterol 95 mg/dL (200); High Density Lipoprotein 33 mg/dL; Triglycerides 115 mg/dL; Very Low Density Lipoprotein 23 mg/dL (5-40)
--- NOTE | 2023-11-26 07:11 | EX.PCM.CONCC ---
Assessment & Plan Assessment/Plan (1) Sepsis: QUALIFIERS: Sepsis type: sepsis due to unspecified organism Sepsis acute organ dysfunction status: with acute organ dysfunction Severe sepsis acute organ dysfunction type: acute renal failure Acute renal failure type: with acute tubular necrosis Severe sepsis shock status: without septic shock Qualified Code(s): A41.9 - Sepsis, unspecified organism; R65.20 - Severe sepsis without septic shock; N17.0 - Acute kidney failure with tubular necrosis (2) Acute pyelonephritis: (3) Thrombocytopenia: (4) Anemia: QUALIFIERS: Anemia type: iron deficiency Iron deficiency anemia type: other iron deficiency Qualified Code(s): D50.8 - Other iron deficiency anemias (5) Rhabdomyolysis: QUALIFIERS: Rhabdomyolysis type: non-traumatic Qualified Code(s): M62.82 - Rhabdomyolysis (6) Argyria of skin: QUALIFIERS: Encounter type: sequela Injury intent: accidental or unintentional Qualified Code(s): T56.891S - Toxic effect of other metals, accidental (unintentional), sequela PLAN: Plan RECOMMENDATIONS: 1. Continue empiric antibiotics pending culture 2. Fluid boluses as necessary. Potential pressors later today. 3. Address central line of pressors required 4. Hold on anticoagulation for now given thrombocytopenia 5. Aggressive electrolyte repletion 6. Hold on any iron repletion until sepsis resolved 7. Hold baseline diabetic and antihypertensives IMPRESSIONS: 1. Sepsis secondary to pyelonephritis/acute UTI Patient with findings consistent with pyelonephritis on CT scan and a urine suggestive of infection. High clinical suspicion for gram-negative infection. Patient is on appropriate antibiotics at this time. Patient has received fluid resuscitation. Did discuss with the patient at length about placement of a central line, but he would like to wait to see if it is really necessary. Patient understands that pressors would require placement of a central line for safety. Patient is still on room air, so can attempt additional fluid resuscitation. Likely recommend pressors if he starts to develop oxygen requirements. 2. Acute kidney injury with mild rhabdomyolysis Patient's baseline appears to be between 0.7 and 1. Patient presented with creatinine of 1.39. Clinical suspicion for previous renal etiology with possible elements of nephrotoxicity from lisinopril and postobstructive given complaints of urinary retention. Patient also has a slight increase in CK. No indication for renal replacement therapy at this time. Will continue to monitor clinically. Hold on any nephrology consult at this time. 3. Elevated troponin Patient with significant ST depression associated with tachycardia. Patient reportedly had a negative stress test at [facility] in September. Cardiology has been consulted. Rate is well-controlled at this time. Patient would be a poor anticoagulation candidate given his thrombocytopenia 4. Electrolyte abnormalities Patient with significant hypokalemia, hypophosphatemia and hypomagnesemia. Repletion has been ordered. Unclear if this led to problem #3. Will recheck labs in the morning. 5. Iron deficiency anemia/thrombocytopenia Patient was significantly depleted iron stores. However, would hold off on any iron supplementation until sepsis is completed as this has been shown to increase bacterial load. Patient does have an element of thrombocytopenia also, but INR is within normal range so DIC is not suspected at this time. 6. Diabetes mellitus type 2 Patient with acute kidney injury. Metformin is on hold. Can follow with sliding scale insulin, but cannot rule out the need for basal insulin given sepsis. 7. Argyria/hyperlipidemia/hypertension/history of tobacco abuse/history of colon cancer/squamous lung carcinoma Complicates care, management, recovery and prognosis. Okay to use a statin at this time, but lisinopril will be held given marginal blood pressures. Do not believe that patient requires a hematology consult at this time. May need to do evaluate treatment course timing given sepsis. HPI Consult Data Date of Consult: 11/26/23 HPI Narrative HPI Narrative: LEI VALDEZ is a 68 M, with past medical history listed below, who presents to [facility] on 11/25/2023 secondary to fall. Patient reportedly is undergoing chemotherapy for squamous cell lung cancer by the [facility]. Patient reportedly had fallen at approximately [address] the bathroom. Patient stated he had pain in his left hip and shoulder. Patient was unable to get off the floor and had been using a urinal that was nearby. Patient reportedly was found approximately 15 hours later by a neighbor. Patient reported global weakness and presented to the ER for evaluation. Patient denied any chest or abdominal symptoms. In the ER, patient was afebrile, but tachycardic as high as 125 bpm. Patient was saturating well on room air and blood pressures were adequate. Laboratory data showed a white blood cell count of 9, but did have a left shift. Hemoglobin was noted to be 10.6 with a platelet count of 72. Chemistries showed an elevated creatinine of 1.39 and a glucose of 309. Lactate was elevated to 4.1. INR was normal at 1.2. Patient's total CK was elevated at just over 2000 and UA was suggestive of urinary tract infection. Patient did have a chest x-ray showing probable lung mass. A hip, pelvic and shoulder x-ray showed no fracture CT of the abdomen and pelvis showed findings consistent with pyelonephritis and numerous bilateral nonobstructing colliculi. Patient was given Rocephin and IV fluids. Patient did have a fever in the ER with resulting tachycardia as high as 131. EKG showed significant ST depressions that resolved spontaneously following improvement in heart rate. Given concern for sepsis secondary to UTI, patient was placed to the intensive care unit for further evaluation. Since being in the intensive care unit, patient has improved somewhat. Patient's blood pressure is responding to fluids. Patient does have intermittent marginal pressures, but symptomatically feels improved compared to previous. Patient is not reporting any respiratory complaints at this time. Patient does state that he has had urinary retention for the last 3 to 5 days. Patient states this is new for him. Patient denies any history of previous resistant bacterial infections. 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 Patient states this has been consistent for years and is not changing. Patient denies any recent antibiotics. Review of systems otherwise negative from a constitutional, HEENT, respiratory, cardiovascular, GI, genitourinary, musculoskeletal, skin, neurologic, psychiatric and hematologic system unless stated above. PFSH Medical History Anxiety Argyria Argyria of skin Arthritis Back pain Cancer Colon cancer Depression Diabetes Dietary restriction High cholesterol History of pain when walking History of stress test HTN (hypertension) Hyperlipidemia Injury of back Lung cancer Numbness and tingling of hand Positive colorectal cancer screening using Cologuard test Shortness of breath on exertion Smoker Home Medications atorvastatin 10 mg tablet 10 mg PO QHS CHOLESTEROL 06/20/21 [History Last Taken 02/02/23] fluoxetine 20 mg capsule 20 mg PO DAILY DEPRESSION 06/20/21 [History Last Taken 02/02/23] lisinopril 5 mg tablet 5 mg PO DAILY BP 06/20/21 [History Last Taken 02/02/23] metformin 1,000 mg tablet 1,000 mg PO BID DIABETES 06/20/21 [History Last Taken 02/02/23] cholecalciferol (vitamin D3) 25 mcg (1,000 unit) capsule 50 mcg PO DAILY SUPPLEMENT 01/12/23 [History Last Taken 02/02/23] Allergy/AdvReac Type Severity Reaction Status Date / Time No Known Allergies Allergy Verified 09/24/23 09:37 Family History Mother Diabetes Heart disease Father Myocardial infarction Sister Pancreatic cancer Brother Bladder cancer Surgical History History of cardiac catheterization History of laparoscopic cholecystectomy Hx of clubfoot correction Hx of colonoscopy with polypectomy Hx of foot surgery Hx of surgical procedure Social History household members: none current occupational status: retired current occupational exposures/hazards: No history of recent travel: No Smoking Status: Former smoker Tobacco: How many years used: 40 second hand exposure: Yes alcohol intake: never substance use type: does not use diet: diabetic Physical Exam Const alert, oriented x3, no apparent distress and average body habitus Constitutional Narrative: Blue hue noted throughout face, neck and arms General Appearance: cooperative HEENT normocephalic and head/scalp atraumatic HEENT Narrative: Appears volume depleted with dry mucous membranes. Mild hearing loss noted. Eyes PERRL and EOMs intact bilaterally Eyes Narrative: conjunctiva are blue in color bilaterally Neck no lymphadenopathy and supple Resp no retractions and clear to auscultation bilaterally Effort and Inspection: tachypneic Auscultation: Negative for rales, rhonchi or wheezes Cardio regular rhythm, S1 normal heart sound, S2 normal heart sound, no murmurs, no rub and no gallops Rate: tachycardic GI normal to inspection, nondistended, normoactive bowel sounds and soft to palpation; Negative for non-tender GI Narrative: mild suprapubic tenderness Narrative: Bilateral CVA tenderness noted Extremity no clubbing, cyanosis or edema Extremity Narrative: significant reduction in lean muscle mass on the right side as compared to the left Neuro oriented x3, CN's II-XII intact bilaterally, moves all extremities and No no focal motor deficits Neuro Narrative: Decreased strength bilateral lower extremities Speech: speech normal Psych cooperative and affect normal Appearance: well kempt Medical Records Data Attestation: I reviewed the patient's medical records Lab / Micro Data Attestation: I reviewed the patient's lab results. 11/26/23 04:30 11/26/23 04:30 Labs: Laboratory Results - last 24 hr 11/25/23 22:28: WBC 9.0, RBC 3.91 L, Hgb 10.6 L, Hct 31.6 L, MCV 80.8, MCH 27.1, MCHC 33.5, RDW Std Deviation 46.5 H, RDW Coeff of Deion 15.7 H, Plt Count 72 L, MPV 8.9, Immature Gran % (Auto) 0.600, Neut % (Auto) 92.2 H, Lymph % (Auto) 3.8 L, Rogers % (Auto) 3.2, Eos % (Auto) 0.0, Baso % (Auto) 0.2, Absolute Neuts (auto) 8.3 H, Absolute Lymphs (auto) 0.34 L, Nucleated RBC % 0, Differential Comment SCANNED, PT 15.1 H, INR 1.2, APTT 31.0, Sodium 125 L, Potassium 3.4 L, Chloride 91 L, Carbon Dioxide 24.0, Anion Gap 10, BUN 30 H, Creatinine 1.39 H, Estim Creat Clear Calc 49.89, Est GFR (MDRD) Af Amer 66, Est GFR (MDRD) Non-Af 54 L, BUN/Creatinine Ratio 21.6 H, Glucose 309 H, Lactic Acid 4.1 H*, Calcium 8.6, Total Bilirubin 0.50, Direct Bilirubin 0.25, AST 110 H, ALT 39, Alkaline Phosphatase 91, Total Creatine Kinase 2041 H, Troponin I High Sens 38, Total Protein 6.4, Albumin 2.3 L, Globulin 4.1, Urine Color Yellow, Urine Clarity Cloudy, Urine pH 6.0, Ur Specific Felch 1.015, Urine Protein 100 H, Urine Glucose (UA) 250 H, Urine Ketones 5 H, Urine Occult Blood 150 H, Urine Nitrite Negative, Urine Bilirubin Negative, Urine Urobilinogen 1 H, Ur Leukocyte Esterase 500 H, Urine RBC 0-5 SEEN, Urine WBC >100 SEEN, Ur Squamous Epith Cells 0 SEEN, Urine Bacteria 4+, Urine Mucus 0 SEEN 11/25/23 23:05: Lactic Acid 3.7 H* 11/26/23 02:09: Iron 25 L, TIBC 250, Iron Saturation 10.0 L, Ferritin 752 H, Total Creatine Kinase 1955 H, Troponin I High Sens 161 H* 11/26/23 03:42: Lactic Acid 1.5 11/26/23 04:30: WBC 10.5, RBC 3.33 L, Hgb 9.1 L, Hct 27.1 L, MCV 81.4, MCH 27.3, MCHC 33.6, RDW Std Deviation 46.9 H, RDW Coeff of Deion 15.8 H, Plt Count 58 L, MPV 9.8, Immature Gran % (Auto) 0.700, Neut % (Auto) 93.0 H, Lymph % (Auto) 2.6 L, Rogers % (Auto) 3.4, Eos % (Auto) 0.0, Baso % (Auto) 0.3, Absolute Neuts (auto) 9.8 H, Absolute Lymphs (auto) 0.27 L, Nucleated RBC % 0, Sodium 129 L, Potassium 3.1 L, Chloride 99, Carbon Dioxide 24.0, Anion Gap 6, BUN 23 H, Creatinine 0.88, Estim Creat Clear Calc 78.81, Est GFR (MDRD) Af Amer 111, Est GFR (MDRD) Non-Af 91, BUN/Creatinine Ratio 26.0 H, Glucose 148 H, Lactic Acid 1.4, Calcium 7.4 L, Phosphorus 1.3 L, Magnesium 1.0 L, Troponin I High Sens 4762 H*, TSH 1.21 11/26/23 04:45: Triglycerides 115, Cholesterol 95, LDL Cholesterol 39, VLDL Cholesterol 23, HDL Cholesterol 33 L Imaging Radiology Impression Chest X-Ray 11/25/23 22:45 IMPRESSION: Soft tissue density in the left periaortic region new since previous examination concerning for mass. CT scan of the chest with contrast is recommended. Electronically Signed: Carmelo Figueroa MD at 23:24 EST , Hip/Pelvis X-Ray 11/25/23 22:45 IMPRESSION: No evidence of displaced pelvic or hip fracture. Electronically Signed: Carmelo Figueroa MD at 23:25 EST , Shoulder X-Ray 11/25/23 22:45 IMPRESSION: No evidence of acute fracture or dislocation. Electronically Signed: Carmelo Figueroa MD at 23:26 EST , Abdomen/Pelvis CT 11/25/23 23:55 IMPRESSION: * Findings compatible with left pyelonephritis with ureteritis. * Numerous bilateral nonobstructive intrarenal calculi redemonstrated. * Unchanged infrarenal abdominal aortic aneurysm measuring 3.4 x 3.2 cm. ACR recommends follow-up every 3 years for abdominal aortic aneurysms of this size. Electronically Signed: Freedom Mccullough MD at 1:20 EST , Charges/Coding Visit Charges Inpatient E&M: 69139 Init Hosp L3
--- NOTE | 2023-11-26 07:46 | CON.PCM.CA_ITS ---
<Statement entered by Michelle Rhodes MD - 11/26/23 17:24> Pt seen & evaluated w/TIANA. I personally interviewed & exam the pt. I was involved in all aspects of pt's orders, interpretation of results & treatment Assessment & Plan Assessment/Plan (1) Elevated troponin: (2) Sepsis: QUALIFIERS: Sepsis type: sepsis due to unspecified organism Sepsis acute organ dysfunction status: with acute organ dysfunction Severe sepsis acute organ dysfunction type: acute renal failure Acute renal failure type: with acute tubular necrosis Severe sepsis shock status: without septic shock Qualified Code(s): A41.9 - Sepsis, unspecified organism; R65.20 - Severe sepsis without septic shock; N17.0 - Acute kidney failure with tubular necrosis PLAN: Plan * Troponin elevated likely related to his Sepsis and Rhabdomyolsis. Echocardiogram is pending. Based on findings will decide if any other cardiac testing is needed. It is important to know that pt is anemic and does have low platelets. HPI Consult Data Date of Consult: 11/26/23 HPI Narrative HPI Narrative: LEI VALDEZ, is a 68 M who presented to [facility] ER on 11/25/23 following a fall. He had been laying on the floor for approx 15 hours. Patient states that he is currently undergoing chemotherapy with [facility] for lung cancer. While in the ER he become progressively became more tachycardic and his temperature was increasing. EKG demonstrates some significant ST depression throughout. Heart rate is 131 on that EKG. It is significantly different from before. Troponins have trended 38/161/4762. Pt was admitted to ICU with Sepsis secondary to pyelonephritis, DAVID, NSTEMI felt to be related to sepsis as pt had a negative stress in September at [facility]. Overnight he became hypotensive and required fluids. He is not anticoagulated d/t his thrombocytopenia. He is also anemic. We were consulted for his elevated Troponins. Pt does not have any CP or concerns with SOB. He was not aware of his elevated HR. He does occasionally have lightheadedness, he feels that this is related to his chemo. [facility] Medical History Anxiety Argyria Argyria of skin Arthritis Back pain Cancer Colon cancer Depression Diabetes Dietary restriction High cholesterol History of pain when walking History of stress test HTN (hypertension) Hyperlipidemia Injury of back Lung cancer Numbness and tingling of hand Positive colorectal cancer screening using Cologuard test Shortness of breath on exertion Smoker Home Medications atorvastatin 10 mg tablet 10 mg PO QHS CHOLESTEROL 06/20/21 [History Last Taken 02/02/23] fluoxetine 20 mg capsule 20 mg PO DAILY DEPRESSION 06/20/21 [History Last Taken 02/02/23] lisinopril 5 mg tablet 5 mg PO DAILY BP 06/20/21 [History Last Taken 02/02/23] metformin 1,000 mg tablet 1,000 mg PO BID DIABETES 06/20/21 [History Last Taken 02/02/23] cholecalciferol (vitamin D3) 25 mcg (1,000 unit) capsule 50 mcg PO DAILY SUPPLEMENT 01/12/23 [History Last Taken 02/02/23] Allergy/AdvReac Type Severity Reaction Status Date / Time No Known Allergies Allergy Verified 09/24/23 09:37 Family History Mother Diabetes Heart disease Father Myocardial infarction Sister Pancreatic cancer Brother Bladder cancer Surgical History History of cardiac catheterization History of laparoscopic cholecystectomy Hx of clubfoot correction Hx of colonoscopy with polypectomy Hx of foot surgery Hx of surgical procedure Social History household members: none current occupational status: retired current occupational exposures/hazards: No history of recent travel: No Smoking Status: Former smoker Tobacco: How many years used: 40 second hand exposure: Yes alcohol intake: never substance use type: does not use diet: diabetic ROS Constitutional Constitutional: Reports as per HPI Eyes Eyes: Denies acute decrease in peripheral vision, blurry vision or change in vision ENT HEENT: Denies dizziness, dry mouth, epistaxis, headache(s), tinnitus or vertigo Cardiovascular Cardiovascular: Reports as per HPI Respiratory/Chest Respiratory/Chest: Denies cough, dyspnea, dyspnea on exertion, tachypnea or wheezing Gastrointestinal Gastrointestinal: Denies abdominal pain, bloating, heartburn, melena or nausea Neurologic Neurologic: Denies abnormal gait, abnormal speech, memory loss or paresthesias Physical Exam Const alert, oriented x3, no apparent distress and average body habitus Constitutional Narrative: Blue hue noted throughout face, neck and arms General Appearance: cooperative HEENT normocephalic and head/scalp atraumatic Eyes PERRL and EOMs intact bilaterally Eyes Narrative: conjunctiva are blue in color bilaterally Neck no lymphadenopathy and supple Resp no retractions and clear to auscultation bilaterally Auscultation: Negative for rales, rhonchi or wheezes Cardio regular rhythm, S1 normal heart sound, S2 normal heart sound, no murmurs, no rub and no gallops GI normal to inspection, nondistended, normoactive bowel sounds and soft to palpation; Negative for non-tender Extremity no clubbing, cyanosis or edema Neuro oriented x3, CN's II-XII intact bilaterally, moves all extremities and No no focal motor deficits Speech: speech normal Psych cooperative and affect normal Appearance: well [place] Risk Stratification Risk Stratification Applicable: Yes Age >/= 65: Yes >/= 3 CAD Risk Factors (HTN, HLD, DM, family hx of CAD, or current smoker): Yes Aspirin Use in the Past 7 Days: No Severe Angina (>/= episodes in 24 hours): No EKG ST Changes >/= 0.5mm: No Positive Cardiac Marker: Yes GREG Risk Stratification Score: 3 GREG % Risk: 13% Risk Charges/Coding Visit Charges Office Visits / Consults: 67639 IP Consult L4 Objective Data Vital Signs: Vital Signs Temp Pulse Resp BP Pulse Ox O2 Del Method 97.4 F L 95 16 84/57 L 95 Room Air 11/26/23 05:04 11/26/23 07:00 11/26/23 07:00 11/26/23 07:00 11/26/23 07:00 11/26/23 07:00 Oxygen Delivery Method Room Air Weight: 171 lb 8 oz Body Mass Index (BMI) 26.0 Intake & Output: Intake and Output for Last 24 Hours 11/24/23 11/25/23 11/26/23 23:59 23:59 23:59 Intake Total 50 / 50 3916.67 / 3916.67 Balance 50 / 50 3916.67 / 3916.67 Lab / Micro Data 11/26/23 04:30 11/26/23 04:30 Labs: Laboratory Results - last 24 hr 11/25/23 22:28: WBC 9.0, RBC 3.91 L, Hgb 10.6 L, Hct 31.6 L, MCV 80.8, MCH 27.1, MCHC 33.5, RDW Std Deviation 46.5 H, RDW Coeff of Deion 15.7 H, Plt Count 72 L, MPV 8.9, Immature Gran % (Auto) 0.600, Neut % (Auto) 92.2 H, Lymph % (Auto) 3.8 L, [place] % (Auto) 3.2, Eos % (Auto) 0.0, Baso % (Auto) 0.2, Absolute Neuts (auto) 8.3 H, Absolute Lymphs (auto) 0.34 L, Nucleated RBC % 0, Differential Comment SCANNED, PT 15.1 H, INR 1.2, APTT 31.0, Sodium 125 L, Potassium 3.4 L, Chloride 91 L, Carbon Dioxide 24.0, Anion Gap 10, BUN 30 H, Creatinine 1.39 H, Estim Creat Clear Calc 49.89, Est GFR (MDRD) Af Amer 66, Est GFR (MDRD) Non-Af 54 L, BUN/Creatinine Ratio 21.6 H, Glucose 309 H, Lactic Acid 4.1 H*, Calcium 8.6, Total Bilirubin 0.50, Direct Bilirubin 0.25, AST 110 H, ALT 39, Alkaline Phosphatase 91, Total Creatine Kinase 2041 H, Troponin I High Sens 38, Total Protein 6.4, Albumin 2.3 L, Globulin 4.1, Urine Color Yellow, Urine Clarity Cloudy, Urine pH 6.0, Ur Specific [place] 1.015, Urine Protein 100 H, Urine Glucose (UA) 250 H, Urine Ketones 5 H, Urine Occult Blood 150 H, Urine Nitrite Negative, Urine Bilirubin Negative, Urine Urobilinogen 1 H, Ur Leukocyte Esterase 500 H, Urine RBC 0-5 SEEN, Urine WBC >100 SEEN, Ur Squamous Epith Cells 0 SEEN, Urine Bacteria 4+, Urine Mucus 0 SEEN 11/25/23 23:05: Lactic Acid 3.7 H* 11/26/23 02:09: Iron 25 L, TIBC 250, Iron Saturation 10.0 L, Ferritin 752 H, Total Creatine Kinase 1955 H, Troponin I High Sens 161 H* 11/26/23 03:42: Lactic Acid 1.5 11/26/23 04:30: WBC 10.5, RBC 3.33 L, Hgb 9.1 L, Hct 27.1 L, MCV 81.4, MCH 27.3, MCHC 33.6, RDW Std Deviation 46.9 H, RDW Coeff of Deion 15.8 H, Plt Count 58 L, MPV 9.8, Immature Gran % (Auto) 0.700, Neut % (Auto) 93.0 H, Lymph % (Auto) 2.6 L, [place] % (Auto) 3.4, Eos % (Auto) 0.0, Baso % (Auto) 0.3, Absolute Neuts (auto) 9.8 H, Absolute Lymphs (auto) 0.27 L, Nucleated RBC % 0, Sodium 129 L, Potassium 3.1 L, Chloride 99, Carbon Dioxide 24.0, Anion Gap 6, BUN 23 H, Creatinine 0.88, Estim Creat Clear Calc 78.81, Est GFR (MDRD) Af Amer 111, Est GFR (MDRD) Non-Af 91, BUN/Creatinine Ratio 26.0 H, Glucose 148 H, Lactic Acid 1.4, Calcium 7.4 L, Phosphorus 1.3 L, Magnesium 1.0 L, Troponin I High Sens 4762 H*, TSH 1.21 11/26/23 04:45: Triglycerides 115, Cholesterol 95, LDL Cholesterol 39, VLDL Cholesterol 23, HDL Cholesterol 33 L Cardiology Labs/Tests 11/25/23 22:28: WBC 9.0, RBC 3.91 L, Hgb 10.6 L, Hct 31.6 L, MCV 80.8, MCH 27.1, MCHC 33.5, Plt Count 72 L, MPV 8.9, Immature Gran % (Auto) 0.600, Neut % (Auto) 92.2 H, Lymph % (Auto) 3.8 L, [place] % (Auto) 3.2, Eos % (Auto) 0.0, Baso % (Auto) 0.2, Absolute Neuts (auto) 8.3 H, Nucleated RBC % 0, PT 15.1 H, INR 1.2, APTT 31.0, Sodium 125 L, Potassium 3.4 L, Chloride 91 L, Carbon Dioxide 24.0, Anion Gap 10, BUN 30 H, Creatinine 1.39 H, Est GFR (MDRD) Af Amer 66, Est GFR (MDRD) Non-Af 54 L, BUN/Creatinine Ratio 21.6 H, Glucose 309 H, Lactic Acid 4.1 H*, Calcium 8.6, Total Bilirubin 0.50, Direct Bilirubin 0.25, Urine Color Yellow, Urine Clarity Cloudy, Urine pH 6.0, Ur Specific [place] 1.015, Urine Protein 100 H, Urine Glucose (UA) 250 H, Urine Ketones 5 H, Urine Occult Blood 150 H, Urine Nitrite Negative, Urine Bilirubin Negative, Urine Urobilinogen 1 H, Ur Leukocyte Esterase 500 H, Urine RBC 0-5 SEEN, Urine WBC >100 SEEN 11/25/23 23:05: Lactic Acid 3.7 H* 11/26/23 02:09: Iron 25 L, TIBC 250, Iron Saturation 10.0 L, Ferritin 752 H 11/26/23 03:42: Lactic Acid 1.5 11/26/23 04:30: WBC 10.5, RBC 3.33 L, Hgb 9.1 L, Hct 27.1 L, MCV 81.4, MCH 27.3, MCHC 33.6, Plt Count 58 L, MPV 9.8, Immature Gran % (Auto) 0.700, Neut % (Auto) 93.0 H, Lymph % (Auto) 2.6 L, [place] % (Auto) 3.4, Eos % (Auto) 0.0, Baso % (Auto) 0.3, Absolute Neuts (auto) 9.8 H, Nucleated RBC % 0, Sodium 129 L, Potassium 3.1 L, Chloride 99, Carbon Dioxide 24.0, Anion Gap 6, BUN 23 H, Creatinine 0.88, Est GFR (MDRD) Af Amer 111, Est GFR (MDRD) Non-Af 91, BUN/Creatinine Ratio 26.0 H, Glucose 148 H, Lactic Acid 1.4, Calcium 7.4 L, Phosphorus 1.3 L, Magnesium 1.0 L 11/26/23 04:45: Triglycerides 115, Cholesterol 95, LDL Cholesterol 39, VLDL Cholesterol 23, HDL Cholesterol 33 L Rhythm: NSR ECHO: pending Radiography Diagnostic Testing: Radiology Impression Chest X-Ray 11/25/23 22:45 IMPRESSION: Soft tissue density in the left periaortic region new since previous examination concerning for mass. CT scan of the chest with contrast is recommended. Electronically Signed: Carmelo Figueroa MD at 23:24 EST , Hip/Pelvis X-Ray 11/25/23 22:45 IMPRESSION: No evidence of displaced pelvic or hip fracture. Electronically Signed: Carmelo Figueroa MD at 23:25 EST , Shoulder X-Ray 11/25/23 22:45 IMPRESSION: No evidence of acute fracture or dislocation. Electronically Signed: Carmelo Figueroa MD at 23:26 EST , Abdomen/Pelvis CT 11/25/23 23:55 IMPRESSION: * Findings compatible with left pyelonephritis with ureteritis. * Numerous bilateral nonobstructive intrarenal calculi redemonstrated. * Unchanged infrarenal abdominal aortic aneurysm measuring 3.4 x 3.2 cm. ACR recommends follow-up every 3 years for abdominal aortic aneurysms of this size. Electronically Signed: Freedom Mccullough MD at 1:20 EST ,
[2023-11-26] MEDS: Insulin Lispro 100 UNIT/ML INSULN.PEN SC ×3 (07:50→16:14)
[2023-11-26 08:06] LABS: Bedside Glucose 152 mg/dL (74-106)
[2023-11-26] MEDS: 0.9% Saline Lock 10 ML Syringe IV (08:09)
[2023-11-26] MEDS: Cholecalciferol (VIT D3) 25 MCG TABLET (1,000 UNITS) 50 MCG PO (09:28)
[2023-11-26] MEDS: FLUoxetine 20 MG Capsule PO (09:28)
[2023-11-26 11:58] LABS: Bedside Glucose 174 mg/dL (74-106)
--- NOTE | 2023-11-26 12:21 | CASEMGMT ---
MEGAN BANEGAS Assessment Face to Face with patient for initial transition planning/care coordination assessment. MEGAN BANEGAS introduced self and role at [facility], pt voices understanding. Pt is A&Ox4 and is resting comfortably in bed and is calm. Care providers, pharmacy, and demographics verified. Admitting dx: Sepsis, UTI, Pyelonephritis LACE Strata: 2 PCP: Cruz Specialists: Jane (VASC), José (Cardio) Preferred Pharmacy: [facility] Insurance: [facility], [facility] Prescription Benefit: Yes LNOK: Bradford Segal Living Arrangements: Pt lives alone in a ground level apartment with a flat entrance. ADLs/IADLs: Ind with ADLs. States having [employer] through [facility]. States the aides come M/W/F x4 hours/day and helps with chores. Transportation: Pt drives. Pt friend/ neighbor ( Karina ) drives. DME: Pt has a cane and walker but does not need to use often. Walk in shower with [facility] HHC/SNF: Denies HHC/ SNF. Active with [facility] Pt?s goal: DC home via pt friend with the continuation of [employer] through [facility] Plan: Await PT evaluation and see how the pt progresses in the hospital to see if he would warrant HHC or outpt therapy. Pt denied SNF at this time. Will follow. Gamaliel Traore RN, CM
[2023-11-26] MEDS: Glucerna Shake 120 ML LIQUID PO ×2 (12:55→16:18)
--- NOTE | 2023-11-26 15:49 | CASEMGMT ---
Social Work SW/CM reviewed therapy, pt walked 3 feet w/therapy. SW met w/pt to review discharge plan, SW reminded pt that he did not move very far with therapy. Pt states he plans to return home. He states he has an aide 2 hours per day 3 days per week. SW explained that we need to make sure pt can manage to care for himself if he is going to go home. SW asked pt if he has ever gone somewhere for rehab, pt states no. SW did provide to pt a list via [facility] of penitentiary facilities in network w/pt's insurance company, preferred geographic area, complete w/quality and resource use data. SW asked pt to review the list, and SW/CM will follow up w/pt to see if this will be needed, where pt may want to go for rehab. Pt states understanding. SW/CM will continue to follow for appropriate discharge plan. JULIO Justin
--- NOTE | 2023-11-26 15:59 | CASEMGMT ---
TC to [facility]. Disha is the pt CM, voice message left. This RN CM calls back and asks for covering CM and that CM updated on pt status at this time.
[2023-11-26 16:34] LABS: Bedside Glucose 225 mg/dL (74-106)
--- NOTE | 2023-11-26 16:50 | PN.HOSP_ITS ---
Subjective Subjective No issues overnight, feels a bit better today. Refuses central line or PICC line for pressor support if they would become necessary Objective Data Objective Data Vital Signs: Vital Signs Temp Pulse Resp BP Pulse Ox O2 Del Method 97.9 F 90 23 H 92/52 L 98 Room Air 11/26/23 14:00 11/26/23 16:00 11/26/23 16:00 11/26/23 16:00 11/26/23 16:00 11/26/23 16:00 Oxygen Delivery Method Room Air Weight: 171 lb 8 oz Body Mass Index (BMI) 26.0 Intake & Output: Intake and Output for Last 24 Hours 11/25/23 11/26/23 11/27/23 03:59 03:59 03:59 Intake Total 3150 / 3150 2250.0033 / 2250.0033 Output Total 1250 / 1250 Balance 3150 / 3150 1000.0033 / 1000.0033 Medical Nutrition Assessment Dietitian: Malnutrition Criteria Met Start: 11/26/23 10:08 Freq: Status: Active Protocol: Document 11/26/23 10:08 FRANCIS (Rec: 11/26/23 10:09 [facility] [id number]) Nutrition Malnutrition Evidence of Malnutrition Exists Yes Evidenced By Suboptimal Energy Intake ( Severe),Weight Loss (Severe) Clinical Problem Chronic Disease or Condition Related Malnutrition Etiology related to lung/colon cancer and inadequate energy intake Signs/Symptoms as evidenced by pt meeting <50 % of est nutritional needs and unintentional wt loss of 10.4 % in past 6 months Status Active Problem Recommendation Dietitian Recommendations/Changes Continue 2000 carmen diet as ordered Will order 4 oz chocolate glucerna shake 4x/day w/ medpass for increased nutrition if consumed. Lab / Micro Data 11/27/23 05:03 11/27/23 05:03 Labs: Laboratory Results - last 24 hr 11/25/23 22:28: WBC 9.0, RBC 3.91 L, Hgb 10.6 L, Hct 31.6 L, MCV 80.8, MCH 27.1, MCHC 33.5, RDW Std Deviation 46.5 H, RDW Coeff of Deion 15.7 H, Plt Count 72 L, MPV 8.9, Immature Gran % (Auto) 0.600, Neut % (Auto) 92.2 H, Lymph % (Auto) 3.8 L, [place] % (Auto) 3.2, Eos % (Auto) 0.0, Baso % (Auto) 0.2, Absolute Neuts (auto) 8.3 H, Absolute Lymphs (auto) 0.34 L, Nucleated RBC % 0, Differential Comment SCANNED, PT 15.1 H, INR 1.2, APTT 31.0, Sodium 125 L, Potassium 3.4 L, Chloride 91 L, Carbon Dioxide 24.0, Anion Gap 10, BUN 30 H, Creatinine 1.39 H, Estim Creat Clear Calc 49.89, Est GFR (MDRD) Af Amer 66, Est GFR (MDRD) Non-Af 54 L, BUN/Creatinine Ratio 21.6 H, Glucose 309 H, Lactic Acid 4.1 H*, Calcium 8.6, To abdoulaye Bilirubin 0.50, Direct Bilirubin 0.25, AST 110 H, ALT 39, Alkaline Phosph atase 91, Total Creatine Kinase 2041 H, Troponin I High Sens 38, Total Protein 6.4, Albumin 2.3 L, Globulin 4.1, Urine Color Yellow, Urine Clarity Cloudy, Urine pH 6.0, Ur Specific [place] 1.015, Urine Protein 100 H, Urine Glucose (UA) 250 H, Urine Ketones 5 H, Urine Occult Blood 150 H, Urine Nitrite Negative, Urine Bilirubin Negative, Urine Urobilinogen 1 H, Ur Leukocyte Esterase 500 H, Urine RBC 0-5 SEEN, Urine WBC >100 SEEN, Ur Squamous Epith Cells 0 SEEN, Urine Bacteria 4+, Urine Mucus 0 SEEN 11/25/23 23:05: Lactic Acid 3.7 H* 11/26/23 02:09: Iron 25 L, TIBC 250, Iron Saturation 10.0 L, Ferritin 752 H, Total Creatine Kinase 1955 H, Troponin I High Sens 161 H* 11/26/23 03:42: Lactic Acid 1.5 11/26/23 04:30: WBC 10.5, RBC 3.33 L, Hgb 9.1 L, Hct 27.1 L, MCV 81.4, MCH 27.3, MCHC 33.6, RDW Std Deviation 46.9 H, RDW Coeff of Deion 15.8 H, Plt Count 58 L, MPV 9.8, Immature Gran % (Auto) 0.700, Neut % (Auto) 93.0 H, Lymph % (Auto) 2.6 L, [place] % (Auto) 3.4, Eos % (Auto) 0.0, Baso % (Auto) 0.3, Absolute Neuts (auto) 9.8 H, Absolute Lymphs (auto) 0.27 L, Nucleated RBC % 0, Sodium 129 L, Potassium 3.1 L, Chloride 99, Carbon Dioxide 24.0, Anion Gap 6, BUN 23 H, Creatinine 0.88, Estim Creat Clear Calc 78.81, Est GFR (MDRD) Af Amer 111, Est GFR (MDRD) Non-Af 91, BUN/Creatinine Ratio 26.0 H, Glucose 148 H, Lactic Acid 1.4, Calcium 7.4 L, Phosphorus 1.3 L, Magnesium 1.0 L, Troponin I High Sens 4762 H*, TSH 1.21 11/26/23 04:45: Triglycerides 115, Cholesterol 95, LDL Cholesterol 39, VLDL Cholesterol 23, HDL Cholesterol 33 L 11/26/23 07:46: POC Glucose 152 H 11/26/23 11:38: POC Glucose 174 H 11/26/23 16:12: POC Glucose 225 H Micro: Microbiology 11/25/23 23:14 Blood Culture (Wb) - Anticubital Left Blood Culture - Preliminary 11/25/23 23:05 Blood Culture (Wb) - Right Forearm Blood Culture - Preliminary Radiography Diagnostic Testing: Radiology Impression Chest X-Ray 11/25/23 22:45 IMPRESSION: Soft tissue density in the left periaortic region new since previous examination concerning for mass. CT scan of the chest with contrast is recommended. Electronically Signed: Carmelo Figueroa MD at 23:24 EST Reading Location ID and State: [facility] / [place] Tel , Service support , Hip/Pelvis X-Ray 11/25/23 22:45 IMPRESSION: No evidence of displaced pelvic or hip fracture. Electronically Signed: Carmelo Figueroa MD at 23:25 EST Reading Location ID and State: [facility] / [place] Tel , Service support , Shoulder X-Ray 11/25/23 22:45 IMPRESSION: No evidence of acute fracture or dislocation. Electronically Signed: Carmelo Figueroa MD at 23:26 EST , Abdomen/Pelvis CT 11/25/23 23:55 IMPRESSION: * Findings compatible with left pyelonephritis with ureteritis. * Numerous bilateral nonobstructive intrarenal calculi redemonstrated. * Unchanged infrarenal abdominal aortic aneurysm measuring 3.4 x 3.2 cm. ACR recommends follow-up every 3 years for abdominal aortic aneurysms of this size. Electronically Signed: Freedom Mccullough MD at 1:20 EST , Echocardiogram 11/26/23 04:12 Interpretation Summary The estimated ejection fraction is 50 %. There are regional wall motion abnormalities as specified. Mild (1+) tricuspid valve insufficiency. Aortic sclerosis, no stenosis. Ordering Physician: Indiana Tovar Referring Physician: Xena Arroyo Performed By: Colette Whelan, ARGELIA, RVT Physical Exam Narrative General: Alert, Oriented x3, Cooperative, No apparent distress HEENT: Atraumatic, PERRLA, EOMI, Normocephalic Oral: Dry mucosa Neck: Supple, No JVD Lungs: Diminished, Normal air movement, No rhonchi, No wheeze, No rales Cardiovascular: Tachycardic, Regular Rhythm, Normal S1, Normal S2, No murmurs Abdomen: Soft, Non Tender, Non-Distended, No Hepato-splenomegaly Extremities: No edema, Capillary Refill Less than 3 Seconds Skin: No rashes, No breakdown, continued skin discoloration from ingestion of silver Musculoskeletal: No Tenderness to Palpation of Joints or Extremities Neurological: No focal neurological deficits, Motor Exam 5/5 strength throughout, Sensory exam intact to light touch and pain Psych/Mental Status: Normal Affect, Appropriate Assessment & Plan Assessment/Plan (1) Acute pyelonephritis: (2) Thrombocytopenia: (3) DAVID (acute kidney injury): (4) Rhabdomyolysis: QUALIFIERS: Rhabdomyolysis type: non-traumatic Qualified Code(s): M62.82 - Rhabdomyolysis (5) Anemia: (6) Sepsis: QUALIFIERS: Acute renal failure type: with acute tubular necrosis Sepsis acute organ dysfunction status: with acute organ dysfunction Sepsis type: sepsis due to unspecified organism Severe sepsis acute organ dysfunction type: acute renal failure Severe sepsis shock status: without septic shock Qualified Code(s): A41.9 - Sepsis, unspecified organism; R65.20 - Severe sepsis without septic shock; N17.0 - Acute kidney failure with tubular necrosis (7) Elevated troponin: PLAN: Plan 1. Sepsis secondary to pyelonephritis with gram-negative henry bacteremia/DAVID/rhabdomyolysis ? Continue with broad-spectrum antibiotics ? Continue with the urine cultures ? Appreciate men's and boys' clothing salesperson assistance ? Renal function has returned to baseline we will continue to monitor ? Continue with aggressive IV fluids, he does refused central line placement at this time 2. Non-STEMI/HTN/HLD ? Unclear as to the etiology could be secondary to demand ischemia from sepsis ? Appreciate cardiology's assistance ? Echo with an EF of 50% with wall motion abnormality ? Will await further instructions from cardiology as he does have thrombocytopenia so we are limited on anticoagulation options and antiplatelet options if he were to need a stent ? We will monitor his blood pressures and make adjustments as necessary 3. Anemia with acute thrombocytopenia ? Unclear as to the etiology of either, iron studies indicate anemia of chronic disease ? Thrombocytopenia could be due to his sepsis we will monitor 4. Non-small cell lung cancer/history of colon cancer ? Pathology indicates squamous cell neck/follows up with oncology as an outpatient ? She did have a hemicolectomy in January 2023 likely curative obstruction secondary to his pathologic stage 0 5. DM2 ? We will hold his metformin ? Continue with insulin ? Accu-Cheks ACHS ? We will monitor make adjustments as necessary 6. [place] of skin ? Been taking colloidal silver for years now his skin is permanently grayish- blue 7. Depression ? Stable ? Continue with his home meds DVT: SCDs Charges/Coding Visit Charges Inpatient E&M: 41446 Subs Hosp L2
[2023-11-26] MEDS: Atorvastatin Calcium 10 MG Tablet PO (22:10)
[2023-11-27] VITALS (25 sets, daily range): BP systolic 86–135; BP diastolic 49–73; PULSE 79–104; RESP 16–27; TEMP 36.6–38.6; O2SAT 91–99; BMI 27.3
[2023-11-27 05:13] LABS: Absolute Lymphocyte Count 0.54 X10^3/uL (0.83-4.51); Absolute Neutrophil Count 6.8 X10^3/uL (2.0-7.7); Basophil# 0.02 X10^3/uL; Basophil% 0.3 % (0-1); Eosinophil# 0.06 X10^3/uL; Eosinophils% 0.8 % (0-5); Hematocrit 26.1 % (40-54); Hemoglobin 8.7 g/dL (13.0-16.5); Lymphocyte # 0.54 X10^3/ul (0.83-4.51); Lymphocyte % 6.9 % (19-41); Mean Corp Hgb Conc 33.3 g/dL (32-36); Mean Corpuscular Hgb 27.1 pg (27.0-32.0); Mean Corpuscular Volume 81.3 fL (80-94); Monocyte% 5.1 % (0-10); NRBC Flagged by Analyzer 0 % (0-5); Neutrophil # 6.82 X10^3/uL (2.7-7.7); Neutrophil % 86.4 % (47-70); POSITIVE COUNT YES; POSITIVE DIFFERENTIAL YES; Platelet Count 46 K/mm3 (150-450); RBC Distribution Width CV 15.9 % (11.6-14.6); RBC Distribution Width SD 47.2 fl (35.1-43.9); Red Blood Count 3.21 M/mm3 (4.6-6.2); White Blood Count 7.9 K/mm3 (4.4-11.0)
[2023-11-27 05:21] LABS: Differential Indicated SCAN CRITERIA MET
[2023-11-27 05:25] LABS: Anion Gap 5 (5-15); BUN 15 mg/dL (7-18); BUN/Creat Ratio 21.5 RATIO (10-20); Calcium,Total 7.7 mg/dL (8.5-10.1); Chloride 99 mmol/L (98-107); EST Glomerular Filtration Rate 120 mL/min (>60); Est Glom Filt Rate - Afr Amer 145 mL/min (>60); Estimated Creatinine Clearance 86.69 ml/min; Glucose 144 mg/dL (74-106); Potassium 3.2 mmol/L (3.5-5.1); Sodium Level 129 mmol/L (136-145)
[2023-11-27 05:43] LABS: Platelet Estimate MKD DEC (ADEQ)
[2023-11-27] MEDS: FLUoxetine 20 MG Capsule PO (07:37)
[2023-11-27] MEDS: Cholecalciferol (VIT D3) 25 MCG TABLET (1,000 UNITS) 50 MCG PO (07:37)
[2023-11-27 07:57] LABS: Bedside Glucose 143 mg/dL (74-106)
[2023-11-27] MEDS: Cefepime HCl 2 GM in 0.9% Normal Saline (100mL MB+) 100 ML IV ×2 (09:39→20:29)
--- NOTE | 2023-11-27 09:47 | PN.HOSP_ITS ---
Subjective Subjective Doing well, no issues overnight Objective Data Objective Data Vital Signs: Vital Signs Temp Pulse Resp BP Pulse Ox O2 Del Method 98.5 F 104 H 22 H 89/49 L 94 Room Air 11/27/23 08:00 11/27/23 09:00 11/27/23 09:00 11/27/23 09:00 11/27/23 09:00 11/27/23 09:00 Oxygen Delivery Method Room Air Weight: 179 lb 14.4 oz Body Mass Index (BMI) 27.3 Intake & Output: Intake and Output for Last 24 Hours 11/26/23 11/27/23 11/28/23 03:59 03:59 03:59 Intake Total 3150 / 3150 2595.0033 / 2595.0033 200 / 200 Output Total 1925 / 1925 900 / 900 Balance 3150 / 3150 670.0033 / 670.0033 -700 / -700 Medical Nutrition Assessment Dietitian: Malnutrition Criteria Met Start: 11/26/23 10:08 Freq: Status: Active Protocol: Document 11/26/23 10:08 FRANCIS (Rec: 11/26/23 10:09 [facility] [id number]) Nutrition Malnutrition Evidence of Malnutrition Exists Yes Evidenced By Suboptimal Energy Intake ( Severe),Weight Loss (Severe) Clinical Problem Chronic Disease or Condition Related Malnutrition Etiology related to lung/colon cancer and inadequate energy intake Signs/Symptoms as evidenced by pt meeting <50 % of est nutritional needs and unintentional wt loss of 10.4 % in past 6 months Status Active Problem Recommendation Dietitian Recommendations/Changes Continue 2000 carmen diet as ordered Will order 4 oz chocolate glucerna shake 4x/day w/ medpass for increased nutrition if consumed. Lab / Micro Data 11/27/23 05:03 11/27/23 05:03 Labs: Laboratory Results - last 24 hr 11/26/23 11:38: POC Glucose 174 H 11/26/23 16:12: POC Glucose 225 H 11/27/23 05:03: WBC 7.9, RBC 3.21 L, Hgb 8.7 L, Hct 26.1 L, MCV 81.3, MCH 27.1, MCHC 33.3, RDW Std Deviation 47.2 H, RDW Coeff of Deion 15.9 H, Plt Count 46 L*, MPV 10.0, Immature Gran % (Auto) 0.500, Neut % (Auto) 86.4 H, Lymph % (Auto) 6.9 L, [place] % (Auto) 5.1, Eos % (Auto) 0.8, Baso % (Auto) 0.3, Absolute Neuts (auto) 6.8, Absolute Lymphs (auto) 0.54 L, Nucleated RBC % 0, Diff Path Review May foll, Platelet Estimate MKD DEC, Sodium 129 L, Potassium 3.2 L, Chloride 99, Carbon Dioxide 25.0, Anion Gap 5, BUN 15, Creatinine 0.70, Estim Creat Clear Calc 86.69, Est GFR (MDRD) Af Amer 145, Est GFR (MDRD) Non-Af 120, B UN/Creatinine Ratio 21.5 H, Glucose 144 H, Calcium 7.7 L 11/27/23 07:35: POC Glucose 143 H Micro: Microbiology 11/25/23 23:14 Blood Culture (Wb) - Anticubital Left Blood Culture - Preliminary 11/25/23 23:05 Blood Culture (Wb) - Right Forearm Blood Culture - Preliminary Gram negative henry Radiography Diagnostic Testing: Radiology Impression Echocardiogram 11/26/23 04:12 Interpretation Summary The estimated ejection fraction is 50 %. There are regional wall motion abnormalities as specified. Mild (1+) tricuspid valve insufficiency. Aortic sclerosis, no stenosis. Ordering Physician: [place] Tovar Referring Physician: Xena Arroyo Performed By: Colette Whelan, RDARIELLE, RVT Physical Exam Narrative General: Alert, Oriented x3, Cooperative, No apparent distress HEENT: Atraumatic, PERRLA, EOMI, Normocephalic Oral: Dry mucosa Neck: Supple, No JVD Lungs: Diminished, Normal air movement, No rhonchi, No wheeze, No rales Cardiovascular: Tachycardic, Regular Rhythm, Normal S1, Normal S2, No murmurs Abdomen: Soft, Non Tender, Non-Distended, No Hepato-splenomegaly Extremities: No edema, Capillary Refill Less than 3 Seconds Skin: No rashes, No breakdown, continued skin discoloration from ingestion of silver Musculoskeletal: No Tenderness to Palpation of Joints or Extremities Neurological: No focal neurological deficits, Motor Exam 5/5 strength throughout, Sensory exam intact to light touch and pain Psych/Mental Status: Normal Affect, Appropriate Assessment & Plan Assessment/Plan (1) Acute pyelonephritis: (2) Thrombocytopenia: (3) DAVID (acute kidney injury): (4) Rhabdomyolysis: QUALIFIERS: Rhabdomyolysis type: non-traumatic Qualified Code(s): M62.82 - Rhabdomyolysis (5) Anemia: (6) Sepsis: QUALIFIERS: Sepsis type: sepsis due to unspecified organism Se psis acute organ dysfunction status: with acute organ dysfunction Severe sepsis acute organ dysfunction type: acute renal failure Acute renal failure type: with acute tubular necrosis Severe sepsis shock status: without septic shock Qualified Code(s): A41.9 - Sepsis, unspecified organism; R65.20 - Severe sepsis without septic shock; N17.0 - Acute kidney failure with tubular necrosis (7) Elevated troponin: PLAN: Plan 1. Sepsis secondary to pyelonephritis with gram-negative henry bacteremia/DAVID/rhabdomyolysis ? Continue with broad-spectrum antibiotics ? Continue with the urine cultures ? Appreciate manufacturer's service representative assistance ? Renal function has returned to baseline we will continue to monitor ? Continue with aggressive IV fluids, he does refused central line placement at this time, today he is willing to obtain a PICC line if necessary though this will not be able to happen until Wednesday blood pressure still are stable 2. Non-STEMI/HTN/HLD ? Unclear as to the etiology could be secondary to demand ischemia from sepsis ? Appreciate cardiology's assistance ? Echo with an EF of 50% with wall motion abnormality ? Will await further instructions from cardiology as he does have thrombocytopenia so we are limited on anticoagulation options and antiplatelet options if he were to need a stent ? We will monitor his blood pressures and make adjustments as necessary 3. Anemia with acute thrombocytopenia ? Unclear as to the etiology of either, iron studies indicate anemia of chronic disease ? Thrombocytopenia could be due to his sepsis we will monitor 4. Non-small cell lung cancer/history of colon cancer ? Pathology indicates squamous cell neck/follows up with oncology as an outpatient ? She did have a hemicolectomy in January 2023 likely curative obstruction secondary to his pathologic stage 0 5. DM2 ? We will hold his metformin ? Continue with insulin ? Accu-Cheks ACHS ? We will monitor make adjustments as necessary 6. [place] of skin ? Been taking colloidal silver for years now his skin is permanently grayish- blue 7. Depression ? Stable ? Continue with his home meds DVT: SCDs Charges/Coding Visit Charges Inpatient E&M: 76815 Subs Hosp L2
--- NOTE | 2023-11-27 10:10 | PN.CC_ITS ---
Subjective Subjective Pt seen and examined. Overall feels a lot better. Has not required pressors but BP remain on the soft side (MAP ~68-70s). Tolerating diet. Making urine. No complaints. PE: General: Well developed, acute on chronically ill male, in no distress HEENT: anicteric Sclera, nl nose; supple neck, no masses Cardiovascular: S1/S2; No rubs, gallops; no displaced PM Respiratory: diminished; no crackles, wheezes, or rhonchi Abdominal: Non-tender; Non distended; hypoBS x 4; No Hepatosplenomegaly Extremities: Warm, well perfused; No clubbing, cyanosis; capillary refill < 2 sec Skin: intact, no rashes, blue discoloration Neurological: no gross deficits appreciated A/P: #Sepsis #UTI #Acute kidney injury with mild rhabdomyolysis #NSTEMI, likely type II #Electrolyte abnormalities #Thrombocytopenia #VALENTÍN #DM2 #Sq cell lung ca on chemotherapy #Hx colon cancer #Prior Hx tobacco abuse #HTN #DLD #[place]gyria -SP fluids; PRN NEpi to keep MAP > 65; will go ahead and add PO midodrine to see if it helps keep BP on the higher end to facilitate possible downgrade later today -Cont cefepime; GNR in UCx + BCx; pend ID/Sn & will de-esc as indicated -Cardiology following re: elevated trop -Monitor Hgb/Plt; transfuse per usual criteria -Cont electrolyte replacement- K/Phos/Mg -SSI PO diet SCD Guarded prognosis From my stand point may be appropriate for ICU downgrade if MAPs remain 70 or greater. CCT: 50 min The entirety of this encounter was completed via telemedicine. Objective Data Objective Data Vital Signs: Vital Signs Temp Pulse Resp BP Pulse Ox O2 Del Method 36.9 C 93 20 H 97/56 L 91 Room Air 11/27/23 08:00 11/27/23 10:11/27/23 10:00 11/27/23 10:11/27/23 10:11/27/23 10:00 Oxygen Delivery Method Room Air Weight: 81.601 kg Body Mass Index (BMI) 27.3 Intake & Output: Intake and Output for Last 24 Hours 11/25/23 11/26/23 11/27/23 23:59 23:59 23:59 Intake Total 50 / 50 5695.0033 / 5695.0033 200 / 200 Output Total 1700 / 1925 1125 / 1125 Balance 50 / 50 3995.0033 / 3770.0033 -925 / -925 Medical Nutrition Assessment Dietitian: Malnutrition Criteria Met Start: 11/26/23 10:08 Freq: Status: Active Protocol: Document 11/26/23 10:[address] [facility] (Rec: 11/26/23 10:[address] [facility] [id number]) Nutrition Malnutrition Evidence of Malnutrition Exists Yes Evidenced By Suboptimal Energy Intake ( Severe),Weight Loss (Severe) Clinical Problem Chronic Disease or Condition Related Malnutrition Etiology related to lung/colon cancer and inadequate energy intake Signs/Symptoms as evidenced by pt meeting <50 % of est nutritional needs and unintentional wt loss of 10.4 % in past 6 months Status Active Problem Recommendation Dietitian Recommendations/Changes Continue 2000 carmen diet as ordered Will order 4 oz chocolate glucerna shake 4x/day w/ medpass for increased nutrition if consumed. Lab / Micro Data 11/27/23 05:03 11/27/23 05:03 Labs: Laboratory Results - last 24 hr 11/26/23 11:38: POC Glucose 174 H 11/26/23 16:12: POC Glucose 225 H 11/27/23 05:03: WBC 7.9, RBC 3.21 L, Hgb 8.7 L, Hct 26.1 L, MCV 81.3, MCH 27.1, MCHC 33.3, RDW Std Deviation 47.2 H, RDW Coeff of Deion 15.9 H, Plt Count 46 L*, MPV 10.0, Immature Gran % (Auto) 0.500, Neut % (Auto) 86.4 H, Lymph % (Auto) 6.9 L, [place] % (Auto) 5.1, Eos % (Auto) 0.8, Baso % (Auto) 0.3, Absolute Neuts (auto) 6.8, Absolute Lymphs (auto) 0.54 L, Nucleated RBC % 0, Diff Path Review May foll, Platelet Estimate MKD DEC, Sodium 129 L, Potassium 3.2 L, Chloride 99, Carbon Dioxide 25.0, Anion Gap 5, BUN 15, Creatinine 0.70, Estim Creat Clear Calc 86.69, Est GFR (MDRD) Af Amer 145, Est GFR (MDRD) Non-Af 120, BUN/Creatinine Ratio 21.5 H, Glucose 144 H, Calcium 7.7 L 11/27/23 07:35: POC Glucose 143 H Micro: Microbiology 11/25/23 23:14 Blood Culture (Wb) - Anticubital Left Blood Culture - Preliminary 11/25/23 23:05 Blood Culture (Wb) - Right Forearm Blood Culture - Preliminary Gram negative henry Radiography Diagnostic Testing: Radiology Impression Echocardiogram 11/26/23 04:12 Interpretation Summary The estimated ejection fraction is 50 %. There are regional wall motion abnormalities as specified. Mild (1+) tricuspid valve insufficiency. Aortic sclerosis, no stenosis. Ordering Physician: [place] Tovar Referring Physician: Xena Arroyo Performed By: Colette Whelan, RDCS, RVT
[2023-11-27 10:27] LABS: Magnesium 1.8 mg/dL (1.6-2.6); Phosphorus 1.9 mg/dL (2.5-4.9)
[2023-11-27] MEDS: Midodrine HCl 5 MG Tablet 10 MG PO ×2 (11:45→17:20)
[2023-11-27] MEDS: Insulin Lispro 100 UNIT/ML INSULN.PEN SC ×2 (11:45→16:04)
[2023-11-27 12:05] LABS: Bedside Glucose 208 mg/dL (74-106)
--- NOTE | 2023-11-27 14:07 | PCM.PN.CARD ---
Subjective Subjective I saw this patient bedside in the ICU and discussed with the nursing staff No symptoms reported in particular no symptoms of chest pain. Objective Data Vital Signs: Vital Signs Temp Pulse Resp BP Pulse Ox O2 Del Method 97.9 F 90 22 H 104/56 L 95 Room Air 11/27/23 12:00 11/27/23 13:00 11/27/23 13:00 11/27/23 13:00 11/27/23 13:00 11/27/23 13:00 Oxygen Delivery Method Room Air Weight: 179 lb 14.4 oz Body Mass Index (BMI) 27.3 Intake & Output: Intake and Output for Last 24 Hours 11/25/23 11/26/23 11/27/23 23:59 23:59 23:59 Intake Total 50 / 50 5695.0033 / 5695.0033 650 / 650 Output Total 1700 / 1925 2950 / 2950 Balance 50 / 50 3995.0033 / 3770.0033 -2300 / -2300 Lab / Micro Data 11/27/23 05:03 11/27/23 05:03 Labs: Laboratory Results - last 24 hr 11/26/23 16:12: POC Glucose 225 H 11/27/23 05:03: WBC 7.9, RBC 3.21 L, Hgb 8.7 L, Hct 26.1 L, MCV 81.3, MCH 27.1, MCHC 33.3, RDW Std Deviation 47.2 H, RDW Coeff of Deion 15.9 H, Plt Count 46 L*, MPV 10.0, Immature Gran % (Auto) 0.500, Neut % (Auto) 86.4 H, Lymph % (Auto) 6.9 L, [place] % (Auto) 5.1, Eos % (Auto) 0.8, Baso % (Auto) 0.3, Absolute Neuts (auto) 6.8, Absolute Lymphs (auto) 0.54 L, Nucleated RBC % 0, Diff Path Review February, Platelet Estimate MKD DEC, Sodium 129 L, Potassium 3.2 L, Chloride 99, Carbon Dioxide 25.0, Anion Gap 5, BUN 15, Creatinine 0.70, Estim Creat Clear Calc 86.69, Est GFR (MDRD) Af Amer 145, Est GFR (MDRD) Non-Af 120, BUN/Creatinine Ratio 21.5 H, Glucose 144 H, Calcium 7.7 L, Phosphorus 1.9 L, Magnesium 1.8 11/27/23 07:35: POC Glucose 143 H 11/27/23 11:44: POC Glucose 208 H Micro: Microbiology 11/25/23 22:28 Urine, Clean Catch Urine Culture - Preliminary Gram negative henry 11/25/23 23:14 Blood Culture (Wb) - Anticubital Left Blood Culture - Preliminary 11/25/23 23:05 Blood Culture (Wb) - Right Forearm Blood Culture - Preliminary Gram negative henry Cardiology Labs/Tests 11/27/23 05:03: WBC 7.9, RBC 3.21 L, Hgb 8.7 L, Hct 26.1 L, MCV 81.3, MCH 27.1, MCHC 33.3, Plt Count 46 L*, MPV 10.0, Immature Gran % (Auto) 0.500, Neut % (Auto) 86.4 H, Lymph % (Auto) 6.9 L, [place] % (Auto) 5.1, Eos % (Auto) 0.8, Baso % (Auto) 0.3, Absolute Neuts (auto) 6.8, Nucleated RBC % 0, Sodium 129 L, Potassium 3.2 L, Chloride 99, Carbon Dioxide 25.0, Anion Gap 5, BUN 15, Creatinine 0.70, Est GFR (MDRD) Af Amer 145, Est GFR (MDRD) Non-Af 120, BUN/Creatinine Ratio 21.5 H, Glucose 144 H, Calcium 7.7 L, Phosphorus 1.9 L, Magnesium 1.8 Rhythm: EKG: ECHO: Stress Test: Cardiac Cath: PCI: CT Surgery: Holter monitor: EPS: PPM: CXR: Chest CT Scan: Radiography Diagnostic Testing: Radiology Impression Echocardiogram 11/26/23 04:12 Interpretation Summary The estimated ejection fraction is 50 %. There are regional wall motion abnormalities as specified. Mild (1+) tricuspid valve insufficiency. Aortic sclerosis, no stenosis. Ordering Physician: [place] Tovar Referring Physician: Xena Arroyo Performed By: Colette Whelan, FRANKICS, RVT Physical Exam Cardio Cardio Narrative: Underlying cardiac rhythm is sinus rhythm Cardiac exam S1-S2 regular Chest exam clear to auscultation bilateral. Assessment & Plan Assessment/Plan (1) Sepsis: (2) Lactic acidosis: (3) UTI (urinary tract infection): (4) Acute pyelonephritis: (5) Rhabdomyolysis: QUALIFIERS: Rhabdomyolysis type: non-traumatic Qualified Code(s): M62.82 - Rhabdomyolysis (6) Elevated troponin: PLAN: Plan 68-year-old patient with multiple medical comorbidities Had UTI with sepsis Acute kidney injury with mild rhabdomyolysis Cardiac consultation requested for elevated high sensitive troponins Patient does not have any active chest pain Other medical problem include diabetes squamous cell lung cancer has been on chemo History of colon cancer and history of tobacco abuse. I reviewed the cardiac evaluation The elevated cardiac biomarkers in the setting of sepsis and UTI with DAVID Noted he had the thrombocytopenia with a platelet count around 47 Cardiac care plan recommendation; Review of the echocardiogram : showed ejection fraction of around 50% with mild tricuspid regurgitation From cardiac standpoint conservative approach Will sign off and will be available if further cardiac need arise.
[2023-11-27 16:24] LABS: Bedside Glucose 183 mg/dL (74-106)
--- NOTE | 2023-11-27 19:19 | CM.ED ---
Social Work SW introduced self and role to patient to discuss discharge planning. SW spoke with patient about PT/OT and patient reports it went well. Pt would prefer to discharge home if possible with C. However, patient does report interest in TCU if he needs to go to a SNF. SW to follow for patient needs and refer to TCU if needed. Angela Tyler TELEMARKETING AGENT, PHYSICS TUTOR
[2023-11-27] MEDS: 0.9% Saline Lock 10 ML Syringe IV (20:29)
[2023-11-27] MEDS: Atorvastatin Calcium 10 MG Tablet PO (20:30)
[2023-11-28] VITALS (17 sets, daily range): BP systolic 96–138; BP diastolic 54–73; PULSE 74–97; RESP 17–26; TEMP 36.4–36.7; O2SAT 92–99; BMI 27.3
[2023-11-28 05:17] LABS: Absolute Lymphocyte Count 0.75 X10^3/uL (0.83-4.51); Absolute Neutrophil Count 6.3 X10^3/uL (2.0-7.7); Basophil# 0.04 X10^3/uL; Basophil% 0.5 % (0-1); Eosinophil# 0.08 X10^3/uL; Hematocrit 29.5 % (40-54); Hemoglobin 9.8 g/dL (13.0-16.5); Lymphocyte # 0.75 X10^3/ul (0.83-4.51); Lymphocyte % 9.6 % (19-41); Mean Corp Hgb Conc 33.2 g/dL (32-36); Mean Corpuscular Hgb 27.1 pg (27.0-32.0); Mean Corpuscular Volume 81.7 fL (80-94); Mean Platelet Vol. 8.9 fl (6.2-12.0); Monocyte# 0.55 X10^3/uL; Monocyte% 7.1 % (0-10); NRBC Flagged by Analyzer 0 % (0-5); Neutrophil # 6.32 X10^3/uL (2.7-7.7); Neutrophil % 81.3 % (47-70); POSITIVE COUNT YES; Platelet Count 72 K/mm3 (150-450); RBC Distribution Width CV 15.9 % (11.6-14.6); RBC Distribution Width SD 47.4 fl (35.1-43.9); Red Blood Count 3.61 M/mm3 (4.6-6.2); White Blood Count 7.8 K/mm3 (4.4-11.0)
[2023-11-28 05:33] LABS: Anion Gap 4 (5-15); BUN 13 mg/dL (7-18); BUN/Creat Ratio 21.3 RATIO (10-20); Calcium,Total 8.2 mg/dL (8.5-10.1); Chloride 100 mmol/L (98-107); Creatinine, Serum 0.61 mg/dL (0.70-1.30); EST Glomerular Filtration Rate 140 mL/min (>60); Est Glom Filt Rate - Afr Amer 170 mL/min (>60); Estimated Creatinine Clearance 86.69 ml/min; Glucose 133 mg/dL (74-106); Sodium Level 131 mmol/L (136-145)
[2023-11-28 08:49] LABS: Bedside Glucose 130 mg/dL (74-106)
[2023-11-28] MEDS: Potassium Phosphate 30 MM in 0.9% Normal Saline (250mL Bag) 250 ML 42 MM IV (09:27)
[2023-11-28] MEDS: Midodrine HCl 5 MG Tablet 10 MG PO ×3 (09:28→17:35)
[2023-11-28] MEDS: FLUoxetine 20 MG Capsule PO (09:28)
[2023-11-28] MEDS: Cholecalciferol (VIT D3) 25 MCG TABLET (1,000 UNITS) 50 MCG PO (09:28)
[2023-11-28] MEDS: Cefepime HCl 2 GM in 0.9% Normal Saline (100mL MB+) 100 ML IV (09:32)
--- NOTE | 2023-11-28 10:00 | PCM.PN.HOSP ---
Subjective Subjective Doing well, no issues overnight resting comfortably. Objective Data Objective Data Vital Signs: Vital Signs Temp Pulse Resp BP Pulse Ox O2 Del Method FiO2 97.9 F 81 20 H 101/56 L 92 Room Air 45 11/28/23 08:00 11/28/23 08:00 11/28/23 08:00 11/28/23 08:00 11/28/23 09:34 11/28/23 09:34 11/27/23 16:00 Oxygen Delivery Method Room Air Weight: 179 lb 8 oz Body Mass Index (BMI) 27.3 Intake & Output: Intake and Output for Last 24 Hours 11/27/23 11/28/23 11/29/23 03:59 03:59 03:59 Intake Total 2595.0033 / 2595.0033 750 / 850 100 / 100 Output Total 1925 / 1925 3425 / 4925 1999 Balance 670.0033 / 670.0033 -2675 / -4075 -1900 / -1900 Medical Nutrition Assessment Dietitian: Malnutrition Criteria Met Start: 11/26/23 10:08 Freq: Status: Active Protocol: Document 11/26/23 10:08 FRANCIS (Rec: 11/26/23 10:09 [facility] [id number]) Nutrition Malnutrition Evidence of Malnutrition Exists Yes Evidenced By Suboptimal Energy Intake ( Severe),Weight Loss (Severe) Clinical Problem Chronic Disease or Condition Related Malnutrition Etiology related to lung/colon cancer and inadequate energy intake Signs/Symptoms as evidenced by pt meeting <50 % of est nutritional needs and unintentional wt loss of 10.4 % in past 6 months Status Active Problem Recommendation Dietitian Recommendations/Changes Continue 2000 carmen diet as ordered Will order 4 oz chocolate glucerna shake 4x/day w/ medpass for increased nutrition if consumed. Lab / Micro Data 11/28/23 05:00 11/28/23 05:00 Labs: Laboratory Results - last 24 hr 11/27/23 05:03: Phosphorus 1.9 L, Magnesium 1.8 11/27/23 11:44: POC Glucose 208 H 11/27/23 16:03: POC Glucose 183 H 11/28/23 05:00: WBC 7.8, RBC 3.61 L, Hgb 9.8 L, Hct 29.5 L, MCV 81.7, MCH 27.1, MCHC 33.2, RDW Std Deviation 47.4 H, RDW Coeff of Deion 15.9 H, Plt Count 72 L, MPV 8.9, Immature Gran % (Auto) 0.500, Neut % (Auto) 81.3 H, Lymph % (Auto) 9.6 L, [place] % (Auto) 7.1, Eos % (Auto) 1.0, Baso % (Auto) 0.5, Absolute Neuts (auto) 6.3, Absolute Lymphs (auto) 0.75 L, Nucleated RBC % 0, Sodium 131 L, Potassium 3.0 L, Chloride 100, Carbon Dioxide 27.0, Anion Gap 4 L, BUN 13, Creatinine 0.61 L, Estim Creat Clear Calc 86.69, Est GFR (MDRD) Af Amer 170, Est GFR (MDRD) Non-Af 140, BUN/Creatinine Ratio 21.3 H, Glucose 133 H, Calcium 8.2 L 11/28/23 08:31: POC Glucose 130 H Micro: Microbiology 11/25/23 22:28 Urine, Clean Catch Urine Culture - Final Escherichia coli 11/25/23 23:05 Blood Culture (Wb) - Right Forearm Blood Culture - Final Escherichia coli 11/25/23 23:14 Blood Culture (Wb) - Anticubital Left Blood Culture - Preliminary Physical Exam Narrative General: Alert, Oriented x3, Cooperative, No apparent distress HEENT: Atraumatic, PERRLA, EOMI, Normocephalic Oral: Moist mucosa Neck: Supple, No JVD Lungs: Diminished, Normal air movement, No rhonchi, No wheeze, No rales Cardiovascular: Tachycardic, Regular Rhythm, Normal S1, Normal S2, No murmurs Abdomen: Soft, Non Tender, Non-Distended, No Hepato-splenomegaly Extremities: No edema, Capillary Refill Less than 3 Seconds Skin: No rashes, No breakdown, continued skin discoloration from ingestion of silver Musculoskeletal: No Tenderness to Palpation of Joints or Extremities Neurological: No focal neurological deficits, Motor Exam 5/5 strength throughout, Sensory exam intact to light touch and pain Psych/Mental Status: Normal Affect, Appropriate Assessment & Plan Assessment/Plan (1) Acute pyelonephritis: (2) Thrombocytopenia: (3) DAVID (acute kidney injury): (4) Rhabdomyolysis: QUALIFIERS: Rhabdomyolysis type: non-traumatic Qualified Code(s): M62.82 - Rhabdomyolysis (5) Anemia: (6) Sepsis: QUALIFIERS: Sepsis type: sepsis due to unspecified organism Sepsis acute organ dysfunction status: with acute organ dysfunction Severe sepsis acute organ dysfunction type: acute renal failure Acute renal failure type: with acute tubular necrosis Severe sepsis shock status: without septic shock Qualified Code(s): A41.9 - Sepsis, unspecified organism; R65.20 - Severe sepsis without septic shock; N17.0 - Acute kidney failure with tubular necrosis (7) Elevated troponin: PLAN: Plan 1. Sepsis secondary to pyelonephritis and bacteremia both due to a pansensitive E. coli/DAVID/rhabdomyolysis ? Can narrow antibiotics as cultures are growing a pansensitive E. coli ? Appreciate funeral workers assistance, continue with midodrine ? Renal function has returned to baseline we will continue to monitor 2. Non-STEMI/HTN/HLD ? Unclear as to the etiology could be secondary to demand ischemia from sepsis ? Appreciate cardiology's assistance ? Echo with an EF of 50% with wall motion abnormality ? Will await further instructions from cardiology as he does have thrombocytopenia so we are limited on anticoagulation options and antiplatelet options if he were to need a stent ? We will monitor his blood pressures and make adjustments as necessary 3. Anemia with acute thrombocytopenia ? Unclear as to the etiology of either, iron studies indicate anemia of chronic disease ? Thrombocytopenia could be due to his sepsis we will monitor ? Both are improving, will continue to monitor 4. Non-small cell lung cancer/history of colon cancer ? Pathology indicates squamous cell neck/follows up with oncology as an outpatient ? He did have a hemicolectomy in January 2023 likely curative obstruction secondary to his pathologic stage 0 5. DM2 ? We will hold his metformin ? Continue with insulin ? Accu-Cheks ACHS ? We will monitor make adjustments as necessary 6. [place] of skin ? Been taking colloidal silver for years now his skin is permanently grayish-blue 7. Depression ? Stable ? Continue with his home meds DVT: SCDs Charges/Coding Visit Charges Inpatient E&M: 72193 Subs Hosp L2
[2023-11-28 10:37] LABS: Magnesium 1.4 mg/dL (1.6-2.6); Phosphorus 1.8 mg/dL (2.5-4.9)
--- NOTE | 2023-11-28 11:04 | PCM.PN.INT ---
Subjective Subjective Pt seen and examined. Cont to do well and has no complaints. BP overall improved. Tolerating diet. Making urine. Up in chair this morning. PE: General: Well developed, acute on chronically ill male, in no distress HEENT: anicteric Sclera, nl nose; supple neck, no masses Cardiovascular: S1/S2; No rubs, gallops; no displaced PM Respiratory: diminished; no crackles, wheezes, or rhonchi Abdominal: Non-tender; Non distended; hypoBS x 4; No Hepatosplenomegaly Extremities: Warm, well perfused; No clubbing, cyanosis; capillary refill < 2 sec Skin: intact, no rashes, blue discoloration Neurological: no gross deficits appreciated A/P: #Sepsis #UTI #Acute kidney injury with mild rhabdomyolysis #NSTEMI, likely type II #Electrolyte abnormalities #Thrombocytopenia #VALENTÍN #DM2 #Sq cell lung ca on chemotherapy #Hx colon cancer #Prior Hx tobacco abuse #HTN #DLD #Argyria -SP fluids; PRN NEpi to keep MAP > 65; PO midodrine -Cont cefepime; GNR in UCx + BCx; pend ID/Sn & will de-esc as indicated --> panSn E. coli on culture; can downgrade to CTX and complete course; consider repeating BCx to document clearance -Cardiology following re: elevated trop --> recommendations noted -Monitor Hgb/Plt; transfuse per usual criteria -Cont electrolyte replacement- K/Phos/Mg -SSI PO diet SCD Guarded prognosis Can downgrade from ICU. Will sign off. The entirety of this encounter was completed via telemedicine. Objective Data Objective Data Vital Signs: Vital Signs Temp Pulse Resp BP Pulse Ox O2 Del Method FiO2 36.6 C 81 20 H 101/56 L 92 Room Air 45 11/28/23 08:00 11/28/23 08:00 11/28/23 08:00 11/28/23 08:00 11/28/23 09:34 11/28/23 09:34 11/27/23 16:00 Oxygen Delivery Method Room Air Weight: 81.42 kg Body Mass Index (BMI) 27.3 Intake & Output: Intake and Output for Last 24 Hours 11/26/23 11/27/23 11/28/23 23:59 23:59 23:59 Intake Total 5695.0033 / 5695.0033 750 / 750 100 / 100 Output Total 1700 / 1925 3650 / 3650 1999 Balance 3995.0033 / 3770.0033 -2900 / -2900 -1900 / -1900 Medical Nutrition Assessment Dietitian: Malnutrition Criteria Met Start: 11/26/23 10:08 Freq: Status: Active Protocol: Document 11/26/23 10:08 [facility] (Rec: 11/26/23 10:09 [facility] [id number]) Nutrition Malnutrition Evidence of Malnutrition Exists Yes Evidenced By Suboptimal Energy Intake ( Severe),Weight Loss (Severe) Clinical Problem Chronic Disease or Condition Related Malnutrition Etiology related to lung/colon cancer and inadequate energy intake Signs/Symptoms as evidenced by pt meeting <50 % of est nutritional needs and unintentional wt loss of 10.4 % in past 6 months Status Active Problem Recommendation Dietitian Recommendations/Changes Continue 1999 carmen diet as ordered Will order 4 oz chocolate glucerna shake 4x/day w/ medpass for increased nutrition if consumed. Lab / Micro Data 11/28/23 05:00 11/28/23 05:00 Labs: Laboratory Results - last 24 hr 11/27/23 11:44: POC Glucose 208 H 11/27/23 16:03: POC Glucose 183 H 11/28/23 05:00: WBC 7.8, RBC 3.61 L, Hgb 9.8 L, Hct 29.5 L, MCV 81.7, MCH 27.1, MCHC 33.2, RDW Std Deviation 47.4 H, RDW Coeff of Deion 15.9 H, Plt Count 72 L, MPV 8.9, Immature Gran % (Auto) 0.500, Neut % (Auto) 81.3 H, Lymph % (Auto) 9.6 L, [facility] % (Auto) 7.1, Eos % (Auto) 1.0, Baso % (Auto) 0.5, Absolute Neuts (auto) 6.3, Absolute Lymphs (auto) 0.75 L, Nucleated RBC % 0, Sodium 131 L, Potassium 3.0 L, Chloride 100, Carbon Dioxide 27.0, Anion Gap 4 L, BUN 13, Creatinine 0.61 L, Estim Creat Clear Calc 86.69, Est GFR (MDRD) Af Amer 170, Est GFR (MDRD) Non-Af 140, BUN/Creatinine Ratio 21.3 H, Glucose 133 H, Calcium 8.2 L, Phosphorus 1.8 L, Magnesium 1.4 L 11/28/23 08:31: POC Glucose 130 H Micro: Microbiology 11/25/23 22:28 Urine, Clean Catch Urine Culture - Final Escherichia coli 11/25/23 23:05 Blood Culture (Wb) - Right Forearm Blood Culture - Final Escherichia coli 11/25/23 23:14 Blood Culture (Wb) - Anticubital Left Blood Culture - Preliminary
[2023-11-28] MEDS: Magnesium Sulfate 4gm/100mL 4 GM/100 ML IV.SOLN. IV (12:12)
[2023-11-28] MEDS: Insulin Lispro 100 UNIT/ML INSULN.PEN SC ×2 (12:12→17:34)
[2023-11-28 12:16] LABS: Bedside Glucose 222 mg/dL (74-106)
[2023-11-28 16:51] LABS: Bedside Glucose 222 mg/dL (74-106)
[2023-11-28] MEDS: Atorvastatin Calcium 10 MG Tablet PO (23:04)
[2023-11-28 23:34] LABS: Bedside Glucose 184 mg/dL (74-106)
[2023-11-29 01:51] VITALS: BMI 26.2
[2023-11-29 02:00] VITALS: BP 109/58; PULSE 83; RESP 16; TEMP 36.8; O2SAT 97
[2023-11-29 05:45] VITALS: BP 106/60; PULSE 83; RESP 18; TEMP 36.7; O2SAT 97
[2023-11-29 06:30] LABS: Absolute Lymphocyte Count 1.04 X10^3/uL (0.83-4.51); Absolute Neutrophil Count 4.5 X10^3/uL (2.0-7.7); Basophil# 0.04 X10^3/uL; Basophil% 0.6 % (0-1); Eosinophil# 0.08 X10^3/uL; Eosinophils% 1.3 % (0-5); Hematocrit 30.5 % (40-54); Hemoglobin 10.1 g/dL (13.0-16.5); Lymphocyte # 1.04 X10^3/ul (0.83-4.51); Lymphocyte % 16.5 % (19-41); Mean Corp Hgb Conc 33.1 g/dL (32-36); Mean Corpuscular Hgb 26.9 pg (27.0-32.0); Mean Corpuscular Volume 81.1 fL (80-94); Mean Platelet Vol. 9.7 fl (6.2-12.0); Monocyte% 9.5 % (0-10); NRBC Flagged by Analyzer 0 % (0-5); Neutrophil # 4.52 X10^3/uL (2.7-7.7); Neutrophil % 71.5 % (47-70); Platelet Count 106 K/mm3 (150-450); RBC Distribution Width CV 16.1 % (11.6-14.6); RBC Distribution Width SD 47.3 fl (35.1-43.9); Red Blood Count 3.76 M/mm3 (4.6-6.2); White Blood Count 6.3 K/mm3 (4.4-11.0)
[2023-11-29 06:52] LABS: Anion Gap 4 (5-15); BUN 12 mg/dL (7-18); BUN/Creat Ratio 18.5 RATIO (10-20); Calcium,Total 8.6 mg/dL (8.5-10.1); Chloride 100 mmol/L (98-107); Creatinine, Serum 0.65 mg/dL (0.70-1.30); EST Glomerular Filtration Rate 130 mL/min (>60); Est Glom Filt Rate - Afr Amer 158 mL/min (>60); Estimated Creatinine Clearance 86.69 ml/min; Glucose 133 mg/dL (74-106); Potassium 3.2 mmol/L (3.5-5.1); Sodium Level 131 mmol/L (136-145)
[2023-11-29 06:56] LABS: Bedside Glucose 132 mg/dL (74-106)
[2023-11-29] MEDS: Midodrine HCl 5 MG Tablet 10 MG PO ×2 (07:28→11:01)
[2023-11-29 07:40] VITALS: O2SAT 91
[2023-11-29] MEDS: Cholecalciferol (VIT D3) 25 MCG TABLET (1,000 UNITS) 50 MCG PO (09:18)
[2023-11-29] MEDS: FLUoxetine 20 MG Capsule PO (09:18)
[2023-11-29] MEDS: Ceftriaxone 1 GM/50 ML BAG IV (09:19)
[2023-11-29 09:24] VITALS: BP 104/63; PULSE 80; RESP 16; TEMP 36.8; O2SAT 96
--- NOTE | 2023-11-29 09:25 | PN.HOSP_ITS ---
Reason for Visit Reason for Visit: Diagnoses Sepsis, unspecified organism (11/26/23) Other iron deficiency anemias (11/26/23) Anemia, unspecified (11/26/23) Thrombocytopenia, unspecified (11/26/23) Hypo-osmolality and hyponatremia (11/26/23) Acidosis, unspecified (11/26/23) Hypokalemia (11/26/23) Other chronic pain (11/26/23) Pain in left shoulder (11/26/23) Pain in left hip (11/26/23) Low back pain, unspecified (11/26/23) Rhabdomyolysis (11/26/23) Acute pyelonephritis (11/26/23) Acute kidney failure with tubular necrosis (11/26/23) Acute kidney failure, unspecified (11/26/23) Urinary tract infection, site not specified (11/26/23) Severe sepsis without septic shock (11/26/23) Other specified abnormal findings of blood chemistry (11/26/23) Abnormal electrocardiogram [ECG] [EKG] (11/26/23) Toxic effect of other metals, accidental (unintentional), sequela (11/26/23) Objective Data Objective Data Vital Signs: Vital Signs Temp Pulse Resp BP Pulse Ox O2 Del Method FiO2 98.1 F 83 18 106/60 91 Room Air 45 11/29/23 05:45 11/29/23 05:45 11/29/23 05:45 11/29/23 05:45 11/29/23 07:40 11/29/23 07:49 11/27/23 16:00 Oxygen Delivery Method Room Air Weight: 172 lb 9.951 oz Body Mass Index (BMI) 26.2 Intake & Output: Intake and Output for Last 24 Hours 11/27/23 11/28/23 11/29/23 23:59 23:59 23:59 Intake Total 750 / 750 560 / 920 560 / 560 Output Total 3650 / 3650 2875 / 4325 1999 Balance -2900 / -2900 -2315 / -3405 -1440 / -1440 Medical Nutrition Assessment Dietitian: Malnutrition Criteria Met Start: 11/26/23 10:08 Freq: Status: Active Protocol: Document 11/26/23 10:08 [facility] (Rec: 11/26/23 10:09 SLA [id number]) Nutrition Malnutrition Evidence of Malnutrition Exists Yes Evidenced By Suboptimal Energy Intake ( Severe),Weight Loss (Severe) Clinical Problem Chronic Disease or Condition Related Malnutrition Etiology related to lung/colon cancer and inadequate energy intake Signs/Symptoms as evidenced by pt meeting <50 % of est nutritional needs and unintentional wt loss of 10.4 % in past 6 months Status Active Problem Recommendation Dietitian Recommendations/Changes Continue 1999 carmen diet as ordered Will order 4 oz chocolate glucerna shake 4x/day w/ medpass for increased nutrition if consumed. Lab / Micro Data 11/29/23 05:58 11/29/23 05:58 Labs: Laboratory Results - last 24 hr 11/28/23 05:00: Phosphorus 1.8 L, Magnesium 1.4 L 11/28/23 11:58: POC Glucose 222 H 11/28/23 16:28: POC Glucose 222 H 11/28/23 23:11: POC Glucose 184 H 11/29/23 05:54: POC Glucose 132 H 11/29/23 05:58: WBC 6.3, RBC 3.76 L, Hgb 10.1 L, Hct 30.5 L, MCV 81.1, MCH 26.9 L, MCHC 33.1, RDW Std Deviation 47.3 H, RDW Coeff of Deion 16.1 H, Plt Count 106 L , MPV 9.7, Immature Gran % (Auto) 0.600, Neut % (Auto) 71.5 H, Lymph % (Auto) 16.5 L, [place] % (Auto) 9.5, Eos % (Auto) 1.3, Baso % (Auto) 0.6, Absolute Neuts (auto) 4.5, Absolute Lymphs (auto) 1.04, Nucleated RBC % 0, Sodium 131 L, Potassium 3.2 L, Chloride 100, Carbon Dioxide 27.0, Anion Gap 4 L, BUN 12, Creatinine 0.65 L, Estim Creat Clear Calc 86.69, Est GFR (MDRD) Af Amer 158, Est GFR (MDRD) Non-Af 130, BUN/Creatinine Ratio 18.5, Glucose 133 H, Calcium 8.6 Micro: Microbiology 11/25/23 23:14 Blood Culture (Wb) - Anticubital Left Blood Culture - Final GNR lactose gastroenterology technician 11/25/23 22:28 Urine, Clean Catch Urine Culture - Final Escherichia coli 11/25/23 23:05 Blood Culture (Wb) - Right Forearm Blood Culture - Final Escherichia coli Assessment & Plan Assessment/Plan (1) Sepsis: PLAN: Plan The patient is a 68 y/o M w/ PMHx: Hx Colon CA, NSCL Lung CA following with Dr. Hammer undergoing current chemotherapy with [facility] who presents to the [facility] ED on 11/26/[address] his [address] to the bathroom with left shoulder and left hip discomfort as well as lumbar back pain found on the floor the following morning by his neighbor prompting EMS transition. #1. Acute sepsis secondary to Acute E. Coli pyelonephritis/acute urinary tract infection with associated acute bacteremia presumed E. Coli: Patient with septic criteria with thrombocytopenia, lactic acidosis, tachycardia, tachypnea, received IV fluid bolus 30 cc/kg per body weight, urine and blood culture sent, initially started on IV cefepime and IV vancomycin given recent chemotherapy eventually de-escalated to cefepime and culture with noted E. coli pansensitive thus de-escalated down to Rocephin 11/29/2023, pressure controller consulted during presentation, initiated on midodrine which has also been continued per pressure controller, ID consulted, will request repeat Bld Cx x 2 to assure cleared. PT/OT/CM for discharge planning. #2. Acute kidney injury: Secondary to acute presentation with dehydration and rhabdomyolysis. Admission creatinine 1.39, prior baseline creatinine noted to be 0.7. Likely related to his sepsis and dehydration, maintain on IV fluids, hold nephrotoxic regimen, 11/29/2023 BUN/creatinine 12/0.65, improved, resolved, continue to trend. #3. Elevated troponin of unclear significance with initial abnormal EKG, NSTEMI, demand related, felt releated to #1, #2 per Cardiology: Upon presentation EKG with somewhat diffuse ST segment depression with no associated chest discomfort, initial troponin 38 with repeat delta 161 suspected secondary to demand, held off on aspirin secondary to thrombocytopenia, echocardiogram 11/26/2023 with EF 50%, regional wall motion abnormalities noted, mild TVI, aortic sclerosis with no stenosis. Cardiology consulted, with recommended conservative approach, continued monitoring, felt secondary to his acute presentation with no concern for cardiac etiology. #4. Rhabdomyolysis: Mild CK elevation just over 1999, CK cycled, aggressively hydrated, urine output monitor, clinically improved, 11/25/2023 initial 2040--> 11/26/20231954. Currently resolved. #5. Acute hyponatremia, suspected hypovolemic: Possibly also component of underlying lung cancer, admission sodium 125, baseline 134-136, hydrated also in the setting of rhabdomyolysis, continue to trend CMP. 11/29/2023 BMP with sodium 131, continue to trend. #6. Anemia, AOCD, new appearance, possibly related to chemotherapy: Given new appearance guaiac and iron studies obtained, admission hemoglobin 10.6, has re mained primarily stable between 9 and 10, 11/29/2023 hemoglobin 10.1, iron low 25, TIBC low normal 250, iron saturation low 10, ferritin elevated 752 consistent with component of anemia of chronic disease, continue to trend CBC. #7. Thrombocytopenia, acute on chronic: Markedly lower than baseline, possibly chemotherapy as well as sepsis related, most recent platelets 08/24/23 290, held off on chemoprophylaxis given this finding, decreased 11/27/2023 down to 46, most recent repeat 03/17 106, continue to trend. #8. Mechanical fall with acute on chronic back pain, left shoulder pain, left h ip pain: Plain films obtained in the ED with no obvious acute fractures, continue pain regimen as needed, bowel regimen, offloading, positional changes, PT/OT/case management consulted for discharge planning. #9. Hypokalemia: Admission K+ 3.4, magnesium level obtained and supplemented, supplementation given, continue to trend, 11/29/2019 4 repeat K3.2, supplement further and add routine daily regimen. #10. Non-small cell lung cancer: Pathology favored squamous cell carcinoma, planned neoadjuvant chemotherapy and possible resection in the future, following with Dr. Hammer oncology as well as Dr. Tovar radiation oncology, from discussion with family upon presentation reportedly had decided against radiation, encourage continued outpatient follow-up. #11. History of colon cancer: Status post hemicolectomy 01/[address] Amaya, pathologic stage 0, considered curative, encourage continued outpatient follow-up. #12. Diabetes mellitus type II: Hold oral home regimen, ADA diet, accu checks w/ ISS. #13. Hypertension: Noted history, not on regimen, BP low normal, continue to trend. #14. Hyperlipidemia: We will continue patient home statin therapy. 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 #16. Depression and anxiety: Continue patient home fluoxetine regimen. #17. Former tobacco use: Encourage continue tobacco cessation. #18. DVT prophylaxis: Given thrombocytopenia worsened, held chemoprophylaxis. #19. CODE status: DRN-CCA, no intubation status.
[2023-11-29 09:57] LABS: Magnesium 1.9 mg/dL (1.6-2.6); Phosphorus 2.4 mg/dL (2.5-4.9)
[2023-11-29] MEDS: Potassium Chloride Oral Tablet 20 MEQ 40 MEQ PO (11:01)
[2023-11-29] MEDS: Insulin Lispro 100 UNIT/ML INSULN.PEN SC (11:03)
[2023-11-29 12:47] LABS: Bedside Glucose 168 mg/dL (74-106)
--- NOTE | 2023-11-29 14:23 | CHAPLAIN ---
Type of Pastoral Visit _x__ Initial Visit ___ Follow-up Visit ___ On-call Visit ___ General Patient Visit ___ Spiritual Assessment ___ Family Conference ___ Bereavement ___ Rapid Response ___ Code Blue ___ Other (describe below) Pastoral Care Referral From _x__ Patient ___ Family ___ Nurse ___ Physician ___ Dish Maker ___ Harness Builder ___ Other (describe below) Sacrament/Intervention _x__ Active listening ___ Anointing ___ Oriental Orthodox ___ Bereavement ___ Communion ___ Dawn exploration ___ ___ Life review _x__ Prayer ___ Reconciliation ___ Sacrament of Sick _x__ Supportive presence ___ Wedding ___ Other (describe below) Pastoral Comments patient is welcoming and invites this spreading machine operator to have a conversation; pt speaks of his experience so far in the hospital and his difficulty with urination; pt has hopes for removal of cathater; pt goal is to get home where I can sleep and snuggle with my cat ; pt responds to offers of spiritual care support with a request for prayers;
[2023-11-29 15:00] VITALS: BP 114/62; PULSE 80; RESP 16; TEMP 36.9; O2SAT 98
[2023-11-29] MEDS: Sodium Phosphate/Na Biphos 21 MMOL in 0.9% Normal Saline (250mL Bag) 250 ML 84 MMOL IV (15:00)
[2023-11-29] MEDS: Glucerna Shake 120 ML LIQUID PO (15:01)
--- NOTE | 2023-11-29 15:02 | CASEMGMT ---
MEGAN CM to pt room regarding DC needs. Pt states he is getting around good now and that he does not need home health or outpt therapy. Pt states that he does not have a ride today and this RN CM calls [facility] transportation and they state they can take the the pt at 1530. [facility] transportation/ Marketing state they can take the pt through the [facility] [employer] drive-thru. Dr. Bonilla updated and is agreeable with this plan. Pt states that he feels safe and comfortable being DC home at this time and denies further needs.
--- NOTE | 2023-11-29 15:10 | CASEMGMT ---
TC to pharmacy, spoke with [facility], he states he can have pt meds ready by 3:30pm if the hospital van can bring pt through the drive through to get them.
--- NOTE | 2023-11-29 15:13 | PCM.DC.SUM ---
Providers Date of Admission: 11/26/23 Date of Discharge: 11/29/23 Primary Care Physician: Dr. Xena Arroyo MD Consultations 11/26/23 05:29 Consult: Cardiology Routine Consulting Provider: Michelle Rhodes Reason for Consult: NSTEMI EMERGENT Consult: No Notified: Yes Date Notified: 11/26/23 Time Notified: 05:31 Method of Notification: ED Physician Initiated 11/29/23 09:22 Consult: Infectious Disease Routine Consulting Provider: Gaurang Dorsey Reason for Consult: Compliated UTI, bacteremia EMERGENT Consult: No Notified: Yes Date Notified: 11/29/23 Time Notified: 09:39 Method of Notification: Text Reason For Visit: SEPSIS 2/2 UTI & PYLEONEPHRITIS Diagnosis Discharge Diagnosis (1) Sepsis: Status: Acute Code(s): A41.9 - Sepsis, unspecified organism Plan: Discharge Diagnosis: #1. Acute pyelonephritis and complicated urinary tract system/ureteritis with associated blood infection of the same organism (E Coli) with associated urinary retention requiring replacement of Long catheter: #2. Acute kidney injury secondary to #1 #3. Infrarenal abdominal aortic aneurysm #4. Elevated troponin of unclear significance with initial abnormal EKG, NSTEMI, demand related, felt releated to #1, #2 per Cardiology #5. Anemia, AOCD, new appearance, possibly related to chemotherapy #6. Thrombocytopenia, acute on chronic, chemotherapy related possibly and #1 #7. Mechanical fall with acute on chronic back pain, left shoulder pain, left hip pain #8. Non-small cell lung cancer #11. History of colon cancer #12. Diabetes mellitus type II #13. Hypertension #14. 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 Depression and anxiety #17. Former tobacco use #18. CODE status: DRN-CCA, no intubation status. Medications at Discharge Home Medications atorvastatin 10 mg tablet 10 mg PO QHS CHOLESTEROL 06/20/21 fluoxetine 20 mg capsule 20 mg PO DAILY DEPRESSION 06/20/21 lisinopril 5 mg tablet 5 mg PO DAILY BP 06/20/21 metformin 1,000 mg tablet 1,000 mg PO BID DIABETES 06/20/21 cholecalciferol (vitamin D3) 25 mcg (1,000 unit) capsule 50 mcg PO DAILY SUPPLEMENT 01/12/23 cephalexin 500 mg capsule 500 mg PO TID 21 days #63 caps 11/29/23 midodrine 5 mg tablet 10 mg (2 x 5 mg) PO TIDCM 30 days #180 tabs 11/29/23 potassium chloride 20 mEq tablet,extended release(part/cryst) 20 meq PO BIDCM 14 days #28 tabs 11/29/23 potassium, sodium phosphates 280 mg-160 mg-250 mg oral powder packet 1 packet PO TID 5 days #15 ea 11/29/23 tamsulosin 0.4 mg capsule (Flomax) 0.4 mg PO QHS #30 caps 11/29/23 Hospital Course Operations None Procedures 2-D Echocardiogram and EKG Summary of Care Provided Minutes Spent on Discharge: 35 Hospital Course: The patient is a 68 y/o M w/ PMHx: Hx Colon CA, NSCL Lung CA following with Dr. Hammer undergoing current chemotherapy with [facility] who presented to the [facility] ED on 11/26/[address] his [address] to the bathroom with left shoulder and left hip discomfort as well as lumbar back pain found on the floor the following morning by his neighbor prompting EMS transition. ED evaluation notable for sepsis presentation. Patient admitted with acute sepsis secondary to Acute E. Coli pyelonephritis/acute urinary tract infection with associated acute bacteremia presumed E. Coli with septic criteria notable for thrombocytopenia, lactic acidosis, tachycardia, tachypnea, received IV fluid bolus 30 cc/kg per body weight, urine and blood culture sent, initially started on IV cefepime and IV vancomycin given recent chemotherapy eventually de-escalated to cefepime and culture with noted E. coli pansensitive thus de-escalated down to Rocephin 11/29/2023, instrument repair technician consulted during presentation, initiated on midodrine which has also been continued per instrument repair technician, ID consulted and recommended discharge on 7 additional days of oral keflex regimen. Patient with continued retention issues with long catheter replaced and patient started on flomax with planned continuation at discharge with urology follow-up. Patient with DAVID secondary to infection and retention as noted, admission creatinine 1.39, prior baseline creatinine noted to be 0.7. Likely related to his sepsis and dehydration, maintain on IV fluids, hold nephrotoxic regimen, 11/29/2023 BUN/creatinine 12/0.65, improved. During admission CT obtained in the ED with noted unchanged infrarenal abdominal aortic aneurysm measuring 3.4 x 3.2 cm. Recommended continued close monitoring and vascular surgery referral also given. Upon presentation EKG with somewhat diffuse ST segment depression with no associated chest discomfort, initial troponin 38 with repeat delta 161 suspected secondary to demand, held off on aspirin secondary to thrombocytopenia, echocardiogram 11/26/2023 with EF 50%, regional wall motion abnormalities noted, mild TVI, aortic sclerosis with no stenosis. Cardiology consulted, with recommended conservative approach, continued monitoring, felt secondary to his acute presentation with no concern for cardiac etiology. Mild CK elevation just over 1999, CK cycled, aggressively hydrated, urine output monitor, clinically improved, 11/25/2023 initial 2040--> 11/26/20231954 with clinical improvement. Presentation with acute hyponatremia, suspected hypovolemic, also component of underlying lung cancer possibly, admission sodium 125, baseline 134-136, hydrated also in the setting of rhabdomyolysis, continue to trend CMP. 11/29/2023 BMP with sodium 131, improved. Patient with noted anemia, AOCD, new appearance, possibly related to chemotherapy with iron studies obtained, admission hemoglobin 10.6, has remained primarily stable between 9 and 10, 11/29/2023 hemoglobin 10.1, iron low 25, TIBC low normal 250, iron saturation low 10, ferritin elevated 752 consistent with component of anemia of chronic disease. Patient with acute on chronic thrombocytopenia, markedly lower than baseline, possibly chemotherapy as well as sepsis related, most recent platelets 08/24/23 290, held off on chemoprophylaxis given this finding, decreased 11/27/2023 down to 46, most recent repeat 11/29/23 106. Presentation with mechanical fall with acute on chronic back pain, left shoulder pain, left hip pain w/ plain films obtained in the ED with no obvious acute fractures, continue pain regimen as needed, bowel regimen, offloading, positional changes, PT/OT/case management consulted for discharge planning with home therapies offered but declined by patient. Given patient clinical improvement, stable labs, per discussion with ID discharge to home with follow-up with PCP, Urology, Cardiology, Vascular surgery as noted. DAY OF DISCHARGE PROGRESS NOTE: Subjective: Patient without acute event overnight per self and nursing report. Patient denies fever, chills, nausea, emesis, abdominal pain, chest pain or dyspnea. Patient agreeable to discharge to home. Home health therapies offered however he declined. Patient will be discharged with follow-up with primary care physician within 3-5 days in addition to offer of follow-up with vascular surgery given ongoing aneurysm however per his discretion however recommended urology follow-up given urinary retention with Long catheter in place as well as cardiology for reevaluation. Objective: T98.4, heart rate 80, BP 114/62, respiratory rate 16, 90% on room air. Physical Examination: General: awake, alert, oriented x 3 and cooperative, seated upright in the bedside chair, no acute distress, notes feeling improved. Skin:/Marlow hue to his skin, normal turgor, no icterus, no cyanosis. HEENT: AT/NC, EOMI, PERRLA, MMM. Lungs: CTA bilaterally, moderate effort, mild decrease BL bases, no rales, ronchi or wheezing; Heart: Regular rate and rhythm; no gallop, rub audible. Abdomen: soft, NTTP, ND, normal BS. Extremities: no cyanosis, clubbing, or edema. Neurological: patient awake, alert, oriented x 3; cognitive function appears intact upon questioning,; pupils equally reactive to light and accomodation; cranial nerves II-XII grossly normal, moving all 4 extremities, strength improved, mildly to moderately globally decreased. Psychiatric: affect appears normal, no acute evidence of depressive or anxiety feelings. Assessment and Plan: Please see hospital summary above. Medical Records Data Medical Nutrition Assessment Dietitian: Malnutrition Criteria Met Start: 11/26/23 10:08 Freq: Status: Active Protocol: Document 11/26/23 10:08 [facility] (Rec: 11/26/23 10:09 [facility] [id number]) Nutrition Malnutrition Evidence of Malnutrition Exists Yes Evidenced By Suboptimal Energy Intake ( Severe),Weight Loss (Severe) Clinical Problem Chronic Disease or Condition Related Malnutrition Etiology related to lung/colon cancer and inadequate energy intake Signs/Symptoms as evidenced by pt meeting <50 % of est nutritional needs and unintentional wt loss of 10.4 % in past 6 months Status Active Problem Recommendation Dietitian Recommendations/Changes Continue 1999 carmen diet as ordered Will order 4 oz chocolate glucerna shake 4x/day w/ medpass for increased nutrition if consumed. Weight / BMI Weight Weight: 172 lb 9.951 oz Body Mass Index (BMI) 26.2 ABG / Lab / Microbiology Data 11/29/23 05:58 11/29/23 05:58 Laboratory: Laboratory Results - last 24 hr 11/28/23 16:28: POC Glucose 222 H 11/28/23 23:11: POC Glucose 184 H 11/29/23 05:54: POC Glucose 132 H 11/29/23 05:58: WBC 6.3, RBC 3.76 L, Hgb 10.1 L, Hct 30.5 L, MCV 81.1, MCH 26.9 L, MCHC 33.1, RDW Std Deviation 47.3 H, RDW Coeff of Deion 16.1 H, Plt Count 106 L, MPV 9.7, Immature Gran % (Auto) 0.600, Neut % (Auto) 71.5 H, Lymph % (Auto) 16.5 L, [place] % (Auto) 9.5, Eos % (Auto) 1.3, Baso % (Auto) 0.6, Absolute Neuts (auto) 4.5, Absolute Lymphs (auto) 1.04, Nucleated RBC % 0, Sodium 131 L, Potassium 3.2 L, Chloride 100, Carbon Dioxide 27.0, Anion Gap 4 L, BUN 12, Creatinine 0.65 L, Estim Creat Clear Calc 86.69, Est GFR (MDRD) Af Amer 158, Est GFR (MDRD) Non-Af 130, BUN/Creatinine Ratio 18.5, Glucose 133 H, Calcium 8.6, Phosphorus 2.4 L, Magnesium 1.9 11/29/23 11:03: POC Glucose 168 H Microbiology: Microbiology 11/25/23 23:14 Blood Culture (Wb) - Anticubital Left Blood Culture - Final GNR lactose parent educator 11/25/23 22:28 Urine, Clean Catch Urine Culture - Final Escherichia coli 11/25/23 23:05 Blood Culture (Wb) - Right Forearm Blood Culture - Final Escherichia coli D/C Instructions Discharge Diet: 1800 Calorie Control Diet May resume sexual activity in: - (Not until cleared per Urology.) Weight Bearing Status: Weight bearing as tolerated Call your doctor if you observe: Fever of 101 or Higher, Numbness or Tingling, Inability to urinate, Shortness of breath, Dizziness, Chest pain, Increased palpitations (irregular heartbeat), Calf discomfort and Uncontrolled pain Catheter: Long to leg bag Meaningful Use Info Meaningful Use Diagnoses (Choose all that apply): AMI AMI/Post PCI/Angioplasty Aspirin given w/in 24hrs of arrival?: No Reason no aspirin w/in 24hrs of arrival?: Thrombocytopenia. ASA at discharge?: No Reason ASA not ordered:: Allergy (Thrombocytopenia) Statins at discharge?: Yes Salo/ARB at discharge?: Yes Beta Brianda at discharge?: No Reason Beta Brianda not ordered:: Hypotension Done w/ Acute SC measure.: Yes Documented LVEF (%): 50 Discharge Plan Admission Admit Date/Time: 11/26/23 01:50 Primary Reason for Your Visit: Sepsis, Kidney infection/urinary infection, DAVID, Anemia, Electrolyte issues Attending Provider: Rachael Bonilla Primary Care Provider: Xena Arroyo Consulting Providers: Indiana Tovar; Michelle Rhodes; Prashant Yang; Gaurang Dorsey Instructions Patient Instructions: AAA, Urinary Tract Infections in Men, ED Long Catheter, Care, ED Urinary Retention, Male, ED Pyelonephritis, Male (Adult) Additional Instructions / Restrictions: Infection in the kidney and urinary tract system with associated blood infection of the same organism (E Coli) with associated urinary retention requiring replacement of Long catheter: Asked with infectious disease and based on your cultures you will be discharged home on 1 week of additional oral Keflex antibiotic therapy. During the admission you did have evidence of urinary retention and required Long catheter placement. Please continue this with continued Long catheter care with plan follow-up with urology in 1 week for reassessment. We have also added Flomax therapy to assist in being able to de-escalate the catheter and this should be continued until evaluated by urology. Acute kidney injury: During the admission secondary to your acute illness he did have acute kidney injury however this is resolved and is back to her baseline but we recommend follow-up repeat basic metabolic panel with your primary care physician at follow-up. Infrarenal abdominal aortic aneurysm: Admission CT abdomen pelvis with also noted unchanged infrarenal abdominal aortic aneurysm measuring 3.4 x 3.2 cm. We have given you a name of a local vascular surgeon for to have this monitored by vascular surgeon but at this time he certainly could continue to monitor with your primary care physician. Elevated troponin of unclear significance with initial abnormal EKG, NSTEMI, demand related, felt releated to #1, #2 per Cardiology: During admission there were EKG changes initially and troponin was mildly increased felt secondary to demand with your acute illness. Cardiology was involved and echocardiogram was obtained 11/26/2023 with EF 50%, regional wall motion abnormalities noted, mild TVI, aortic sclerosis with no stenosis. Cardiology consulted, with recommended conservative approach, and was held secondary to low platelets but in the future if repeat CBC outpatient with her primary care normalizes may consider adding aspirin therapy. Follow-up information for cardiology for reassessment outpatient once acute illness has resolved. Anemia, AOCD, new appearance, possibly related to chemotherapy: Admission hemoglobin 10.6, has remained primarily stable between 9 and 10, 11/29/2023 hemoglobin 10.1, iron low 25, TIBC low normal 250, iron saturation low 10, ferritin elevated 752 consistent with component of anemia of chronic disease. [place] level stabilized therefore we recommend follow-up with your primary care physician with repeat CBC outpatient to assure it does not further decrease. 11/29/23 Hgb 10.1. Discharge Orders/Prescriptions Prescriptions: New midodrine 5 mg Tablet 10 mg PO TIDCM 30 Days Qty: 180 0RF potassium chloride 20 mEq Tablet,Er Particles/Crystals 20 meq PO BIDCM 14 Days Qty: 28 0RF cephalexin 500 mg capsule 500 mg PO TID 21 Days Qty: 63 0RF tamsulosin [Flomax] 0.4 mg capsule 0.4 mg PO QHS Qty: 30 0RF potassium, sodium phosphates 280-160-250 mg Powder In Packet 1 packet PO TID 5 Days Qty: 15 0RF Continued cholecalciferol (vitamin D3) 25 mcg (1,000 unit) capsule 50 mcg PO DAILY atorvastatin 10 mg tablet 10 mg PO QHS metformin 1,000 mg tablet 1,000 mg PO BID Patient Comments: take 1 tablet by mouth twice a day fluoxetine 20 mg capsule 20 mg PO DAILY Patient Comments: take 1 capsule by mouth every morning Held lisinopril 5 mg tablet 5 mg PO DAILY Hold Instructions: Resume on 12/06/23. Please continue to home as BP low normal range. Please have in office PCP repeat blood pressure check and if appropriate then may consider resuming at that time. Patient Comments: take 1 tablet by mouth once daily Referrals / Follow Up: Cm Hodge MD [Med Staff - Active Staff] - (Please follow-up with next open visit for incidentally noted infrarenal abdominal aortic aneurysm which is unchanged or you may continue with your primary care physician alone to continue to monitor.) Michelle Rhodes MD [Med Staff - Active Staff] - (Please follow-up with Cardiology, may see Cardiology COUPON CLERK in follow-up to review admission, consider start ASA as was held secondary to platlets being low.) Xena Arroyo MD [Primary Care Provider] - (Follow-up within 3-5 days to review admission. Please have repeat CBC, BMP with your primary care at follow-up.) Dion Moraes MD [Med Staff - Active Staff] - (Follow-up in 1 week to be re-evaluated. Continue long catheter until follow-up.) Gaurang Dorsey MD [Med Staff - Active Staff] - (May follow-up as needed with Infectious disease or call the office with concerns regarding your infection.) Disposition Disposition (needs filled in before D/C Order can be placed): Home Health Service Charges/Coding Visit Charges Inpatient E&M: 46916 Disch Hosp >30min
--- NOTE | 2023-11-29 15:26 | PHA.DC_ITS ---
Pharmacy [facility] has performed discharge medication reconciliation and counseling for this patient. The patient's discharge medication list was reviewed for discrepancies and discrepancies were resolved. The patient was counseled on the following discharge medications and changes in medications for homegoing were reviewed. The Reason for Use, instructions for use, and potential side effects were reviewed for all new medications. The patient's questions regarding all of their medications were answered. 1. Midodrine 10 mg PO TID with meals 2. Cephalexin 500 mg PO TID X 21 days 3. Potassium chloride 20 mEq PO BID x 7 days 4. Potassium phosphate TID x 5 days 5. Tamsulosin 0.4 mg PO QHS The patient was able to verbally demonstrate an understanding of their discharge medications. The patient was counselled on new medications by pharmacy clinical coordinator Earl. Medications at Discharge Home Medications atorvastatin 10 mg tablet 10 mg PO QHS CHOLESTEROL 06/20/21 fluoxetine 20 mg capsule 20 mg PO DAILY DEPRESSION 06/20/21 lisinopril 5 mg tablet 5 mg PO DAILY BP 06/20/21 metformin 1,000 mg tablet 1,000 mg PO BID DIABETES 06/20/21 cholecalciferol (vitamin D3) 25 mcg (1,000 unit) capsule 50 mcg PO DAILY SUPPLEMENT 01/12/23 cephalexin 500 mg capsule 500 mg PO TID 21 days #63 caps 11/29/23 midodrine 5 mg tablet 10 mg (2 x 5 mg) PO TIDCM 30 days #180 tabs 11/29/23 potassium chloride 20 mEq tablet,extended release(part/cryst) 20 meq PO BIDCM 14 days #28 tabs 11/29/23 potassium, sodium phosphates 280 mg-160 mg-250 mg oral powder packet 1 packet PO TID 5 days #15 ea 11/29/23 tamsulosin 0.4 mg capsule (Flomax) 0.4 mg PO QHS #30 caps 11/29/23
--- NOTE | 2023-11-29 19:41 | CON.PCM.ID_ITS ---
Assessment & Plan Assessment/Plan (1) Acute pyelonephritis: (2) Sepsis: PLAN: Much improved. Bcx x2 with ecoli. Ok for home with one week keflex. Will follow as needed, thank you, d/w primary team (3) Argyria of skin: QUALIFIERS: Encounter type: sequela Injury intent: accidental or unintentional Qualified Code(s): T56.891S - Toxic effect of other metals, accidental (unintentional), sequela HPI Consult Data Date of Consult: 11/29/23 HPI Narrative Reason for Consultation: bacteremia HPI Narrative: LEI VALDEZ, is a 68 M who presented 11/25/23 to the ED with weakness s/p fall at home, found down on the ground. Came to ED, had some retention and dysuria with fever. Bcx x2 (+) ecoli, abx narrowed from cefepime to ceftriaxone. Feeling better this AM. Out of icu, wants to go home. Full ROS performed and neg except as noted above. PFSH Medical History Anxiety Argyria Argyria of skin Arthritis Back pain Cancer Colon cancer Depression Diabetes Dietary restriction High cholesterol History of pain when walking History of stress test HTN (hypertension) Hyperlipidemia Injury of back Lung cancer Numbness and tingling of hand Positive colorectal cancer screening using Cologuard test Shortness of breath on exertion Smoker Home Medications atorvastatin 10 mg tablet 10 mg PO QHS CHOLESTEROL 06/20/21 [History Last Taken 02/02/23] fluoxetine 20 mg capsule 20 mg PO DAILY DEPRESSION 06/20/21 [History Last Taken 02/02/23] lisinopril 5 mg tablet 5 mg PO DAILY BP 06/20/21 [History Last Taken 02/02/23] metformin 1,000 mg tablet 1,000 mg PO BID DIABETES 06/20/21 [History Last Taken 02/02/23] cholecalciferol (vitamin D3) 25 mcg (1,000 unit) capsule 50 mcg PO DAILY SUPPLEMENT 01/12/23 [History Last Taken 02/02/23] cephalexin 500 mg capsule 500 mg PO TID 21 days #63 caps 11/29/23 [Rx Last Taken Unknown] midodrine 5 mg tablet 10 mg (2 x 5 mg) PO TIDCM 30 days #180 tabs 11/29/23 [Rx Last Taken Unknown] potassium chloride 20 mEq tablet,extended release(part/cryst) 20 meq PO BIDCM 14 days #28 tabs 11/29/23 [Rx Last Taken Unknown] potassium, sodium phosphates 280 mg-160 mg-250 mg oral powder packet 1 packet PO TID 5 days #15 ea 11/29/23 [Rx Last Taken Unknown] tamsulosin 0.4 mg capsule (Flomax) 0.4 mg PO QHS #30 caps 11/29/23 [Rx Last Taken Unknown] Allergy/AdvReac Type Severity Reaction Status Date / Time No Known Allergies Allergy Verified 09/24/23 09:37 Family History Mother Diabetes Heart disease Father Myocardial infarction Sister Pancreatic cancer Brother Bladder cancer Surgical History History of cardiac catheterization History of laparoscopic cholecystectomy Hx of clubfoot correction Hx of colonoscopy with polypectomy Hx of foot surgery Hx of surgical procedure Social History household members: none current occupational status: retired current occupational exposures/hazards: No history of recent travel: No Smoking Status: Former smoker Tobacco: How many years used: 40 second hand exposure: Yes alcohol intake: never substance use type: does not use diet: diabetic Physical Exam Const alert, oriented x3 and no apparent distress General Appearance: cooperative HEENT normocephalic and head/scalp atraumatic Eyes PERRL and EOMs intact bilaterally Neck supple and No nodes Resp normal air movement and clear to auscultation bilaterally Cardio regular rate and regular rhythm GI soft to palpation, non-tender and non-distended Extremity General Extremity: Negative for edema Skin no rashes or lesions noted Skin Narrative: Blue-newsome skin. Neuro CN's II-XII intact bilaterally Lab / Micro Data Attestation: I reviewed the patient's lab results. 11/29/23 05:58 11/29/23 05:58 Labs: Laboratory Results - last 24 hr 11/28/23 23:11: POC Glucose 184 H 11/29/23 05:54: POC Glucose 132 H 11/29/23 05:58: WBC 6.3, RBC 3.76 L, Hgb 10.1 L, Hct 30.5 L, MCV 81.1, MCH 26.9 L, MCHC 33.1, RDW Std Deviation 47.3 H, RDW Coeff of Deion 16.1 H, Plt Count 106 L , MPV 9.7, Immature Gran % (Auto) 0.600, Neut % (Auto) 71.5 H, Lymph % (Auto) 16.5 L, [place] % (Auto) 9.5, Eos % (Auto) 1.3, Baso % (Auto) 0.6, Absolute Neuts (auto) 4.5, Absolute Lymphs (auto) 1.04, Nucleated RBC % 0, Sodium 131 L, Potas sium 3.2 L, Chloride 100, Carbon Dioxide 27.0, Anion Gap 4 L, BUN 12, Creatinine 0.65 L, Estim Creat Clear Calc 86.69, Est GFR (MDRD) Af Amer 158, Est GFR (MDRD) Non-Af 130, BUN/Creatinine Ratio 18.5, Glucose 133 H, Calcium 8.6, Phosphorus 2.4 L, Magnesium 1.9 11/29/23 11:03: POC Glucose 168 H
[2023-11-30 09:59] LABS: Pathologist Review Reviewed
--- NOTE | 2023-12-01 14:30 | CASEMGMT ---
Discharge Planning Call received from a home health aide w/[facility] with patient on speaker. Aide states that patient was kicked out of the hospital and needs snf placement. Through review of the chart, patient declined snf placement as well as HH and out-pt therapy. Call was placed to TCU to see if patient could admit from home. TCU unable to admit. Call placed to patient with this information and with suggestion to call his PCP. He stated that he would come to the ER. Dorothea Servin, Discharge Planning Asst.
== END 2023-11-29 15:39 | disposition home health service (06) | DRG 871 ==
LOC: ED 11-26 01:23 → ICU 11-26 02:58 → PCU 11-28 14:03
PROVIDERS: Family Medicine; Admitting Provider Internal Medicine; Emergency Provider Emergency Medicine; PCP Family Medicine; Visit Provider Family Medicine
DX: A41.51 Sepsis due to Escherichia coli [E. coli] (principal); N17.0 Acute kidney failure with tubular necrosis; E43 Unspecified severe protein-calorie malnutrition; E87.20 Acidosis, unspecified; E87.1 Hypo-osmolality and hyponatremia; M62.82 Rhabdomyolysis; C34.90 Malignant neoplasm of unspecified part of unspecified bronchus or lung; N10 Acute pyelonephritis; N39.0 Urinary tract infection, site not specified; D69.6 Thrombocytopenia, unspecified; E83.39 Other disorders of phosphorus metabolism; E11.9 Type 2 diabetes mellitus without complications; R65.20 Severe sepsis without septic shock; I71.43 Infrarenal abdominal aortic aneurysm, without rupture; I10 Essential (primary) hypertension; F32.A Depression, unspecified; D50.8 Other iron deficiency anemias; E87.6 Hypokalemia; M25.512 Pain in left shoulder; E78.00 Pure hypercholesterolemia, unspecified; M25.552 Pain in left hip; E83.42 Hypomagnesemia; F41.9 Anxiety disorder, unspecified; M54.50 Low back pain, unspecified; T56.891S Toxic effect of other metals, accidental (unintentional), sequela; N16 Renal tubulo-interstitial disorders in diseases classified elsewhere; G89.29 Other chronic pain; B96.20 Unspecified Escherichia coli [E. coli] as the cause of diseases classified elsewhere; Z79.84 Long term (current) use of oral hypoglycemic drugs; Z79.899 Other long term (current) drug therapy; Z87.891 Personal history of nicotine dependence; Z66 Do not resuscitate; Z68.26 Body mass index [BMI] 26.0-26.9, adult
CPT/HCPCS: 36415; 71045; 73030; 73502; 74177; 80048; 80061; 80076; 81001; 82550; 82728; 82962; 83540; 83550; 83605; 83735; 84100; 84443; 84484; 85025; 85610; 85730; 87040; 87077; 87086; 87088; 87186; 93005; 93306; 94668; 94762; 97110; 97162; 97166; 97530; 97535; 97802; 99252; 99284; 99406; J7030; J7040; J7050; Q9957; Q9967; A4216; C8929; G0463

== ENCOUNTER 2023-12-02 19:18 | Emergency (ER) | payer MEDICARE, MEDICAID, SELFPAY ==
[2023-12-02 19:19] VITALS: BP 107/64; PULSE 85; RESP 18; TEMP 36.4; O2SAT 97
--- OUTSIDE RECORDS SUMMARY | 2023-12-02 19:50 | XMS RPT_ITS | CCD ---
Author Name Unknown Address [address] [place] [address] Organization [facility] Care Team Providers Care Referral Nurse Name Role Phone Xena Arroyo Primary Care Provider [phone] SELF, SELF Referring Unavailable SELF, SELF Referring Unavailable Xena Arroyo MD Primary Care Provider Akbar Barron Unavailable Guy PERDOMO MD, Daesung Unavailable JOSSUE CARDONA Attending Unavailable MIEDEL, XENA E Primary Care Unavailable NATALIE VACA Attending Unavailable MIEDEL, XENA E Primary Care Unavailable KARISHMA LEDESMA Attending Unavail able KARISHMA LEDESMA Admitting Unavail able MIEDEL, XENA E Primary Care Unavailable KARISHMA LEDESMA Referring Unavail able Jorge Sharma MD Unavailable Jimmy GUZMAN, Lee Ann Unavailable JOSSUE CARDONA TREVOR Referring Unavaila ble MIEDEL, XENA E Primary Care Unavailable KARISHMA LEDESMA Attending Unavail able MIEDEL, XENA E Primary Care Unavailable MIEDEL, XENA E Primary Care Unavailable NATALIE VACA Referring Unavailable MIEDEL, XENA E Primary Care Unavailable JORGE SHARMA Referring Unavailable MIEDEL, XENA E Primary Care Unavailable JROGE SHARMA Referring Unavailable MIEDEL, XENA E Primary Care Unavailable JORGE SHARMA Referring Unavailable MIEDEL, XENA E Primary Care Unavailable JORGE SHARMA Referring Unavailable MIEDEL, XENA E Primary Care Unavailable JORGE SHARMA Referring Unavailable MIEDEL, XENA E Primary Care Unavailable GUILHERME NORRIS Referring Unavailable JORGE SHARMA Attending Unavailable MIEDEL, XENA E Primary Care Unavailable GUILHERME NORRIS Attending Unavailable OJSSUE CARDONA Referring Unavaila ble MIEDEL, XENA E Primary Care Unavailable JOSSUE CARDONA Referring Unavaila ble MIEDEL, XENA E Primary Care Unavailable Medications Current Medications Medication [...] Onset: 08-10-2023 Chronic Cancer of bronchus; lung (19 sources) Malignant neoplasm of unspecified part of unspecified bronchus or lung; Translations: [Primary malignant neoplasm of left upper lobe of lung] Onset: 04-04-2023 Chronic Cancer of colon (2 sources) History [...] left popliteal artery; Translations: [Unspecified atherosclerosis of [place] arteries of extremities, left leg] Onset: 08-10-2023 [...] Date Time Vital Sign Value Performing Clinician Faci lity 10-07-2023 13:35-0500 Body temperature 97.11 [degF] Guilherme Norris MD, MD Work Phone: [facility] 10-07-2023 13:35-0500 Body weight 80.74 kg Guilherme Norris MD, MD Work Phone: [facility] 10-07-2023 13:35-0500 Diastolic blood pressure 67 mm[Hg] Guilherme Norris MD, MD Work Phone: [facility] 10-07-2023 13:35-0500 Heart rate 93 /min Guilherme Norris MD, MD Work Phone: [facility] 10-07-2023 13:35-0500 Respiratory rate 16 /min Guilherme Norris MD, MD Work Phone: [facility] 10-07-2023 13:35-0500 SaO2% (BldA) [Mass fraction] 100 % Guilherme Norris MD, MD Work Phone: [facility] 10-07-2023 13:35-0500 Systolic blood pressure 102 mm[Hg] Guilherme Norris MD, MD Work Phone: [facility] 09-29-2023 16:35-0500 Diastolic blood pressure 72 mm[Hg] Karishma Ledesma MD Work Phone: [facility] 09-29-2023 16:35-0500 Heart rate 89 /min Karishma Ledesma MD Work Phone: [facility] 09-29-2023 16:35-0500 Respiratory rate 26 /min Karishma Ledesma MD Work Phone: [facility] 09-29-2023 16:35-0500 SaO2% (BldA) [Mass fraction] 96 % Karishma Ledesma MD Work Phone: [facility] 09-29-2023 16:35-0500 Systolic blood pressure 140 mm[Hg] Karishma Ledesma MD Work Phone: [facility] 09-29-2023 16:15-0500 Body temperature 98.2 [degF] Karishma Ledesma MD Work Phone: [facility] 09-29-2023 13:57-0500 Body weight 75.66 kg Karishma Ledesma MD Work Phone: [facility] 08-10-2023 14:56-0400 Body height 177.8 cm Natalie Vaca APRN.CNP Work Phone: [facility] 08-10-2023 14:56-0400 Body weight 80.74 kg Natalie Vaca ENTRY LEVEL LAB TECHNICIAN.FOOD PHOTOGRAPHER Work Phone: [facility] 08-10-2023 14:56-0400 Diastolic blood pressure 64 mm[Hg] Natalie Jacobsews ENTRY LEVEL LAB TECHNICIAN.FOOD PHOTOGRAPHER Work Phone: [facility] 08-10-2023 14:56-0400 Heart rate 102 /min Natalie Jacobsews ENTRY LEVEL LAB TECHNICIAN.FOOD PHOTOGRAPHER Work Phone: [facility] 08-10-2023 14:56-0400 Respiratory rate 16 /min Natalie Jacobsews ENTRY LEVEL LAB TECHNICIAN.FOOD PHOTOGRAPHER Work Phone: [facility] 08-10-2023 14:56-0400 Systolic blood pressure 120 mm[Hg] Natalie Jacobsews ENTRY LEVEL LAB TECHNICIAN.FOOD PHOTOGRAPHER Work Phone: [facility] 08-10-2023 14:42-0400 Body height 179.1 cm Jossue Cardona MD Work Phone: [facility] 08-10-2023 14:42-0400 Body weight 81.1 kg Jossue Cardona MD Work Phone: [facility] 08-10-2023 14:42-0400 Diastolic blood pressure 64 mm[Hg] Jossue Cardona MD Work Phone: [facility] 08-10-2023 14:42-0400 Heart rate 102 /min Jossue Cardona MD Work Phone: [facility] 08-10-2023 14:42-0400 Respiratory rate 16 /min Jossue Cardona MD Work Phone: [facility] 08-10-2023 14:42-0400 SaO2% (BldA) [Mass fraction] 100 % Jossue Cardona MD Work Phone: [facility] 08-10-2023 14:42-0400 Systolic blood pressure 120 mm[Hg] Jossue Cardona MD Work Phone: [facility] 07-21-2022 13:19-0400 Body height 177.8 cm Natalie Jacobsews ENTRY LEVEL LAB TECHNICIAN.FOOD PHOTOGRAPHER Work Phone: [facility] 07-21-2022 13:19-0400 Body weight 85 kg Natalie Vaca APRN.FOOD PHOTOGRAPHER Work Phone: [facility] 07-21-2022 13:19-0400 Diastolic blood pressure 60 mm[Hg] Natalie Vaca APRN.FOOD PHOTOGRAPHER Work Phone: [facility] 07-21-2022 13:19-0400 Heart rate 97 /min Natalie Vaca ENTRY LEVEL LAB TECHNICIAN.FOOD PHOTOGRAPHER Work Phone: [facility] 07-21-2022 13:19-0400 SaO2% (BldA) [Mass fraction] 97 % Natalie Vaca ENTRY LEVEL LAB TECHNICIAN.FOOD PHOTOGRAPHER Work Phone: [facility] 07-21-2022 13:19-0400 Systolic blood pressure 110 mm[Hg] Natalie Vaca ENTRY LEVEL LAB TECHNICIAN.FOOD PHOTOGRAPHER Work Phone: [facility] 02-06-2022 12:56-0400 Body height 177.8 cm Natalie Vaca ENTRY LEVEL LAB TECHNICIAN.FOOD PHOTOGRAPHER Work Phone: [facility] 02-06-2022 12:56-0400 Body weight 84.37 kg Natalie Vaca ENTRY LEVEL LAB TECHNICIAN.FOOD PHOTOGRAPHER Work Phone: [facility] 02-06-2022 12:56-0400 Diastolic blood pressure 80 mm[Hg] Natalie Vaca ENTRY LEVEL LAB TECHNICIAN.FOOD PHOTOGRAPHER Work Phone: [facility] 02-06-2022 12:56-0400 Heart rate 96 /min Natalie Vaca APRN.FOOD PHOTOGRAPHER Work Phone: [facility] 02-06-2022 12:56-0400 SaO2% (BldA) [Mass fraction] 98 % Natalie Vaca ENTRY LEVEL LAB TECHNICIAN.FOOD PHOTOGRAPHER Work Phone: [facility] 02-06-2022 12:56-0400 Systolic blood pressure 162 mm[Hg] Natalie Vaca APRN.FOOD PHOTOGRAPHER Work Phone: [facility] 08-15-2021 14:46-0400 Body height 177.8 cm Natalie Vaca ENTRY LEVEL LAB TECHNICIAN.FOOD PHOTOGRAPHER Work Phone: [facility] 08-15-2021 14:46-0400 Body weight 80.74 kg Natalieayden Vaca APRN.FOOD PHOTOGRAPHER Work Phone: [facility] 08-15-2021 14:46-0400 Diastolic blood pressure 64 mm[Hg] Natalie Vaca APRN.FOOD PHOTOGRAPHER Work Phone: [facility] 08-15-2021 14:46-0400 Heart rate 86 /min Natalie Vaca APRN.FOOD PHOTOGRAPHER Work Phone: [facility] 08-15-2021 14:46-0400 Respiratory rate 18 /min Natalie Vaca APRN.FOOD PHOTOGRAPHER Work Phone: [facility] 08-15-2021 14:46-0400 Systolic blood pressure 110 mm[Hg] Natalie Vaca APRN.FOOD PHOTOGRAPHER Work Phone: [facility] Encounters Encounter Date Encounter Type Care Provider Facility Start: 11-25-2023 Telephone encounter Jorge grant MD Work Phone: Hematology/Oncology Procedures Date Procedure Procedure Detail Performing Clinician Start: 10-04-2023 Myocardial spect mul tiple studies Jossue Cardona MD Work Phone: [facility] Karishma Ledesma MD Work Phone: Start: 09-29-2023 Gluc bld gluc mntr d ev cleared fda spec home use Karishma Ledesma MD Work Phone: Start: 06-08-2022 Us retroperitoneal r eal time w/image limited Natalie Vaca APRN.FOOD PHOTOGRAPHER Work Phone: Plan of Treatment Date Care Activity Detail Author Start: 11-18-2026 Diabetes Screening Diabetes Screenin g [facility] Start: 06-28-2024 DIABETES SCREEN DIABETES SCREEN [facility] Start: 06-28-2024 Diabetes Screening Diabetes Screenin g [facility] Start: 10-25-2023 Advance Directive Discussion Advance Directive Discussion [facility] Start: 10-25-2023 Depression Assessment Depression Ass essment [facility] Start: 09-06-2023 End: 12-06-2023 Basic metabolic 2000 panel - Serum or Plasma BASIC METABOLIC PNL Lab STAT Pre-op testing Expected: 09/06/2023, Expires: 12/06/2023 [facility] Work Phone: Payers Date Payer Category Payer Medicare [id number] 2023 Medicare [id number] 2023 Medicaid [id number] 2021 Medicaid [id number]. [id number] 2021 Medicaid [id number] 2021 Medicare [id number] 2021 Medicare [id number] 1955 Unknown [id number] 1955 Unknown [id number] 1955 Unknown [id number] Social History Date Type Detail Facility Start: 08-15-2021 End: 10-07-2023 Tobacco smoking status AKIS Current every day smoker [facility] Start: 08-15-2021 End: 10-01-2023 Cigarettes smoked current (pack per day) - Reported [facility] Start: 08-15-2021 End: 10-07-2023 Tobacco use and exposure Never used [facility] Start: 08-15-2021 Alcohol intake Lifetime non-d khushi (finding) [facility] Start: 07-11-2021 History SDOH Alcohol Frequency 1 [facility] Start: 1955 Sex Assigned At Male [facility] Start: 01-27-2022 End: 07-21-2022 Exposure to SARS-CoV-2 (event) Not sure [facility] History of tobacco use Cigarette Smoker [facility] Start: 02-06-2022 End: 11-10-2023 Alcohol intake Current drinker of alcohol (finding) [facility] Start: 02-06-2022 History SDOH Alcohol Comment very seldom [facility] Start: 05-26-2022 End: 06-05-2022 Exposure to SARS-CoV-2 (event) Yes [facility] Start: 08-10-2023 End: 10-01-2023 Tobacco use panel [facility] National Score (1-10 0), lower number is lower risk 66 [facility] Start: 07-10-2021 Gender identity Identifies as male gender (finding) [facility] Start: 07-10-2021 Sexual orientation Heterosexual (fin ding) [facility] Clinical Notes 08-15-2021 to 11-26-2023 Telephone Encounter - Lee Ann Cleaning RN - 11/26/2023 9:59 AM ESTTelephone Encounter - Delmy Tracy RN - 11/25/2023 1:56 PM Guilherme Fermin MD, - 10/07/2023 1:47 PM ESTPatient Instructions Note Date & Type Note Facility 11-26-2023 Miscellaneous Notes See other phone note. Lori Cleaning RN Called patient regarding missed treatment - states he is not coming in today due to a cold . Denies fever. c/o nose congestion and headache. PSS - please reschedule as needed, thank you. documented in this encounter [facility] 11-17-2023 Note HNO ID: [id number] Author: LEE ANN CLEANING RN Service: ? Author Type: Registered Nurse Type: Progress Notes Filed: 11/17/2023 08:15 Note Text: Patient teaching was completed over the phone. Lee Ann Cleaning RN [facility] 11-17-2023 Note HNO ID: [id number] Author: LEE ANN CLEANING RN Service: ? Author Type: Registered Nurse Type: Progress Notes Filed: 11/17/2023 08:15 Note Text: Compo Conveyor Operator Pre Chemo Patient identified by name and date of . YES Confirmed date and time for chemotherapy ? YES Other appointments (labs, imaging) discussed? YES Discussed where to park (tile molder), charge for parking YES Discussed where to [...] topics discussed, interventions needed: amish Cleaning RN [facility] 11-17-2023 Note HNO ID: [id number] Author: LEE ANN CLEANING RN Service: ? [...] a later time. Lee Ann Cleaning RN [facility] 11-11-2023 Note HNO ID: [id number] Author: SUPRIYA HEATH RT(R) Service: ? Author Type: Edge Trimmer Type: Progress Notes Filed: 11/11/2023 16:11 Note [...] RT Shanell(R) November 11, 2023 4:10 PM [facility] 11-10-2023 Note HNO ID: [id number] Author: JORGE SHARMA MD Service: ? Author Type: Physician Type: [...] which included preparing to see the patient, [id number] patient care, completing clinical documentation, obtaining and/or reviewing separately obtained history, counseling and educating the patient/family/caregiver, ordering medications, tests, or procedures, communicating with other HCPs (not separately reported), independently interpreting results (not separately reported), communicating results to the patient/family/caregiver, and care coordination (not separately reported). Electronically Signed: Jorge Sharma MD November 10, 2023 11:32 AM [facility] 10-07-2023 Note HNO ID: [id number] Author: Guilherme Norris MD, MD Service: ? [...] active bleeding. RADI (more content not included)... [facility] 10-07-2023 History of Presen t [...] by: Guilherme Norris MD cc: Xena Arroyo [address] [place] [address] Jossue Cardona documented in this encounter [facility] 10-07-2023 Nurse Note Radiation Therapy - Nursing Note (Consult) PATIENT NAME: Lei Valdez PATIENT October 07, 2023 [facility] FACILITY/LOCATION: [facility] Chief Complaint: consult Reason for visit: Consult. Referring physician: Internal provider Dr Zuñiga Subjective Data: no complaints Additional Data Do you want to see a Regulatory Auditor? No Are you interested in information about fertility? No Status: Patient is male Stress Scale: On a scale of 0 to 10, what number best describes how much distress you have experienced in the past week?(0 being no distress and 10 being extreme distress) 7 Social work notified: Pt denied need to see social work msw at this time. SIGNED by: Maribell Bear RN documented in this encounter [facility] 10-06-2023 Miscellaneous Notes The patient was contacted [...] final treatment decision. documented in this encounter [facility] 10-04-2023 Note HNO ID: [id number] Author: Loly Guidry RN Service: ? Author [...] Loly Guidry RN Reversal agent used:None LOT [id number] EXP 03/18 IV SITE: IV palced by nuclear tecnologist POST EXAM PIV STATUS: Discontinued by Crap Shooter PATIENT DISCHARGED TO: Nuclear Medicine Department for post stress imaging A Diagnostic radioactive procedure has taken place, with no further precautions necessary other than routine body substance precautions. More information regarding radiation safety can be found using this link: [email or web address] 0Protection %20-%20Diagnostic%20Nuclear%20Me dicine%20Procedures.pdf SIGNATURE: Loly Guidry RN PATIENT NAME:Lei Valdez DATE: 10/04/23 TIME: 2:37 PM [facility] 10-04-2023 History of Presen t illness Narrative RADIOLOGY SERVICE PROGRESS NOTE SERVICE DATE: 10/04/2023 SERVICE TIME: 0845 PATIENT IDENTITY VERIFICATION COMPLETED USING TWO (2) METHODS: Patient confirmed name and Date of verbally. ALLERGIES AND MEDICATIONS REVIEWED BY: Loly Guidry RN PROCEDURE TYPE: NM STRESS: 0.4 mg of Lexiscan was administered IV at 0913 over 10 Seconds by Loly Guidry RN Reversal agent used:None LOT [id number] EXP 03/18 IV SITE: IV palced by nuclear tecnologist POST EXAM PIV STATUS: Discontinued by Crap Shooter PATIENT DISCHARGED TO: Nuclear Medicine Department for post stress imaging A Diagnostic radioactive procedure has taken place, with no further precautions necessary other than routine body substance precautions. More information regarding radiation safety can be found using this link: [email or web address] 0Protection%20-%20Diagnostic%20N uclear%20Medicine%20Procedures.p df SIGNATURE: Loly Guidry RN PATIENT NAME:Lei Valdez DATE: 10/04/23 TIME: 2:37 PM documented in this encounter [facility] 10-04-2023 Note HNO ID: [id number] Author: Faye Coppola RT(R) Service: Nuclear Medicine [...] Discontinued PROCEDURE TYPE: NM Stress: 13 mCi Ex88e-Ujxxgtf was administered IV for Rest Imaging at 07:50 by Faye Coppola. 31.2 mCi Pe45b-Ltczoqm was administered IV for Stress Imaging at 09:13 by Faye Coppola. ADMINISTRATION TIME: PATIENT DISCHARGED TO: Ambulatory patient, left NH department area. A Diagnostic radioactive procedure has taken place, with no further precautions necessary other than routine body substance precautions. More information regarding radiation safety can be found using this link: [email or web address] 0Protection %20-%20Diagnostic%20Nuclear%20Me dicine%20Procedures.pdf SIGNATURE: RT Lisa(R) PATIENT NAME: Lei Valdez DATE: October 04, 2023 TIME: 1:24 PM PAGER/CONTACT #: [facility] 10-04-2023 History of Presen t [...] Discontinued PROCEDURE TYPE: NM Stress: 13 mCi Az98u-Mjplgau was administered IV for Rest Imaging at 07:50 by Faye Coppola. 31.2 mCi Ws23e-Yclyyrg was administered IV for Stress Imaging at 09:13 by Faye Coppola. ADMINISTRATION TIME: PATIENT DISCHARGED TO: Ambulatory patient, left NH department area. A Diagnostic radioactive procedure has taken place, with no further precautions necessary other than routine body substance precautions. More information regarding radiation safety can be found using this link: [email or web address] 0Protection%20-%20Diagnostic%20N uclear%20Medicine%20Procedures.p df SIGNATURE: Faye Coppola RT(R) PATIENT NAME: Lei Valdez DATE: October 04, 2023 TIME: 1:24 PM PAGER/CONTACT #: documented in this encounter [facility] 10-01-2023 Note HNO ID: [id number] Author: Zahra Enriquez RN Service: ? 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 male diagnosed simultaneously with lung and colon cancer in the spring of this year. He underwent a colon resection and did not require further treatment. Medical oncologist in february down in [place] and was sent to [facility]. Patient referred back up here the second half of July to be seen by thoracic surgeon. PET,MRI brain, PFT requested from [facility]. 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 Most recent PET shows large lesion in left upper lobe, no obvious kel disease. PFT adequate for surgery. Patient underwent bronchoscopy 09/29/2023, results are not back. Patient seen a radiation oncologist in [facility]. Patient has a stress test scheduled. Chemo [...] treatment team staff physicians. Zahra Enriquez RN [facility] 09-29-2023 Note HNO ID: [id number] Author: Supriya Monzon RN Service: ? Author Type: Registered Nurse Type: Nursing Progress Note Filed: 09/29/2023 4:28 PM Note Text: Awake. Gag reflex checked. Pt tolerating drinking well, no complaints. [facility] 09-29-2023 Note HNO ID: [id number] Author: Amanuel Wood APRN.CRNA Service: Anesthesiology Author Type: Nurse Machine Featheredger And Reducer Type: Anesthesia Procedure Notes Filed: 09/29/2023 2:48 PM Note Text: ANESTHESIOLOGY PROCEDURE NOTE Airway General Information Procedure Start Time/Medication Administration: 09/29/2023 2:45 PM Patient location during procedure: OR Timeout Performed Pre-procedure: timeout performed Consent Obtained: Yes Patient identity confirmed: arm band and patient Staffing MASTER DEPUTY SHERIFF COURT SECURITY: Amanuel Wood APRN.MASTER DEPUTY SHERIFF [employer] SECURITY Performed by: MASTER DEPUTY SHERIFF COURT SECURITY Indications and Patient Condition Indications for airway management: anesthesia Preoxygenated: yes anesthesia circuit Patient position: sniffing Method: asleep Final Airway Details Final airway type: supraglottic airway Number of attempts at approach: 1 Final Supraglottic Airway: i-gel Size 5 Seal Adequate: yes SIGNATURE: Amanuel Wood APRN.MASTER DEPUTY SHERIFF [employer] SECURITY PATIENT NAME: Lei Valdez DATE: September 29, 2023 TIME: 2:47 PM CSN: [id number] [facility] 09-29-2023 Nurse Note Awake. Gag reflex checked. Pt tolerating drinking well, no complaints. documented in this encounter [facility] 09-29-2023 Hospital Discharg e instructions Karishma Ledesma MD - 09/29/2023 4:06 PM EST [facility] GENERAL DISCHARGE INSTRUCTIONS - BRONCHOSCOPY You may [...] call your doctor. During non-office hours call [facility] Simeon and ask semi automatic sewing machine operator to page the Miller Supervisor extension worker Karishma Ledesma MD documented in this encounter [facility] 09-29-2023 History and physical note Reviewed my own note from yesterday No changes Proceed with Bronchoscopy Karishma Ledesma MD documented in this encounter [facility] 09-28-2023 Note HNO ID: [id number] Author: Karishma Ledesma MD Service: ? Author Type: Physician Type: Progress Notes Filed: 09/28/2023 3:50 PM Note Text: INTERVENTIONAL PULMONARY MEDICINE CONSULTATION PLEASE DO NOT REMOVE FROM THE CHART OR MODIFY PRINTED COPY I have communicated my name and active licensure. The patient's identity and physical location were verified at the time of this visit. Either the patient or their legal event representative has been informed of the risks [...] which included preparing to see the patient, uqpo-sf-avao patient care, completing clinical documentation, obtaining and/or reviewing separately obtained history, performing a medically appropriate examination, and counseling and educating the patient/family/caregiver. Electronically Signed: Karishma Ledesma MD September 28, 2023 3:45 PM CC: MD Jossue Murray MD [facility] 09-28-2023 History of Presen t illness Narrative Images from the original note were not included. INTERVENTIONAL PULMONARY MEDICINE CONSULTATION PLEASE DO NOT REMOVE FROM THE CHART OR MODIFY PRINTED COPY I have communicated my name and active licensure. The patient's identity and physical location were verified at the time of this visit. Either the patient or their legal event representative has been informed of the risks [...] which included preparing to see the patient, uswo-yl-uovh patient care, completing clinical documentation, obtaining and/or reviewing separately obtained history, performing a medically appropriate examination, and counseling and educating the patient/family/caregiver. Electronically Signed: Karishma Ledesma MD September 28, 2023 3:45 PM CC: MD Jossue Murray MD documented in this encounter [facility] 09-27-2023 Note HNO ID: [id number] Author: Jossue Cardona MD Service: ? Author Type: Physician Type: Progress Notes Filed: 09/27/2023 4:23 PM Note Text: Trying to order lung cancer conference/tumor board review. [facility] 09-27-2023 History of Presen t illness Narrative Trying to order lung cancer conference/tumor board review. documented in this encounter [facility] 09-13-2023 Miscellaneous Notes Per Dr. Ledesma, patient can't have appointment and EBUS done in the same day, due to insurance billing issues. Called the patient and offered a virtual visit through my chart so patient does not need to make multiple trips from [place]. Left message for the patient and moved appt to 09/28/23 as a virtual visit. Belia Elizabeth Called pt and reviewed all pre procedure dates times and locations. Pt is aware to be there 2 hours early. Pt aware nothing to eat or drink after midnight Pt aware must have a vending route driver Pt aware no blood thinning medications [...] Lane. Belia Elizabeth documented in this encounter [facility] 09-06-2023 Miscellaneous Notes I have sent the referral to rad/ onc in [place] at fax # [phone] with notes as requested by Rad Onc. documented in this encounter [facility] 09-06-2023 Note HNO ID: [id number] Author: Karishma Ledesma MD Service: ? Author Type: Physician Type: Progress Notes Filed: 09/06/2023 12:45 PM Note Text: [facility] OR Bronchoscopy Request: Please schedule patient for the following: Bronchoscopy: Staging EBUS Clinical Discussion: Sq CC SHANKAR via CT guided bx Pulmonary Visit: Schedule with AG Miller Supervisor prior to OR Time Allotment: first available [...] 0.66 (L) 0.73 - 1.22 mg/dL Final [facility] 09-06-2023 History of Presen t illness Narrative [facility] OR Bronchoscopy Request: Please schedule patient for the following: Bronchoscopy: Staging EBUS Clinical Discussion: Sq CC SHANKAR via CT guided bx Pulmonary Visit: Schedule with AG Miller Supervisor prior to OR Time Allotment: first available [...] 1.22 mg/dL Final documented in this encounter [facility] 09-06-2023 Miscellaneous Notes The patient was contacted [...] continue with staging. documented in this encounter [facility] 08-10-2023 Note HNO ID: [id number] Author: Natalie Vaca APRN.FOOD PHOTOGRAPHER Service: ? Author Type: Nurse Practitioner Type: [...] with more than 50% of the total opnd-yk-nvby time of the visit in counseling / coordination of care. Natalie Vaca, CATY.[facility] 08-10-2023 Note HNO ID: [id number] Author: Jossue Cardona MD Service: ? Author [...] was initially going to be referred to [facility] for evaluation of his lung cancer, but [...] diabetes mellitus, and somewhat sedentary lifestyle in [place]. MEDICATIONS: Current Outpatient Medications Medication Sig Dispense [...] possible surgical resect (more content not included)... [facility] 08-10-2023 History of Presen t [...] with more than 50% of the total zyuz-ye-chfi time of the visit in counseling / coordination of care. Natalie Vaca APRN.FOOD PHOTOGRAPHER documented in this encounter [facility] 08-10-2023 History of Presen t illness Narrative [...] was initially going to be referred to [facility] for evaluation of his lung cancer, but [...] diabetes mellitus, and somewhat sedentary lifestyle in halfway. MEDICATIONS: Current Outpatient Medications Medication Sig Dispense [...] which included preparing to see the patient, jiiz-av-qamv patient care, completing clinical documentation, obtaining and/or reviewing separately obtained history, performing a medically appropriate examination, counseling and educating the patient/family/caregiver, ordering medications, tests, or procedures, and communicating results to the patient/family/caregiver . Jossue Cardona MD documented in this encounter [facility] 08-10-2023 Instructions Jossue Cardona MD - 08/10/2023 3:13 PM EDT Stop smoking! documented in this encounter [facility] 07-21-2022 History of Presen t illness Narrative [...] with more than 50% of the total dtuz-lo-amsi time of the visit in counseling / coordination of care. Natalie Vaca APRN.FOOD PHOTOGRAPHER documented in this encounter [facility] 06-08-2022 History of Presen t illness Narrative [...] 2022 12:01 PM documented in this encounter [facility] 02-06-2022 History of Presen t illness Narrative [...] more accessible home near his family in [place], [place]. PAST MEDICAL HISTORY Diagnosis Date [place] [...] with more than 50% of the total hmor-nt-miww time of the visit in counseling / coordination of care. Natalie Vaca APRN.RONALD documented in this encounter [facility] 02-06-2022 Nurse Note No complaints today. Leandra Barragan MA documented in this encounter [facility] 10-15-2021 Miscellaneous Notes Reviewed with Dr. Lara; No need to continue Xarelto, as 3 months is sufficient at this time. Will continue daily asa. Left message for pt regarding this. Encouraged him to call back with any more questions. Natalie Vaca APRN.RONALD Presley is wondering if he needs to continue on his xarelto? Stated that he is almost out of medication. Thanks Supriya Lewis LPN documented in this encounter [facility] 08-15-2021 History of Presen t illness Narrative Lei Valdez 65 year old male S/P Angiogram with insertion of thrombolysis catheter; Left lower extremity angiogram; Left lower extremity bypass of popliteal aneurysm with popliteal aneurysm ligation and endovein harvest PROCEDURE: As above by Dr. 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 AAA (abdominal aortic aneurysm) without rupture (HCC) Abdominal aneurysm without mention of rupture [facility] Diagnosis AAA (abdominal aortic aneurysm) without rupture (HCC) Abdominal aneurysm without mention of rupture [facility] Diagnosis Popliteal artery occlusion, 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 S/P vascular surgery Other postprocedural status AAA (abdominal aortic aneurysm) without rupture Abdominal aneurysm without mention of rupture [facility] Diagnosis Primary cancer of left upper lobe of lung (HCC)- Primary Moderate cigarette smoker (10-19 per day) Tobacco use disorder History of colon cancer Personal history of malignant neoplasm of large intestine Neoplasm of lung Neoplasm of unspecified nature of respiratory system Malignant neoplasm of upper lobe of left lung (HCC) SOB (shortness of breath) Shortness of breath [facility] Diagnosis S/P vascular surgery- Primary Other postprocedural status 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, 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 [facility] Diagnosis Primary cancer of left upper lobe of lung (HCC)- Primary [facility] Diagnosis Pre-op testing- Primary Preoperative examination, unspecified [facility] Diagnosis 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 Diagnosis Primary cancer of left upper lobe of lung (HCC)- Primary Squamous 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) Malignant neoplasm of upper lobe, bronchus or lung documented in this encounter [facility] note* Diagnosis Squamous cell carcinoma of left lung (HCC)- Primary documented in this encounter [facility] note* Diagnosis Squamous 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) Malignant neoplasm of upper lobe, bronchus or lung [facility]* Diagnosis Screening for ischemic heart disease- Primary documented in this encounter [facility] note* Diagnosis Neoplasm of lung Neoplasm of unspecified nature of respiratory system Malignant neoplasm of upper lobe of left lung (HCC) SOB (shortness of breath) Shortness of breath documented in this encounter [facility] note* Diagnosis Primary cancer of left upper lobe of lung (HCC)- Primary documented in this encounter [facility] note* Diagnosis Primary cancer of left upper lobe of lung (HCC)- Primary [facility] Diagnostic Procedure Only (Routine) - Pending Review Specialty Diagnoses / Procedures Referred By Lorenzo sheikh Referred To Contact US IMAGING Diagnoses AAA (abdominal aortic aneurysm) without rupture (HCC) Procedures US ABD AORTA US RETROPERITONEAL REAL TIME W/IMAGE LIMITED Natalie Vaca APRN.CNP [address] [id number] Us Imaging Referral ID Status Reason Start Date Expiration Date Visits Requested Visits Authorized [id number] Pending Review Auto-Generat ed Referral 06/08/2022 03/08/2023 1 1 * Diagnostic Procedure Only (Routine) - Pending Review Specialty Diagnoses / Procedures Referred By Lorenzo t Referred To Contact US IMAGING Diagnoses S/P vascular surgery 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, left (HCC) AAA (abdominal aortic aneurysm) without rupture (HCC) Procedures US ARTERIAL PVR LOWER W/EXERCISE N-INVAS PHYSIOLOGIC STD LXTR ART COMPL Natalie Bowers APRN.FOOD PHOTOGRAPHER [address] [facility] [address] [place] [address] Us Imaging Referral ID Status Reason Start Date Expiration Date Visits Requested Visits Authorized [id number] Pending Review Auto-Generat ed Referral 06/08/2022 03/08/2023 1 1 [facility] for referral (narrative)* Diagnostic Procedure Only (Routine) - Closed Specialty Diagnoses / Procedures Referred By Contac t Referred To Contact US IMAGING Diagnoses AAA (abdominal aortic aneurysm) without rupture (HCC) Procedures US ABD AORTA US RETROPERITONEAL REAL TIME W/IMAGE LIMITED Natalie Vaca APRN.FOOD PHOTOGRAPHER [address] [place] [address] Us Imaging Referral ID Status Reason Start Date Expiration Date V isits Requested Visits Authorized [id number] Closed Auto-Generate d Referral 06/08/2022 03/08/2023 1 1 [facility] for referral (narrative)* Diagnostic Procedure Only (Routine) - Pending Review Specialty Diagnoses / Procedures Referred By Contac t Referred To Contact US IMAGING Diagnoses Popliteal artery occlusion, 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) S/P vascular surgery Procedures US ARTERIAL PVR LOWER W/EXERCISE N-INVAS PHYSIOLOGIC STD LXTR ART COMPL Natalie Bowers APRN.FOOD PHOTOGRAPHER [address] [address] [place] [address] Us Imaging Referral ID Status Reason Start Date Expiration Date Visits Requested Visits Authorized [id number] Pending Review Auto-Generat ed Referral 07/21/2023 08/20/2023 1 1 [facility] for referral (narrative)* Diagnostic Procedure Only (Routine) - Pending Review Specialty Diagnoses / Procedures Referred By Contac t Referred To Contact MOLECULAR & FUNCTIONAL IMAGING Diagnoses Neoplasm of lung Malignant neoplasm of upper lobe of left lung (HCC) SOB (shortness of breath) Procedures NM CARDIAC PERF STRESS/PHARM MYOCARDIAL SPECT MULTIPLE STUDIES Jossue Cardona MD [address] [place] [address] Molecular & Functional Imaging [address] [place] [address] Referral ID Status Reason Start Date Expiration Date Visits Requested Visits Authorized [id number] Pending Review Auto-Generat ed Referral 3 09/08/2024 1 1 * MRI/CT (Routine) - Pending Review Specialty Diagnoses / Procedures [facility] To Contact MR IMAGING Diagnoses Primary cancer of left upper lobe of lung (HCC) Neoplasm of lung Malignant neoplasm of upper lobe of left lung (HCC) Procedures MRI BRAIN WO/W IVCON MRI BRAIN BRAIN STEM W/O W/CONTRAST MATERIAL Jossue Cardona MD [address] [place] [address] Mr Imaging [facility] Referral ID Status Reason Start Date Expiration Date Visits Requested Visits Authorized [id number] Pending Review Auto-Generat ed Referral 3 09/08/2024 1 1 * Diagnostic Procedure Only (Routine) - Pending Review Specialty Diagnoses / Procedures [facility] Referred To Contact MOLECULAR & FUNCTIONAL IMAGING Diagnoses Primary cancer of left upper lobe of lung (HCC) Neoplasm of lung Procedures NM PET/CT SKULL-THIGH INITIAL PET IMAGING CT ATTENUATION SKULL BASE MID-THIGH Jossue Cardona MD [address] [place] [address] Molecular & Functional Imaging [address] [place] [address] Referral ID Status Reason Start Date Expiration Date Visits Requested Visits Authorized [id number] Pending Review Auto-Generat ed Referral 3 09/08/2024 1 1 [facility] for referral (narrative)* Outpatient Procedure (Urgent) - Pending Review Specialty Diagnoses / Procedures Referred By Contac t Referred To Contact HEART [facility] VASCULAR [place] Diagnoses Pre-op testing Procedures ECG COMPLETE ECG ROUTINE ECG W/LEAST 12 LDS W/I&R Karishma Ledesma MD [address] [place] [address] [facility] [place] [address] Referral ID Status Reason Start Date Expiration Date Visits Requested Visits Authorized [id number] Pending Review Auto-Generat ed Referral 3 09/05/2024 1 1 [facility] for referral (narrative)* Diagnostic Procedure Only (Routine) - Closed Specialty Diagnoses / Procedures [facility] Referred To Contact MOLECULAR & FUNCTIONAL IMAGING Diagnoses Neoplasm of lung Malignant neoplasm of upper lobe of left lung (HCC) SOB (shortness of breath) Procedures NM CARDIAC PERF STRESS/PHARM MYOCARDIAL SPECT MULTIPLE STUDIES Jossue Cardona MD [address] [facility] [address] [place] [address] Molecular & Functional Imaging [address] [place] [address] Referral ID Status Reason Start Date Expiration Date V isits Requested Visits Authorized [id number] Closed Auto-Generate d Referral 08/10/2023 09/08/2024 1 1 [facility] for visit Narrative* Diagnostic Procedure Only (Routine) - Closed Specialty Diagnoses / Procedures [facility] Referred To Contact MOLECULAR & FUNCTIONAL IMAGING Diagnoses Neoplasm of lung Malignant neoplasm of upper lobe of left lung (HCC) SOB (shortness of breath) Procedures NM CARDIAC PERF STRESS/PHARM MYOCARDIAL SPECT MULTIPLE STUDIES Jossue Cardona MD [address] [place] [address] Molecular & Functional Imaging [address] [place] [address] Referral ID Status Reason Start Date Expiration Date V isits Requested Visits Authorized [id number] Closed Auto-Generate d Referral 08/10/2023 09/08/2024 1 1 [facility] Advance Directives No Advanced Directives Records FoundDocuments on File Type Date Recorded 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 Retail 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 Advance Directive(s) 06/20/2021 9:35 PM Documents on File Type Date Recorded Patient Retail 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 Advance Directive(s) 06/20/2021 9:35 PM Summary Purpose Family History No Family History Records FoundNo Family History Records FoundNo Family History Records FoundNo Family History Records Found Reason for Referral Specialty Diagnoses / Procedures Referred By Contac t Referred To Contact Diagnoses 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) Procedures CONSULT TO [facility] (AG) Skylar Lynn APRN.FOOD PHOTOGRAPHER [address] [facility] [address] [employer] [place] [address] Carl Noel MD [address] [place] [address] Referral ID Status Reason Start Date Expiration Date Visits Requested Visits Authorized [id number] Ref Not Required PCP Requested Referral 3 [...] CONTINUOUS, Starting on Wed09/29/23 at 1600, Until Davida 09/30/23 at 0304, Recovery or Phase I (only) New Bag/Syringe/Bottle 09/29/2023 3:53 PM EST 125 mL/hr 125 mL/hr morphine 3 mg injection 3 mg, INTRAVENOUS, EVERY 10 MINUTES NEEDED, 5 doses, Starting on Wed09/29/23 at 1548, Until [...] or prosecute any alcohol or drug abuse patient.[facility] the event this information is protected by the Federal Confidentiality of Alcohol and Drug Abuse Patient Records regulations: The Federal rules restrict any use of the information to criminally investigate or prosecute any alcohol or drug abuse patient.[facility] the event this information is protected by the Federal Confidentiality of Alcohol and Drug Abuse Patient Records regulations: The Federal rules restrict any use of the information to criminally investigate or prosecute any alcohol or drug abuse patient.[facility] the event this information is protected by the Federal Confidentiality of Alcohol and Drug Abuse Patient Records regulations: The Federal rules restrict any use of the information to criminally investigate or prosecute any alcohol or drug abuse patient.[facility] the event this information is protected by the Federal Confidentiality of Alcohol and Drug Abuse Patient Records regulations: The Federal rules restrict any use of the information to criminally investigate or prosecute any alcohol or drug abuse patient.[facility] the event this information is protected by the Federal Confidentiality of Alcohol and Drug Abuse Patient Records regulations: The Federal rules restrict any use of the information to criminally investigate or prosecute any alcohol or drug abuse patient.[facility] the event this information is protected by the Federal Confidentiality of Alcohol and Drug Abuse Patient Records regulations: The Federal rules restrict any use of the information to criminally investigate or prosecute any alcohol or drug abuse patient.[facility] the event this information is protected by the Federal Confidentiality of Alcohol and Drug Abuse Patient Records regulations: The Federal rules restrict any use of the information to criminally investigate or prosecute any alcohol or drug abuse patient.[facility] the event this information is protected by the Federal Confidentiality of Alcohol and Drug Abuse Patient Records regulations: The Federal rules restrict any use of the information to criminally investigate or prosecute any alcohol or drug abuse patient.[facility] the event this information is protected by the Federal Confidentiality of Alcohol and Drug Abuse Patient Records regulations: The Federal rules restrict any use of the information to criminally investigate or prosecute any alcohol or drug abuse patient.[facility] the event this information is protected by the Federal Confidentiality of Alcohol and Drug Abuse Patient Records regulations: The Federal rules restrict any use of the information to criminally investigate or prosecute any alcohol or drug abuse patient.[facility] the event this information is protected by the Federal Confidentiality of Alcohol and Drug Abuse Patient Records regulations: The Federal rules restrict any use of the information to criminally investigate or prosecute any alcohol or drug abuse patient.[facility] the event this information is protected by the Federal Confidentiality of Alcohol and Drug Abuse Patient Records regulations: The Federal rules restrict any use of the information to criminally investigate or prosecute any alcohol or drug abuse patient.[facility] the event this information is protected by the Federal Confidentiality of Alcohol and Drug Abuse Patient Records regulations: The Federal rules restrict any use of the information to criminally investigate or prosecute any alcohol or drug abuse patient.[facility] the event this information is protected by the Federal Confidentiality of Alcohol and Drug Abuse Patient Records regulations: The Federal rules restrict any use of the information to criminally investigate or prosecute any alcohol or drug abuse patient.[facility] the event this information is protected by the Federal Confidentiality of Alcohol and Drug Abuse Patient Records regulations: The Federal rules restrict any use of the information to criminally investigate or prosecute any alcohol or drug abuse patient.[facility] Dayton[facility] the event this information is protected by the Federal Confidentiality of Alcohol and Drug Abuse Patient Records regulations: The Federal rules restrict any use of the information to criminally investigate or prosecute any alcohol or drug abuse patient.[facility] the event this information is protected by the Federal Confidentiality of Alcohol and Drug Abuse Patient Records regulations: The Federal rules restrict any use of the information to criminally investigate or prosecute any alcohol or drug abuse patient.[facility] the event this information is protected by the Federal Confidentiality of Alcohol and Drug Abuse Patient Records regulations: The Federal rules restrict any use of the information to criminally investigate or prosecute any alcohol or drug abuse patient.[facility] Dayton[facility] the event this information is protected by the Federal Confidentiality of Alcohol and Drug Abuse Patient Records regulations: The Federal rules restrict any use of the information to criminally investigate or prosecute any alcohol or drug abuse patient.[facility] the event this information is protected by the Federal Confidentiality of Alcohol and Drug Abuse Patient Records regulations: The Federal rules restrict any use of the information to criminally investigate or prosecute any alcohol or drug abuse patient.[facility] Reason for Visit (unrecogniz ed section and content) Reason Comments Patient Question Reason Comments Follow Up 3-4 month aneurysm Reason Comments Radiology US Specialty Diagnoses / Procedures [facility] Referred To Contact US IMAGING Diagnoses AAA (abdominal aortic aneurysm) without rupture (HCC) Procedures US ABD AORTA US RETROPERITONEAL REAL TIME W/IMAGE LIMITED Natalie Vaca, ENTRY LEVEL LAB TECHNICIAN.FOOD PHOTOGRAPHER [address] [facility] [employer] [place] [address] Us Imaging Referral ID Status Reason Start Date Expiration Date V isits Requested Visits Authorized [id number] Closed Auto-Generate d Referral 06/08/2022 03/08/2023 1 [...] EBUS Specialty Diagnoses / Procedures Referred By [facility] Referred To Contact Diagnoses Squamous 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) Procedures [facility] EBUS GUIDED SAMPL 1/2 NODE STATION/STRUX BRONCHOSCOPY,RIGID/FLEXIBLE W/ FLUORO,W/ENDOBRONCHIAL ULTRASOUND (EBUS) GUIDED TRANSTRACHEAL/ TRANSBRONCHIAL ASPIRATION/BIOPSY,1 OR 2 MEDIASTINAL AND/OR HILAR LYMPH NODE STATIONS/STRUCTURES [facility] [address] [place] [address] Referral ID Status Reason Start Date Expiration Date Visits Re quested Visits Authorized [id number] 1 1 Reason Comments Radiology NM Specialty Diagnoses / Procedures [facility] Referred To Contact MOLECULAR & FUNCTIONAL IMAGING Diagnoses Neoplasm of lung Malignant neoplasm of upper lobe of left lung (HCC) SOB (shortness of breath) Procedures NM CARDIAC PERF STRESS/PHARM MYOCARDIAL SPECT MULTIPLE STUDIES Jossue Cardona MD [address] [place] [id number] [facility] [address] [place] [address] Referral ID Status Reason Start Date Expiration Date V isits Requested Visits Authorized [id number] Closed Auto-Generate d Referral 08/10/2023 09/08/2024 1 1 Reason Comments Results Discussion Called patient to rock ferguson results of recent stress test and at his request discussed the results of the bronchoscopy EBUS as he was unable to connect with Dr. Ledesma yesterday. Reason Comments Consult Reason Comments Appointment Care Teams (unrecognized sec tion and content) Referral Nurse Relationship Specialty Start Date End Date Xena Arroyo [address] [place], [place] [phone] PCP - General Family Practice 06/20/21 Referral Nurse Relationship Specialty Start Date End Date Xena Arroyo [address] [place], [place] [phone] PCP - General Family Practice 06/20/21 Referral Nurse Relationship Specialty Start Date End Date Xena Arroyo [address] [place], [place] [phone] PCP - General Family Medicine 06/20/21 Referral Nurse Relationship Specialty Start Date End Date Xena Arroyo MD [address] [place], [place] [address] PCP - General Family Medicine 06/20/21 Akbar Barron [address] [place], [place] [address] Hematology/Oncology 08/10/23 Referral Nurse Relationship Specialty Start Date End Date Xena Arroyo MD [address] [place], [place] [phone] PCP - General Family Medicine 06/20/21 [facility] [address] [place] [address] Hematology/Oncology 08/10/23 Referral Nurse Relationship Specialty Start Date End Date Xena Arroyo MD [address] [place] [address] PCP - General Family Medicine 06/20/21 [facility] [address] [place] [address] Hematology/Oncology 08/10/23 Referral Nurse Relationship Specialty Start Date End Date Xena Arroyo MD [address] [place] [address] PCP - General [facility] 06/20/21 [facility] [address] [place] [address] Hematology/Oncology 08/10/23 Referral Nurse Relationship Specialty Start Date End Date Xena Arroyo MD [address] [place] [address] PCP - General Family [facility] 06/20/21 [facility] [address] [place] [address] Hematology/Oncology 08/10/23 Referral Nurse Relationship Specialty Start Date End Date Xena Arroyo MD [address] [place] [address] PCP - General Family Medicine 06/20/21 Akbar Barron [address] [place] [id number] Hematology/Oncology 08/10/23 Referral Nurse Relationship Specialty Start Date End Date Xena Arroyo MD [address] [place] [address] PCP - General Family Medicine 06/20/21 Akbar Barron [address] [place] [id number] Hematology/Oncology 08/10/23 Referral Nurse Relationship Specialty Start Date End Date Xena Arroyo MD [address] [place] [address] PCP - General Family Medicine 06/20/21 Akbar Barron [address] [place] [address] Hematology/Oncology 08/10/23 Guilherme Norris MD, [address] [place] [id number] Physician Radiation Oncology 09/15/23 Referral Nurse Relationship Specialty Start Date End Date Xena Arroyo MD [address] [place], [place] [phone] PCP - General Family Medicine 06/20/21 Akbar Barron [address] [place] [id number] Hematology/Oncology 08/10/23 Guilherme Norris MD, [address] [place] [address] Physician Radiation Oncology 09/15/23 Referral Nurse Relationship Specialty Start Date End Date Xena Arroyo MD [address] [place] [address] PCP - General Family Medicine 06/20/21 Akbar Barron [address] [place] [address] Hematology/Oncology 08/10/23 Guilherme Norris MD, [address] [place] [address] Physician Radiation Oncology 09/15/23 Referral Nurse Relationship Specialty Start Date End Date Xena Arroyo MD [address] [place] [address] PCP - General Family Medicine 06/20/21 Akbar Barron [address] [place] [address] Hematology/Oncology 08/10/23 Guilherme Norris MD, [address] [place] [address] Physician Radiation Oncology 09/15/23 Referral Nurse Relationship Specialty Start Date End Date Xena Arroyo MD [address] [place] [address] PCP - General Family Medicine 06/20/21 Akbar Barron [address] [place], [place] [address] Hematology/Oncology 08/10/23 Guilherme Norris MD, [address] [place], [place] [address] Physician Radiation Oncology 09/15/23 Referral Nurse Relationship Specialty Start Date End Date Xena Arroyo MD [address] [address] PCP - General [facility] 06/20/21 Akbar Barron [address] [place] [address] Hematology/Oncology 08/10/23 Guilherme Norris MD, [address] [place], [place] [address] Physician Radiation Oncology 09/15/23 Referral Nurse Relationship Specialty Start Date End Date Xena Arroyo MD [address] [place] [address] PCP - General Family Medicine 06/20/21 Akbar Barron [address] [place] [address] Hematology/Oncology 08/10/23 Guilherme Norris MD, [address] [place], [place] [phone] Physician Radiation Oncology 09/15/23 Referral Nurse Relationship Specialty Start Date End Date Xena Arroyo MD [address] [place], [place] [address] PCP - [facility] 06/20/21 Akbar Barron [address] [place] [address] Hematology/Oncology 08/10/23 Guilherme Norris MD, [address] [place] [address] Physician Radiation Oncology 09/15/23 Referral Nurse Relationship Specialty Start Date End Date Xena Arroyo MD [address] [place] [address] PCP - [facility] 06/20/21 Akbar Barron [address] [place] [address] Hematology/Oncology 08/10/23 Guilherme Norris MD, [address] [place] [address] Physician Radiation Oncology 09/15/23 Jorge Sharma MD [address] [place] [address] Hematology/Oncology 11/18/23 [employer], MEGAN [address] [place] [address] 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 [facility]. provides no warranty or guarantee of the accuracy or completeness of information in this document.
[2023-12-02 20:22] LABS: Absolute Lymphocyte Count 0.65 X10^3/uL (0.83-4.51); Absolute Neutrophil Count 2.2 X10^3/uL (2.0-7.7); Basophil# 0.03 X10^3/uL; Basophil% 0.9 % (0-1); Eosinophil# 0.05 X10^3/uL; Eosinophils% 1.5 % (0-5); Hematocrit 35.2 % (40-54); Hemoglobin 11.1 g/dL (13.0-16.5); Lymphocyte # 0.65 X10^3/ul (0.83-4.51); Lymphocyte % 19.3 % (19-41); Mean Corp Hgb Conc 31.5 g/dL (32-36); Mean Corpuscular Hgb 27.1 pg (27.0-32.0); Mean Corpuscular Volume 86.1 fL (80-94); Mean Platelet Vol. 8.9 fl (6.2-12.0); Monocyte# 0.41 X10^3/uL; Monocyte% 12.2 % (0-10); NRBC Flagged by Analyzer 0 % (0-5); Neutrophil # 2.18 X10^3/uL (2.7-7.7); Neutrophil % 64.6 % (47-70); Platelet Count 191 K/mm3 (150-450); RBC Distribution Width CV 17.5 % (11.6-14.6); RBC Distribution Width SD 52.2 fl (35.1-43.9); Red Blood Count 4.09 M/mm3 (4.6-6.2); White Blood Count 3.4 K/mm3 (4.4-11.0)
[2023-12-02 20:24] LABS: POSITIVE COUNT NO; POSITIVE DIFFERENTIAL NO; POSITIVE MORPHOLOGY NO
[2023-12-02 20:33] LABS: Bacteria 0 SEEN /hpf (None Seen); Mucous, Urine 0 SEEN /hpf (<or=2+); Red Blood Cells-Urine 0 SEEN /hpf (0-5)
--- NOTE | 2023-12-02 20:34 | EDS_ITS ---
HPI History of Present Illness Chief Complaint: Garcia C/O Informant: patient Narrative Narrative: Patient comes in complaining that he has burning and discomfort at the tip of his penis where the catheter goes in. If he moves the catheter it hurts. But the catheter is still draining. He is not having abdominal pain. No nausea and vomiting. He states otherwise he does not feel ill. But he then also states that he did not get to talk to people really before he was discharged and he was thinking he wanted rehab. PFSH PFSH Medical History Anxiety Argyria Argyria of skin Arthritis Back pain Cancer Colon cancer Depression Diabetes Dietary restriction High cholesterol History of pain when walking History of stress test HTN (hypertension) Hyperlipidemia Injury of back Lung cancer Numbness and tingling of hand Positive colorectal cancer screening using Cologuard test Shortness of breath on exertion Smoker Home Medications atorvastatin 10 mg tablet 10 mg PO QHS CHOLESTEROL 06/20/21 [History Last Taken 02/02/23] fluoxetine 20 mg capsule 20 mg PO DAILY DEPRESSION 06/20/21 [History Last Taken 02/02/23] lisinopril 5 mg tablet 5 mg PO DAILY BP 06/20/21 [History Last Taken 02/02/23] metformin 1,000 mg tablet 1,000 mg PO BID DIABETES 06/20/21 [History Last Taken 02/02/23] cholecalciferol (vitamin D3) 25 mcg (1,000 unit) capsule 50 mcg PO DAILY SUPPLEMENT 01/12/23 [History Last Taken 02/02/23] cephalexin 500 mg capsule 500 mg PO TID 21 days #63 caps 11/29/23 [Rx Last Taken Unknown] midodrine 5 mg tablet 10 mg (2 x 5 mg) PO TIDCM 30 days #180 tabs 11/29/23 [Rx Last Taken Unknown] potassium chloride 20 mEq tablet,extended release(part/cryst) 20 meq PO BIDCM 14 days #28 tabs 11/29/23 [Rx Last Taken Unknown] potassium, sodium phosphates 280 mg-160 mg-250 mg oral powder packet 1 packet PO TID 5 days #15 ea 11/29/23 [Rx Last Taken Unknown] tamsulosin 0.4 mg capsule (Flomax) 0.4 mg PO QHS #30 caps 11/29/23 [Rx Last Taken Unknown] Allergy/AdvReac Type Severity Reaction Status Date / Time No Known Allergies Allergy Verified 12/02/23 19:18 Family History Mother Diabetes Heart disease Father Myocardial infarction Sister Pancreatic cancer Brother Bladder cancer Surgical History History of cardiac catheterization History of laparoscopic cholecystectomy Hx of clubfoot correction Hx of colonoscopy with polypectomy Hx of foot surgery Hx of surgical procedure Social History household members: none current occupational status: retired current occupational exposures/hazards: No history of recent travel: No Smoking Status: Current every day smoker tobacco type: cigarettes Tobacco: How many years used: 40 second hand exposure: Yes alcohol intake: never substance use type: does not use diet: diabetic ROS ROS ED ROS Narrative A complete review of systems was performed and is negative except as documented in the history of present illness. Some specific details below. Constitutional: No recent fevers or chills. He may have had fevers in the hospital. EYE: No visual complaints or pain. ENT: No GERD. CV: No chest pain or palpitations. Respiratory: No dyspnea. No hemoptysis. No difficulty taking breaths. GI: Not having nausea and vomiting or diarrhea now. : See history of present illness. Musculoskeletal: No recent trauma. No pains. Skin: No rash. Nondiaphoretic. Neuro: No weakness or numbness. Endocrine: No polyuria or polydipsia. EXAM Physical Exam Narrative Exam Narrative: CONSTITUTIONAL: Patient is nontoxic in appearance. The patient looks comfortable. HEENT: No notable trauma. Mucous membranes moist. EYES: No conjunctival inflammation CARDIOVASCULAR: Regular rate. Regular rhythm. No notable murmur. No JVD. RESPIRATORY: No respiratory distress. Breathing is unlabored. No wheezes. Saturations are normal 97% on room air showing no hypoxia. GASTROINTESTINAL: Not distended. Bowel sounds are normal. No tenderness. No guarding. No rebound. No palpable mass. No bruit. GENITOURINARY: I do not feel distended bladder nor is there tenderness there. The tip of the penis has just a little bit of nonspecific swelling. There is little crusting near the tip of the Garcia as it enters. When I move the Garcia it does irritate the tip. But the catheter seems intact. It is draining. Urine looks normal. MUSCULOSKELETAL: Atraumatic. NEUROLOGICAL: Patient is alert and appropriate. No focal deficit noted. SKIN: Bluish tint due to's overuse not new. PSYCHIATRIC: Patient is calm. Mood is appropriate. Const Vital Signs: 12/02/23 19:19 Temperature 97.5 F L Temperature Source Temporal Pulse Rate 85 Respiratory Rate 18 Blood Pressure 107/64 Blood Pressure Mean 78 Pulse Ox 97 Oxygen Delivery Method Room Air MDM MDM MDM Narrative Medical decision making narrative: Patient's CBC is overall relatively normal. White count is not elevated. Slightly low. Hemoglobin is minimally low but its baseline. Patient's electrolytes look good. Glucose is just mildly bumped. No worsening kidney function. Patient's urine shows a few white cells but this is on a cath specimen. Overall looks quite clean. Culture will be sent because of indwelling catheter. I rechecked the patient. He states the lidocaine Uro-Jet did help a lot. We had talked about him wanting rehab. He states he would just like to get a little stronger. But he states he is getting up and moving around at home. It does not sound like he needs acute rehab but may be talking to his primary doctor about some strengthening would help. He states is harder because he has to carry the Garcia around and that makes it tough. He was not given a leg bag. When I mention a leg bag and how it can be used he thought that was a great idea. We will do that and I think he is okay for discharge. Lab Data Attestation: I reviewed the patient's lab results. Labs: Laboratory Results - last 24 hr 12/02/23 12/02/23 20:15 20:25 WBC 3.4 L RBC 4.09 L Hgb 11.1 L Hct 35.2 L MCV 86.1 D MCH 27.1 MCHC 31.5 L RDW Std Deviation 52.2 H RDW Coeff of Deion 17.5 H Plt Count 191 MPV 8.9 Immature Gran % (Auto) 1.500 H Neut % (Auto) 64.6 Lymph % (Auto) 19.3 Fountain % (Auto) 12.2 H Eos % (Auto) 1.5 Baso % (Auto) 0.9 Absolute Neuts (auto) 2.2 Absolute Lymphs (auto) 0.65 L Nucleated RBC % 0 Sodium 135 L Potassium 4.6 Chloride 102 Carbon Dioxide 29.0 Anion Gap 4 L BUN 12 Creatinine 0.95 Est GFR (MDRD) Af Amer 102 Est GFR (MDRD) Non-Af 84 BUN/Creatinine Ratio 12.7 Glucose 230 H Calcium 8.8 Urine Color Yellow Urine Clarity Clear Urine pH 6.5 Ur Specific [place] 1.015 Urine Protein 30 H Urine Glucose (UA) Normal Urine Ketones Negative Urine Occult Blood Negative Urine Nitrite Negative Urine Bilirubin Negative Urine Urobilinogen 4 H Ur Leukocyte Esterase 100 H Urine RBC 0 SEEN Urine WBC 5-10 SEEN Ur Squamous Epith Cells 0-5 SEEN Urine Bacteria 0 SEEN Urine Mucus 0 SEEN Discharge Plan Triage Chief Complaint: Garcia C/O ED Provider: Eric Reddy Dx/Rx/DC Orders Clinical Impression: Garcia catheter problem Instructions: Leg Bag Care Dc, ED Garcia Catheter, Care Prescriptions: No Action cholecalciferol (vitamin D3) 25 mcg (1,000 unit) capsule 50 mcg PO DAILY atorvastatin 10 mg tablet 10 mg PO QHS metformin 1,000 mg tablet 1,000 mg PO BID Patient Comments: take 1 tablet by mouth twice a day lisinopril 5 mg tablet 5 mg PO DAILY Hold Instructions: Resume on 12/06/23. Please continue to home as BP low normal range. Please have in office PCP repeat blood pressure check and if appropriate then may consider resuming at that time. Patient Comments: take 1 tablet by mouth once daily fluoxetine 20 mg capsule 20 mg PO DAILY Patient Comments: take 1 capsule by mouth every morning midodrine 5 mg Tablet 10 mg PO TIDCM 30 Days Qty: 180 0RF potassium chloride 20 mEq Tablet,Er Particles/Crystals 20 meq PO BIDCM 14 Days Qty: 28 0RF cephalexin 500 mg capsule 500 mg PO TID 21 Days Qty: 63 0RF tamsulosin [Flomax] 0.4 mg capsule 0.4 mg PO QHS Qty: 30 0RF potassium, sodium phosphates 280-160-250 mg Powder In Packet 1 packet PO TID 5 Days Qty: 15 0RF Primary Care Provider: Xena Arroyo Referrals: Xena Arroyo MD [Primary Care Provider] - As soon as possible Activity Restrictions/Additional Instructions: Talk to your doctor about home physical therapy and assistance. Disposition Disposition: Home, Self Care
[2023-12-02 20:38] LABS: Color, Urine Yellow (Yellow); Glucose, Dipstick Normal (Normal); Ketone-Dipstick Negative (Negative); Leukocyte Esterase-Dipstick 100 /ul (Negative); Nitrite-Dipstick Negative (Negative); Occult Blood-Urine Negative /ul (Negative); Protein-Dipstick 30 mg/dl (Negative); Specific Gravity, Urine 1.015 (1.002-1.030); Urine Bilirubin Dipstick Negative (Negative); Urine Clarity Clear (Clear); Urine Urobilinogen 4 mg/dl (Normal); Urine pH 6.5 (5.0 - 8.0)
[2023-12-02 20:41] LABS: Anion Gap 4 (5-15); BUN 12 mg/dL (7-18); BUN/Creat Ratio 12.7 RATIO (10-20); Calcium,Total 8.8 mg/dL (8.5-10.1); Chloride 102 mmol/L (98-107); Creatinine, Serum 0.95 mg/dL (0.70-1.30); EST Glomerular Filtration Rate 84 mL/min (>60); Est Glom Filt Rate - Afr Amer 102 mL/min (>60); Glucose 230 mg/dL (74-106); Potassium 4.6 mmol/L (3.5-5.1); Sodium Level 135 mmol/L (136-145)
[2023-12-02 20:48] LABS: Squamous Epithelial Cells - UA 0-5 SEEN /hpf (0-5); White Blood Cells 5-10 SEEN /hpf (0-5)
[2023-12-02 20:52] VITALS: BMI 25.2
[2023-12-02] MEDS: Lidocaine Jelly 2% 20 ML Syringe (URO-JET) 1 APPLIC TOPICAL (20:53)
== END 2023-12-02 22:47 | disposition home or self-care (01) ==
PROVIDERS: Emergency Provider Emergency Medicine; PCP Family Medicine; Visit Provider Emergency Medicine
DX: T83.84XA Pain due to genitourinary prosthetic devices, implants and grafts, initial encounter (principal); E11.9 Type 2 diabetes mellitus without complications; X58.XXXA Exposure to other specified factors, initial encounter; I10 Essential (primary) hypertension; E78.00 Pure hypercholesterolemia, unspecified; F17.210 Nicotine dependence, cigarettes, uncomplicated; Z79.84 Long term (current) use of oral hypoglycemic drugs; Z79.899 Other long term (current) drug therapy
CPT/HCPCS: 80048; 81001; 85025; 87086; 99282; A4216

== ENCOUNTER 2023-12-08 14:02 | Emergency (ER) | payer MEDICARE, MEDICAID, SELFPAY ==
[2023-12-08 14:05] VITALS: BP 85/54; PULSE 96; RESP 17; TEMP 36.4; O2SAT 99; BMI 25.9
--- NOTE | 2023-12-08 14:07 | EX.ED.DYSGE1 ---
HPI History of Present Illness Chief Complaint: Dizziness PFSH PFSH Medical History Anxiety Argyria Argyria of skin Arthritis Back pain Cancer Colon cancer Depression Diabetes Dietary restriction High cholesterol History of pain when walking History of stress test HTN (hypertension) Hyperlipidemia Injury of back Lung cancer Numbness and tingling of hand Positive colorectal cancer screening using Cologuard test Shortness of breath on exertion Smoker Home Medications atorvastatin 10 mg tablet 10 mg PO QHS CHOLESTEROL 06/20/21 [History Last Taken 02/02/23] fluoxetine 20 mg capsule 20 mg PO DAILY DEPRESSION 06/20/21 [History Last Taken 02/02/23] lisinopril 5 mg tablet 5 mg PO DAILY BP 06/20/21 [History Last Taken 02/02/23] metformin 1,000 mg tablet 1,000 mg PO BID DIABETES 06/20/21 [History Last Taken 02/02/23] cholecalciferol (vitamin D3) 25 mcg (1,000 unit) capsule 50 mcg PO DAILY SUPPLEMENT 01/12/23 [History Last Taken 02/02/23] cephalexin 500 mg capsule 500 mg PO TID 21 days #63 caps 11/29/23 [Rx Last Taken Unknown] midodrine 5 mg tablet 10 mg (2 x 5 mg) PO TIDCM 30 days #180 tabs 11/29/23 [Rx Last Taken Unknown] potassium chloride 20 mEq tablet,extended release(part/cryst) 20 meq PO BIDCM 14 days #28 tabs 11/29/23 [Rx Last Taken Unknown] potassium, sodium phosphates 280 mg-160 mg-250 mg oral powder packet 1 packet PO TID 5 days #15 ea 11/29/23 [Rx Last Taken Unknown] tamsulosin 0.4 mg capsule (Flomax) 0.4 mg PO QHS #30 caps 11/29/23 [Rx Last Taken Unknown] Allergy/AdvReac Type Severity Reaction Status Date / Time No Known Allergies Allergy Verified 12/02/23 19:18 Family History Mother Diabetes Heart disease Father Myocardial infarction Sister Pancreatic cancer Brother Bladder cancer Surgical History History of cardiac catheterization History of laparoscopic cholecystectomy Hx of clubfoot correction Hx of colonoscopy with polypectomy Hx of foot surgery Hx of surgical procedure Social History household members: none current occupational status: retired current occupational exposures/hazards: No history of recent travel: No Smoking Status: Current every day smoker tobacco type: cigarettes Tobacco: How many years used: 40 second hand exposure: Yes alcohol intake: never substance use type: does not use diet: diabetic EXAM Physical Exam Const Vital Signs: 12/08/23 14:05 12/08/23 14:30 12/08/23 15:13 Temperature 97.5 F L Temperature Source Oral Pulse Rate 96 85 Respiratory Rate 17 17 Respiratory Effort Normal Respiratory Pattern Normal Blood Pressure 85/54 L 111/71 Blood Pressure Mean 64 84 Pulse Ox 99 99 Oxygen Delivery Method Room Air Room Air 12/08/23 16:52 12/08/23 17:39 12/08/23 18:29 Temperature Temperature Source Pulse Rate 94 109 H 101 H Respiratory Rate 16 22 H 23 H Respiratory Effort Respiratory Pattern Blood Pressure 133/99 H 124/69 H 93/56 L Blood Pressure Mean 110 87 68 Pulse Ox 99 100 100 Oxygen Delivery Method Room Air Room Air Room Air 12/08/23 18:59 Temperature 97.3 F L Temperature Source Pulse Rate 102 H Respiratory Rate 20 H Respiratory Effort Respiratory Pattern Blood Pressure 130/62 H Blood Pressure Mean 84 Pulse Ox 96 Oxygen Delivery Method MDM MDM MDM Narrative Medical decision making narrative: HISTORY OF PRESENT ILLNESS: 68-year-old male presents with lightheadedness. States lightheadedness is exacerbated by standing. This is been going on for several days. Denies any decreased p.o. intake. Denies any chest pain. Denies palpitations. Denies focal weakness. Notes he has a Garcia catheter in but is been doing the usual amount of urine. Denies any change in color or consistency. Denies any diarrhea. Denies any falls or head trauma. States when he stands up he gets more lightheaded. States it improves with rest. Denies any shortness of breath or cough. Denies recent fever or chills. Denies any back pain or abdominal pain. REVIEW OF SYSTEMS: Pertinent positives: Lightheadedness upon standing Pertinent negatives: As per HPI PHYSICAL EXAM: Nursing triage notes reviewed, Vital signs reviewed Constitutional: please see mdm HENT: MMM Eyes: Pupils equal round and reactive to light, Extraocular muscles intact Neck: No stridor, no JVD, full neck ROM Lungs: Clear to auscultation, No wheezing or rales. No increased work of breathing, no conversational dyspnea, no accessory muscle use, no nasal flaring. No respiratory distress noted Heart: Regular rate and rhythm, No murmurs, No rubs and No gallops, 2+ distal pulses (radial, femoral, posterior tibial) in all extremities Abdomen: Soft, there is no tenderness, rigidity, rebound or guarding, no obvious peritoneal signs, no palpable pulsatile abdominal masses, no auscultated abdominal bruit : No CVAT Extremities: No edema Neuro: Alert and oriented x3, neuro exam at baseline, cranial nerves II through XII are intact. No pain with extraocular muscle movement. There is negative test of skew. 5 of 5 strength in upper and lower extremities in flexion extension. Intact sensation to light touch in upper and lower extremity dermatomes. No truncal or extremity ataxia. No dysdiadochokinesia. Normal gait. 2+ reflexes in upper and lower extremities. No meningeal signs. Negative Babinski. NIH of 0. Skin: No rash or lesions noted MEDICAL DECISION MAKING: Chief Complaint: Weakness, dizziness External records reviewed: Last ED visit in November 2021 for Garcia catheter problem. Admitted to the hospital 10 days ago for sepsis secondary to pyelonephritis. CT scan abdomen pelvis with contrast shows left pyelonephritis and ureteral inflammation. Factors affecting care: Argyria, hypertension, hyperlipidemia, lung cancer, tobacco use, type 2 diabetes Social determinants of health: none History obtained from others: none Consults: none Goals of care discussion, DNR CCA MDM Narrative: Patient was initially I considered the following differential diagnosis: Dehydration, ACS, arrhythmia, anemia, UTI, ALL IMAGES (IF OBTAINED) HAVE BEEN PERSONALLY REVIEWED AND INTERPRETED BY MYSELF. EKG with normal sinus rhythm, normal axis, normal intervals, no obvious STEMI,No significant changes when compared to EKG from November 2023 CBC with no leukocytosis to suggest systemic inflammation, mild improved anemia from prior, no thrombocytopenia CMP with mild baseline hyponatremia, no other electrolyte abnormalities, no anion gap elevation to suggest endorgan hypoperfusion, no acute kidney injury, no evidence of hepatobiliary obstruction or pathology High-sensitivity troponin is negative, no evidence of myocardial ischemia Lipase is wnl indicating no pancreatic inflammation. Initial lactate elevated to 5.4 consistent with endorgan hypoperfusion versus dehydration I have personally reviewed the patient's chest x-ray. Chest x-ray is unremarkable for pulmonary edema, pneumothorax, pneumonia or focal cardiopulmonary abnormality. COVID, RSV and flu are negative Urine shows evidence of inflammation however this likely secondary to recent Garcia catheter removal rather than infection. In addition to this patient is already on Keflex. Repeat lactate showed complete resolution initial elevation The synthesis of the patient is history, physical exam labs and images suggest no acute life-limiting etiology. Suspect the patient's symptoms of lightheadedness, diffuse weakness and dizziness are secondary to dehydration as evidenced by improvement in blood pressure, symptoms and resolution of initial elevated lactate. No source of severe infection was noted. I did offer the patient mission for observation given initial complaint of hypotension however he refused stating he like to go home drink plenty of p.o. fluids and return if symptoms change or worsen. Patient had capacity make his own medical decisions be discharged at this time. Of note the patient's Garcia catheter was removed today. He states he was supposed removed a while ago . After Garcia removed patient able to void spontaneously. He passed his voiding trial and does not need a Garcia there is no evidence of urinary retention. Patient is currently on Keflex that should cover that mild inflammation noted in his urine. The patient and/or family, caregivers express understanding. The patient and/or family, caregivers agrees with the plan. Shared decision making: I will have a discussion with the patient and or visitors regarding risk/benefits of further testing or admission. They will be made aware of of the risk/benefits inherent in this decision they will be given the opportunity to voice understanding. Total critical care time today provided was at least 0 minutes. This excludes separately billable procedures. Critical care time (if documented) is secondary to the patient having high probability of clinically significant/life threatening deterioration in the patient's condition which required my urgent intervention. Impression: 1. Hypotension 2. Dehydration 3. Hyponatremia 4. Agyria Dispo: discharge This note was generated with [employer] dictation software. It may contain incorrect words, spelling, and punctuation that were not noted in review of the chart prior to signing. Lab Data Labs: Laboratory Results - last 24 hr 12/08/23 12/08/23 12/08/23 14:15 14:20 16:48 WBC 7.1 RBC 4.45 L Hgb 12.5 L Hct 39.6 L MCV 89.0 MCH 28.1 MCHC 31.6 L RDW Std Deviation 60.9 H RDW Coeff of Deion 18.8 H Plt Count 325 MPV 8.4 Immature Gran % (Auto) 4.500 H Neut % (Auto) 70.3 H Lymph % (Auto) 13.6 L Blaine % (Auto) 9.8 Eos % (Auto) 0.1 Baso % (Auto) 1.7 H Absolute Neuts (auto) 5.0 Absolute Lymphs (auto) 0.97 Nucleated RBC % 0 Sodium 135 L Potassium 5.1 Chloride 105 Carbon Dioxide 22.0 Anion Gap 8 BUN 21 H Creatinine 1.30 Estim Creat Clear Calc 53.35 Est GFR (MDRD) Af Amer 71 Est GFR (MDRD) Non-Af 59 L BUN/Creatinine Ratio 16.2 Glucose 160 H Lactic Acid 5.4 H* Calcium 9.5 Total Bilirubin 0.30 Direct Bilirubin 0.14 AST 28 ALT 28 Alkaline Phosphatase 103 Troponin I High Sens 32 Total Protein 7.8 Albumin 3.0 L Globulin 4.8 H Lipase 57 Urine Color Yellow Urine Clarity Clear Urine pH 6.5 Ur Specific [place] 1.010 Urine Protein 15 H Urine Glucose (UA) Normal Urine Ketones Negative Urine Occult Blood 10 H Urine Nitrite Negative Urine Bilirubin Negative Urine Urobilinogen Normal Ur Leukocyte Esterase 100 H Urine RBC 0-5 SEEN Urine WBC 5-10 SEEN Ur Squamous Epith Cells 0 SEEN Urine Bacteria 0 SEEN Urine Mucus 0 SEEN 12/08/23 17:35 WBC RBC Hgb Hct MCV MCH MCHC RDW Std Deviation RDW Coeff of Deion Plt Count MPV Immature Gran % (Auto) Neut % (Auto) Lymph % (Auto) Blaine % (Auto) Eos % (Auto) Baso % (Auto) Absolute Neuts (auto) Absolute Lymphs (auto) Nucleated RBC % Sodium Potassium Chloride Carbon Dioxide Anion Gap BUN Creatinine Estim Creat Clear Calc Est GFR (MDRD) Af Amer Est GFR (MDRD) Non-Af BUN/Creatinine Ratio Glucose Lactic Acid 1.9 Calcium Total Bilirubin Direct Bilirubin AST ALT Alkaline Phosphatase Troponin I High Sens Total Protein Albumin Globulin Lipase Urine Color Urine Clarity Urine pH Ur Specific [place] Urine Protein Urine Glucose (UA) Urine Ketones Urine Occult Blood Urine Nitrite Urine Bilirubin Urine Urobilinogen Ur Leukocyte Esterase Urine RBC Urine WBC Ur Squamous Epith Cells Urine Bacteria Urine Mucus Radiography Diagnostic Testing: Clinical Impression(s) from Imaging Studies Chest X-Ray 12/08/23 14:45 IMPRESSION: Hyperinflation. The lungs are clear. Electronically Signed: Oseas Edgar MD at 15:07 EST , Discharge Plan Triage Chief Complaint: Dizziness ED Provider: Dariel Lemon Dx/Rx/DC Orders Clinical Impression: Acute dehydration Instructions: ED Dehydration (Adult) Prescriptions: No Action cholecalciferol (vitamin D3) 25 mcg (1,000 unit) capsule 50 mcg PO DAILY atorvastatin 10 mg tablet 10 mg PO QHS metformin 1,000 mg tablet 1,000 mg PO BID Patient Comments: take 1 tablet by mouth twice a day lisinopril 5 mg tablet 5 mg PO DAILY Hold Instructions: Resume on 12/06/23. Please continue to home as BP low normal range. Please have in office PCP repeat blood pressure check and if appropriate then may consider resuming at that time. Patient Comments: take 1 tablet by mouth once daily fluoxetine 20 mg capsule 20 mg PO DAILY Patient Comments: take 1 capsule by mouth every morning midodrine 5 mg Tablet 10 mg PO TIDCM 30 Days Qty: 180 0RF potassium chloride 20 mEq Tablet,Er Particles/Crystals 20 meq PO BIDCM 14 Days Qty: 28 0RF cephalexin 500 mg capsule 500 mg PO TID 21 Days Qty: 63 0RF tamsulosin [Flomax] 0.4 mg capsule 0.4 mg PO QHS Qty: 30 0RF potassium, sodium phosphates 280-160-250 mg Powder In Packet 1 packet PO TID 5 Days Qty: 15 0RF Primary Care Provider: Xena Arroyo Referrals: Xena Arroyo MD [Primary Care Provider] - Activity Restrictions/Additional Instructions: Thank you for trusting us with your care today! Please take Tylenol (2 pills, 650 mg), ibuprofen (2 pills, 400 mg) every 6 hours as needed for pain and fever control. Please return to the emergency department if your symptoms change or worsen. Please follow with your primary care physician for further outpatient evaluation and management. Disposition Disposition: Home, Self Care Discharge Date/Time: 12/08/23 19:05
--- NOTE | 2023-12-08 14:10 | EKG12_ITS ---
Test Reason : SOB Blood Pressure : / mmHG Vent. Rate : 071 BPM Atrial Rate : 071 BPM P-R Int : 172 ms QRS Dur : 088 ms QT Int : 374 ms P-R-T Axes : 074 062 -75 degrees QTc Int : 406 ms Sinus rhythm with marked sinus arrhythmia Nonspecific ST and T wave abnormality Abnormal ECG Confirmed by Raymond Underwood ([id number]), copy editor MILA LIZ ([id number]) on 12/09/2023 8:07:48 AM Referred By: Confirmed By:Raymond Underwood
[2023-12-08] MEDS: 0.9% Normal Saline (1000mL) 1,000 ML 1000 ML IV (14:19)
[2023-12-08 14:34] LABS: Absolute Lymphocyte Count 0.97 X10^3/uL (0.83-4.51); Basophil# 0.12 X10^3/uL; Basophil% 1.7 % (0-1); Eosinophil# 0.01 X10^3/uL; Eosinophils% 0.1 % (0-5); Hematocrit 39.6 % (40-54); Hemoglobin 12.5 g/dL (13.0-16.5); Lymphocyte # 0.97 X10^3/ul (0.83-4.51); Lymphocyte % 13.6 % (19-41); Mean Corp Hgb Conc 31.6 g/dL (32-36); Mean Corpuscular Hgb 28.1 pg (27.0-32.0); Mean Platelet Vol. 8.4 fl (6.2-12.0); Monocyte% 9.8 % (0-10); NRBC Flagged by Analyzer 0 % (0-5); Neutrophil # 5.01 X10^3/uL (2.7-7.7); Neutrophil % 70.3 % (47-70); Platelet Count 325 K/mm3 (150-450); RBC Distribution Width CV 18.8 % (11.6-14.6); RBC Distribution Width SD 60.9 fl (35.1-43.9); Red Blood Count 4.45 M/mm3 (4.6-6.2); White Blood Count 7.1 K/mm3 (4.4-11.0)
--- NOTE | 2023-12-08 14:45 | RAD_ITS ---
STUDY: X-RAY CHEST REASON FOR EXAM: Male, 68 years old. Weakness TECHNIQUE: Single AP portable view of the chest. COMPARISON: Comparison is made with prior study dated November 25, 2023. FINDINGS: EKG electrodes are seen. There is hyperinflation of the lungs consistent with chronic obstructive lung disease (COPD). There is no demonstrated pleural abnormality. Normal size heart. Normal mediastinum and ramakrishna. Normal visualized pulmonary arteries. There is atherosclerotic calcification of the aortic arch with tortuosity. There are diffuse degenerative changes of the visualized thoracic spine. Normal visualized ribs, clavicles, and shoulders. There is no demonstrated abnormality of the visualized soft tissue structures of the upper abdomen. RAD/Chest 1 View (Portable) IMPRESSION: Hyperinflation. The lungs are clear. Electronically Signed: Oseas Edgar MD at 15:07 EST ,
[2023-12-08 14:52] LABS: AST(SGOT) 28 U/L (15-37); Alanine Aminotransfer ALT/SGPT 28 U/L (16-61); Alkaline Phosphatase 103 U/L (45-117); Anion Gap 8 (5-15); BUN 21 mg/dL (7-18); BUN/Creat Ratio 16.2 RATIO (10-20); Bilirubin, Direct 0.14 mg/dL (0.00-0.30); Calcium,Total 9.5 mg/dL (8.5-10.1); Chloride 105 mmol/L (98-107); EST Glomerular Filtration Rate 59 mL/min (>60); Est Glom Filt Rate - Afr Amer 71 mL/min (>60); Estimated Creatinine Clearance 53.35 ml/min; Globulin 4.8 g/dL (2.2-4.2); Glucose 160 mg/dL (74-106); Lipase 57 U/L (13-75); Potassium 5.1 mmol/L (3.5-5.1); Protein, Total 7.8 g/dL (6.4-8.2); Sodium Level 135 mmol/L (136-145); Troponin-I HS 32 pg/mL (3.0-78.0)
--- NOTE | 2023-12-08 15:12 | ED.RN ---
This RN removing catheter to see if pt can void. Penis is extremely swollen with pain on tip. Dr. Lemon notified.
[2023-12-08 15:13] VITALS: BP 111/71; PULSE 85; RESP 17; O2SAT 99
[2023-12-08 15:31] LABS: Lactic Acid 5.4 mmol/L (0.4-1.9)
--- NOTE | 2023-12-08 15:31 | ED.RN ---
LACTIC 5.4. AWARE
[2023-12-08] MEDS: 0.9% Normal Saline (1000mL) 1,000 ML 999 ML IV ×3 (15:40→15:46)
[2023-12-08 16:52] VITALS: BP 133/99; PULSE 94; RESP 16; O2SAT 99
[2023-12-08 16:56] LABS: Bacteria 0 SEEN /hpf (None Seen); Mucous, Urine 0 SEEN /hpf (<or=2+); Squamous Epithelial Cells - UA 0 SEEN /hpf (0-5)
[2023-12-08 17:15] LABS: Color, Urine Yellow (Yellow); Glucose, Dipstick Normal (Normal); Ketone-Dipstick Negative (Negative); Leukocyte Esterase-Dipstick 100 /ul (Negative); Nitrite-Dipstick Negative (Negative); Occult Blood-Urine 10 /ul (Negative); Protein-Dipstick 15 mg/dl (Negative); Urine Bilirubin Dipstick Negative (Negative); Urine Clarity Clear (Clear); Urine Urobilinogen Normal (Normal); Urine pH 6.5 (5.0 - 8.0)
[2023-12-08 17:27] LABS: Red Blood Cells-Urine 0-5 SEEN /hpf (0-5); White Blood Cells 5-10 SEEN /hpf (0-5)
[2023-12-08 17:39] VITALS: BP 124/69; PULSE 109; RESP 22; O2SAT 100
[2023-12-08 18:06] LABS: Lactic Acid 1.9 mmol/L (0.4-1.9)
[2023-12-08 18:29] VITALS: BP 93/56; PULSE 101; RESP 23; O2SAT 100
[2023-12-08 18:59] VITALS: BP 130/62; PULSE 102; RESP 20; TEMP 36.3; O2SAT 96
[2023-12-08 19:06] LABS: Reflex Lactate? Y
== END 2023-12-08 19:05 | disposition home or self-care (01) ==
PROVIDERS: Emergency Provider Emergency Medicine; PCP Family Medicine; Visit Provider Emergency Medicine
DX: E86.0 Dehydration (principal); E11.9 Type 2 diabetes mellitus without complications; I10 Essential (primary) hypertension; I95.1 Orthostatic hypotension; E87.1 Hypo-osmolality and hyponatremia; F17.210 Nicotine dependence, cigarettes, uncomplicated; Z79.84 Long term (current) use of oral hypoglycemic drugs; Z79.899 Other long term (current) drug therapy
CPT/HCPCS: 71045; 80048; 80076; 81001; 83605; 83690; 84484; 85025; 87040; 87631; 93005; 96360; 96361; 99284; J7030; A4216

== ENCOUNTER → 2024-04-11 | Outpatient (CLI) | payer MEDICARE, MEDICAID, SELFPAY ==
--- NOTE | 2024-04-11 10:42 | VDUE_ITS ---
Reason For Study: CONCERN FOR IV CATHETER Right Proximal Left Proximal Right jugular vein is spontaneous, widely Left subclavian vein is spontaneous, widely patent, phasic, with no intraluminal patent, phasic, with no intraluminal echogenicity noted. echogenicity noted. Right subclavian vein is spontaneous, widely patent, phasic, with no intraluminal echogenicity noted. Right Lower Arm Right radial vein is compressible. Right ulnar vein is compressible. Right Arm Right axillary vein is spontaneous, patent, phasic, competent, compressible and demonstrates augmentation. Right brachial vein is compressible. Superficial vein thrombosis in Rt CephalicV in distal forearm. Right basilic vein is compressible. Patient Safety Preliminary report given to Ana Luisa GUZMAN. VL/Venous Duplex US, Unilateral Interpretation Summary Acute superficial vein thrombosis noted in the right forearm cephalic vein Deep veins of the right upper extremity are patent and compressible segmentally . There is no evidence of deep vein thrombosis. Ordering Physician: Xena Arroyo Referring Physician: Xena Arroyo Performed By: Arabella Kearney RVT and Student ???
== END | disposition home or self-care (01) ==
LOC: CVS 10:40
PROVIDERS: PCP Family Medicine; Referring Provider Family Medicine; Visit Provider Family Medicine
DX: M79.601 Pain in right arm (principal)
CPT/HCPCS: 93971

== ENCOUNTER → 2025-10-12 | Outpatient (CLI) | payer MEDICARE, MEDICAID, SELFPAY ==
[2025-10-12 16:45] LABS: Hematocrit 39.3 % (40-54); Hemoglobin 13.2 g/dL (13.0-16.5); Immature Granulocytes Count 0.040 X10^3/uL (0.0-0.0); Mean Corp Hgb Conc 33.6 g/dL (32-36); Mean Corpuscular Volume 94.0 fL (80-94); Mean Platelet Vol. 9.2 fl (6.2-12.0); NRBC Flagged by Analyzer 0 % (0-5); Platelet Count 152 K/mm3 (150-450); RBC Distribution Width CV 13.3 % (11.6-14.6); RBC Distribution Width SD 46.1 fl (35.1-43.9); Red Blood Count 4.18 M/mm3 (4.6-6.2); White Blood Count 7.4 K/mm3 (4.4-11.0)
[2025-10-12 16:50] LABS: Creatinine, Urine (random) 148.00 mg/dL (39.00-259.00); Microalbumin,Random Urine 36.9 mg/L (<20 mg/L)
[2025-10-12 17:26] LABS: Cholesterol 167 mg/dL (<=200); Low Density Lipoprotein Calc. 93 mg/dL; Triglycerides 148 mg/dL; Very Low Density Lipoprotein 30 mg/dL (5-40); cholesterol:hdl ratio screen 3.50
[2025-10-12 17:27] LABS: AST(SGOT) 25 U/L (<=37); Alanine Aminotransfer ALT/SGPT 16 U/L (<=46); Albumin, Serum 4.1 g/dL (3.4-4.8); Alkaline Phosphatase 78 U/L (40-129); Anion Gap 14 (5-15); BUN 22 mg/dL (4-19); BUN/Creat Ratio 18.3 RATIO (10-20); Calcium,Total 10.1 mg/dL (7.6-11.0); Carbon Dioxide 22.5 mmol/L (21.0-32.0); Chloride 98 mmol/L (98-108); Globulin 3.3 g/dL (2.2-4.2); Glucose 140 mg/dL (70-99); Potassium 4.4 mmol/L (3.3-5.1)
== END | disposition home or self-care (01) ==
LOC: LAB 14:48
PROVIDERS: PCP Family Medicine; Referring Provider Family Medicine; Visit Provider Family Medicine
DX: E11.9 Type 2 diabetes mellitus without complications (principal); E78.5 Hyperlipidemia, unspecified; K76.0 Fatty (change of) liver, not elsewhere classified
CPT/HCPCS: 36415; 80053; 80061; 82043; 82570; 85025